=== PATIENT | female | born 1930 | race Caucasian/White ===

== ENCOUNTER 2016-10-05 12:23 | Inpatient (IN) | payer OTHER ==
[~2016-10-05] VITALS: Ht 160 cm; Wt 52.9 kg
[~2016-10-05 12:23] MED LIST: AMLO5TAB2 PO; APR25 PO; ASPCH81X PO; ATOR-22 PO; CYAN500T13 PO; ISOS30TA3 PO; LEVO50TA6 PO; LOSA1TAB PO; MIRT15TA PO; NTRGSL4 UT; OMEP20CA9 PO; PRED-301 PO; SOTA80TA PO; WARF5TAB7 PO
[2016-10-05] MEDS ORDERED: SODIUM CHLORIDE 0.9% 1000ML 1,000 ML IV STA (12:59)
[2016-10-05 13:20] LABS: BASO % 0.3 %; BASO ABS # 0.03 K/uL (0-0.2); COMPLETE YES; EOS % 1.3 %; HEMATOCRIT 40.7 % (37-47); IG% 0.2 %; LYMPH % 10.2 %; LYMPH ABS # 1.14 K/uL (1.2-3.4); MEAN CELL VOLUME 98.3 fL (80-100); MEAN CORPUSCULAR HEMOGLOBIN 31.4 pg (25-34); MEAN CORPUSCULAR HGB CONC 31.9 g/dl (32-36); MEAN PLATELET VOLUME 10.3 fL (7.4-10.4); MONO % 4.9 %; NEUT % 83.1 %; PLATELET COUNT 289 K/uL (130-400); RED BLOOD COUNT 4.14 M/uL (4.2-5.4); WHITE BLOOD COUNT 11.19 K/uL (4.8-10.8)
[2016-10-05 13:39] LABS: BUN/CREATININE RATIO 18.6 (10-20); CALCIUM 8.9 mg/dl (8.5-10.1); CREATININE 1.3 mg/dl (0.60-1.20); POTASSIUM 4.5 mmol/L (3.5-5.1)
[2016-10-05 13:55] LABS: INR 2.5 (0.9-1.1); PROTHROMBIN TIME (PATIENT) 27.9 SECONDS (9.0-12.0)
[2016-10-05 14:01] LABS: URINE APPEARANCE CLEAR (CLEAR); URINE BILIRUBIN NEG (NEG); URINE COLOR YELLOW; URINE NITRITE NEG (NEG); URINE SPECIFIC GRAVITY 1.012 (1.000-1.030); UROBILINOGEN NEG (NEG); ZZUR CULT IF INDIC CLEAN CATCH NO
[2016-10-05 14:08] LABS: MANUAL MICROSCOPIC REQUIRED? NO; REVIEW REQ? NO
--- NOTE | 2016-10-05 14:09 | DIAGNOSTIC IMAGING REPORT ---
CT SCAN OF THE BRAIN WITHOUT IV CONTRAST CLINICAL HISTORY: Fall. Headache. And correlated patient. COMPARISON STUDY: CT of the brain dated 07/28/2015. TECHNIQUE: Unenhanced axial CT scan of the brain is performed from the vertex to the skull base. CT DOSE: 537.48 mGy.cm FINDINGS: Brain parenchyma: There are age-related involutional changes noting moderate subcortical and periventricular microangiopathic change. There is no hemorrhage, mass effect, or evidence of acute territorial ischemia by CT criteria. Soliman-white matter is preserved. No extra-axial fluid collection is seen. Ventricles, sulci, cisterns: Prominent secondary to involutional change. Intracranial vasculature: There is atherosclerotic calcification of the cavernous carotid and vertebral arteries. Calvarium: The skeletal structures are osteopenic. No depressed calvarial fracture is seen. Sinuses and mastoids: The visualized paranasal sinuses are clear. The mastoid air cells are well pneumatized. Orbits: The bony orbits are grossly intact. There are bilateral ocular lens implants. IMPRESSION: There is no hemorrhage, mass effect, or evidence of acute territorial ischemia by CT criteria. Electronically signed by: Harry George M.D. 10/05/2016 2:08 PM Dictated Date/Time: 10/05/2016 2:06 PM
--- NOTE | 2016-10-05 14:12 | EMERGENCY ROOM VISIT NOTE ---
History Report prepared by Cali: Noreen Waggoner Under the Supervision of: Dr. Wily Greene M.D. First contact with patient: 12:45 Chief Complaint: HYPERTENSION Stated Complaint: HIGH BLOOD PRESSURE History of Present Illness The patient is an 86 year old female who presents to the Emergency Room with complaints of an episode of hypertension starting a week ago. The patient states that her son in law came and told her she should check it and it was 180 / something. She reports that when she checked it again the next morning it was back to normal so she thought nothing of it. She reports that the past few days she hasn't been feeling well and thought it was due to her hypertension. She states that when she took her BP today it was 213/87. She states that she called her PCP and they told her to come to the ED. The patient complains of fatigue, lightheadedness, and shortness of breath with exertion that is unchanged from her baseline. The patient denies chest pain, nausea, vomiting, urinary symptoms, and forgetting to take her medicine. The patient notes that two weeks ago she fell in her garden and hit her head hard. She reports that she is on Coumadin and denies loss of consciousness. She notes a history of a heart attack and atrial fibrillation. Source of History: patient Onset: a week ago Position: other (global) Quality: other (global) Timing: other (episode) Modifying Factors (Worsening): exertion Associated Symptoms: + SOB, + fatigue, No LOC, No chest pain, No nausea, No vomiting, No urinary symptoms Note: The patient complains of lightheadedness. The patient denies forgetting to take her medicine. Review of Systems See HPI for pertinent positives and negatives. A total of ten systems were reviewed and were otherwise negative. Past Medical & Surgical Medical Problems: (1) Afib (2) Anxiety (3) CAD (coronary artery disease) (4) CKD (chronic kidney disease) stage 3, GFR 30-59 ml/min (5) Dyslipidemia (6) Elevated troponin (7) Esophageal dysmotility (8) Gastroesophageal reflux (9) Hypertensive urgency (10) Hypothyroidism (11) Insomnia (12) Paroxysmal atrial fibrillation (13) PMR (polymyalgia rheumatica) (14) Raynauds disease (15) Urge incontinence Surgical Problems: (1) History of D&C (2) Hx of tonsillectomy Family History No pertinent family history Social History Smoking Status: Never Smoker Alcohol Use: none Marital Status: Housing Status: lives with family Occupation Status: retired Current/Historical Medications Scheduled Amlodipine Besylate (Amlodipine Besylate), 2.5 MG PO DAILY Aspirin (Aspirin Chewable), 81 MG PO QAM Atorvastatin (Atorvastatin Calcium), 1 DAILY Clonidine HCl (Clonidine HCl), 0.1 DAILY Docusate Sodium (Colace), 1 CAP PO BID Levothyroxine Sodium (Synthroid), 1 TAB DAILY Losartan Potassium (Cozaar), 50 MG PO DAILY Mirtazapine (Remeron), 0.5 TAB PO HS Prednisone (Prednisone), 5 MG PO DAILY Sotalol Hcl (Sotalol Hcl), 40 MG PO BID Sotalol Hcl (Sotalol Hcl), 0.5 TAB PO BID Warfarin Sod (Jantoven), 5 MG PO QPM Scheduled PRN Nitroglycerin (Nitrostat), 1 TAB UT UD PRN for chest pain or esophageal spasm Senna (Senna Lax), 1 for Constipation Miscellaneous Medications Polyethylene (Miralax) Allergies Coded Allergies: No Known Allergies (Unverified , 08/29/15) Physical Exam Vital Signs Date Time Temp Pulse Resp B/P (MAP) Pulse Ox O2 Delivery O2 Flow Rate FiO2 10/05/16 19:00 Room Air 10/05/16 18:31 58 18 117/53 94 Room Air 10/05/16 17:19 67 28 132/96 97 Room Air 10/05/16 17:04 62 10/05/16 14:23 54 18 113/57 94 Room Air 10/05/16 13:30 98/57 10/05/16 13:28 56 20 130/73 95 Room Air 10/05/16 13:00 65 10/05/16 12:58 64 18 125/65 96 Room Air 10/05/16 12:58 97 Room Air 10/05/16 12:28 36.4 65 18 190/91 98 Room Air Physical Exam GENERAL: Awake, alert, well-appearing, in no acute distress. Fatigue. HENT: Normocephalic, atraumatic. Dry mucus membranes. EYES: Normal conjunctiva. Sclera non-icteric. NECK: Supple. No nuchal rigidity. FROM. No JVD. RESPIRATORY: Clear to auscultation. CARDIAC: Regular rate, normal rhythm. Extremities warm and well perfused. Pulses equal. ABDOMEN: Soft, non-distended. No tenderness to palpation. No rebound or guarding. No masses. RECTAL: Deferred. MUSCULOSKELETAL: Chest examination reveals no tenderness. The back is symmetrical on inspection without obvious abnormality. There is no CVA tenderness to palpation. No joint edema. LOWER EXTREMITIES: Calves are equal size bilaterally and non-tender. No edema. No discoloration. NEURO: Normal sensorium. No sensory or motor deficits noted. SKIN: No rash or jaundice noted. Medical Decision & Procedures ER Provider Diagnostic Interpretation: Radiology results as stated below per my review and radiologist interpretation: CHEST ONE VIEW PORTABLE CLINICAL HISTORY: CHEST PAIN dyspnea COMPARISON STUDY: 08/29/2015 FINDINGS: Heart size top normal. Bronchovascular prominence of the lung bases. Upper lungs are considered clear. Minimal apical pleural thickening considered chronic. IMPRESSION: Mild pulmonary vascular congestion. The above report was generated using voice recognition software. It may contain grammatical, syntax or spelling errors. Electronically signed by: Ciro Herrera M.D. 10/05/2016 2:31 PM Dictated Date/Time: 10/05/2016 2:[address] SCAN OF THE BRAIN WITHOUT IV CONTRAST CLINICAL HISTORY: Fall. Headache. And correlated patient. COMPARISON STUDY: CT of the brain dated 07/28/2015. TECHNIQUE: Unenhanced axial CT scan of the brain is performed from the vertex to the skull base. CT DOSE: 537.48 mGy.cm FINDINGS: Brain parenchyma: There are age-related involutional changes noting moderate subcortical and periventricular microangiopathic change. There is no hemorrhage, mass effect, or evidence of acute territorial ischemia by CT criteria. Soliman-white matter is preserved. No extra-axial fluid collection is seen. Ventricles, sulci, cisterns: Prominent secondary to involutional change. Intracranial vasculature: There is atherosclerotic calcification of the cavernous carotid and vertebral arteries. Calvarium: The skeletal structures are osteopenic. No depressed calvarial fracture is seen. Sinuses and mastoids: The visualized paranasal sinuses are clear. The mastoid air cells are well pneumatized. Orbits: The bony orbits are grossly intact. There are bilateral ocular lens implants. IMPRESSION: There is no hemorrhage, mass effect, or evidence of acute territorial ischemia by CT criteria. Electronically signed by: Harry George M.D. 10/05/2016 2:08 PM Dictated Date/Time: 10/05/2016 2:06 PM Laboratory Results Test 10/05/16 12:50 10/05/16 13:45 Immature Granulocyte % (Auto) 0.2 % White Blood Count 11.19 K/uL (4.8-10.8) Red Blood Count 4.14 M/uL (4.2-5.4) Hemoglobin 13.0 g/dL (12.0-16.0) Hematocrit 40.7 % (37-47) Mean Corpuscular Volume 98.3 fL (80-100) Mean Corpuscular Hemoglobin 31.4 pg (25-34) Mean Corpuscular Hemoglobin Concent 31.9 g/dl (32-36) Platelet Count 289 K/uL (130-400) Mean Platelet Volume 10.3 fL (7.4-10.4) Neutrophils (%) (Auto) 83.1 % Lymphocytes (%) (Auto) 10.2 % Monocytes (%) (Auto) 4.9 % Eosinophils (%) (Auto) 1.3 % Basophils (%) (Auto) 0.3 % Neutrophils # (Auto) 9.31 K/uL (1.4-6.5) Lymphocytes # (Auto) 1.14 K/uL (1.2-3.4) Monocytes # (Auto) 0.55 K/uL (0.11-0.59) Eosinophils # (Auto) 0.14 K/uL (0-0.5) Basophils # (Auto) 0.03 K/uL (0-0.2) Immature Granulocyte # (Auto) 0.02 K/uL (0.00-0.02) Pro-B-Type Natriuretic Peptide 1656 pg/ml (0-1800) Urine Color YELLOW Urine Appearance CLEAR (CLEAR) Urine pH 7.0 (4.5-7.5) Urine Specific [place] 1.012 (1.000-1.030) Urine Protein NEG (NEG) Urine Glucose (UA) NEG (NEG) Urine Ketones NEG (NEG) Urine Occult Blood NEG (NEG) Urine Nitrite NEG (NEG) Urine Bilirubin NEG (NEG) Urine Urobilinogen NEG (NEG) Urine Leukocyte Esterase NEG (NEG) Laboratory results reviewed by me Medications Administered Medications (Trade) Dose Ordered Sig/Anusha Route Start Time Stop Time Status Last Admin Dose Admin Sodium Chloride 1,000 ml @ 999 mls/hr Q1H1M STAT IV 10/05/16 12:59 10/05/16 13:59 DC 10/05/16 13:29 999 MLS/HR Aspirin (Aspirin Chew) 324 mg NOW STAT PO 10/05/16 14:32 10/05/16 14:33 DC 10/05/16 14:37 324 MG Heparin Sodium/ Dextrose 1 ea NOW STAT N/A 10/05/16 16:51 10/05/16 16:54 DC 10/05/16 17:20 1 EA Heparin Sodium/ Dextrose 500 ml @ 9 mls/hr Q24H PRN IV 10/05/16 17:15 10/06/16 08:33 DC 10/06/16 04:29 9 MLS/HR Heparin Sodium (Porcine) (Heparin Sq 5000 Unit/0.5ml) 5,000 unit STK-MED ONCE .ROUTE 10/05/16 17:17 10/05/16 17:18 DC 10/05/16 17:19 3,000 UNIT ECG Indication: SOB/dyspnea Rate (beats per minute): 56 Rhythm: sinus bradycardia Findings: nonspecific-ST abn (Anterolateral), other (normal axis) Comparison ECG Date: REPEAT Change: Unchanged. ED Course 1256: The patient was evaluated in room B9. A complete history and physical exam was performed. 1259: Ordered NSS 1000 ml @ 999 mls/hr IV. 1432: Ordered Aspirin 324 mg PO. 1607: I reevaluated the patient. I discussed the results and treatment plan with the patient. She verbalized understanding and agreement. 1639: Discussed the patient's case with NANDO Marcos. The patient will be evaluated for further treatment and disposition. Medical Decision I reviewed the patient's past medical history, medications, and the nursing notes as described above. Differential diagnoses include dehydration, electrolyte abnormality, infection pneumonia vs urinary, ACS, CHF, idiopathic hypertension. Patient is a 86-year-old woman with a past medical history of CAD status post ID and stent, PMR, CKD, HTN who presents emergency Department with complaint of fatigue and lightheadedness over the past several days and increasing blood pressure, she checked her blood pressure today and had was in the systolic in the 200s, she called her doctor and was told to go to the emergency department. Patient had taken her clonidine prior to arrival in the Center blood pressure was in the 130s on arrival. Otherwise appears patient reported reolution of her symptoms although still felt fatigued. Patient with dry mucous membranes clinically dry appearing reporting decreased by mouth intake over the past week. EKG on arrival with nonspecific anterior lateral ST abnormalities that was unchanged from previously. Chest x-ray unremarkable. Labs notable for a troponin elevation to 0.1. Patient was given aspirin. Considering clinically dry appearing and patient was denying chest pain or shortness of breath unclear if active ID vs resolving vs demand. Reevaluated the patient and she continued denied chest pain shortness of breath and felt much improved with IVF alone. On further questioning patient did admit to feeling symptoms of reflux repeatedly over the past week. Three-hour delta troponin was sent to assess trend and had increased. Thus patient was ordered heparin. Patient admitted to medicine service for further management. Of note, patient reported mechanical fall 2 weeks ago with +HS but -LOC. Did not seek medical attention. While patient denied GROVE, n/v, considering patient is on Coumadin CT head done and was negative. Medication Reconcilliation Current Medication List: was personally reviewed by me Blood Pressure Screening Patient's blood pressure: Elevated blood pressure Blood pressure disposition: Elevated BP felt to be situational Consults Time Called: 1633 Consulting Physician: Emily Marcos Returned Call: [phone] Discussed the patient's case with NANDO Marcos. The patient will be evaluated for further treatment and disposition. Impression Primary Impression: Fatigue Additional Impression: NSTEMI (non-ST elevated myocardial infarction) Scribe Attestation The scribe's documentation has been prepared under my direction and personally reviewed by me in its entirety. I confirm that the note above accurately reflects all work, treatment, procedures, and medical decision making performed by me. Departure Information Dispostion Being Evaluated By Hospitalist Referrals Negra Weber M.D. (PCP) Patient Instructions My [facility] Problem Qualifiers
[2016-10-05] MEDS ORDERED: ASPIRIN 81 MG CHEW PO STA (14:32)
--- NOTE | 2016-10-05 14:33 | DIAGNOSTIC IMAGING REPORT ---
CHEST ONE VIEW PORTABLE CLINICAL HISTORY: CHEST PAIN dyspnea COMPARISON STUDY: 08/29/2015 FINDINGS: Heart size top normal. Bronchovascular prominence of the lung bases. Upper lungs are considered clear. Minimal apical pleural thickening considered chronic. IMPRESSION: Mild pulmonary vascular congestion. The above report was generated using voice recognition software. It may contain grammatical, syntax or spelling errors. Electronically signed by: Ciro Herrera M.D. 10/05/2016 2:31 PM Dictated Date/Time: 10/05/2016 2:31 PM
[2016-10-05] MEDS ORDERED: HEPARIN SOD (PORCINE) 1000 UNIT/ML 10 ML VIAL IV STA (17:03)
[2016-10-05] MEDS ORDERED: HEPARIN SOD 5000 UNIT/0.5 ML CARP ONE (17:17)
[2016-10-05] MEDS: HEPARIN 25,000 UNIT/500ML D5W 500 ML IV PRN (17:20)
[2016-10-05] MEDS ORDERED: ACETAMINOPHEN 325 MG TAB PO PRN (17:30)
[2016-10-05] MEDS ORDERED: ONDANSETRON INJ 2 MG/ML 2 ML VIAL IV PRN (17:30)
[2016-10-05] MEDS ORDERED: NITROGLYCERIN 0.4 MG SL PER TAB CHARGE SL PRN (17:30)
[2016-10-05] MEDS ORDERED: HEPARIN IV LOW DOSE NO BOLUS STA (17:34)
[2016-10-05] MEDS ORDERED: DOCU-94 PO (17:39)
[2016-10-05] MEDS ORDERED: MRLP17X (17:39)
[2016-10-05] MEDS ORDERED: SNK (17:40)
[2016-10-05] MEDS ORDERED: NRV5 PO (17:41)
[2016-10-05] MEDS ORDERED: SYN75 (17:41)
[2016-10-05] MEDS ORDERED: LOSA50TA6 PO (17:42)
[2016-10-05] MEDS ORDERED: SOTA80TA PO (17:43)
[2016-10-05] MEDS ORDERED: MIRT15TA PO (17:44)
[2016-10-05] MEDS ORDERED: LPT40 (17:54)
[2016-10-05] MEDS ORDERED: CLON-460 (17:54)
[2016-10-05] MEDS ORDERED: POLYETHYLENE (MIRALAX) 17 GM PACK PO PRN (18:00)
[2016-10-05] MEDS ORDERED: CLONIDINE HCL 0.1 MG TAB PO PRN (18:00)
[2016-10-05] MEDS ORDERED: SENNA 8.6 MG TAB PO PRN (18:00)
--- NOTE | 2016-10-05 18:17 | History and Physical ---
History & Physical Date & Time of Service: Oct 05, 2016 at 18:08 Chief Complaint: High Blood Pressure Primary Care Physician: Negra Weber M.D. History of Present Illness Source: patient Patient is an 86yo Female with a PMH of HTN, CAD s/p NSTEMI (05/05), Paroxysmal A Fib (on coumadin), CKD III, HLD, hypothyroidism who presents with elevated blood pressure over the past week. Readings have shown SBP >180s over the past week, with one SBP reading >200 this morning. Patient then took Clonidine 0.1mg tab x 1 and when BP remained >200, she presented to the ED. During this time, patient endorses feeling fatigued. Denies blurred vision, headache, nausea/ vomiting, chest pain, or lower extremity swelling. Endorses SOB with exertion but says that is her baseline. In April of 2015, patient came to [facility] with CP and was found to have an NSTEMI. Underwent cardiac cath and LAD was found to be 70% occluded with medical management recommended. Echo performed at the same time showed EF: 60-65% with moderate LVH. Has been compliant with all medications and follows with Dr. Washington for cardiology. Patient lives alone, ambulates without an assistive device and performs all ADLs. Past Medical/Surgical History Medical Problems: (1) Afib Status: Chronic (2) Anxiety Status: Chronic (3) CAD (coronary artery disease) Status: Chronic (4) CKD (chronic kidney disease) stage 3, GFR 30-59 ml/min Status: Chronic (5) Dyslipidemia Status: Chronic (6) Esophageal dysmotility Status: Chronic (7) Gastroesophageal reflux Status: Chronic (8) Hypothyroidism Status: Chronic (9) Insomnia Status: Chronic (10) Paroxysmal atrial fibrillation Status: Chronic (11) PMR (polymyalgia rheumatica) Status: Chronic (12) Raynauds disease Status: Chronic (13) Urge incontinence Status: Chronic Surgical Problems: (1) History of D&C Permanent Comment: 1950 and 1969 Status: Chronic (2) Hx of tonsillectomy Status: Chronic Family History No pertinent family history Social History Smoking Status: Never Smoker Marital Status: Housing status: lives alone Occupational Status: retired Immunizations History of Influenza Vaccine: Yes Influenza Vaccine Date: Sep 19, 2014 History of Pneumococcal: Yes Multi-Drug Resistant Organisms History of MDRO: No Allergies Coded Allergies: No Known Allergies (Unverified , 08/29/15) Home Medications Scheduled Amlodipine Besylate (Amlodipine Besylate), 2.5 MG PO DAILY Aspirin (Aspirin Chewable), 81 MG PO QAM Atorvastatin (Atorvastatin Calcium), 1 DAILY Clonidine HCl (Clonidine HCl), 0.1 DAILY Docusate Sodium (Colace), 1 CAP PO BID Levothyroxine Sodium (Synthroid), 1 TAB DAILY Losartan Potassium (Cozaar), 50 MG PO DAILY Mirtazapine (Remeron), 0.5 TAB PO HS Prednisone (Prednisone), 5 MG PO DAILY Sotalol Hcl (Sotalol Hcl), 40 MG PO BID Sotalol Hcl (Sotalol Hcl), 0.5 TAB PO BID Warfarin Sod (Jantoven), 5 MG PO QPM Scheduled PRN Nitroglycerin (Nitrostat), 1 TAB UT UD PRN for chest pain or esophageal spasm Senna (Senna Lax), 1 for Constipation Miscellaneous Medications Polyethylene (Miralax) Review of Systems Ten systems reviewed and negative except as noted in the HPI. Physical Exam Vital Signs Date Time Temp Pulse Resp B/P (MAP) Pulse Ox O2 Delivery O2 Flow Rate FiO2 10/05/16 17:19 67 28 132/96 97 Room Air 10/05/16 17:04 62 10/05/16 14:23 54 18 113/57 94 Room Air 10/05/16 13:30 98/57 10/05/16 13:28 56 20 130/73 95 Room Air 10/05/16 13:00 65 10/05/16 12:58 64 18 125/65 96 Room Air 10/05/16 12:58 97 Room Air 10/05/16 12:28 36.4 65 18 190/91 98 Room Air General Appearance: WD/WN, no apparent distress Head: normocephalic, atraumatic Eyes: normal inspection, sclerae normal ENT: hearing grossly normal Neck: supple, no adenopathy, thyroid normal, no JVD, trachea midline Respiratory/Chest: chest non-tender, lungs clear, normal breath sounds, no respiratory distress, no accessory muscle use Cardiovascular: regular rate, rhythm, no murmur, normal peripheral pulses Abdomen/GI: normal bowel sounds, non tender, soft, no organomegaly Back: normal inspection Extremities/Musculoskelatal: normal inspection, no calf tenderness, normal capillary refill, no pedal edema Neurologic/Psych: no motor/sensory deficits, alert, normal mood/affect, normal reflexes, oriented x 3 Skin: normal color, warm/dry, no rash Diagnostics Laboratory Results Results Past 24 Hours Test 10/05/16 12:50 10/05/16 13:45 10/05/16 16:05 10/05/16 17:41 Range/Units White Blood Count 11.19 4.8-10.8 K/uL Red Blood Count 4.14 4.2-5.4 M/uL Hemoglobin 13.0 12.0-16.0 g/dL Hematocrit 40.7 37-47 % Mean Corpuscular Volume 98.3 80-100 fL Mean Corpuscular Hemoglobin 31.4 25-34 pg Mean Corpuscular Hemoglobin Concent 31.9 32-36 g/dl Platelet Count 289 130-400 K/uL Mean Platelet Volume 10.3 7.4-10.4 fL Neutrophils (%) (Auto) 83.1 % Lymphocytes (%) (Auto) 10.2 % Monocytes (%) (Auto) 4.9 % Eosinophils (%) (Auto) 1.3 % Basophils (%) (Auto) 0.3 % Neutrophils # (Auto) 9.31 1.4-6.5 K/uL Lymphocytes # (Auto) 1.14 1.2-3.4 K/uL Monocytes # (Auto) 0.55 0.11-0.59 K/uL Eosinophils # (Auto) 0.14 0-0.5 K/uL Basophils # (Auto) 0.03 0-0.2 K/uL RDW Standard Deviation 51.0 36.4-46.3 fL RDW Coefficient of Variation 14.2 11.5-14.5 % Immature Granulocyte % (Auto) 0.2 % Immature Granulocyte # (Auto) 0.02 0.00-0.02 K/uL Prothrombin Time 27.9 9.0-12.0 SECONDS Prothromb Time International Ratio 2.5 0.9-1.1 Sodium Level 141 136-145 mmol/L Potassium Level 4.5 3.5-5.1 mmol/L Chloride Level 107 98-107 mmol/L Carbon Dioxide Level 30 21-32 mmol/L Anion Gap 4.0 3-11 mmol/L Blood Urea Nitrogen 24 7-18 mg/dl Creatinine 1.30 0.60-1.20 mg/dl Est Creatinine Clear Calc Drug Dose 25.5 ml/min Estimated GFR () 43.0 Estimated GFR (Non- 37.1 BUN/Creatinine Ratio 18.6 10-20 Random Glucose 142 70-99 mg/dl Calcium Level 8.9 8.5-10.1 mg/dl Troponin I 0.143 2.670 0-0.045 ng/ml Pro-B-Type Natriuretic Peptide 1656 0-1800 pg/ml Urine Color YELLOW Urine Appearance CLEAR CLEAR Urine pH 7.0 4.5-7.5 Urine Specific [place] 1.012 1.000-1.030 Urine Protein NEG NEG Urine Glucose (UA) NEG NEG Urine Ketones NEG NEG Urine Occult Blood NEG NEG Urine Nitrite NEG NEG Urine Bilirubin NEG NEG Urine Urobilinogen NEG NEG Urine Leukocyte Esterase NEG NEG Diagnostic Radiology CXR: IMPRESSION: Mild pulmonary vascular congestion. CT head: IMPRESSION: There is no hemorrhage, mass effect, or evidence of acute territorial ischemia by CT criteria. EKG Possible Left atrial enlargement ST & T wave abnormality, consider anterolateral ischemia Impression Assessment and Plan Patient is an 86yo Female with a PMH of HTN, CAD s/p NSTEMI (05/05), Paroxysmal A Fib (on coumadin), CKD III, HLD, hypothyroidism who presents with elevated blood pressure over the past week. Hypertensive Urgency: resolved -SBP >180 x 1 week, SBP >200 today -Now 132/96 -No evidence of end organ damage -Continue close monitoring -Continue home meds (amlodipine, losartan, clonidine if SBP >160) Elevated Troponin: -Will treat as NSTEMI for now, pending further work-up -Initial troponin 0.143. Repeat 2.67 -No chest pain -Started on heparin in ED, given 324mg aspirin -Continue trending cardiac enzymes -Repeat EKG without changes -Consulted cardio. Recommended continuing heparin. Will see in AM. -Continue statin, baby aspirin -Not starting a beta luis m due to SBP 100-130s, pulse in the 60s -Repeat EKG in AM -Echo ordered CAD (s/p STEMI in 05/05): -No chest pain -NSTEMI in 05/05. Cardiac cath showed 70% LAD occlusion but medical management was recommended -Continue statin, anti-hypertensives, aspirin Paroxysmal Atrial Fibrillation: -Rate controlled, sinus aayush on admission -On coumadin; therapeutic INR of 2.5 -Now on therapeutic heparin; hold coumadin Hypothyroidism: -Continue synthroid CKD III: -Cr of 1.3, which is at baseline -Avoid nephrotoxic medications Insomnia: -Continue mirtazapine DVT Ppx: on heparin Code status: DNR, as discussed with patient. Also has a living will. PCP: Gus Dispo: SW consulted to help with discharge due to patient being >80 and lives alone Attending Addendum Pt was seen and examined. Agreed with Hemant COLLIER assessment and plan. 86yo Female with a PMH of HTN, CAD s/p NSTEMI (05/05), Paroxysmal A Fib (on coumadin) , CKD III, HLD, hypothyroidism who presents with elevated blood pressure. Denies any chest pain, Palpitation, dizziness and SOB. General- No acute distress, very pleasant Head- atraumatic Eyes- PERRL, EOMI ENT- oropharynx clear Neck- supple, no JVD, no bruits appreciated Lungs- clear to auscultation Heart- regular rhythm; no murmur Abdomen- normal bowel sounds, soft Extremities- no calf tenderness Neuro- alert, oriented x 3; PERRL, EOMI; no facial palsy Skin- warm & dry A/P Hypertensive Urgency BP on admission was 190/91 Stable now Continue close monitor BP closely -Continue home meds Elevated troponin Need to r/o ACS VS NSTEMI follow cardiac marker Asymptomatic monitor closely in telemetry Echo in am Cardio consult (Hemant COLLIER discussed case with Dr. Miranda) CODE STATUS DNR Gavino Vaca MD Level of Care Telemetry Advanced Directives Existing Advance Directive: Yes Existing Living Will: Yes Resuscitation Status DO NOT RESUSCITATE VTE Prophylaxis VTE Risk Assessment Done? Y/N: Yes Risk Level: Moderate Given or contraindicated: Unfractionated heparin SQ Social Service Consult >80 yr.& Lives Alone
[2016-10-05 18:46] LABS: PARTIAL THROMBOPLASTIN RATIO > 11.0
[2016-10-05 20:08] VITALS: BP 162/75; PULSE 58; TEMP 36.8; Ht 160 cm; Wt 52.9 kg
[2016-10-05] MEDS: SOTALOL HCL 80 MG TAB PO SCH (21:01)
[2016-10-05] MEDS: DOCUSATE SODIUM 100 MG CAP PO SCH (21:01)
[2016-10-05] MEDS: MIRTAZAPINE TAB 15 MG TAB PO SCH (21:01)
[2016-10-05 21:13] LABS: PARTIAL THROMBOPLASTIN RATIO 8.3
[2016-10-05 23:29] VITALS: BP 118/59; PULSE 60; TEMP 36.5; O2SAT 95
[2016-10-05 23:57] LABS: CKMB/CK RATIO 3.6 (0-3.0)
[2016-10-06 03:29] VITALS: BP 138/58; PULSE 57; TEMP 36.6; O2SAT 91
[2016-10-06 03:42] LABS: HEMATOCRIT 35.3 % (37-47); MEAN CORPUSCULAR HEMOGLOBIN 30.5 pg (25-34); MEAN CORPUSCULAR HGB CONC 31.4 g/dl (32-36); PLATELET COUNT 240 K/uL (130-400); RED BLOOD COUNT 3.64 M/uL (4.2-5.4); WHITE BLOOD COUNT 7.57 K/uL (4.8-10.8)
[2016-10-06 03:51] LABS: PARTIAL THROMBOPLASTIN RATIO 1.3
[2016-10-06 04:07] LABS: BUN/CREATININE RATIO 19.6 (10-20); CALCIUM 8.2 mg/dl (8.5-10.1); CKMB/CK RATIO 3.3 (0-3.0); POTASSIUM 4.1 mmol/L (3.5-5.1)
[2016-10-06] MEDS: HEPARIN 25,000 UNIT/500ML D5W 500 ML IV PRN (04:29)
[2016-10-06] MEDS: LEVOTHYROXINE 75 MCG TAB PO SCH (05:43)
[2016-10-06] MEDS ORDERED: PERFLUTREN LIPID MICROSPHERE (DEFINITY) IV ONE (08:08)
[2016-10-06] MEDS: LOSARTAN POTASSIUM 50 MG TAB PO SCH (08:23)
[2016-10-06] MEDS: ATORVASTATIN 40 MG TAB PO SCH (08:24)
[2016-10-06] MEDS: AMLODIPINE BESYLATE 5 MG TAB PO SCH (08:24)
[2016-10-06] MEDS: DOCUSATE SODIUM 100 MG CAP PO SCH ×2 (08:24→20:56)
[2016-10-06] MEDS: SOTALOL HCL 80 MG TAB PO SCH ×2 (08:26→20:57)
--- NOTE | 2016-10-06 09:17 | Cardiology Consultation ---
Cardiology Consultation Requesting Physician: Dr. Vaca Attending Catering Cook: Dr. Андрей Washington History of Present Illness Patient is a 86 year old female seen in consultation regarding NSTEMI. Patient well known to the undersigned with history of coronary disease and previous NSTEMI 04/2015, paroxysmal atrial fibrillation maintained in sinus rhythm with sotalol, labile hypertension, and dyslipidemia. Patient presented to the emergency department with elevated blood pressure. Reports not feeling well for several days. Chronic dyspnea on exertion mildly progressive over the past few weeks. States "I just don't feel like doing anything". Chronic fatigue also noted. Patient was found have elevated troponins overnight. Resting 2-D transthoracic echo is pending at this time. She tolerated her a.m. meal. Denies abdominal discomfort, nausea or vomiting. No orthopnea, PND, lower exam edema, or claudication. Past Medical/Surgical History Problem List: Medical Problems: (1) Afib (2) Anxiety (3) CAD (coronary artery disease) (4) CKD (chronic kidney disease) stage 3, GFR 30-59 ml/min (5) Dyslipidemia (6) Elevated troponin (7) Esophageal dysmotility (8) Gastroesophageal reflux (9) Hypertensive urgency (10) Hypothyroidism (11) Insomnia (12) Paroxysmal atrial fibrillation (13) PMR (polymyalgia rheumatica) (14) Raynauds disease (15) Urge incontinence Surgical Problems: (1) History of D&C (2) Hx of tonsillectomy Family History No pertinent family history Denies family history of premature coronary disease or sudden cardiac , however, noncontributory given patient's advanced age. Social History Lifelong nonsmoker. and retired. Lives alone. Smoking Status: Never Smoker Marital Status: Housing Status: lives alone Occupation: retired Review Of Systems General: The patient denies weight change, night sweats, fever, chills. Head: The patient denies headache and prior head trauma. Cardiovascular: The patient denies chest pain or chest discomfort, dyspnea on exertion, palpitations, PND, orthopnea, edema, spontaneous shortness of breath, syncope and near syncope. Pulmonary: The patient denies cough, wheeze, pleurisy, hemoptysis, sputum, and excessive snoring. Gastrointestinal: The patient denies nausea, vomiting, diarrhea, constipation, bloating, hematemesis, hematochezia, and abdominal pain. Skin: The patient denies diaphoresis and rash. Musculoskeletal: The patient denies joint pain, joint swelling, myalgia, back pain, neck pain and prior injuries. Neurological: The patient denies prior stroke and seizures Allergies Coded Allergies: No Known Allergies (Unverified , 08/29/15) Medications Reported Home Medications Medications Dose Route/Sig Max Daily Dose Days Date Category Clonidine HCl 0.3 Mg Tab 0.1 DAILY 10/05/16 Reported Atorvastatin Calcium (Atorvastatin) 40 Mg Tab 1 DAILY 10/05/16 Reported Remeron (Mirtazapine) 15 Mg Tab 0.5 Tab PO HS 30 10/05/16 Reported Sotalol Hcl 80 Mg Tab 0.5 Tab PO BID 30 10/05/16 Reported Cozaar (Losartan Potassium) 50 Mg Tab 50 Mg PO DAILY 10/05/16 Reported Synthroid (Levothyroxine Sodium) 75 Mcg Tab 1 Tab DAILY 10/05/16 Reported Amlodipine Besylate 5 Mg Tab 2.5 Mg PO DAILY 10/05/16 Reported Senna Lax (Senna) 8.6 Mg Tab 1 PRN 10/05/16 Reported Colace (Docusate Sodium) 100 Mg Cap 1 Cap PO BID 15 10/05/16 Reported Miralax (Polyethylene) 17 Gm Pow 10/05/16 Reported Prednisone 5 Mg Tab 5 Mg PO DAILY 08/29/15 Reported Jantoven (Warfarin Sodium) 5 Mg Tab 5 Mg PO QPM 08/12/15 Reported Nitrostat (Nitroglycerin) 0.4 Mg/1 Tab Subl 1 Tab UT UD PRN 07/28/15 Reported Sotalol Hcl 80 Mg Tab 40 Mg PO BID 30 06/02/15 Reported Aspirin Chewable (Aspirin) 81 Mg Chew 81 Mg PO QAM 04/23/15 Reported Physical Exam Vital Signs (Last 8hrs): Last 8 Hrs Date Time Temp Pulse Resp B/P (MAP) Pulse Ox O2 Delivery O2 Flow Rate FiO2 10/06/16 04:00 Room Air 10/06/16 03:29 36.6 57 15 138/58 (84) 91 Room Air 10/06/16 02:12 Room Air General Appearance: Alert and Oriented x3. NAD. Head: Normocephalic Atraumatic. Eyes: PERRLA, EOMI, conjunctiva and sclera clear Neck: Supple. No carotid bruits noted. No JVD. No HJD. Respiratory: Breath sounds clear to auscultation bilaterally. No w/r/r. Cardiovascular: Reg rate and rhythm. S1 and S2 noted. No murmurs, rubs, gallops. PMI non displace. Abdomen: Normal bowel sounds, soft nontender. no abdominal bruits. Extremities: No edema, no clubbing or cyanosis. distal pulses 2/4 bilaterally. Neuro: No focal deficits. Psychiatric: Normal affect. Data Last 24 Hours Test 10/05/16 12:50 10/05/16 13:45 10/05/16 16:05 10/05/16 17:41 White Blood Count 11.19 K/uL Red Blood Count 4.14 M/uL Hemoglobin 13.0 g/dL Hematocrit 40.7 % Mean Corpuscular Volume 98.3 fL Mean Corpuscular Hemoglobin 31.4 pg Mean Corpuscular Hemoglobin Concent 31.9 g/dl Platelet Count 289 K/uL Mean Platelet Volume 10.3 fL Neutrophils (%) (Auto) 83.1 % Lymphocytes (%) (Auto) 10.2 % Monocytes (%) (Auto) 4.9 % Eosinophils (%) (Auto) 1.3 % Basophils (%) (Auto) 0.3 % Neutrophils # (Auto) 9.31 K/uL Lymphocytes # (Auto) 1.14 K/uL Monocytes # (Auto) 0.55 K/uL Eosinophils # (Auto) 0.14 K/uL Basophils # (Auto) 0.03 K/uL RDW Standard Deviation 51.0 fL RDW Coefficient of Variation 14.2 % Immature Granulocyte % (Auto) 0.2 % Immature Granulocyte # (Auto) 0.02 K/uL Prothrombin Time 27.9 SECONDS Prothromb Time International Ratio 2.5 Sodium Level 141 mmol/L Potassium Level 4.5 mmol/L Chloride Level 107 mmol/L Carbon Dioxide Level 30 mmol/L Anion Gap 4.0 mmol/L Blood Urea Nitrogen 24 mg/dl Creatinine 1.30 mg/dl Est Creatinine Clear Calc Drug Dose 25.5 ml/min Estimated GFR () 43.0 Estimated GFR (Non- 37.1 BUN/Creatinine Ratio 18.6 Random Glucose 142 mg/dl Calcium Level 8.9 mg/dl Troponin I 0.143 ng/ml 2.670 ng/ml Pro-B-Type Natriuretic Peptide 1656 pg/ml Urine Color YELLOW Urine Appearance CLEAR Urine pH 7.0 Urine Specific [place] 1.012 Urine Protein NEG Urine Glucose (UA) NEG Urine Ketones NEG Urine Occult Blood NEG Urine Nitrite NEG Urine Bilirubin NEG Urine Urobilinogen NEG Urine Leukocyte Esterase NEG Activated Partial Thromboplast Time > 300.0 SECONDS Partial Thromboplastin Ratio > 11.0 Test 10/05/16 20:17 10/05/16 23:20 10/06/16 03:25 10/06/16 06:43 Activated Partial Thromboplast Time 218.0 SECONDS 34.3 SECONDS Partial Thromboplastin Ratio 8.3 1.3 Total Creatine Kinase 94 U/L 87 U/L Creatine Kinase MB 3.4 ng/ml 2.9 ng/ml Creatine Kinase MB Ratio 3.6 3.3 Troponin I 1.640 ng/ml 1.050 ng/ml White Blood Count 7.57 K/uL Red Blood Count 3.64 M/uL Hemoglobin 11.1 g/dL Hematocrit 35.3 % Mean Corpuscular Volume 97.0 fL Mean Corpuscular Hemoglobin 30.5 pg Mean Corpuscular Hemoglobin Concent 31.4 g/dl RDW Standard Deviation 50.0 fL RDW Coefficient of Variation 13.9 % Platelet Count 240 K/uL Mean Platelet Volume 10.0 fL Sodium Level 145 mmol/L Potassium Level 4.1 mmol/L Chloride Level 113 mmol/L Carbon Dioxide Level 29 mmol/L Anion Gap 3.0 mmol/L Blood Urea Nitrogen 20 mg/dl Creatinine 1.00 mg/dl Est Creatinine Clear Calc Drug Dose 33.2 ml/min Estimated GFR () 59.1 Estimated GFR (Non- 51.0 BUN/Creatinine Ratio 19.6 Random Glucose 80 mg/dl Calcium Level 8.2 mg/dl Bedside Glucose 82 mg/dl Test 10/06/16 08:54 Imaging: EKG: Sinus rhythm with anterior ST abnormality, consider ischemia. Prolonged QT. Telemetry reviewed: Sinus rhythm, sinus bradycardia Assessment & Plan Final impression: 1. 86-year-old female presents with hypertensive urgency and elevated troponin suggestive of acute coronary syndrome / NSTEMI. 2. Coronary artery disease with known 70% mid LAD per catheterization 04/2015. 3. Paroxysmal atrial fibrillation maintained in sinus rhythm with sotalol. INR therapeutic on admission. 4. CKD stage III 5. Dyslipidemia Plan/Recommendations: Discontinue intravenous heparin as patient's INR is therapeutic. I will repeat her INR this morning. Coumadin will remain on hold. Continue current antihypertensive medications. Blood pressure has stabilized. When necessary clonidine ordered. She also continue sotalol for rhythm control. Elevated troponins, progressive dyspnea on exertion, and known moderate CAD recommend repeat diagnostic cardiac catheterization. The risks, benefits, alternatives to procedure were discussed with patient. She is agreeable. Patient has consumed her a.m. meal. Procedure will likely be postponed until late this afternoon or early next week. Would recommend urgent catheterization with any recurrent symptoms at rest or dynamic ECG changes. I will review resting 2-D transthoracic echo when available. Thank you for allowing me to take part in the care of your patient.
--- NOTE | 2016-10-06 09:38 | Clinical Documentation Query ---
DEVAUGHN Fry : CLINICAL DOCUMENTATION QUERY Patient is an 86 year old female admitted for evaluation and treatment of hypertensive urgency and elevated troponin. Documentation regarding hypertensive urgency notes "no evidence of end organ damage". However, the presence of an elevated troponin in the absence of chest pain, EKG changes, etc, may precisely be the result of uncontrolled hypertension. Accordingly, as appropriate, consider documentation as suggested below in order to capture the associated risk of mortality and severity of illness associated with this important clinical diagnosis. Thank you. In your clinical opinion is this patient being managed for: ( ) Hypertensive crisis ( ) Other explanation of clinical findings (Please Explain) ( ) Unable to determine (Please Define) ( ) Need to Discuss ( ) Not Agree The medical record reflects the following clinical findings, treatment, and risk factors. Clinical Indicators: As above Treatment: Norvasc, Cozaar, Sotalol, Catapres, ASA, IV heparin Risk Factors: Uncontrolled hypertension Please clarify and document your clinical opinion in the progress notes and discharge summary. Terms such as "probable", "suspected", "likely", "questionable", "possible", or "still to be ruled out" are acceptable. IF IN AGREEMENT, YOU MUST DOCUMENT ABOVE DIAGNOSTIC STATEMENT IN DAILY PROGRESS NOTES AND DISCHARGE SUMMARY. This document is not part of the patient's record. Thank You, Dre Montes De Oca, JOÃO [phone]
[2016-10-06 09:42] VITALS: BP 154/88; PULSE 57; TEMP 36.9; O2SAT 96
[2016-10-06 09:46] LABS: PROTHROMBIN TIME (PATIENT) 22.1 SECONDS (9.0-12.0)
--- NOTE | 2016-10-06 09:46 | ECHOCARDIOGRAM REPORT ---
*NOTICE TO RECEIVING REPUBLICAN AGENCY This information is strictly Confidential and protected under [place] law. [place] law prohibits you from making any further disclosure of this information unless further disclosure is expressly permitted by the written consent of the person to whom it pertains or is authorized by law. A general authorization for the release of medical or other information is not sufficient for this purpose. Hospital accepts no responsibility if the information is made available to any other person, INCLUDING THE PATIENT. Interpretation Summary * Name: EMIL JAY Study Date: 10/06/2016 07:41 AM BP: 138/58 mmHg * Patient Location: C.2T\S\S229\S\1 HR: 56 * : 1930 (M/d/yyy) Gender: Female Height: 63 in * Age: 86 yrs Ethnicity: CA Weight: 114 lb * Ordering Physician: Kenneth Miranda * Referring Physician: Self, Referred * Performed By: Jasmyn Read RDCS * * Reason For Study: ND, HTN * BSA: 1.5 m2 * The study was technically adequate. * Compared to prior study, changes are noted. * -- Conclusions -- * Ejection Fraction = 60-65%. * Focal area of severe hypokinesis to akinesis involving the mid septum, otherwise, normal wall motion. * Aortic valve sclerosis mild, without significant aortic valvular stenosis. * There is mild mitral regurgitation. * The left atrium is mildly dilated. Procedure Details * A complete two-dimensional transthoracic echocardiogram was performed (2D, M-mode, Doppler and color flow Doppler). * A contrast injection of Definity was performed to improve assessment of LV function. * Contrast was injected into an intravenous site in the right arm. * One vial of Definity ultrasound contrast was diluted in normal saline to a total volume of 10 ml. A total of '4' ml of solution was administered during imaging. * Lot # [id number] of Definity utilized for procedure. * Expiration date OCT 06. * The attending nurse who injected the contrast agent was Abad Squires RN. Left Ventricle * The left ventricle is normal in size. * There is borderline concentric left ventricular hypertrophy. * Ejection Fraction = 60-65%. * Left ventricular systolic function is normal. * Focal area of severe hypokinesis to akinesis involving the mid septum, otherwise, normal wall motion. Right Ventricle * The right ventricle is normal size. * The right ventricular systolic function is normal as assessed by tricuspid annular plane systolic excursion (TAPSE) (normal >1.5 cm). Atria * The left atrium is mildly dilated. * Right atrial size is normal. * There is no evidence of atrial septal defect, but resolution does not allow assessment for a patent foramen ovale. Mitral Valve * The mitral valve is normal. * There is no mitral valve stenosis. * There is mild mitral regurgitation. Tricuspid Valve * The tricuspid valve is normal. * There is no tricuspid stenosis. * There is trace tricuspid regurgitation. * Doppler findings do not suggest pulmonary hypertension. Aortic Valve * The aortic valve is trileaflet. * Aortic valve sclerosis mild, without significant aortic valvular stenosis. * Aortic stenosis is absent. * There is no significant aortic regurgitation. Pulmonic Valve * The pulmonary valve is inadequately visualized, but the Doppler data is adequate for interpretation. * There is no pulmonic valvular stenosis. * Trace pulmonic valvular regurgitation. Great Vessels * The aortic root and proximal ascending aorta are normal sized. Pericardium/Pleural * There is no pericardial effusion. Great Vessels * Normal inferior vena cava size and collapsability with sniff indicates a normal right atrial pressure of 3 mmHg Left Ventricular Diastolic Function * Abnormal lateral TDI e' suggesting diastolic dysfunction. MMode 2D Measurements and Calculations IVSd 1.1 cm LVIDd 3.6 cm LVIDs 2.4 cm LVPWd 1.1 cm IVS/LVPW 0.98 FS 34.3 % EDV(Teich) 53.8 ml ESV(Teich) 19.2 ml EF(Teich) 64.3 % EDV(cubed) 46.0 ml ESV(cubed) 13.0 ml EF(cubed) 71.7 % LV mass(C)d 118.7 grams LV mass(C)dI 78.0 grams/m\S\2 SV(Teich) 34.6 ml SI(Teich) 22.7 ml/m\S\2 SV(cubed) 33.0 ml SI(cubed) 21.6 ml/m\S\2 Ao root diam 2.9 cm Ao root area 6.6 cm\S\2 ACS 1.4 cm LA dimension 3.1 cm asc Aorta Diam 2.3 cm LA/Ao 1.1 LVOT diam 2.0 cm LVOT area 3.0 cm\S\2 LVAd ap4 24.2 cm\S\2 LVLd ap4 6.7 cm EDV(MOD-sp4) 73.7 ml EDV(sp4-el) 74.3 ml LVAs ap4 12.8 cm\S\2 LVLs ap4 5.2 cm ESV(MOD-sp4) 27.7 ml ESV(sp4-el) 26.8 ml EF(MOD-sp4) 62.4 % EF(sp4-el) 63.9 % LVAd ap2 19.6 cm\S\2 LVLd ap2 5.6 cm EDV(MOD-sp2) 56.5 ml EDV(sp2-el) 58.6 ml LVAs ap2 11.3 cm\S\2 LVLs ap2 4.6 cm ESV(MOD-sp2) 23.5 ml ESV(sp2-el) 23.8 ml EF(MOD-sp2) 58.3 % EF(sp2-el) 59.4 % LVLd %diff -20.22 % EDV(MOD-bp) 70.3 ml LVLs %diff -13.90 % ESV(MOD-bp) 27.2 ml EF(MOD-bp) 61.3 % SV(MOD-sp4) 46.0 ml SI(MOD-sp4) 30.2 ml/m\S\2 SV(MOD-sp2) 33.0 ml SI(MOD-sp2) 21.6 ml/m\S\2 SV(MOD-bp) 43.1 ml SI(MOD-bp) 28.3 ml/m\S\2 SV(sp4-el) 47.5 ml SI(sp4-el) 31.2 ml/m\S\2 SV(sp2-el) 34.8 ml SI(sp2-el) 22.9 ml/m\S\2 Doppler Measurements and Calculations MV E max anila 99.2 cm/sec MV A max anila 89.3 cm/sec MV E/A 1.1 MV dec time 0.17 sec Ao V2 max 143.5 cm/sec Ao max PG 8.2 mmHg Ao max PG (full) 4.1 mmHg CONNER(V,A) 2.1 cm\S\2 CONNER(V,D) 2.1 cm\S\2 LV V1 max PG 4.1 mmHg LV V1 max 101.7 cm/sec PA V2 max 72.2 cm/sec PA max PG 2.1 mmHg PA acc slope 264.8 cm/sec\S\2 PA acc time 0.22 sec PI end-d anila 134.7 cm/sec PI max anila 175.4 cm/sec PI max PG 12.3 mmHg PI dec slope 161.9 cm/sec\S\2 PI P1/2t 317.2 msec TR max anila 249.2 cm/sec PA pr(Accel) -20.82 mmHg
[2016-10-06 10:45] VITALS: BP 146/70; PULSE 45; TEMP 37.1; O2SAT 96
--- NOTE | 2016-10-06 10:50 | Progress Note ---
Medicine Progress Note Date & Time of Visit: Oct 06, 2016 at 10:37. Subjective Pt was seen and examined Sitting in bed comfortable with no distress Pt said that she feels fine she denies any chest pain, palpitation, dizziness and SOB Objective Last 8 Hrs Date Time Temp Pulse Resp B/P (MAP) Pulse Ox O2 Delivery O2 Flow Rate FiO2 10/06/16 09:42 36.9 57 20 154/88 (110) 96 Room Air 10/06/16 04:00 Room Air 10/06/16 03:29 36.6 57 15 138/58 (84) 91 Room Air Physical Exam: General- No acute distress Head- atraumatic Eyes- PERRL, EOMI ENT- oropharynx clear Neck- supple, no JVD Lungs- clear to auscultation Heart- regular rhythm; no murmur Abdomen- normal bowel sounds, soft Extremities- no calf tenderness Neuro- alert, oriented x 3; PERRL, EOMI; no facial palsy Skin- warm & dry Laboratory Results: Last 24 Hours Test 10/05/16 12:50 10/05/16 13:45 10/05/16 16:05 10/05/16 17:41 White Blood Count 11.19 K/uL Red Blood Count 4.14 M/uL Hemoglobin 13.0 g/dL Hematocrit 40.7 % Mean Corpuscular Volume 98.3 fL Mean Corpuscular Hemoglobin 31.4 pg Mean Corpuscular Hemoglobin Concent 31.9 g/dl Platelet Count 289 K/uL Mean Platelet Volume 10.3 fL Neutrophils (%) (Auto) 83.1 % Lymphocytes (%) (Auto) 10.2 % Monocytes (%) (Auto) 4.9 % Eosinophils (%) (Auto) 1.3 % Basophils (%) (Auto) 0.3 % Neutrophils # (Auto) 9.31 K/uL Lymphocytes # (Auto) 1.14 K/uL Monocytes # (Auto) 0.55 K/uL Eosinophils # (Auto) 0.14 K/uL Basophils # (Auto) 0.03 K/uL RDW Standard Deviation 51.0 fL RDW Coefficient of Variation 14.2 % Immature Granulocyte % (Auto) 0.2 % Immature Granulocyte # (Auto) 0.02 K/uL Prothrombin Time 27.9 SECONDS Prothromb Time International Ratio 2.5 Sodium Level 141 mmol/L Potassium Level 4.5 mmol/L Chloride Level 107 mmol/L Carbon Dioxide Level 30 mmol/L Anion Gap 4.0 mmol/L Blood Urea Nitrogen 24 mg/dl Creatinine 1.30 mg/dl Est Creatinine Clear Calc Drug Dose 25.5 ml/min Estimated GFR () 43.0 Estimated GFR (Non- 37.1 BUN/Creatinine Ratio 18.6 Random Glucose 142 mg/dl Calcium Level 8.9 mg/dl Troponin I 0.143 ng/ml 2.670 ng/ml Pro-B-Type Natriuretic Peptide 1656 pg/ml Urine Color YELLOW Urine Appearance CLEAR Urine pH 7.0 Urine Specific [employer] 1.012 Urine Protein NEG Urine Glucose (UA) NEG Urine Ketones NEG Urine Occult Blood NEG Urine Nitrite NEG Urine Bilirubin NEG Urine Urobilinogen NEG Urine Leukocyte Esterase NEG Activated Partial Thromboplast Time > 300.0 SECONDS Partial Thromboplastin Ratio > 11.0 Test 10/05/16 20:17 10/05/16 23:20 10/06/16 03:25 10/06/16 06:43 Activated Partial Thromboplast Time 218.0 SECONDS 34.3 SECONDS Partial Thromboplastin Ratio 8.3 1.3 Total Creatine Kinase 94 U/L 87 U/L Creatine Kinase MB 3.4 ng/ml 2.9 ng/ml Creatine Kinase MB Ratio 3.6 3.3 Troponin I 1.640 ng/ml 1.050 ng/ml White Blood Count 7.57 K/uL Red Blood Count 3.64 M/uL Hemoglobin 11.1 g/dL Hematocrit 35.3 % Mean Corpuscular Volume 97.0 fL Mean Corpuscular Hemoglobin 30.5 pg Mean Corpuscular Hemoglobin Concent 31.4 g/dl RDW Standard Deviation 50.0 fL RDW Coefficient of Variation 13.9 % Platelet Count 240 K/uL Mean Platelet Volume 10.0 fL Sodium Level 145 mmol/L Potassium Level 4.1 mmol/L Chloride Level 113 mmol/L Carbon Dioxide Level 29 mmol/L Anion Gap 3.0 mmol/L Blood Urea Nitrogen 20 mg/dl Creatinine 1.00 mg/dl Est Creatinine Clear Calc Drug Dose 33.2 ml/min Estimated GFR () 59.1 Estimated GFR (Non- 51.0 BUN/Creatinine Ratio 19.6 Random Glucose 80 mg/dl Calcium Level 8.2 mg/dl Bedside Glucose 82 mg/dl Test 10/06/16 09:12 8/18/17 10:10 Prothrombin Time 22.1 SECONDS Prothromb Time International Ratio 2.0 Assessment & Plan Hypertensive Urgency BP stable Continue home meds (amlodipine, losartan, clonidine if SBP >160) Resolved Elevated Troponin Significant cardiac history Troponin increase to 2.6, now trending down Asymptomatic was starting on heparin drip, that was d/c today Continue statin, baby aspirin Cardiology on board, plan for cardiac cath this afternoon case discussed with Dr. Washington will keep NPO ECHO done showed: * Ejection Fraction = 60-65%. * Focal area of severe hypokinesis to akinesis involving the mid septum, otherwise, normal wall motion. CAD (s/p STEMI in 05/05): denies any chest pain NSTEMI in 05/05. Cardiac cath showed 70% LAD occlusion but medical management was recommended Continue statin aspirin Paroxysmal Atrial Fibrillation: Rate controlled Therapeutic INR of 2 Hold coumadin Hypothyroidism: Continue synthroid CKD III: Cr of 1.3, which is at baseline Avoid nephrotoxic medications Stable Insomnia: -Continue mirtazapine DVT Ppx: INR therapeutic Code status: DNR Consultants: Cardiology Current Inpatient Medications: Current Inpatient Medications Medications (Trade) Dose Ordered Sig/Anusha Route Start Time Stop Time Status Last Admin Dose Admin Acetaminophen (Tylenol Tab) 650 mg Q4H PRN PO 10/05/16 17:30 11/04/16 17:29 Ondansetron HCl (Zofran Inj) 4 mg Q6H PRN IV 10/05/16 17:30 11/04/16 17:29 Nitroglycerin (Nitrostat Tab) 0.4 mg UD PRN SL 10/05/16 17:30 11/04/16 17:29 Amlodipine Besylate (Norvasc Tab) 2.5 mg DAILY PO 10/06/16 09:00 11/05/16 08:59 10/06/16 08:24 2.5 MG Atorvastatin Calcium (Lipitor Tab) 40 mg DAILY PO 10/06/16 09:00 11/05/16 08:59 10/06/16 08:24 40 MG Clonidine HCl (Catapres Tab) 0.1 mg DAILY PRN PO 10/05/16 18:00 11/04/16 17:59 Docusate Sodium (coLACE CAP) 100 mg BID PO 10/05/16 21:00 11/04/16 20:59 10/06/16 08:24 100 MG Levothyroxine Sodium (Synthroid Tab) 75 mcg DAILYBB PO 10/06/16 06:00 11/05/16 06:59 10/06/16 05:43 75 MCG Losartan Potassium (coZAAR TAB) 50 mg DAILY PO 10/06/16 09:00 11/05/16 08:59 10/06/16 08:23 50 MG Mirtazapine (Remeron Tab) 7.5 mg HS PO 10/05/16 21:00 11/04/16 20:59 10/05/16 21:01 7.5 MG Polyethylene (Miralax Powder Packet) 17 gm DAILY PRN PO 10/05/16 18:00 11/04/16 17:59 Prednisone (PredniSONE TAB) 5 mg DAILY PO 10/06/16 09:00 11/05/16 08:59 10/06/16 08:24 5 MG Senna (Senokot Tab) 8.6 mg BID PRN PO 10/05/16 18:00 11/04/16 17:59 Sotalol HCl (Betapace Tab) 40 mg BID PO 10/05/16 21:00 11/04/16 20:59 10/06/16 08:26 40 MG
[2016-10-06 10:59] LABS: INR 2.1 (0.9-1.1); PARTIAL THROMBOPLASTIN RATIO 1.3; PROTHROMBIN TIME (PATIENT) 22.7 SECONDS (9.0-12.0)
--- NOTE | 2016-10-06 15:05 | Cardiology Progress Note ---
Cardiology Progress Note Date of Service Oct 06, 2016. Cardiology Progress Note Patient reassessed in coverage for Dr. Washington. She denies any chest discomfort, or headache. No shortness of breath while in bed. Repeat INR was 2.1. Due to stability in her condition, with no emergency symptoms, and scheduling issues, will postpone her cardiac catheterization, and plan to keep her over the weekend and reattempt procedure on Sunday, or sooner if acute symptoms arise. Repeat INR in am. Dr Washington to reassess pt as weekend rounder 10/07/16. Sanya Miranda DO
[2016-10-06 20:08] VITALS: BP 140/62; PULSE 55; TEMP 36.5; O2SAT 96
[2016-10-06] MEDS: MIRTAZAPINE TAB 15 MG TAB PO SCH (20:56)
[2016-10-06 23:42] VITALS: BP 138/70; PULSE 55; TEMP 36.6; O2SAT 97
[2016-10-07 03:39] VITALS: BP 128/64; PULSE 58; TEMP 36.7; O2SAT 97
[2016-10-07] MEDS: LEVOTHYROXINE 75 MCG TAB PO SCH (06:05)
[2016-10-07 06:14] LABS: HEMATOCRIT 40.9 % (37-47); MEAN CELL VOLUME 97.8 fL (80-100); MEAN CORPUSCULAR HEMOGLOBIN 30.6 pg (25-34); MEAN CORPUSCULAR HGB CONC 31.3 g/dl (32-36); MEAN PLATELET VOLUME 9.8 fL (7.4-10.4); PLATELET COUNT 256 K/uL (130-400); RED BLOOD COUNT 4.18 M/uL (4.2-5.4); WHITE BLOOD COUNT 6.92 K/uL (4.8-10.8)
[2016-10-07 06:23] LABS: PARTIAL THROMBOPLASTIN RATIO 1.1
[2016-10-07 07:27] VITALS: BP 159/63; PULSE 68; TEMP 36.8; O2SAT 98
[2016-10-07] MEDS: ATORVASTATIN 40 MG TAB PO SCH (08:03)
[2016-10-07] MEDS: LOSARTAN POTASSIUM 50 MG TAB PO SCH (08:04)
[2016-10-07] MEDS: AMLODIPINE BESYLATE 5 MG TAB PO SCH (08:04)
[2016-10-07] MEDS: DOCUSATE SODIUM 100 MG CAP PO SCH ×2 (08:05→20:35)
[2016-10-07] MEDS: SOTALOL HCL 80 MG TAB PO SCH ×2 (08:05→20:36)
[2016-10-07 08:56] LABS: INR 1.3 (0.9-1.1); PROTHROMBIN TIME (PATIENT) 14.6 SECONDS (9.0-12.0)
[2016-10-07 11:34] VITALS: BP 141/66; PULSE 66; TEMP 36.7; O2SAT 95
[2016-10-07] MEDS ORDERED: HEPARIN IV BOLUS 4,000 UNIT in SYRINGE 0 ML IV ONE (12:15)
--- NOTE | 2016-10-07 12:27 | Cardiology Follow-Up ---
Subjective General Date of Service: Oct 07, 2016. Pt evaluation today including: conversation w/ patient, physical exam, chart review, lab review, review of studies, conversation w/ senior recruitment consultant, review of inpatient medication list History of Present Illness The patient is a 86 year old female seen in follow-up. Feeling well today. Complains of constipation. Slept well overnight. Remains in sinus rhythm on telemetry. Offers no other complaints. Allergies Coded Allergies: No Known Allergies (Unverified , 08/29/15) Social History Smoking Status: Never Smoker Hx Tobacco Use In Past Year?: No Hx Alcohol Use - Type And Amou: Yes (WINE ONE DAILY, BEERE OCCASIONALLY) Hx Substance Use - Type And Am: No Problem List Medical Problems: (1) Cellulitis of right arm Status: Acute (2) Fatigue Status: Acute (3) Hypertension Status: Acute (4) NSTEMI (non-ST elevated myocardial infarction) Status: Acute Review of Systems Respiratory: No cough, No sputum, No wheezing, No shortness of breath, No dyspnea at rest, No hemoptysis Cardiac: No chest pain, No orthopnea, No PND, No edema, No claudication, No palpitations Physical Exam Vital Signs Last Vital Signs Documentation Date Time Temp Pulse Resp B/P (MAP) Pulse Ox O2 Delivery O2 Flow Rate FiO2 10/07/16 11:34 36.7 66 18 141/66 (91) 95 10/07/16 08:00 Room Air Physical Exam Constitutional: General Apperance: too thin Level of Distress: NAD Ambulation: ambulating normally Head: normocephalic, atraumatic ENMT: normal ENT inspection Neck: supple, trachea midline Lungs: Auscultation: breath sounds normal, no wheezing, no rales/crackles, no rhonchi Cardiovascular: Heart Auscultation: RRR, normal S1, normal S2, no murmurs, no rubs Peripheral Pulses: Radial Pulse: normal on the left, normal on the right Femoral Pulse: normal on the left, normal on the right Musculoskeletal: normal, normal tone Extremities: no cyanosis, no edema, no palpable cord, no clubbing, no ulcers Neurologic: Gait & Station: pertinent finding (no focal deficit) Cranial Nerves: grossly intact Assessment and Plan Assessment and Plan Final impression: 1. NSTEMI with focal mid septal wall motion abnormality - Currently asymptomatic 2. Coronary artery disease with known 70% mid LAD per catheterization 04/2015. 3. Paroxysmal atrial fibrillation maintained in sinus rhythm with sotalol. INR subtherapeutic. 4. CKD stage III - stable 5. Dyslipidemia Plan/Recommendations: Risks, benefits, and alternatives to cardiac catheterization were discussed with the patient. She is agreeable. Recommend bare-metal stenting ultimately given need for chronic anticoagulation. Intravenous heparin will be added this morning due to subtherapeutic INR. I will also repeat right lower extremity arterial duplex with history of previous dissection without vascular compromise. Continue other medications as previously ordered. Laboratory Results Last 24 Hours Test 10/06/16 16:43 10/07/16 05:34 Bedside Glucose 90 mg/dl White Blood Count 6.92 K/uL Red Blood Count 4.18 M/uL Hemoglobin 12.8 g/dL Hematocrit 40.9 % Mean Corpuscular Volume 97.8 fL Mean Corpuscular Hemoglobin 30.6 pg Mean Corpuscular Hemoglobin Concent 31.3 g/dl RDW Standard Deviation 50.2 fL RDW Coefficient of Variation 14.0 % Platelet Count 256 K/uL Mean Platelet Volume 9.8 fL Prothrombin Time 14.6 SECONDS Prothromb Time International Ratio 1.3 Activated Partial Thromboplast Time 28.9 SECONDS Partial Thromboplastin Ratio 1.1
[2016-10-07] MEDS: HEPARIN 25,000 UNIT/500ML D5W 500 ML IV PRN ×2 (13:00→22:18)
[2016-10-07 16:00] VITALS: BP 123/60; PULSE 56; TEMP 36.8; O2SAT 97
--- NOTE | 2016-10-07 18:02 | Progress Note ---
Medicine Progress Note Date & Time of Visit: Oct 07, 2016 at 17:57. Subjective Pt was seen and examined Sitting in bed comfortable with no distress Pt said that she feels fine denies any chest pain, palpitation and sob Objective Last 8 Hrs Date Time Temp Pulse Resp B/P (MAP) Pulse Ox O2 Delivery O2 Flow Rate FiO2 10/07/16 16:00 Room Air 10/07/16 16:00 36.8 56 20 123/60 (81) 97 Room Air 10/07/16 12:00 Room Air 10/07/16 11:34 36.7 66 18 141/66 (91) 95 Physical Exam: General- No acute distress Head- atraumatic Eyes- PERRL, EOMI ENT- oropharynx clear Neck- supple, no JVD Lungs- clear to auscultation Heart- regular rhythm; no murmur Abdomen- normal bowel sounds, soft Extremities- no calf tenderness Neuro- alert, oriented x 3; PERRL, EOMI; no facial palsy Skin- warm & dry Laboratory Results: Last 24 Hours Test 10/07/16 05:34 White Blood Count 6.92 K/uL Red Blood Count 4.18 M/uL Hemoglobin 12.8 g/dL Hematocrit 40.9 % Mean Corpuscular Volume 97.8 fL Mean Corpuscular Hemoglobin 30.6 pg Mean Corpuscular Hemoglobin Concent 31.3 g/dl RDW Standard Deviation 50.2 fL RDW Coefficient of Variation 14.0 % Platelet Count 256 K/uL Mean Platelet Volume 9.8 fL Prothrombin Time 14.6 SECONDS Prothromb Time International Ratio 1.3 Activated Partial Thromboplast Time 28.9 SECONDS Partial Thromboplastin Ratio 1.1 Assessment & Plan Hypertensive Urgency BP stable Continue home meds (amlodipine, losartan, clonidine if SBP >160) Resolved Elevated Troponin NSTEMI Significant cardiac history Troponin increase to 2.6, now trending down Asymptomatic was starting on heparin drip, that was d/c today Continue statin, baby aspirin 04/09 Asymptomatic case discussed with Dr. Washington Plan for cardiac cath on Sunday Heparin drip was starting due to subtherapeutic INR ECHO done showed: * Ejection Fraction = 60-65%. * Focal area of severe hypokinesis to akinesis involving the mid septum, otherwise, normal wall motion. CAD (s/p STEMI in 05/05): denies any chest pain NSTEMI in 05/05. Cardiac cath showed 70% LAD occlusion but medical management was recommended Continue statin aspirin Paroxysmal Atrial Fibrillation: Rate controlled INR is 1.3 coumadin on hold staring on heparin drip Hypothyroidism: Continue synthroid CKD III: Cr of 1, which is at baseline Avoid nephrotoxic medications Stable Insomnia: -Continue mirtazapine DVT Ppx: INR 1.2 On heparin drip Code status: DNR Consultants: Cardiology Current Inpatient Medications: Current Inpatient Medications Medications (Trade) Dose Ordered Sig/Anusha Route Start Time Stop Time Status Last Admin Dose Admin Acetaminophen (Tylenol Tab) 650 mg Q4H PRN PO 10/05/16 17:30 11/04/16 17:29 Ondansetron HCl (Zofran Inj) 4 mg Q6H PRN IV 10/05/16 17:30 11/04/16 17:29 Nitroglycerin (Nitrostat Tab) 0.4 mg UD PRN SL 10/05/16 17:30 11/04/16 17:29 Amlodipine Besylate (Norvasc Tab) 2.5 mg DAILY PO 10/06/16 09:00 11/05/16 08:59 10/07/16 08:04 2.5 MG Atorvastatin Calcium (Lipitor Tab) 40 mg DAILY PO 10/06/16 09:00 11/05/16 08:59 10/07/16 08:03 40 MG Clonidine HCl (Catapres Tab) 0.1 mg DAILY PRN PO 10/05/16 18:00 11/04/16 17:59 Docusate Sodium (coLACE CAP) 100 mg BID PO 10/05/16 21:00 11/04/16 20:59 10/07/16 08:05 100 MG Levothyroxine Sodium (Synthroid Tab) 75 mcg DAILYBB PO 10/06/16 06:00 11/05/16 06:59 10/07/16 06:05 75 MCG Losartan Potassium (coZAAR TAB) 50 mg DAILY PO 10/06/16 09:00 11/05/16 08:59 10/07/16 08:04 50 MG Mirtazapine (Remeron Tab) 7.5 mg HS PO 10/05/16 21:00 11/04/16 20:59 10/06/16 20:56 7.5 MG Polyethylene (Miralax Powder Packet) 17 gm DAILY PRN PO 10/05/16 18:00 11/04/16 17:59 Prednisone (PredniSONE TAB) 5 mg DAILY PO 10/06/16 09:00 11/05/16 08:59 10/07/16 08:04 5 MG Senna (Senokot Tab) 8.6 mg BID PRN PO 10/05/16 18:00 11/04/16 17:59 Sotalol HCl (Betapace Tab) 40 mg BID PO 10/05/16 21:00 11/04/16 20:59 10/07/16 08:05 40 MG Heparin Sodium/ Dextrose 500 ml @ 18 mls/hr Q24H PRN IV 10/07/16 12:15 11/06/16 12:14 10/07/16 13:00 18 MLS/HR
[2016-10-07 19:24] VITALS: BP 142/69; PULSE 54; TEMP 36.5; O2SAT 93
[2016-10-07] MEDS: MIRTAZAPINE TAB 15 MG TAB PO SCH (20:36)
--- NOTE | 2016-10-07 20:55 | DIAGNOSTIC IMAGING REPORT ---
RIGHT GROIN DOPPLER ULTRASOUND CLINICAL HISTORY: History of chronic right femoral artery dissection. Follow-up study. COMPARISON STUDY: Right groin Doppler ultrasound April 29, 2015. TECHNIQUE: Grayscale and color and duplex Doppler sonography of the right groin was performed. FINDINGS: A short segment dissection within the right common femoral artery is similar in appearance to exam of April 29, 2015. The vessel remains patent. No distal propagation of the dissection flap is identified by sonography. A mildly elevated peak systolic velocity of the right common femoral artery at the level of the flap measures 232 cm/s. This is diminished since exam of April 29, 2015. IMPRESSION: No change in appearance of the short segment dissection within the right common femoral artery since exam of April 29, 2015. Vessel remains patent. Electronically signed by: Jaden Schmidt M.D. 10/07/2016 8:54 PM Dictated Date/Time: 10/07/2016 8:50 PM
[2016-10-07 22:06] LABS: PARTIAL THROMBOPLASTIN RATIO 2.4
[2016-10-07 23:52] VITALS: BP 140/63; PULSE 61; TEMP 36.5; O2SAT 92
[2016-10-08 04:00] VITALS: BP 137/61; PULSE 64; TEMP 36.7; O2SAT 95
[2016-10-08 06:19] LABS: INR 1.2 (0.9-1.1); PARTIAL THROMBOPLASTIN RATIO 2.7; PROTHROMBIN TIME (PATIENT) 12.4 SECONDS (9.0-12.0)
[2016-10-08] MEDS: LEVOTHYROXINE 75 MCG TAB PO SCH (06:25)
[2016-10-08 06:28] LABS: BUN/CREATININE RATIO 19.2 (10-20); CALCIUM 8.3 mg/dl (8.5-10.1); CREATININE 1.2 mg/dl (0.60-1.20); POTASSIUM 3.8 mmol/L (3.5-5.1)
[2016-10-08 08:14] VITALS: BP 137/67; PULSE 53; TEMP 36.9; O2SAT 92
[2016-10-08] MEDS ORDERED: BISACODYL 10 MG SUPP PR PRN (08:15)
[2016-10-08] MEDS: DOCUSATE SODIUM 100 MG CAP PO SCH ×2 (08:16→21:03)
[2016-10-08] MEDS: LOSARTAN POTASSIUM 50 MG TAB PO SCH (08:17)
[2016-10-08] MEDS: SOTALOL HCL 80 MG TAB PO SCH ×2 (08:17→21:02)
[2016-10-08] MEDS: AMLODIPINE BESYLATE 5 MG TAB PO SCH (08:19)
[2016-10-08] MEDS: ATORVASTATIN 40 MG TAB PO SCH (08:20)
--- NOTE | 2016-10-08 11:22 | Progress Note ---
Medicine Progress Note Date & Time of Visit: Oct 08, 2016 at 11:18. Subjective Pt was seen and examined Lying in bed comfortable with no distress Pt said that she feels fine she said that she feels bored because she spent the weekend in the hospital she denies any chest pain, palpitation, dizziness and sob Objective Last 8 Hrs Date Time Temp Pulse Resp B/P (MAP) Pulse Ox O2 Delivery O2 Flow Rate FiO2 10/08/16 08:14 36.9 53 20 137/67 (90) 92 Room Air 10/08/16 07:20 Room Air 10/08/16 04:00 Room Air 10/08/16 04:00 36.7 64 18 137/61 (86) 95 Room Air Physical Exam: General- No acute distress Head- atraumatic Eyes- PERRL, EOMI ENT- oropharynx clear Neck- supple, no JVD Lungs- clear to auscultation Heart- regular rhythm; no murmur Abdomen- normal bowel sounds, soft Extremities- no calf tenderness Neuro- alert, oriented x 3; PERRL, EOMI; no facial palsy Skin- warm & dry Laboratory Results: Last 24 Hours Test 10/07/16 19:22 10/07/16 21:39 10/08/16 05:12 10/08/16 05:13 Activated Partial Thromboplast Time 130.5 SECONDS 61.6 SECONDS 69.0 SECONDS Partial Thromboplastin Ratio 5.0 2.4 2.7 Prothrombin Time 12.4 SECONDS Prothromb Time International Ratio 1.2 Sodium Level 146 mmol/L Potassium Level 3.8 mmol/L Chloride Level 111 mmol/L Carbon Dioxide Level 32 mmol/L Anion Gap 3.0 mmol/L Blood Urea Nitrogen 23 mg/dl Creatinine 1.20 mg/dl Est Creatinine Clear Calc Drug Dose 27.3 ml/min Estimated GFR () 47.4 Estimated GFR (Non- 40.9 BUN/Creatinine Ratio 19.2 Random Glucose 83 mg/dl Calcium Level 8.3 mg/dl Assessment & Plan Hypertensive Urgency BP stable Continue home meds (amlodipine, losartan, clonidine if SBP >160) Resolved Elevated Troponin NSTEMI Significant cardiac history Troponin increase to 2.6, then trending down to 1.05 Asymptomatic was starting on heparin drip, that was d/c today Continue statin, baby aspirin 04/10 Asymptomatic Plan for cardiac cath on Sunday Continue heparin drip NPO after midnight ECHO done showed: * Ejection Fraction = 60-65%. * Focal area of severe hypokinesis to akinesis involving the mid septum, otherwise, normal wall motion. CAD (s/p STEMI in 05/05): Denies any chest pain NSTEMI in 05/05. Cardiac cath showed 70% LAD occlusion but medical management was recommended Continue statin aspirin Paroxysmal Atrial Fibrillation: Rate controlled INR is 1.2 today Coumadin on hold for cath tomorrow Continue on heparin drip HX OF FEMORAL ARTERY DISSECTION LE doppler u/s showed no change in appearance of the short segment dissection within the right common femoral artery since exam of April 29, 2015. Vessel remains patent Stable Hypothyroidism: Continue synthroid CKD III: Cr of 1, which is at baseline Avoid nephrotoxic medications Stable Insomnia: -Continue mirtazapine DVT Ppx: INR 1.2 On heparin drip Code status: DNR Consultants: Cardiology Current Inpatient Medications: Current Inpatient Medications Medications (Trade) Dose Ordered Sig/Anusha Route Start Time Stop Time Status Last Admin Dose Admin Acetaminophen (Tylenol Tab) 650 mg Q4H PRN PO 10/05/16 17:30 11/04/16 17:29 Ondansetron HCl (Zofran Inj) 4 mg Q6H PRN IV 10/05/16 17:30 11/04/16 17:29 Nitroglycerin (Nitrostat Tab) 0.4 mg UD PRN SL 10/05/16 17:30 11/04/16 17:29 Amlodipine Besylate (Norvasc Tab) 2.5 mg DAILY PO 10/06/16 09:00 11/05/16 08:59 10/08/16 08:19 2.5 MG Atorvastatin Calcium (Lipitor Tab) 40 mg DAILY PO 10/06/16 09:00 11/05/16 08:59 10/08/16 08:20 40 MG Clonidine HCl (Catapres Tab) 0.1 mg DAILY PRN PO 10/05/16 18:00 11/04/16 17:59 Docusate Sodium (coLACE CAP) 100 mg BID PO 10/05/16 21:00 11/04/16 20:59 10/08/16 08:16 100 MG Levothyroxine Sodium (Synthroid Tab) 75 mcg DAILYBB PO 10/06/16 06:00 11/05/16 06:59 10/08/16 06:25 75 MCG Losartan Potassium (coZAAR TAB) 50 mg DAILY PO 10/06/16 09:00 11/05/16 08:59 10/08/16 08:17 50 MG Mirtazapine (Remeron Tab) 7.5 mg HS PO 10/05/16 21:00 11/04/16 20:59 10/07/16 20:36 7.5 MG Polyethylene (Miralax Powder Packet) 17 gm DAILY PRN PO 10/05/16 18:00 11/04/16 17:59 Prednisone (PredniSONE TAB) 5 mg DAILY PO 10/06/16 09:00 11/05/16 08:59 10/08/16 08:20 5 MG Senna (Senokot Tab) 8.6 mg BID PRN PO 10/05/16 18:00 11/04/16 17:59 Sotalol HCl (Betapace Tab) 40 mg BID PO 10/05/16 21:00 11/04/16 20:59 10/08/16 08:17 40 MG Heparin Sodium/ Dextrose 500 ml @ 15 mls/hr Q24H PRN IV 10/07/16 12:15 11/06/16 12:14 10/07/16 22:18 15 MLS/HR Bisacodyl (Dulcolax Supp) 10 mg ONE PRN NC 10/08/16 08:15 11/07/16 08:14 10/08/16 10:13 10 MG
[2016-10-08 11:29] VITALS: BP 131/68; PULSE 66; TEMP 36.7; O2SAT 96
--- NOTE | 2016-10-08 14:12 | Cardiology Follow-Up ---
Subjective General Date of Service: Oct 08, 2016. Pt evaluation today including: conversation w/ patient, physical exam, chart review, lab review, review of studies, review of inpatient medication list History of Present Illness The patient is a 86 year old female seen in follow-up. Denies chest pain or shortness of breath. Remains in sinus rhythm on telemetry. Tolerating diet medications. Offers no complaints today. Allergies Coded Allergies: No Known Allergies (Unverified , 08/29/15) Social History Smoking Status: Never Smoker Hx Tobacco Use In Past Year?: No Hx Alcohol Use - Type And Amou: Yes (WINE ONE DAILY, BEERE OCCASIONALLY) Hx Substance Use - Type And Am: No Problem List Medical Problems: (1) Cellulitis of right arm Status: Acute (2) Fatigue Status: Acute (3) Hypertension Status: Acute (4) NSTEMI (non-ST elevated myocardial infarction) Status: Acute Review of Systems Respiratory: + dyspnea on exertion, No cough, No sputum, No wheezing, No shortness of breath, No dyspnea at rest, No hemoptysis Cardiac: No chest pain, No orthopnea, No PND, No edema, No claudication, No palpitations Physical Exam Vital Signs Last Vital Signs Documentation Date Time Temp Pulse Resp B/P (MAP) Pulse Ox O2 Delivery O2 Flow Rate FiO2 10/08/16 12:00 Room Air 10/08/16 11:29 36.7 66 20 131/68 (89) 96 Physical Exam Constitutional: General Apperance: too thin Level of Distress: NAD Ambulation: ambulating normally Head: normocephalic, atraumatic ENMT: normal ENT inspection Neck: supple, trachea midline Lungs: Auscultation: breath sounds normal, no wheezing, no rales/crackles, no rhonchi Cardiovascular: Heart Auscultation: RRR, normal S1, normal S2, no murmurs, no rubs Peripheral Pulses: Radial Pulse: normal on the left, normal on the right Femoral Pulse: normal on the left, normal on the right Musculoskeletal: normal, normal tone Extremities: no cyanosis, no edema, no palpable cord, no clubbing, no ulcers Neurologic: Gait & Station: pertinent finding (no focal deficit) Cranial Nerves: grossly intact Assessment and Plan Assessment and Plan Final impression: 1. NSTEMI with focal mid septal wall motion abnormality - Currently asymptomatic 2. Coronary artery disease with known 70% mid LAD per catheterization 04/2015. 3. Paroxysmal atrial fibrillation maintained in sinus rhythm with sotalol. INR subtherapeutic. 4. CKD stage III - stable 5. Dyslipidemia Plan/Recommendations: Again, the risks, benefits, and alternatives to cardiac catheterization were discussed with the patient. She is agreeable. Recommend bare-metal stenting ultimately given need for chronic anticoagulation. Intravenous heparin will be placed on hold at 7 AM prior to procedure. Continue other medications as previously ordered. NPO except medications after midnight. Laboratory Results Last 24 Hours Test 10/07/16 19:22 10/07/16 21:39 10/08/16 05:12 10/08/16 05:13 Activated Partial Thromboplast Time 130.5 SECONDS 61.6 SECONDS 69.0 SECONDS Partial Thromboplastin Ratio 5.0 2.4 2.7 Prothrombin Time 12.4 SECONDS Prothromb Time International Ratio 1.2 Sodium Level 146 mmol/L Potassium Level 3.8 mmol/L Chloride Level 111 mmol/L Carbon Dioxide Level 32 mmol/L Anion Gap 3.0 mmol/L Blood Urea Nitrogen 23 mg/dl Creatinine 1.20 mg/dl Est Creatinine Clear Calc Drug Dose 27.3 ml/min Estimated GFR () 47.4 Estimated GFR (Non- 40.9 BUN/Creatinine Ratio 19.2 Random Glucose 83 mg/dl Calcium Level 8.3 mg/dl
[2016-10-08 15:00] VITALS: BP 116/60; PULSE 56; TEMP 36.7; O2SAT 96
[2016-10-08] MEDS: HEPARIN 25,000 UNIT/500ML D5W 500 ML IV PRN ×2 (15:00→20:59)
[2016-10-08 20:29] VITALS: BP 178/67; PULSE 51; TEMP 36.6; O2SAT 97
[2016-10-08] MEDS: MIRTAZAPINE TAB 15 MG TAB PO SCH (21:00)
[2016-10-09] VITALS (16 sets, daily range): BP systolic 88–179; BP diastolic 47–80; PULSE 53–72; TEMP 36.6–37; O2SAT 94–97
[2016-10-09] MEDS: LEVOTHYROXINE 75 MCG TAB PO SCH (05:54)
[2016-10-09 06:09] LABS: HEMATOCRIT 35.7 % (37-47); MEAN CELL VOLUME 97.5 fL (80-100); MEAN CORPUSCULAR HEMOGLOBIN 31.4 pg (25-34); MEAN CORPUSCULAR HGB CONC 32.2 g/dl (32-36); MEAN PLATELET VOLUME 10.1 fL (7.4-10.4); PLATELET COUNT 239 K/uL (130-400); RED BLOOD COUNT 3.66 M/uL (4.2-5.4); WHITE BLOOD COUNT 8.03 K/uL (4.8-10.8)
[2016-10-09] MEDS ORDERED: NiCARDipine HCL INJ 2.5 MG/ML 10 ML AMP ONE (07:30)
[2016-10-09] MEDS ORDERED: MIDAZOLAM HCL 1 MG/ML 2ML VIAL ONE (07:30)
[2016-10-09] MEDS ORDERED: HEPARIN SOD (PORCINE) 1000 UNIT/ML 10 ML VIAL ONE (07:30)
[2016-10-09] MEDS ORDERED: FENTANYL CITRATE INJ 50 MCG/1 ML 2 ML VIAL ONE (07:31)
[2016-10-09] MEDS ORDERED: NITROGLYCERIN/D5W 100MCG/ML 20ML SYR ONE (07:31)
--- NOTE | 2016-10-09 08:27 | Procedure Note ---
Pre-Mod Sedation Assessment General Date of Moderate Sedation: Oct 09, 2016. Vital Signs: Vital Signs Past 12 Hours Date Time Temp Pulse Resp B/P (MAP) Pulse Ox O2 Delivery O2 Flow Rate FiO2 10/09/16 07:50 36.7 60 18 142/69 (93) 96 10/09/16 04:05 Room Air 10/09/16 04:03 36.6 68 19 158/80 (106) 97 Room Air 10/09/16 00:00 Room Air 10/09/16 00:00 36.6 55 17 164/61 (95) 96 10/08/16 20:29 36.6 51 20 178/67 (104) 97 Room Air Review Cardiovascular: regular rate, rhythm, no edema, no gallop Abdomen: normal bowel sounds, non tender, soft Lungs: chest non-tender, lungs clear, normal breath sounds Pre-Sedation Airway Assessment Oral Cavity: WNL Smoking Status: Never Smoker Mallampati Classification: Class II ASA Classification: Class III Procedure Planning Contraindications-for Mod Sed: None Yes Notes The planned sedation has been discussed with the patient and consent obtained. I have identified the patient, determined the appropriateness of sedation and have assessed the patient immediately prior to the procedure. All medicine(s) and interventions are by my order.
[2016-10-09] MEDS ORDERED: ASPIRIN 81 MG CHEW ONE (08:29)
--- NOTE | 2016-10-09 08:32 | Procedure Note ---
Post-Mod Sedation Assessment General Date of Moderate Sedation Oct 09, 2016. 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 D/C Criteria Distal Pulses Present (Cardiac: Yes Groin site assessed-Card Cath: N/A Voided Prior To Discharge: N/A Discharged Patients Adult Escort/Transportation: N/A
[2016-10-09] MEDS ORDERED: EPTIFIBATIDE 2 MG/ML 10 ML VIAL IV ONE (08:35)
[2016-10-09] MEDS ORDERED: EPTIFIBATIDE 0.75 MG/ML 75MG VIAL IV ONE (08:35)
--- NOTE | 2016-10-09 08:48 | Cardiac Catheterization ---
Procedure Note Procedure Date Oct 09, 2016. Pre-Procedure Diagnosis Non STEMI AUC Score 9 Post-Procedure Diagnosis Severe CAD Procedure(s) Performed Coronary Angiography Cyber Engineer Dr. Washington Bag Bundler(s) [place] RTR Estimated Blood Loss 5cc Medication(s) Fentanyl, Heparin, Nicardipine, Nitroglycerin, Versed, Lidocaine 1% Summary of Findings 70% early - mid LAD involving ostium of septal battery tester and repairer 75% ostial D2 Hemodynamics Rest Ao: 147/63/98 Final Ao: 159/63/101 LV: N/A Recommendations PCI without planned CABG Specimens None Radiation Exposure (mGy) 391 Contrast (mls) 35 Anesthesia moderate sedation, Start 0800, End 0820. Sedation JOÃO Vázquez Procedural Complication(s) None Disposition Cross Roller Holding/Recovery ACC Data Cardiac Status Clinical evaluation leading to the procedure CAD Presntation: Non STEMI Anginal Classification: CCS III Heart Failure: No Cardiogenic Shock w/in 24Hrs: No Cardiac Arrest w/in 24Hrs: No Imaging studies past 6 months: No Stress studies past 6 months: No Coronary Anatomy Dominant: Right Left Main (% Stenosis): Normal LAD (% Stenosis): Proximal (10%), Mid (70%) D1 (% Stenosis): Normal D2 (% Stenosis): Ostial (80%) Circumflex (% Stenosis): Ostial (20%) RCA (% Stenosis): Proximal (20%), Mid (30% followed by 40% with focal ulceration and no visible thromus) R PDA (% Stenosis): Normal R PL1 (% Stenosis): Normal Ramus (% Stenosis): Ostial (10%) Diagnostic Status: Urgent Closure Device Percutaneous Entry Location: Radial Closure Device: Radial Band Intraprocedure Events Significant Dissection: No Perforation: No
[2016-10-09] MEDS: ASPIRIN 81 MG ECTAB PO SCH (09:00)
[2016-10-09] MEDS ORDERED: CLOPIDOGREL BISULFATE 300 MG TAB PO ONE (09:12)
--- NOTE | 2016-10-09 09:26 | Procedure Note ---
Post-Mod Sedation Assessment General Date of Moderate Sedation Oct 09, 2016. 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 D/C Criteria Distal Pulses Present (Cardiac: Yes Groin site assessed-Card Cath: N/A Voided Prior To Discharge: N/A Discharged Patients Adult Escort/Transportation: N/A
[2016-10-09] MEDS ORDERED: ACETAMINOPHEN 325 MG TAB PO PRN (09:30)
[2016-10-09] MEDS ORDERED: EPTIFIBATIDE BOLUS / DRIP IV ONE (09:30)
[2016-10-09] MEDS ORDERED: NITROGLYCERIN 0.4 MG SL PER TAB CHARGE SL PRN (09:30)
[2016-10-09] MEDS ORDERED: LORAZEPAM INJ 0.5 MG in SYRINGE 0 ML IV PRN (09:30)
[2016-10-09] MEDS ORDERED: ONDANSETRON INJ 2 MG/ML 2 ML VIAL IV PRN (09:30)
[2016-10-09] MEDS ORDERED: ATROPINE SULFATE 0.1 MG/ML 5ML SYR IV PRN (09:30)
[2016-10-09] MEDS: SODIUM CHLORIDE 0.9% 1000ML 1,000 ML IV SCH (09:30)
--- NOTE | 2016-10-09 09:35 | Cardiac Catheterization ---
Procedure Note Procedure Date Oct 09, 2016. Pre-Procedure Diagnosis Non STEMI AUC Score 8 for revascularization Post-Procedure Diagnosis Successful PCI Procedure(s) Performed Coronary Angiography, PTCA, Bare Metal Stent Tablet Repair Dr. Gillis Yarn Weight And Strength Tester(s) Teddy Mariee RTR Estimated Blood Loss 25 Medication(s) Aspirin (324 mg PO pre PCI), Clopidogrel (600 mg post PCI), Fentanyl, Heparin, Integrilin, Nicardipine (intra arterial and intracoronary), Versed, Lidocaine 1% Summary of Findings Catheterization site: 6 [place] Slender Thornton sheath right radial artery. Inserted at time of diagnostic catheterization. Interventional equipment: 6 [place] EBU 3.5 guide catheter, [place] guidewire, Madeira Therapeuticstronic Integrity 2.25 x 14 millimeter bare metal stent, Medtronic NC Sprinter 2.5 x 12 millimeter noncompliant balloon. Interventional protocol: The patient has a history of paroxysmal atrial fibrillation is on chronic anticoagulation therapy with warfarin. To decrease length of triple antithrombotic therapy a bare metal stent was chosen to be used for this procedure. The patient was given 324 milligrams of chewable aspirin prior to intervention. She had not been on aspirin prior to this procedure. intravenous heparin and Integrilin were administered. A therapeutic activated clotting time was documented. The stent was deployed in a direct fashion to the mid LAD stenosis. It was 1st deployed at a pressure of 14 atmospheres for duration of 45 seconds. A 2nd inflation was performed with the stent delivery balloon to a pressure of 16 atmospheres for duration of 15 seconds. The stent was then post dilated with the NC sprinter balloon. Total of 3 inflations to maximum pressure of 18 atmospheres and maximum duration 25 seconds. Follow-up angiography was then performed from orthogonal projections with the guidewire in place and guidewire withdrawn. 600 milligrams of oral clopidogrel was administered post PCI. Hemostasis: Terumo TR band. Complications: None. Findings: Diagnostic angiography revealed a 70 percent early mid LAD stenosis. Following intervention the residual stenosis was 0-10 percent. No evidence of dissection, thrombus, perforation, or distal embolic event. Prior to intervention ELIO 3 flow. Post intervention ELIO 3 flow. The patient was hemodynamically and electrically stable throughout the interventional procedure. She had no anginal-type complaints during or following the procedure. Plan: The patient will remain on intravenous Integrilin for 6 hours. She should remain on dual antiplatelet therapy for a minimum 1 month and ideally for at least 3 months. She should remain on aspirin therapy indefinitely. She will continue cardiology follow-up with Dr. Washington. she will remain on sotalol , statin, and angiotensin receptor luis m therapy. Post PCI labs and electrocardiograms ordered. Hemodynamics Rest Ao: 147/63/98 mm Hg Final Ao: 145/54/93 mm Hg LV: NA Recommendations Medical therapy and/or Counseling, PCI without planned CABG Specimens None Radiation Exposure (mGy) 1574 total for diagnostic and PCI procedures Contrast (mls) 190 ml Visipaque total Fluids (cc crystalloids) 150 Drains none Anesthesia IV Versed and fentanyl Procedural Complication(s) None Disposition PCU ACC Data Cardiac Status Clinical evaluation leading to the procedure CAD Presntation: Non STEMI Anginal Classification: CCS III Heart Failure: No Cardiogenic Shock w/in 24Hrs: No Cardiac Arrest w/in 24Hrs: No Imaging studies past 6 months: Yes Stress studies past 6 months: No Standard Exercise Stress Test: No Stress Echocardiogram: No Stress Testing w/SPECT MPI: No Cardiac CTA: No Coronary Anatomy Dominant: Right (Please see Dr. Washington's cath report for complete details) Diagnostic Physician's Name: Case Washington, Status: Elective Closure Device Percutaneous Entry Location: Radial Closure Device: Radial Band PCI Indication: PCI for high risk Non-STEMI Lesion Segment Name: mid LAD Culprit Artery: Yes Stenosis Prior to Rx (%): 70 Chronic Total Occlusion: No IVUS: No FFR: No Pre-Procedure ELIO Flow: 3 Previously Treated Lesion: No Lesion Complexity: Non-High/Non-C Lesion Length (mm): 11 Thrombus Present: No Bifurcation Lesion: No Guidewire Across Lesion: Yes Guidewire: Stenosis Post-Procedure (%): 0 Post-Procedure ELIO Flow: 3 Device(s) Deployed: Yes Type of Device(s): Medtronic 2.25 X 14 mm Integrity BMS. Post dilated with 2.5 X 12 mm non compliant balloon ( [place] Therapeuticstronic NC Sprinter ) to rated burst pressure . At this pressure , balloon 2.65 mm diameter. Intraprocedure Events Significant Dissection: No Perforation: No
[2016-10-09 09:53] LABS: BASO % 0.3 %; BASO ABS # 0.03 K/uL (0-0.2); EOS % 4.6 %; IG% 0.2 %; LYMPH % 27.6 %; LYMPH ABS # 2.51 K/uL (1.2-3.4); MEAN CELL VOLUME 97.8 fL (80-100); MEAN CORPUSCULAR HEMOGLOBIN 30.3 pg (25-34); MEAN PLATELET VOLUME 9.9 fL (7.4-10.4); MONO % 12.1 %; NEUT % 55.2 %; PLATELET COUNT 267 K/uL (130-400); RED BLOOD COUNT 4.09 M/uL (4.2-5.4); WHITE BLOOD COUNT 9.11 K/uL (4.8-10.8)
[2016-10-09] MEDS: AMLODIPINE BESYLATE 5 MG TAB PO SCH (09:56)
[2016-10-09] MEDS: SOTALOL HCL 80 MG TAB PO SCH ×2 (09:57→20:53)
[2016-10-09] MEDS: ATORVASTATIN 40 MG TAB PO SCH (09:57)
[2016-10-09 10:00] LABS: COMPLETE YES
[2016-10-09] MEDS ORDERED: EPTIFIBATIDE INJ 75 MG PREMIXED IV SCH (10:00)
[2016-10-09] MEDS: LOSARTAN POTASSIUM 50 MG TAB PO SCH (10:00)
[2016-10-09] MEDS: DOCUSATE SODIUM 100 MG CAP PO SCH ×2 (10:00→20:52)
[2016-10-09] MEDS ORDERED: LORAZEPAM 2 MG/ML 1 ML VIAL IV PRN (10:15)
[2016-10-09] MEDS ORDERED: Integrelin infusion --> STOP ORDER ONE (15:00)
--- NOTE | 2016-10-09 19:57 | Progress Note ---
Medicine Progress Note Date & Time of Visit: Oct 09, 2016 at 19:41. Subjective Pt was seen and examined Lying in bed comfortable with no distress Pt said that she feels fine denies any chest pain, palpitation, dizziness and SOB Objective Last 8 Hrs Date Time Temp Pulse Resp B/P (MAP) Pulse Ox O2 Delivery O2 Flow Rate FiO2 10/09/16 16:00 Room Air 10/09/16 15:45 37.0 53 19 116/67 (83) 95 Room Air 10/09/16 15:04 36.7 56 16 126/59 (81) 95 Room Air 10/09/16 14:01 36.6 58 18 95/58 (70) 96 Room Air 10/09/16 13:30 53 18 88/47 (61) 96 10/09/16 12:30 36.6 55 18 94/50 (65) 96 Room Air 10/09/16 12:00 Room Air Physical Exam: General- No acute distress Head- atraumatic Eyes- PERRL, EOMI ENT- oropharynx clear Neck- supple, no JVD Lungs- clear to auscultation Heart- regular rhythm; no murmur Abdomen- normal bowel sounds, soft Extremities- no calf tenderness, Right wrist bruise from the cath insertion Neuro- alert, oriented x 3; PERRL, EOMI; no facial palsy Skin- warm & dry Laboratory Results: Last 24 Hours Test 10/09/16 05:15 10/09/16 08:18 10/09/16 08:44 10/09/16 09:37 White Blood Count 8.03 K/uL 9.11 K/uL Red Blood Count 3.66 M/uL 4.09 M/uL Hemoglobin 11.5 g/dL 12.4 g/dL Hematocrit 35.7 % 40.0 % Mean Corpuscular Volume 97.5 fL 97.8 fL Mean Corpuscular Hemoglobin 31.4 pg 30.3 pg Mean Corpuscular Hemoglobin Concent 32.2 g/dl 31.0 g/dl RDW Standard Deviation 50.4 fL 50.1 fL RDW Coefficient of Variation 14.0 % 13.9 % Platelet Count 239 K/uL 267 K/uL Mean Platelet Volume 10.1 fL 9.9 fL Activated Partial Thromboplast Time 78.6 SECONDS Partial Thromboplastin Ratio 3.0 Kaolin Activated Coagulation Time 230 SECONDS 285 SECONDS Neutrophils (%) (Auto) 55.2 % Lymphocytes (%) (Auto) 27.6 % Monocytes (%) (Auto) 12.1 % Eosinophils (%) (Auto) 4.6 % Basophils (%) (Auto) 0.3 % Neutrophils # (Auto) 5.03 K/uL Lymphocytes # (Auto) 2.51 K/uL Monocytes # (Auto) 1.10 K/uL Eosinophils # (Auto) 0.42 K/uL Basophils # (Auto) 0.03 K/uL Immature Granulocyte % (Auto) 0.2 % Immature Granulocyte # (Auto) 0.02 K/uL Assessment & Plan Hypertensive Urgency BP stable Continue home meds (amlodipine, losartan, clonidine if SBP >160) Resolved Elevated Troponin NSTEMI Significant cardiac history Troponin increase to 2.6, then trending down to 1.05 Asymptomatic was starting on heparin drip, that was d/c today Continue statin, baby aspirin 04/10 Asymptomatic Plan for cardiac cath on Sunday Continue heparin drip NPO after night 04/11 Heparin D/C Cardiac cath done today showed 70% mid LAD stenosis Coronary Angiography, PTCA, Bare Metal Stent performed today by Dr. Gillis No complication Pt will continue dual antiplatelet therapy for a minimum 1 month and ideally for at least 3 months as per cardiology Then continue with aspirin therapy indefinitely. continue monitor in tele ECHO done showed: * Ejection Fraction = 60-65%. * Focal area of severe hypokinesis to akinesis involving the mid septum, otherwise, normal wall motion. CAD (s/p STEMI in 05/05): Denies any chest pain NSTEMI in 05/05. Cardiac cath showed 70% LAD occlusion but medical management was recommended Repeat Cardiac cath done today showed 70% mid LAD stenosis Continue statin, sotalol ACEI, and dual antiplatelet therapy Paroxysmal Atrial Fibrillation: Rate controlled Coumadin on hold for cath tomorrow heparin drip on hold HX OF FEMORAL ARTERY DISSECTION LE doppler u/s showed no change in appearance of the short segment dissection within the right common femoral artery since exam of April 29, 2015. Vessel remains patent Stable Hypothyroidism: Continue synthroid CKD III: Cr of 1, which is at baseline Avoid nephrotoxic medications Stable Insomnia: -Continue mirtazapine DVT Ppx: heparin drip on hold Code status: DNR Consultants: Cardiology Procedures: Cardiac Cath done by Dr. Washington Coronary Angiography, PTCA, Bare Metal Stent performed today by Dr. Gillis Current Inpatient Medications: Current Inpatient Medications Medications (Trade) Dose Ordered Sig/Anusha Route Start Time Stop Time Status Last Admin Dose Admin Acetaminophen (Tylenol Tab) 650 mg Q4H PRN PO 10/05/16 17:30 11/04/16 17:29 Ondansetron HCl (Zofran Inj) 4 mg Q6H PRN IV 10/05/16 17:30 11/04/16 17:29 Nitroglycerin (Nitrostat Tab) 0.4 mg UD PRN SL 10/05/16 17:30 11/04/16 17:29 Amlodipine Besylate (Norvasc Tab) 2.5 mg DAILY PO 10/06/16 09:00 11/05/16 08:59 10/09/16 09:56 2.5 MG Atorvastatin Calcium (Lipitor Tab) 40 mg DAILY PO 10/06/16 09:00 11/05/16 08:59 10/09/16 09:57 40 MG Clonidine HCl (Catapres Tab) 0.1 mg DAILY PRN PO 10/05/16 18:00 11/04/16 17:59 10/09/16 10:14 0.1 MG Docusate Sodium (coLACE CAP) 100 mg BID PO 10/05/16 21:00 11/04/16 20:59 10/09/16 10:00 100 MG Levothyroxine Sodium (Synthroid Tab) 75 mcg DAILYBB PO 10/06/16 06:00 11/05/16 06:59 10/09/16 05:54 75 MCG Losartan Potassium (coZAAR TAB) 50 mg DAILY PO 10/06/16 09:00 11/05/16 08:59 10/09/16 10:00 50 MG Mirtazapine (Remeron Tab) 7.5 mg HS PO 10/05/16 21:00 11/04/16 20:59 10/08/16 21:00 7.5 MG Polyethylene (Miralax Powder Packet) 17 gm DAILY PRN PO 10/05/16 18:00 11/04/16 17:59 Prednisone (PredniSONE TAB) 5 mg DAILY PO 10/06/16 09:00 11/05/16 08:59 10/09/16 09:57 5 MG Senna (Senokot Tab) 8.6 mg BID PRN PO 10/05/16 18:00 11/04/16 17:59 10/09/16 09:56 8.6 MG Sotalol HCl (Betapace Tab) 40 mg BID PO 10/05/16 21:00 11/04/16 20:59 10/09/16 09:57 40 MG Heparin Sodium/ Dextrose 500 ml @ 15 mls/hr Q24H PRN IV 10/07/16 12:15 11/06/16 12:14 Future Hold 10/08/16 20:59 15 MLS/HR Bisacodyl (Dulcolax Supp) 10 mg ONE PRN [place] 10/08/16 08:15 11/07/16 08:14 10/08/16 10:13 10 MG Aspirin (Ecotrin Tab) 81 mg QAM PO 10/09/16 09:00 11/08/16 08:59 Nitroglycerin (Nitrostat Tab) 0.4 mg UD PRN SL 10/09/16 09:30 11/08/16 09:29 Sodium Chloride 1,000 ml @ 75 mls/hr [id number] IV 10/09/16 09:30 11/08/16 09:29 10/09/16 09:30 75 MLS/HR Atropine Sulfate (Atropine Sulfate 0.1MG/Ml Inj) 0.5 mg ONE PRN IV 10/09/16 09:30 11/08/16 09:29 Ondansetron HCl (Zofran Inj) 4 mg Q6H PRN IV 10/09/16 09:30 11/08/16 09:29 Clopidogrel Bisulfate (plAVix TAB) 75 mg QAM PO 10/10/16 09:00 11/09/16 08:59 Acetaminophen (Tylenol Tab) 650 mg Q4H PRN PO 10/09/16 09:30 11/08/16 09:29 Lorazepam 0.5 mg/ Syringe 0.25 ml @ 1 mls/min Q6H PRN IV 10/09/16 09:30 11/08/16 09:29 Lorazepam (Ativan Inj) 0.5 mg Q6H PRN IV 10/09/16 10:15 11/08/16 10:14
[2016-10-09] MEDS: MIRTAZAPINE TAB 15 MG TAB PO SCH (20:53)
[2016-10-10] VITALS: PULSE 66; TEMP 36.6; O2SAT 95
[2016-10-10 04:00] VITALS: BP 128/61; PULSE 58; TEMP 36.6; O2SAT 94
[2016-10-10] MEDS: LEVOTHYROXINE 75 MCG TAB PO SCH (05:24)
[2016-10-10 06:12] LABS: BASO % 0.3 %; BASO ABS # 0.03 K/uL (0-0.2); COMPLETE YES; EOS % 3.7 %; HEMATOCRIT 35.9 % (37-47); IG% 0.1 %; LYMPH % 15.4 %; LYMPH ABS # 1.44 K/uL (1.2-3.4); MEAN CORPUSCULAR HEMOGLOBIN 30.5 pg (25-34); MEAN CORPUSCULAR HGB CONC 31.5 g/dl (32-36); MEAN PLATELET VOLUME 9.9 fL (7.4-10.4); MONO % 10.3 %; NEUT % 70.2 %; PLATELET COUNT 247 K/uL (130-400); WHITE BLOOD COUNT 9.36 K/uL (4.8-10.8)
[2016-10-10 06:26] LABS: PARTIAL THROMBOPLASTIN RATIO 0.9
[2016-10-10 06:50] LABS: BUN/CREATININE RATIO 16.9 (10-20); CALCIUM 8.4 mg/dl (8.5-10.1); CREATININE 1.1 mg/dl (0.60-1.20)
[2016-10-10 07:42] VITALS: BP 150/70; PULSE 54; TEMP 36.8; O2SAT 96
[2016-10-10 08:00] VITALS: O2SAT 96
[2016-10-10] MEDS: LOSARTAN POTASSIUM 50 MG TAB PO SCH (08:13)
[2016-10-10] MEDS: ASPIRIN 81 MG ECTAB PO SCH (08:14)
[2016-10-10] MEDS: SOTALOL HCL 80 MG TAB PO SCH (08:14)
[2016-10-10] MEDS: ATORVASTATIN 40 MG TAB PO SCH (08:14)
[2016-10-10] MEDS: AMLODIPINE BESYLATE 5 MG TAB PO SCH (08:14)
[2016-10-10] MEDS ORDERED: CLOPIDOGREL BISULFATE 75 MG TAB PO SCH (09:00)
[2016-10-10] MEDS ORDERED: ASPIRIN 81 MG ECTAB PO SCH (09:00)
[2016-10-10] MEDS: DOCUSATE SODIUM 100 MG CAP PO SCH (09:00)
[2016-10-10] MEDS: SODIUM CHLORIDE 0.9% 1000ML 1,000 ML IV SCH (09:01)
[2016-10-10 11:42] VITALS: BP 151/79; PULSE 69; TEMP 36.8; O2SAT 96
--- NOTE | 2016-10-10 13:09 | Progress Note ---
Medicine Progress Note Date & Time of Visit: Oct 10, 2016 at 13:04. Subjective Pt was seen and examined Sitting in bed comfortable with no distress Pt said that she feels fine Denies any chest pain, palpitation, dizziness and SOB Objective Last 8 Hrs Date Time Temp Pulse Resp B/P (MAP) Pulse Ox O2 Delivery O2 Flow Rate FiO2 10/10/16 12:00 Room Air 10/10/16 11:42 36.8 69 18 151/79 (103) 96 10/10/16 08:00 96 Room Air 10/10/16 07:42 36.8 54 18 150/70 (96) 96 Physical Exam: General- No acute distress Head- atraumatic Eyes- PERRL, EOMI ENT- oropharynx clear Neck- supple, no JVD Lungs- clear to auscultation Heart- regular rhythm; no murmur Abdomen- normal bowel sounds, soft Extremities- no calf tenderness, Right wrist bruise from the cath insertion Neuro- alert, oriented x 3; PERRL, EOMI; no facial palsy Skin- warm & dry Laboratory Results: Last 24 Hours Test 10/10/16 05:18 White Blood Count 9.36 K/uL Red Blood Count 3.70 M/uL Hemoglobin 11.3 g/dL Hematocrit 35.9 % Mean Corpuscular Volume 97.0 fL Mean Corpuscular Hemoglobin 30.5 pg Mean Corpuscular Hemoglobin Concent 31.5 g/dl Platelet Count 247 K/uL Mean Platelet Volume 9.9 fL Neutrophils (%) (Auto) 70.2 % Lymphocytes (%) (Auto) 15.4 % Monocytes (%) (Auto) 10.3 % Eosinophils (%) (Auto) 3.7 % Basophils (%) (Auto) 0.3 % Neutrophils # (Auto) 6.57 K/uL Lymphocytes # (Auto) 1.44 K/uL Monocytes # (Auto) 0.96 K/uL Eosinophils # (Auto) 0.35 K/uL Basophils # (Auto) 0.03 K/uL RDW Standard Deviation 49.6 fL RDW Coefficient of Variation 13.9 % Immature Granulocyte % (Auto) 0.1 % Immature Granulocyte # (Auto) 0.01 K/uL Activated Partial Thromboplast Time 24.6 SECONDS Partial Thromboplastin Ratio 0.9 Sodium Level 145 mmol/L Potassium Level 4.0 mmol/L Chloride Level 115 mmol/L Carbon Dioxide Level 25 mmol/L Anion Gap 5.0 mmol/L Blood Urea Nitrogen 19 mg/dl Creatinine 1.10 mg/dl Est Creatinine Clear Calc Drug Dose 30.4 ml/min Estimated GFR () 52.6 Estimated GFR (Non- 45.4 BUN/Creatinine Ratio 16.9 Random Glucose 82 mg/dl Calcium Level 8.4 mg/dl Assessment & Plan Hypertensive Urgency BP stable Continue home meds (amlodipine, losartan, clonidine if SBP >160) Resolved Elevated Troponin NSTEMI Significant cardiac history Troponin increase to 2.6, then trending down to 1.05 Asymptomatic was starting on heparin drip, that was d/c today Continue statin, baby aspirin 04/10 Asymptomatic Plan for cardiac cath on Sunday Continue heparin drip NPO after midnight 04/11 Heparin D/C Cardiac cath done today showed 70% mid LAD stenosis Coronary Angiography, PTCA, Bare Metal Stent performed today by Dr. Gillis No complication Pt will continue dual antiplatelet therapy for a minimum 1 month and ideally for at least 3 months as per cardiology Then continue with aspirin therapy indefinitely. continue monitor in tele 10/10 S/P cardiac cath yesterday Coronary Angiography, PTCA, Bare Metal Stent performed yesterday by Dr. Gillis Continue aspirin and Plavix uninterrupted for the next 12 weeks. Plan to discontinue Plavix and restart Coumadin in 3 months. Clinically stable discussed case with Cardiology and OK to discharge home today from cardiac standpoint Follow up appointment with cardiology on Oct [address] Washington ECHO done showed: * Ejection Fraction = 60-65%. * Focal area of severe hypokinesis to akinesis involving the mid septum, otherwise, normal wall motion. CAD (s/p STEMI in 05/05): Denies any chest pain NSTEMI in 05/05. Cardiac cath showed 70% LAD occlusion but medical management was recommended Repeat Cardiac cath done today showed 70% mid LAD stenosis Continue statin, sotalol ACEI, and dual antiplatelet therapy Continue aspirin and Plavix uninterrupted for the next 12 weeks. . Paroxysmal Atrial Fibrillation: Rate controlled Coumadin on hold for 3 months heparin drip discontinued HX OF FEMORAL ARTERY DISSECTION LE doppler u/s showed no change in appearance of the short segment dissection within the right common femoral artery since exam of April 29, 2015. Vessel remains patent Stable Hypothyroidism: Continue synthroid CKD III: Cr of 1, which is at baseline Avoid nephrotoxic medications Stable Insomnia: -Continue mirtazapine DVT Ppx: heparin drip d/c Code status: DNR Consultants: Cardiology Procedures: Cardiac Cath done by Dr. Washington Coronary Angiography, PTCA, Bare Metal Stent performed today by Dr. Gillis Current Inpatient Medications: Current Inpatient Medications Medications (Trade) Dose Ordered Sig/Anusha Route Start Time Stop Time Status Last Admin Dose Admin Acetaminophen (Tylenol Tab) 650 mg Q4H PRN PO 10/05/16 17:30 11/04/16 17:29 Ondansetron HCl (Zofran Inj) 4 mg Q6H PRN IV 10/05/16 17:30 11/04/16 17:29 Nitroglycerin (Nitrostat Tab) 0.4 mg UD PRN SL 10/05/16 17:30 11/04/16 17:29 Amlodipine Besylate (Norvasc Tab) 2.5 mg DAILY PO 10/06/16 09:00 11/05/16 08:59 10/10/16 08:14 2.5 MG Atorvastatin Calcium (Lipitor Tab) 40 mg DAILY PO 10/06/16 09:00 11/05/16 08:59 10/10/16 08:14 40 MG Clonidine HCl (Catapres Tab) 0.1 mg DAILY PRN PO 10/05/16 18:00 11/04/16 17:59 10/09/16 10:14 0.1 MG Docusate Sodium (coLACE CAP) 100 mg BID PO 10/05/16 21:00 11/04/16 20:59 10/09/16 20:52 100 MG Levothyroxine Sodium (Synthroid Tab) 75 mcg DAILYBB PO 10/06/16 06:00 11/05/16 06:59 10/10/16 05:24 75 MCG Losartan Potassium (coZAAR TAB) 50 mg DAILY PO 10/06/16 09:00 11/05/16 08:59 10/10/16 08:13 50 MG Mirtazapine (Remeron Tab) 7.5 mg HS PO 10/05/16 21:00 11/04/16 20:59 10/09/16 20:53 7.5 MG Polyethylene (Miralax Powder Packet) 17 gm DAILY PRN PO 10/05/16 18:00 11/04/16 17:59 Prednisone (PredniSONE TAB) 5 mg DAILY PO 10/06/16 09:00 11/05/16 08:59 10/10/16 08:13 5 MG Senna (Senokot Tab) 8.6 mg BID PRN PO 10/05/16 18:00 11/04/16 17:59 10/09/16 09:56 8.6 MG Sotalol HCl (Betapace Tab) 40 mg BID PO 10/05/16 21:00 11/04/16 20:59 10/10/16 08:14 40 MG Bisacodyl (Dulcolax Supp) 10 mg ONE PRN [place] 10/08/16 08:15 11/07/16 08:14 10/08/16 10:13 10 MG Aspirin (Ecotrin Tab) 81 mg QAM PO 10/09/16 09:00 11/08/16 08:59 10/10/16 08:14 81 MG Nitroglycerin (Nitrostat Tab) 0.4 mg UD PRN SL 10/09/16 09:30 11/08/16 09:29 Sodium Chloride 1,000 ml @ 75 mls/hr [id number] IV 10/09/16 09:30 11/08/16 09:29 10/09/16 09:30 75 MLS/HR Atropine Sulfate (Atropine Sulfate 0.1MG/Ml Inj) 0.5 mg ONE PRN IV 10/09/16 09:30 11/08/16 09:29 Ondansetron HCl (Zofran Inj) 4 mg Q6H PRN IV 10/09/16 09:30 11/08/16 09:29 Clopidogrel Bisulfate (plAVix TAB) 75 mg QAM PO 10/10/16 09:00 11/09/16 08:59 10/10/16 08:15 75 MG Acetaminophen (Tylenol Tab) 650 mg Q4H PRN PO 10/09/16 09:30 11/08/16 09:29 Lorazepam 0.5 mg/ Syringe 0.25 ml @ 1 mls/min Q6H PRN IV 10/09/16 09:30 11/08/16 09:29 Lorazepam (Ativan Inj) 0.5 mg Q6H PRN IV 10/09/16 10:15 11/08/16 10:14
--- NOTE | 2016-10-10 13:16 | Cardiology Follow-Up ---
Subjective General Date of Service: Oct 10, 2016. Pt evaluation today including: conversation w/ patient, physical exam, chart review, lab review, review of studies, conversation w/ field sales consultant, review of inpatient medication list History of Present Illness The patient is a 86 year old female seen in follow-up. She is feeling well from a cardiac basilar standpoint. Right hand and wrist ecchymosis noted. No discomfort or hematoma. No atrial fibrillation on telemetry. Patient is anxious for discharge. Offers no complaints this time. Allergies Coded Allergies: No Known Allergies (Unverified , 08/29/15) Social History Smoking Status: Never Smoker Hx Tobacco Use In Past Year?: No Hx Alcohol Use - Type And Amou: Yes (WINE ONE DAILY, BEERE OCCASIONALLY) Hx Substance Use - Type And Am: No Problem List Medical Problems: (1) Cellulitis of right arm Status: Acute (2) Fatigue Status: Acute (3) Hypertension Status: Acute (4) NSTEMI (non-ST elevated myocardial infarction) Status: Acute Review of Systems Respiratory: No cough, No sputum, No wheezing, No shortness of breath, No dyspnea on exertion, No dyspnea at rest, No hemoptysis Cardiac: No chest pain, No orthopnea, No PND, No edema, No claudication, No palpitations Physical Exam Vital Signs Last Vital Signs Documentation Date Time Temp Pulse Resp B/P (MAP) Pulse Ox O2 Delivery O2 Flow Rate FiO2 10/10/16 12:00 Room Air 10/10/16 11:42 36.8 69 18 151/79 (103) 96 Physical Exam Constitutional: General Apperance: too thin Level of Distress: NAD Ambulation: ambulating normally Head: normocephalic, atraumatic ENMT: normal ENT inspection Neck: supple, trachea midline Lungs: Auscultation: breath sounds normal, no wheezing, no rales/crackles, no rhonchi Cardiovascular: Heart Auscultation: RRR, normal S1, normal S2, no murmurs, no rubs Peripheral Pulses: Radial Pulse: normal on the left, normal on the right Femoral Pulse: normal on the left, normal on the right Musculoskeletal: normal, normal tone Extremities: no cyanosis, no edema, no palpable cord, no clubbing, no ulcers Neurologic: Gait & Station: pertinent finding (no focal deficit) Cranial Nerves: grossly intact Assessment and Plan Assessment and Plan Final impression: 1. NSTEMI with focal mid septal wall motion abnormality s/p BMS to LAD. 2. Coronary artery disease with known 70% mid LAD per catheterization 04/2015. 3. Paroxysmal atrial fibrillation maintained in sinus rhythm with sotalol. INR subtherapeutic. 4. Labile HTN - controlled 5. Dyslipidemia Plan/Recommendations: Coumadin will remain on hold at this time. Patient will continue aspirin and Plavix uninterrupted for the next 12 weeks. Plan to discontinue Plavix and restart Coumadin in 3 months. Other cardiovascular medications will be continued as previous ordered. She is stable for discharge from a cardiovascular perspective. Post catheterization restrictions listed below. All questions answered to her satisfaction. I'll arrange close cardiology follow-up in 2-4 weeks. ACTIVITY RESTRICTIONS / Recommendations: It is common to feel weak and fatigue for a few days. * Do not drive or operate any motorized equipment for the next three days. * Limit stair usage (2 or 3 trips a day only) for the next three days. * Do not lift anything heavier than 10 pounds for the next three days. * Do not engage in vigorous exercise or any sports for the next five days. * You may shower the day after your procedure, but do not immerse the area for three days. Cleanse the site gently with soap and water. SPECIAL CARE INSTRUCTIONS: * You may replace the pressure dressing or band-aid the morning after the procedure. * After your procedure, it is normal to have a small bruise or small lump at the site. Examine your site daily for any change in the bruise or lump, redness, swelling, drainage or numbness. Notify your doctor if any change. BLEEDING: * If there is a small amount of bleeding at the site, lie down and apply firm pressure with a clean cloth for ten minutes. When the bleeding stops, lie quietly keeping the procedure limb straight for six hours. Notify your doctor as soon as possible. * If the bleeding does not stop after ten minutes or if there is a large amount of bleeding or spurting, call 911 immediately. Continue to lie down and hold firm pressure until help arrives. SKIN IRRITATION: * You may experience some redness and/or swelling in the area where radiation was administered. If any skin irritation occurs, please contact your family physician. Laboratory Results Last 24 Hours Test 10/10/16 05:18 White Blood Count 9.36 K/uL Red Blood Count 3.70 M/uL Hemoglobin 11.3 g/dL Hematocrit 35.9 % Mean Corpuscular Volume 97.0 fL Mean Corpuscular Hemoglobin 30.5 pg Mean Corpuscular Hemoglobin Concent 31.5 g/dl Platelet Count 247 K/uL Mean Platelet Volume 9.9 fL Neutrophils (%) (Auto) 70.2 % Lymphocytes (%) (Auto) 15.4 % Monocytes (%) (Auto) 10.3 % Eosinophils (%) (Auto) 3.7 % Basophils (%) (Auto) 0.3 % Neutrophils # (Auto) 6.57 K/uL Lymphocytes # (Auto) 1.44 K/uL Monocytes # (Auto) 0.96 K/uL Eosinophils # (Auto) 0.35 K/uL Basophils # (Auto) 0.03 K/uL RDW Standard Deviation 49.6 fL RDW Coefficient of Variation 13.9 % Immature Granulocyte % (Auto) 0.1 % Immature Granulocyte # (Auto) 0.01 K/uL Activated Partial Thromboplast Time 24.6 SECONDS Partial Thromboplastin Ratio 0.9 Sodium Level 145 mmol/L Potassium Level 4.0 mmol/L Chloride Level 115 mmol/L Carbon Dioxide Level 25 mmol/L Anion Gap 5.0 mmol/L Blood Urea Nitrogen 19 mg/dl Creatinine 1.10 mg/dl Est Creatinine Clear Calc Drug Dose 30.4 ml/min Estimated GFR () 52.6 Estimated GFR (Non- 45.4 BUN/Creatinine Ratio 16.9 Random Glucose 82 mg/dl Calcium Level 8.4 mg/dl
[2016-10-10] MEDS ORDERED: PLV75 PO (13:19)
--- NOTE | 2016-10-10 13:31 | Discharge Instructions ---
Discharge Instructions Date of Service Oct 10, 2016. Admission Reason for Admission: Elevated Troponin, Hypertensive Urgency Discharge Discharge Diagnosis / Problem: NSTEMI, Hypertensive Urgency, Paroxysmal Atrial Fibrillation,Hypothyroidism Discharge Goals Goal(s): Decrease discomfort, Improve function, Improve disease control Activity Recommendations Activity Limitations: resume your previous activity (as tolerated) . Instructions / Follow-Up Instructions / Follow-Up Follow up with your primary care provider Dr. Zacarias on 10/16 @ 12:45 pm Follow up with cardiology Dr. Washington on Oct 24 No Coumadin for now Continue aspirin and Plavix uninterrupted for the next 12 weeks. Plan to discontinue Plavix and restart Coumadin in 3 months. Watch for blood in your stool and your urine Contact your physician if you see any blood in the stools or urine Check wrist for signs of infection and bleeding Discontinue Coumadin ACTIVITY RESTRICTIONS / Recommendations: It is common to feel weak and fatigue for a few days. * Do not drive or operate any motorized equipment for the next three days. * Limit stair usage (2 or 3 trips a day only) for the next three days. * Do not lift anything heavier than 10 pounds for the next three days. * Do not engage in vigorous exercise or any sports for the next five days. * You may shower the day after your procedure, but do not immerse the area for three days. Cleanse the site gently with soap and water. SPECIAL CARE INSTRUCTIONS: * You may replace the pressure dressing or band-aid the morning after the procedure. * After your procedure, it is normal to have a small bruise or small lump at the site. Examine your site daily for any change in the bruise or lump, redness, swelling, drainage or numbness. Notify your doctor if any change. BLEEDING: * If there is a small amount of bleeding at the site, lie down and apply firm pressure with a clean cloth for ten minutes. When the bleeding stops, lie quietly keeping the procedure limb straight for six hours. Notify your doctor as soon as possible. * If the bleeding does not stop after ten minutes or if there is a large amount of bleeding or spurting, call 911 immediately. Continue to lie down and hold firm pressure until help arrives. SKIN IRRITATION: * You may experience some redness and/or swelling in the area where radiation was administered. If any skin irritation occurs, please contact your family physician. Current Hospital Diet Patient's current hospital diet: AHA Diet (Heart Healthy), Low Sodium Diet (2gm Na) Discharge Diet Recommended Diet: AHA Diet (Heart Healthy), Low Sodium Diet (2gm Na) Pending Studies Studies pending at discharge: no Medical Emergencies . Who to Call and When: Medical Emergencies: If at any time you feel your situation is an emergency, please call 911 immediately. . Non-Emergent Contact Non-Emergency issues call your: Primary Care Provider Call Non-Emergent contact if: you have any medication questions . . "Provider Documentation" section prepared by Gavino Vaca. . VTE Core Measure Inpt VTE Proph given/why not?: Unfractionated heparin SQ
[2016-10-10 13:35] VITALS: BP 151/79; PULSE 69; TEMP 36.8; O2SAT 96
--- NOTE | 2016-10-13 14:31 | Discharge Summary ---
Discharge Summary Date of Service Oct 13, 2016. Discharge Summary Admission Date: Oct 05, 2016 at 19:12 Discharge Date: Oct 10, 2016 Discharge Disposition: Home Principal Diagnosis: NSTEMI, Secondary Diagnoses/Problems: Hypertensive Urgency Paroxysmal Atrial Fibrillation Hypothyroidism HX OF FEMORAL ARTERY DISSECTION Insomnia Hypothyroidism CKD stage 3 CAD s/p stent Procedures: Cardiac Cath done by Dr. Washington Coronary Angiography, PTCA, Bare Metal Stent performed today by Dr. Gillis Consultations: Cardiology Medication Reconciliation New Medications: Clopidogrel Bisulfate (Clopidogrel) 75 Mg Tab 75 MG PO QAM for 30 Days, #30 TAB Continued Medications: Amlodipine Besylate (Amlodipine Besylate) 5 Mg Tab 2.5 MG PO DAILY, TAB Aspirin (Aspirin Chewable) 81 Mg Chew 81 MG PO QAM, TAB Atorvastatin (Atorvastatin Calcium) 40 Mg Tab 1 DAILY Clonidine HCl (Clonidine HCl) 0.3 Mg Tab 0.1 DAILY for SBP > 160 Docusate Sodium (Colace) 100 Mg Cap 1 CAP PO BID for 15 Days, #30 CAP Levothyroxine Sodium (Synthroid) 75 Mcg Tab 1 TAB DAILY Losartan Potassium (Cozaar) 50 Mg Tab 50 MG PO DAILY, TAB Mirtazapine (Remeron) 15 Mg Tab 0.5 TAB PO HS for 30 Days, #30 TAB 1 Refill Nitroglycerin (Nitrostat) 0.4 Mg/1 Tab Subl 1 TAB UT UD PRN for chest pain or esophageal spasm Polyethylene (Miralax) 17 Gm Pow Prednisone (Prednisone) 5 Mg Tab 5 MG PO DAILY, TAB Senna (Senna Lax) 8.6 Mg Tab 1 PRN for Constipation Sotalol Hcl (Sotalol Hcl) 80 Mg Tab 0.5 TAB PO BID for 30 Days, #30 TAB 5 Refills Admission Information HPI (per Admitting provider): Patient is an 86yo Female with a PMH of HTN, CAD s/p NSTEMI (05/05), Paroxysmal A Fib (on coumadin), CKD III, HLD, hypothyroidism who presents with elevated blood pressure over the past week. Readings have shown SBP >180s over the past week, with one SBP reading >200 this morning. Patient then took Clonidine 0.1mg tab x 1 and when BP remained >200, she presented to the ED. During this time, patient endorses feeling fatigued. Denies blurred vision, headache, nausea/ vomiting, chest pain, or lower extremity swelling. Endorses SOB with exertion but says that is her baseline. In April of 2015, patient came to [facility] with CP and was found to have an NSTEMI. Underwent cardiac cath and LAD was found to be 70% occluded with medical management recommended. Echo performed at the same time showed EF: 60-65% with moderate LVH. Has been compliant with all medications and follows with Dr. Washington for cardiology. Patient lives alone, ambulates without an assistive device and performs all ADLs. Physical Exam (per Admitting): General Appearance: WD/WN, no apparent distress Head: normocephalic, atraumatic Eyes: normal inspection, sclerae normal ENT: hearing grossly normal Neck: supple, no adenopathy, thyroid normal, no JVD, trachea midline Respiratory/Chest: chest non-tender, lungs clear, normal breath sounds, no respiratory distress, no accessory muscle use Cardiovascular: regular rate, rhythm, no murmur, normal peripheral pulses Abdomen/GI: normal bowel sounds, non tender, soft, no organomegaly Back: normal inspection Extremities/Musculoskelatal: normal inspection, no calf tenderness, normal capillary refill, no pedal edema Neurologic/Psych: no motor/sensory deficits, alert, normal mood/affect, normal reflexes, oriented x 3 Skin: normal color, warm/dry, no rash Hospital Course Hypertensive Urgency BP stable Continue home meds (amlodipine, losartan, clonidine if SBP >160) Resolved Elevated Troponin NSTEMI Significant cardiac history Troponin increase to 2.6, then trending down to 1.05 Asymptomatic was starting on heparin drip, that was d/c today Continue statin, baby aspirin 04/10 Asymptomatic Plan for cardiac cath on Sunday Continue heparin drip NPO after midnight 04/11 Heparin D/C Cardiac cath done today showed 70% mid LAD stenosis Coronary Angiography, PTCA, Bare Metal Stent performed today by Dr. Gillis No complication Pt will continue dual antiplatelet therapy for a minimum 1 month and ideally for at least 3 months as per cardiology Then continue with aspirin therapy indefinitely. continue monitor in tele 10/10 S/P cardiac cath yesterday Coronary Angiography, PTCA, Bare Metal Stent performed yesterday by Dr. Gillis Continue aspirin and Plavix uninterrupted for the next 12 weeks. Plan to discontinue Plavix and restart Coumadin in 3 months. Clinically stable discussed case with Cardiology and OK to discharge home today from cardiac standpoint Follow up appointment with cardiology on Oct [address] Washington ECHO done showed: * Ejection Fraction = 60-65%. * Focal area of severe hypokinesis to akinesis involving the mid septum, otherwise, normal wall motion. CAD (s/p STEMI in 05/05): Denies any chest pain NSTEMI in 05/05. Cardiac cath showed 70% LAD occlusion but medical management was recommended Repeat Cardiac cath done today showed 70% mid LAD stenosis Continue statin, sotalol ACEI, and dual antiplatelet therapy Continue aspirin and Plavix uninterrupted for the next 12 weeks. . Paroxysmal Atrial Fibrillation: Rate controlled Coumadin on hold for 3 months heparin drip discontinued HX OF FEMORAL ARTERY DISSECTION LE doppler u/s showed no change in appearance of the short segment dissection within the right common femoral artery since exam of April 29, 2015. Vessel remains patent Stable Hypothyroidism: Continue synthroid CKD III: Cr of 1, which is at baseline Avoid nephrotoxic medications Stable Insomnia: -Continue mirtazapine DVT Ppx: heparin drip d/c Code status: DNR Total time spent on discharge = 35 minutes This includes examination of the patient, discharge planning, medication reconciliation, and communication with other providers. Discharge Instructions Discharge Instructions Date of Service Oct 10, 2016. Admission Reason for Admission: Elevated Troponin, Hypertensive Urgency Discharge Discharge Diagnosis / Problem: NSTEMI, Hypertensive Urgency, Paroxysmal Atrial Fibrillation,Hypothyroidism Activity Recommendations Activity Limitations: resume your previous activity (as tolerated) . Instructions / Follow-Up Instructions / Follow-Up Follow up with your primary care provider Dr. Zacarias on 10/16 @ 12:45 pm Follow up with cardiology Dr. Washington on Oct 24 No Coumadin for now Continue aspirin and Plavix uninterrupted for the next 12 weeks. Plan to discontinue Plavix and restart Coumadin in 3 months. Watch for blood in your stool and your urine Contact your physician if you see any blood in the stools or urine Check wrist for signs of infection and bleeding Discontinue Coumadin ACTIVITY RESTRICTIONS / Recommendations: It is common to feel weak and fatigue for a few days. * Do not drive or operate any motorized equipment for the next three days. * Limit stair usage (2 or 3 trips a day only) for the next three days. * Do not lift anything heavier than 10 pounds for the next three days. * Do not engage in vigorous exercise or any sports for the next five days. * You may shower the day after your procedure, but do not immerse the area for three days. Cleanse the site gently with soap and water. SPECIAL CARE INSTRUCTIONS: * You may replace the pressure dressing or band-aid the morning after the procedure. * After your procedure, it is normal to have a small bruise or small lump at the site. Examine your site daily for any change in the bruise or lump, redness, swelling, drainage or numbness. Notify your doctor if any change. BLEEDING: * If there is a small amount of bleeding at the site, lie down and apply firm pressure with a clean cloth for ten minutes. When the bleeding stops, lie quietly keeping the procedure limb straight for six hours. Notify your doctor as soon as possible. * If the bleeding does not stop after ten minutes or if there is a large amount of bleeding or spurting, call 911 immediately. Continue to lie down and hold firm pressure until help arrives. SKIN IRRITATION: * You may experience some redness and/or swelling in the area where radiation was administered. If any skin irritation occurs, please contact your family physician. Current Hospital Diet Patient's current hospital diet: AHA Diet (Heart Healthy), Low Sodium Diet (2gm Na) Discharge Diet Recommended Diet: AHA Diet (Heart Healthy), Low Sodium Diet (2gm Na) Pending Studies Studies pending at discharge: no Medical Emergencies . Who to Call and When: Medical Emergencies: If at any time you feel your situation is an emergency, please call 911 immediately. . Non-Emergent Contact Non-Emergency issues call your: Primary Care Provider Call Non-Emergent contact if: you have any medication questions . . "Provider Documentation" section prepared by Gavino Vaca. . VTE Core Measure Inpt VTE Proph given/why not?: Unfractionated heparin SQ Additional Copies To Negra Weber M.D.
== END 2016-10-10 14:15 | disposition home or self-care (01) | DRG 249 ==
LOC: C.EDB 12:25 → ENRESERV 17:30 → C.2T 19:12
PROVIDERS: ADMIT Internal Medicine; ATTEND Internal Medicine
PROC: 4A023N7 Measurement of Cardiac Sampling and Pressure, Left Heart, Percutaneous Approach (ICD-10-PCS; 2016-10-09)
PROC: B210YZZ Fluoroscopy of Single Coronary Artery using Other Contrast (ICD-10-PCS; principal; 2016-10-09 08:15)
PROC: 02704DZ Dilation of Coronary Artery, One Artery with Intraluminal Device, Percutaneous Endoscopic Approach (ICD-10-PCS; principal; 2016-10-09 08:15)
DX: I21.4 Non-ST elevation (NSTEMI) myocardial infarction (principal); I16.0 Hypertensive urgency; I25.10 Atherosclerotic heart disease of native coronary artery without angina pectoris; I48.0 Paroxysmal atrial fibrillation; E03.9 Hypothyroidism, unspecified; I12.9 Hypertensive chronic kidney disease with stage 1 through stage 4 chronic kidney disease, or unspecified chronic kidney disease; N18.3 Chronic kidney disease, stage 3 (moderate); G47.00 Insomnia, unspecified; E78.5 Hyperlipidemia, unspecified; Z66 Do not resuscitate; I25.2 Old myocardial infarction; Z79.01 Long term (current) use of anticoagulants; Z79.52 Long term (current) use of systemic steroids; Z79.82 Long term (current) use of aspirin; Z79.899 Other long term (current) drug therapy

== ENCOUNTER 2016-12-04 04:55 | Emergency (ER) | payer OTHER ==
[~2016-12-04] VITALS: Ht 160 cm; Wt 56.5 kg
[~2016-12-04 04:55] MED LIST changes: -AMLO5TAB2 PO; -APR25 PO; -ATOR-22 PO; +CLON-460; -CYAN500T13 PO; +DOCU-94 PO; -ISOS30TA3 PO; -LEVO50TA6 PO; -LOSA1TAB PO; +LOSA50TA6 PO; +LPT40; +MRLP17X PO; +NRV5 PO; -OMEP20CA9 PO; +PLV75 PO; +SNK; +SYN75; -WARF5TAB7 PO
[2016-12-04 05:01] VITALS: TEMP 36.7; O2SAT 96; Ht 160 cm; Wt 56.5 kg
--- NOTE | 2016-12-04 05:21 | EMERGENCY ROOM VISIT NOTE ---
History Report prepared by Cali: Wojciech Mcdermott Under the Supervision of: Dr. Lou Walters D.O. First contact with patient: 05:01 Chief Complaint: HYPERTENSION Stated Complaint: HYPERTENSION History of Present Illness The patient is an 86 year old female who presents to the Emergency Room with concerns over persistent hypertensive blood pressures that the patient first experienced last night at 2100, 8 hours prior to arrival. The patient states that she noticed feeling very weak and short of breath while trying to work outside yesterday afternoon. At 2100 last night she felt a "spike in her blood pressure" and took a dose of Clonidine. The patient claims that her blood pressure was over 200 systolic at this time. She took a second dose of Clonidine at 2300. The patient phoned for EMS at 0400 this morning when she woke up and still felt as though her blood pressure was high. She was unable to take her own blood pressure because her cuff was not operating correctly. 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 A total of 10 systems reviewed and were otherwise negative. Past Medical & Surgical Medical Problems: (1) Afib (2) Anxiety (3) CAD (coronary artery disease) (4) CKD (chronic kidney disease) stage 3, GFR 30-59 ml/min (5) Dyslipidemia (6) Elevated troponin (7) Esophageal dysmotility (8) Gastroesophageal reflux (9) Hypertensive urgency (10) Hypothyroidism (11) Insomnia (12) Paroxysmal atrial fibrillation (13) PMR (polymyalgia rheumatica) (14) Raynauds disease (15) Urge incontinence Surgical Problems: (1) History of D&C (2) Hx of tonsillectomy Family History No pertinent family history Social History Smoking Status: Never Smoker Alcohol Use: none Marital Status: Housing Status: lives with family Occupation Status: retired Current/Historical Medications Scheduled Amlodipine Besylate (Amlodipine Besylate), 2.5 MG PO DAILY Aspirin (Aspirin Chewable), 81 MG PO QAM Atorvastatin (Atorvastatin Calcium), 40 MG DAILY Clopidogrel Bisulfate (Clopidogrel), 75 MG PO QAM Levothyroxine Sodium (Synthroid), 75 MCG DAILY Losartan Potassium (Cozaar), 50 MG PO DAILY Mirtazapine (Remeron), 7.5 MG PO HS Polyethylene (Miralax), 17 GM PO DAILY Prednisone (Prednisone), 5 MG PO DAILY Sotalol Hcl (Sotalol Hcl), 40 MG PO BID Scheduled PRN Clonidine Hcl (Catapres), 0.1 MG PO DAILY PRN for SBP >160 Nitroglycerin (Nitrostat), 1 TAB UT UD PRN for chest pain or esophageal spasm Allergies Coded Allergies: No Known Allergies (Unverified , 12/04/16) Physical Exam Vital Signs Date Time Temp Pulse Resp B/P (MAP) Pulse Ox O2 Delivery O2 Flow Rate FiO2 12/04/16 06:05 60 20 154/56 95 Room Air 12/04/16 05:43 60 20 146/60 96 Room Air 12/04/16 05:22 63 12/04/16 05:01 36.7 64 16 161/71 96 Room Air 12/04/16 05:01 96 Room Air Physical Exam HEENT: Head - normocephalic and atraumatic Pupils are equal, round, and reactive to light. Extraocular eye muscles are intact, and sclera are anicteric. Nose - moist nasal mucosa without discharge. Mouth - moist buccal mucosa. Oropharynx is nonerythematous and there is no tonsillar exudate or edema noted. Neck: Supple; no JVD, nuchal rigidity, cervical lymphadenopathy. Heart: Regular rate and rhythm. There is a normal S1 and S2 with no murmurs, clicks, or gallops appreciated. Lungs: Clear to auscultation bilaterally with no wheezes, rales, or rhonchi. Abdomen: Soft, completely nontender, nondistended, with good bowel sounds. There are no palpable pulsatile masses or hepatosplenomegaly. There is no guarding, rigidity, or rebound noted. Extremities: There is a healing wound to the left anterior black. No evidence of cyanosis, clubbing, or edema. There are easily palpable peripheral pulses. Skin: warm and dry with good turgor and no rashes. Medical Decision & Procedures Laboratory Results 12/04/16 05:35 Red Blood Count 3.64, Mean Corpuscular Volume 95.3, Mean Corpuscular Hemoglobin 30.8, Mean Corpuscular Hemoglobin Concent 32.3, Mean Platelet Volume 9.6, Neutrophils (%) (Auto) 79.9, Lymphocytes (%) (Auto) 10.4, Monocytes (%) (Auto) 6.3, Eosinophils (%) (Auto) 2.9, Basophils (%) (Auto) 0.3, Neutrophils # (Auto) 7.64, Lymphocytes # (Auto) 1.00, Monocytes # (Auto) 0.60, Eosinophils # (Auto) 0.28, Basophils # (Auto) 0.03 12/04/16 05:35 Test 12/04/16 05:35 White Blood Count 9.57 K/uL (4.8-10.8) Red Blood Count 3.64 M/uL (4.2-5.4) Hemoglobin 11.2 g/dL (12.0-16.0) Hematocrit 34.7 % (37-47) Mean Corpuscular Volume 95.3 fL (80-100) Mean Corpuscular Hemoglobin 30.8 pg (25-34) Mean Corpuscular Hemoglobin Concent 32.3 g/dl (32-36) Platelet Count 264 K/uL (130-400) Mean Platelet Volume 9.6 fL (7.4-10.4) Neutrophils (%) (Auto) 79.9 % Lymphocytes (%) (Auto) 10.4 % Monocytes (%) (Auto) 6.3 % Eosinophils (%) (Auto) 2.9 % Basophils (%) (Auto) 0.3 % Neutrophils # (Auto) 7.64 K/uL (1.4-6.5) Lymphocytes # (Auto) 1.00 K/uL (1.2-3.4) Monocytes # (Auto) 0.60 K/uL (0.11-0.59) Eosinophils # (Auto) 0.28 K/uL (0-0.5) Basophils # (Auto) 0.03 K/uL (0-0.2) RDW Standard Deviation 49.5 fL (36.4-46.3) RDW Coefficient of Variation 14.1 % (11.5-14.5) Immature Granulocyte % (Auto) 0.2 % Immature Granulocyte # (Auto) 0.02 K/uL (0.00-0.02) Ovalocytes 1+ Anion Gap 8.0 mmol/L (3-11) Est Creatinine Clear Calc Drug Dose 29.3 ml/min Estimated GFR () 50.4 Estimated GFR (Non- 43.5 BUN/Creatinine Ratio 22.8 (10-20) Calcium Level 8.1 mg/dl (8.5-10.1) Total Bilirubin 0.6 mg/dl (0.2-1) Direct Bilirubin 0.1 mg/dl (0-0.2) Aspartate Amino Transf (AST/SGOT) 23 U/L (15-37) Alanine Aminotransferase (ALT/SGPT) 41 U/L (12-78) Alkaline Phosphatase 79 U/L (45-117) Total Creatine Kinase 57 U/L (26-192) Creatine Kinase MB 0.7 ng/ml (0.5-3.6) Creatine Kinase MB Ratio 1.2 (0-3.0) Troponin I < 0.015 ng/ml (0-0.045) Total Protein 5.6 gm/dl (6.4-8.2) Albumin 2.8 gm/dl (3.4-5.0) Laboratory results per my review. ECG Indication: SOB/dyspnea Rate (beats per minute): 64 Rhythm: normal sinus Findings: PVC, no acute ischemic change ED Course 0505: Past medical records reviewed. The patient was evaluated in room B6. A complete history and physical exam was performed. A 12 EKG was obtained as described above. An IV lock was initiated and Labs were drawn as above. 0618: I checked on the patient at this time. She was asleep. I woke her up. She is feeling much better and her BP is down closer to normal. she will be discharged home. Medical Decision The patient is an 86 year old female who presents to the Emergency Department for hypertension. Differential Diagnosis includes; anxiety, hypertensive urgency, acute coronary syndrome. Laboratory studies include; white count of 9.5, hemoglobin of 11.2, BUN of 26, creatinine of 1.14, glucose of 99, troponin of less than 0.015. This is an 86-year-old female patient with a history of blood pressure presents to the emergency department feeling as if her blood pressure is high despite taking clonidine. She had no other significant symptoms. She did seem somewhat anxious about the fact that she had been taking a laxative and stooling for most of the day. Upon arrival to the emergency department, the blood was only slightly elevated. After sleeping for some time, it decreased close to normal. I've asked the patient to take her blood pressures as directed. She should keep a log so that she can follow up with her PCP. Medication Reconcilliation Current Medication List: was personally reviewed by me Blood Pressure Screening Patient's blood pressure: Elevated blood pressure Blood pressure disposition: Elevated BP felt to be situational Impression Primary Impression: Hypertension Scribe Attestation The scribe's documentation has been prepared under my direction and personally reviewed by me in its entirety. I confirm that the note above accurately reflects all work, treatment, procedures, and medical decision making performed by me. Departure Information Dispostion Home / Self-Care Referrals Negra Weber M.D. (PCP) Forms HOME CARE DOCUMENTATION FORM, IMPORTANT VISIT INFORMATION, WORK / SCHOOL INSTRUCTIONS Patient Instructions My [facility] Additional Instructions Rest. Watch BP closely. Avoid laxatives. Try natural stool softners if possible. Follow up with PCP Problem Qualifiers Primary Impression: Hypertension Hypertension type: unspecified Qualified Codes: I10 - Essential (primary) hypertension
[2016-12-04 05:46] LABS: HEMATOCRIT 34.7 % (37-47); MEAN CELL VOLUME 95.3 fL (80-100); MEAN CORPUSCULAR HEMOGLOBIN 30.8 pg (25-34); MEAN CORPUSCULAR HGB CONC 32.3 g/dl (32-36); MEAN PLATELET VOLUME 9.6 fL (7.4-10.4); PLATELET COUNT 264 K/uL (130-400); RED BLOOD COUNT 3.64 M/uL (4.2-5.4); WHITE BLOOD COUNT 9.57 K/uL (4.8-10.8)
[2016-12-04] MEDS ORDERED: CTP/1 PO (05:51)
[2016-12-04 06:04] LABS: ALT/SGPT 41 U/L (12-78); AST/SGOT 23 U/L (15-37); BLOOD UREA NITROGEN 26 mg/dl (7-18); BUN/CREATININE RATIO 22.8 (10-20); CALCIUM 8.1 mg/dl (8.5-10.1); CARBON DIOXIDE 25 mmol/L (21-32); CHLORIDE 108 mmol/L (98-107); CREATININE 1.14 mg/dl (0.60-1.20); GLUCOSE 99 mg/dl (70-99); POTASSIUM 4.2 mmol/L (3.5-5.1); SODIUM 141 mmol/L (136-145)
[2016-12-04 06:09] LABS: ALKALINE PHOSPHATASE 79 U/L (45-117); CKMB/CK RATIO 1.2 (0-3.0)
[2016-12-04 06:23] LABS: BASO % 0.3 %; BASO ABS # 0.03 K/uL (0-0.2); COMPLETE YES; EOS % 2.9 %; IG% 0.2 %; LYMPH % 10.4 %; MONO % 6.3 %; NEUT % 79.9 %; OVALOCYTES 1+
[2016-12-04 08:49] VITALS: BP 136/61; PULSE 68; O2SAT 97
== END 2016-12-04 08:51 | disposition home or self-care (01) ==
LOC: EDBD 04:55 → C.EDB 04:56
DX: I12.9 Hypertensive chronic kidney disease with stage 1 through stage 4 chronic kidney disease, or unspecified chronic kidney disease (principal); I25.10 Atherosclerotic heart disease of native coronary artery without angina pectoris; N18.3 Chronic kidney disease, stage 3 (moderate); E78.5 Hyperlipidemia, unspecified; I48.0 Paroxysmal atrial fibrillation; E03.9 Hypothyroidism, unspecified; Z90.89 Acquired absence of other organs; Z98.890 Other specified postprocedural states; Z79.02 Long term (current) use of antithrombotics/antiplatelets; Z79.82 Long term (current) use of aspirin; Z79.899 Other long term (current) drug therapy

== ENCOUNTER 2018-10-16 08:09 | Inpatient (IN) ==
--- NOTE | 2018-10-10 13:56 | PAT Medication Instructions ---
Medication Instructions Date of Service October 10, 2018 Home Medications atorvastatin 40 mg PO HS furosemide 20 mg PO QAM isosorbide mononitrate 30 mg PO QAM levothyroxine 50 mcg PO 6XWK levothyroxine 100 mcg PO WK mirtazapine 15 mg PO HS nitroglycerin 0.4 mg SUBLINGUAL UD PRN MDD may repeat once polyethylene glycol 3350 [Miralax] 17 g PO QAM prednisone 5 - 10 mg PO QAM sotalol 40 mg PO QAM warfarin 5 mg PO 3XWK acetaminophen [Tylenol Arthritis Pain] 650 mg PO Q8 PRN aspirin 81 mg PO QAM diclofenac sodium 2 g TOPICAL TID PRN losartan 25 mg PO QPM sennosides [senna] 8.6 mg PO DAILY PRN warfarin 2.5 mg PO 4XWK amlodipine 2.5 mg PO QAM hydromorphone 1 mg PO Q6H PRN pantoprazole 40 mg PO QAM PRN Continue as directed nitroglycerin 0.4 mg SUBLINGUAL UD PRN MDD may repeat once (if needed) prednisone 5 - 10 mg PO QAM ASK your prescriber and surgeon warfarin 5 mg PO 3XWK STOP taking 24 hours before surgery diclofenac sodium 2 g TOPICAL TID PRN DO NOT take the morning of surgery furosemide 20 mg PO QAM polyethylene glycol 3350 [Miralax] 17 g PO QAM sennosides [senna] 8.6 mg PO DAILY PRN Take morning of surgery With a small sip of water, OTHERWISE NOTHING TO EAT OR DRINK AFTER MIDNIGHT: isosorbide mononitrate 30 mg PO QAM levothyroxine sotalol 40 mg PO QAM acetaminophen [Tylenol Arthritis Pain] 650 mg PO Q8 PRN (okay to take up to 4 hours prior to surgery if needed) aspirin 81 mg PO QAM amlodipine 2.5 mg PO QAM hydromorphone 1 mg PO Q6H PRN (okay to take up to 4 hours prior to surgery if needed) pantoprazole 40 mg PO QAM PRN (if needed) Take evening before surgery atorvastatin 40 mg PO HS mirtazapine 15 mg PO HS acetaminophen [Tylenol Arthritis Pain] 650 mg PO Q8 PRN (if needed) losartan 25 mg PO QPM hydromorphone 1 mg PO Q6H PRN (if needed) Other Notes If you have any questions please call us at [phone] or [phone] or [phone] or [phone]
--- NOTE | 2018-10-11 08:37 | Anesthesiology Consultation ---
Date of Service October 11, 2018 Assessment & Plan (1) Encounter for pre-operative examination: - PCP: 10/11/18: "Since this is semi urgent surgery and she had echocardiogram done few months ago and without anginal symptom no need to do stress echo. I al so discussed this with Ciro Hogue, PAC [cardiology]... Hold Coumadin 5 days before the surgery, can continue aspirin for surgery if surgeon is comfortable, will start right after surgery. Needs to continue prednisone 5 mg daily thought the surgery, I would also give her hydrocortisone 50 mg red before the surgery and then 25 mg every 8 hours for the next 24 hour" - Cardio: 07/24/18: Labile HTN. Continued on same regimen. Advised to limit salt intake and increase furosemide if excess sodium consumed. - Check coags AM DOS (warfarin instructions per surgeon/prescriber). Chart Review Chart Review: Acceptable Risk for Surgery and Patient seen in Pre Admission Testing Teaching & Discussion Pre-Anesthesia Teaching/Discussion Notes: Instructed NPO after midnight before surgery,except medications with 15 cc of water. Medication instructions provided according to the PAT guidelines. History Surgery Operation Date: 10/16/18 09:55 Proposed Procedures p L3-L4, L4-L5 Decompression and Fusion with Spinal Cord Monitoring - Don Barajas, Height/Weight Height: 5 ft 3 in Weight: 50.6 kg Allergies Allergy/AdvReac Type Severity Reaction Status Date / Time amoxicillin Allergy Unknown Unknown Verified 10/08/18 14:34 lisinopril Allergy Unknown swelling Verified 10/08/18 14:34 face/lips/tongue sulfamethoxazole Allergy Unknown Unknown Verified 10/08/18 14:34 [From Bactrim] trimethoprim [From Bactrim] Allergy Unknown Unknown Verified 10/08/18 14:34 Medications Home Medications Medication Instructions Recorded Confirmed Last Taken atorvastatin 40 mg PO HS 06/28/18 10/08/18 09/13/18 furosemide 20 mg PO QAM 06/28/18 10/08/18 09/13/18 isosorbide mononitrate 30 mg PO QAM 06/28/18 10/08/18 09/13/18 levothyroxine 50 mcg PO 6XWK 06/28/18 10/08/18 09/13/18 levothyroxine 100 mcg PO WK 06/28/18 10/08/18 09/08/18 mirtazapine 15 mg PO HS 06/28/18 10/08/18 09/13/18 nitroglycerin 0.4 mg SUBLINGUAL UD PRN MDD 06/28/18 10/08/18 Unknown repeat once polyethylene glycol 3350 [Miralax] 17 g PO QAM 06/28/18 10/08/18 09/13/18 prednisone 5 - 10 mg PO QAM 06/28/18 10/08/18 09/13/18 sotalol 40 mg PO QAM 06/28/18 10/08/18 09/13/18 warfarin 5 mg PO 3XWK 06/28/18 10/08/18 09/12/18 acetaminophen [Tylenol Arthritis 650 mg PO Q8 PRN 09/14/18 10/08/18 Unknown Pain] aspirin 81 mg PO QAM 09/14/18 10/08/18 09/13/18 diclofenac sodium 2 g TOPICAL TID PRN 09/14/18 10/08/18 Unknown losartan 25 mg PO QPM 09/14/18 10/08/18 09/13/18 sennosides [senna] 8.6 mg PO DAILY PRN 09/14/18 10/08/18 Unknown warfarin 2.5 mg PO 4XWK 09/14/18 10/08/18 09/13/18 amlodipine 2.5 mg PO QAM 10/08/18 10/08/18 Unknown hydromorphone 1 mg PO Q6H PRN 10/08/18 10/08/18 Unknown pantoprazole 40 mg PO QAM PRN 10/08/18 10/08/18 Unknown Past Medical History Medical History Gastroesophageal reflux controlled Insomnia occasional Raynauds disease PMR (polymyalgia rheumatica) on chronic prednisone (current dose 5mg daily*) Hypothyroidism Dyslipidemia CAD (coronary artery disease) s/p BMS x1 to LAD (2016) Esophageal dysmotility occasional, chronic dysphagia Anxiety Paroxysmal atrial fibrillation CHF (congestive heart failure) 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 Grandfather Family hx of colon cancer Past Surgical History Surgical History Hx of tonsillectomy History of D&C History of cardiac cath s/p BMS x1 to LAD (2016) History of cataract surgery bilateral Past Anesthesia History No Hx of Anesthesia Complications and No Family Hx of Anesthesia Complications History of PONV No Hx of PONV and No Hx of Motion Sickness Social History Smoking Status: Never smoker Do You Dip or Chew Tobacco: No Hx Alcohol Use: Yes Alcohol type: wine alcohol intake frequency: holidays/special occasions only Hx Substance Use: No Review of Systems Reflux controlled. Patient denies chest pain, shortness of breath, cough, wheezing, palpitations. Physical Exam Vital Signs VITALS BP 148/56 P 58 TEMP 98.4 SP02 93%RA RESP 18 PHYSICAL Full neck and c-spine range of motion. Full TMJ range of motion. TMD 2.5 finger breaths Mallampati Score 2 Dentition: intact, crowns on molars Lungs: clear throughout to auscultation Cardiac: regular rate and rhythm, no murmurs noted Spine: normal Carotid arteries: negative bruit Extremities: no edema Testing Laboratory Results PT 23.5 Seconds (9.0-12.0) H 10/11/18 08:42 INR 2.4 (0.9-1.1) H 10/11/18 08:42 APTT 35.0 Seconds (21.0-31.0) H 10/11/18 08:42 Urine Color Yellow 10/11/18 08:42 Urine Appearance Clear (Clear) 10/11/18 08:42 Urine pH 6.5 (4.5-7.5) 10/11/18 08:42 Ur Specific [place] 1.010 (1.000-1.030) 10/11/18 08:42 Urine Protein Negative (Negative) 10/11/18 08:42 Urine Glucose (UA) Negative (Negative) 10/11/18 08:42 Urine Ketones Negative (Negative) 10/11/18 08:42 Urine Nitrite Negative (Negative) 10/11/18 08:42 Ur Leukocyte Esterase 3+ (Negative) H 10/11/18 08:42 Urine WBC (Auto) >30 /hpf (0-5) H 10/11/18 08:42 Urine RBC (Auto) 0-4 /hpf (0-4) 10/11/18 08:42 U Hyaline Cast (Auto) 1-5 /lpf (0-5) 10/11/18 08:42 U Epithel Cells (Auto) 0-5 /lpf (0-5) 10/11/18 08:42 Urine Bacteria (Auto) 4+ (Negative) H 10/11/18 08:42 Blood Type A Positive 10/11/18 08:42 Antibody Screen NEGATIVE 10/11/18 08:42 10/11/18 08:42 Urine Culture - Final Urine,Clean Catch Enterobacter cloacae *Surgeon made aware of abnormal UA* 10/07/18 WBC 10.76 H/H 11.5/36.3 PLATELETS 367 SODIUM 143 POTASSIUM 4.4 CHLORIDE 99 CO2 31 BUN 31 CREATININE 1.8 GFR 25.0 GLUCOSE 114 Electrocardiogram Date: 10/11/18 Sinus bradycardia at 57bpm. Incomplete right bundle branch block. ST & T wave abnormality, consider anterior ischemia (Isolated V3 inversion; improved from 09/2016 EKG at [facility]). Chest X-Ray Date: 09/13/18 The examination is degraded by portable technique and patient rotation. The heart is mildly enlarged and there is atherosclerotic calcification of the thoracic aorta. The pulmonary vasculature is noncongested. Chronic interstitial thickening similar to previous. No airspace consolidation or large pleural effusion is identified. There is mild bibasilar atelectasis. No pneumothorax is seen. The skeletal structures are osteopenic. Degenerative change and scoliosis are noted in the thoracic spine. The bony thorax is grossly intact. Echocardiogram Date: 07/05/18 LVEF 60-64%. No RWMA. Mild MR/TR. Grade I DD.
[2018-10-11 11:53] LABS: Appearance Urine Clear (Clear); Bacteria Urine Automated 4+ (Negative); Bilirubin Urine Negative (Negative); Blood Urine Negative (Negative); Color Urine Yellow; Epithelial Cell Urine Auto 0-5 /lpf (0-5); Glucose Urine UA Negative (Negative); Ketones Urine Negative (Negative); Leukocyte Esterase Urine 3+ (Negative); Nitrite Urine Negative (Negative); Protein Urine Negative (Negative); RBC Urine Automated 0-4 /hpf (0-4); Urobilinogen Urine Negative (Negative); WBC Urine Automated >30 /hpf (0-5); pH Urine 6.5 (4.5-7.5)
[2018-10-11 12:03] LABS: INR 2.4 (0.9-1.1); Partial Thromboplastin Ratio 1.3; Prothrombin Time 23.5 Seconds (9.0-12.0)
[~2018-10-16 08:09] MED LIST changes: +ACETAMINOPHEN 500 MG TAB PO SCH; -ASPCH81X PO; +CEFAZOLIN 1000MG 1,000 MG/7.5 ML SYR IV SCH; -CLON-460; -DOCU-94 PO; +GABAPENTIN 300 MG CAP PO SCH; -LOSA50TA6 PO; -LPT40; -MIRT15TA PO; -MRLP17X PO; -NRV5 PO; -NTRGSL4 UT; -PLV75 PO; -PRED-301 PO; -SNK; +SODIUM CHLORIDE 0.9% 1000ML IV SCH; -SOTA80TA PO; -SYN75
--- NOTE | 2018-10-16 08:58 | History & Physical Bridge Note ---
Date of Service October 16, 2018 History & Physical Bridge Note I have examined the patient, reviewed the History & Physical and in the interval since the performance of the History & Physical I have noted the following changes of clinical significance: no changes noted
--- NOTE | 2018-10-16 08:59 | History & Physical Report ---
Date of Service October 16, 2018 Assessment & Plan (1) Spinal stenosis, lumbar region with neurogenic claudication: Lumbar decompression fusion L3-4 L4-5. Present on Admission?: Yes History of Present Illness Chief Complaint: Back and bilateral leg pain Primary Care Provider: Negra Weber MD This is a 88-year-old female who presents with severe back and bilateral leg pain. After failing extensive course of nonoperative care is here for surgical intervention. Allergies Allergy/AdvReac Type Severity Reaction Status Date / Time amoxicillin Allergy Unknown Unknown Verified 10/16/18 08:30 lisinopril Allergy Unknown swelling Verified 10/16/18 08:30 face/lips/tongue sulfamethoxazole Allergy Unknown Unknown Verified 10/16/18 08:30 [From Bactrim] trimethoprim [From Bactrim] Allergy Unknown Unknown Verified 10/16/18 08:30 Home Medications Home Medications Medication Instructions Recorded Confirmed Type atorvastatin 40 mg PO HS 06/28/18 10/16/18 History furosemide 20 mg PO QAM 06/28/18 10/16/18 History isosorbide mononitrate 30 mg PO QAM 06/28/18 10/16/18 History levothyroxine 50 mcg PO 6XWK 06/28/18 10/16/18 History levothyroxine 100 mcg PO WK 06/28/18 10/16/18 History mirtazapine 15 mg PO HS 06/28/18 10/16/18 History nitroglycerin 0.4 mg SUBLINGUAL UD PRN MDD 06/28/18 10/16/18 History repeat once polyethylene glycol 3350 [Miralax] 17 g PO QAM 06/28/18 10/16/18 History prednisone 5 - 10 mg PO QAM 06/28/18 10/16/18 History sotalol 40 mg PO QAM 06/28/18 10/16/18 History warfarin 5 mg PO 3XWK 06/28/18 10/16/18 History acetaminophen [Tylenol Arthritis 650 mg PO Q8 PRN 09/14/18 10/16/18 History Pain] aspirin 81 mg PO QAM 09/14/18 10/16/18 History diclofenac sodium 2 g TOPICAL TID PRN 09/14/18 10/16/18 History losartan 25 mg PO QPM 09/14/18 10/16/18 History sennosides [senna] 8.6 mg PO DAILY PRN 09/14/18 10/16/18 History warfarin 2.5 mg PO 4XWK 09/14/18 10/16/18 History amlodipine 2.5 mg PO QAM 10/08/18 10/16/18 History hydromorphone 1 mg PO Q6H PRN 10/08/18 10/16/18 History pantoprazole 40 mg PO QAM PRN 10/08/18 10/16/18 History Past Med/Surg History Medical History Gastroesophageal reflux controlled Insomnia occasional Raynauds disease PMR (polymyalgia rheumatica) on chronic prednisone (current dose 5mg daily*) Hypothyroidism Dyslipidemia CAD (coronary artery disease) s/p BMS x1 to LAD (2016) Esophageal dysmotility occasional, chronic dysphagia Anxiety Paroxysmal atrial fibrillation CHF (congestive heart failure) 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 Grandfather Family hx of colon cancer Social History Preferred Language: [place] Communication Ability: Effective Cloth Neutralizer Required: No Beliefs That Will Affect Care: None Current Living Situation: Alone Other Information That Helps Us Care for You: No Feels Safe at Home: Yes Safety Concerns: Feels Safe At This Time Smoking Status: Never smoker Do You Dip or Chew Tobacco: No ; Second Hand Exposure: No ; Tobacco Cessation Education Requested by Patient: No Hx Alcohol Use: Yes Alcohol type: wine Hx Substance Use: No Physical Exam Physical Exam: Patient is alert and oriented neurologically intact. Results & Data Vital Signs (Past 12 Hours) Vital Signs Temp Pulse Resp BP Pulse Ox 10/16/18 08:39 36.7 C 70 20 155/87 H 94
[2018-10-16] MEDS ORDERED: ONDANSETRON INJ 2 MG/ML 2 ML VIAL IV PRN ×2 (09:03→13:03)
[2018-10-16] MEDS ORDERED: HYDROmorphone INJ 0.5 MG/0.5 ML SYR IV PRN (09:03)
[2018-10-16] MEDS ORDERED: ePHEDrine sulfate 50 MG/ML AMP IV PRN (09:03)
[2018-10-16] MEDS ORDERED: ATROPINE SULFATE 0.1 MG/ML 10ML SYR IV PRN (09:03)
[2018-10-16] MEDS ORDERED: fentaNYL citrate 100 MCG/2 ML VIAL ONE ×3 (09:13→11:17)
[2018-10-16] MEDS ORDERED: BUPIVACAINE/EPINEPHRINE 0.5% MPF 1:200,000 30 ML VIAL ONE (09:14)
[2018-10-16] MEDS ORDERED: BACITRACIN INJ 50,000 UNIT VIAL ONE (09:14)
[2018-10-16] MEDS ORDERED: DEXAMETHASONE SOD INJ 4 MG/ML VIAL ONE (09:19)
[2018-10-16] MEDS ORDERED: ONDANSETRON INJ 2 MG/ML 2 ML VIAL ONE (09:19)
[2018-10-16] MEDS ORDERED: HYDROmorphone INJ 2 MG/ML SYR/VIAL ONE ×2 (09:19→11:28)
[2018-10-16] MEDS ORDERED: GLYCOPYRROLATE 0.2 MG/ML VIAL ONE (09:19)
[2018-10-16] MEDS ORDERED: ROCURONIUM BROMIDE 10 MG/ML 5 ML VIAL ONE (09:19)
[2018-10-16] MEDS ORDERED: NEOSTIGMINE METHYLSULFATE 1 MG/ML 10ML VIAL ONE (09:19)
[2018-10-16] MEDS ORDERED: LIDOCAINE HCL 2% 2 ML VIAL/AMP(20MG/ML) INFIL ONE (09:19)
[2018-10-16] MEDS ORDERED: PROPOFOL IV EMULSION 10 MG/ML 20 ML VIAL IV ONE (09:19)
[2018-10-16] MEDS ORDERED: CLINDAMYCIN 600 MG/54 ML D5W IV ONE (09:35)
[2018-10-16 09:38] LABS: INR 1.3 (0.9-1.1); Partial Thromboplastin Ratio 0.9; Partial Thromboplastin Time 25.6 Seconds (21.0-31.0); Prothrombin Time 13.2 Seconds (9.0-12.0)
[2018-10-16] MEDS ORDERED: HYDROCORTISONE SOD SUCCINATE 100 MG/2 ML VIAL ONE (09:53)
[2018-10-16] MEDS ORDERED: FLOSEAL HEMOSTATIC MATRIX 10ML TOP ONE (10:26)
[2018-10-16] MEDS ORDERED: ePHEDrine sulfate 50 MG/ML SYR ONE (11:28)
--- NOTE | 2018-10-16 11:31 | Operative Report ---
Post Operative Report Pre & Post Diagnosis Operation Date: 10/16/18 09:55 Pre-Op Diagnosis: LUMBAR SPINAL STENOSIS W/NEUROGENIC CLAUDICATION L3-4, L4-5 Post-Op Diagnosis: LUMBAR SPINAL STENOSIS W/NEUROGENIC CLAUDICATION L3-4, L4-5 Procedure Operation Date: 10/16/18 09:55 #1 lumbar decompression with bilateral medial facetectomies and foraminotomies L3-4 L4-5. #2 posterior spinal fusion L3-4 L4-5 per #3 placed posterior instrumentation L3-4 L4-5. #4 placement of local autograft in the posterior lateral gutters. #5 placement infuse collagen sponge, master graft in the posterior lateral gutters. Surgeon Don Barajas, Apparatus Lineman Paula Long Estimated Blood Loss 50 Findings Consistent with Post-Op Diagnosis Specimens None Indications This is a 88-year-old female who presents with above-mentioned diagnosis after failing extensive course of nonoperative care like to undergo the above- mentioned procedure. Description of Procedure Patient was met with identified and informed consent obtained. Patient was then taken to the operative suite underwent intubation placed in the prone position the Aydin table on his well-padded eyes inspected to ensure no external pressure placed upon but this point the lumbar spine was prepped and draped in normal sterile fashion. Sharp dissection with the assistance of Bovie cautery was performed down to and exposing the lamina and transverse processes of L3-L4-L5 bilaterally. From a caudal to cephalad fashion complete laminectomy of L for an L3 was performed including bilateral medial facetectomies and foraminotomies addressing severe stenosis as well as eradicating facet cyst at L4-5 on the left. After complete decompression pedicle screws were placed in L3-L4-L5 bilaterally with assistance of fluoroscopy the purposes ana locked in position. The transverse processes of L3 L4-5 were then burred to subcortical bleeding bone. Infuse collagen sponge master graft and local autograft placed in the posterior lateral gutters. 15 round PAUL drain inserted. The incision was then closed with 1 Vicryl in the fascia 2-0 Vicryl subtenons seen for Monocryl for final skin closure. Steri-Strip sterile dressings placed. Patient will continue to PACU stable condition. Please note Paula Long present all the entire procedure involved in patient positioning complex portions of the surgery and final skin closure. Lastly spinal cord monitoring was utilized that the procedure no changes noted. I attest to the content of the Intraoperative Record and any orders documented therein. Any exceptions are noted below.
--- NOTE | 2018-10-16 11:55 | Fluoroscopy Report ---
LUMBAR SPINE, INTRAOPERATIVE FLUOROSCOPY HISTORY: L3 L5 decompression and fusion. FLUOROSCOPY TIME: 26 seconds. FINDINGS: Intraoperative fluoroscopy was provided for the lumbar spine. There are 3 fluoroscopic spot images were obtained. Posterior decompression fusion from L3 through L5 with pedicle screws and rods . The hardware appears intact. IMPRESSION: Fluoroscopy provided for a L3-L5 posterior decompression and fusion. Electronically signed by: Nick Brock M.D. 10/16/2018 11:54 AM
[2018-10-16] MEDS: fentaNYL citrate 100 MCG/2 ML VIAL IV PRN ×4 (12:02→12:17)
[2018-10-16] MEDS ORDERED: MAGNESIUM HYDROXIDE SUSP 30 ML UDC PO PRN (13:03)
[2018-10-16] MEDS ORDERED: NITROGLYCERIN SL 0.4 MG/TAB TAB SL PRN (13:03)
[2018-10-16] MEDS ORDERED: DO NOT ADMINISTER PNEUMOCOCCAL VACCINE PRN (13:03)
[2018-10-16] MEDS ORDERED: NALOXONE HCL 0.4 MG/1 ML VIAL/CARP IV PRN (13:03)
[2018-10-16] MEDS ORDERED: SENNA 8.6 MG TAB PO PRN (13:03)
[2018-10-16] MEDS ORDERED: SOD PHOSPHATE/SOD BIPHOSPHATE ENEMA 132 ML BTL PR PRN (13:03)
[2018-10-16] MEDS ORDERED: FAMOTIDINE 20 MG TAB PO PRN (13:03)
[2018-10-16] MEDS ORDERED: BISACODYL 10 MG SUPP PR PRN (13:03)
[2018-10-16] MEDS ORDERED: NON-FORMULARY MEDICATION (Acetaminophen [Tylenol Arthritis Pain] 650 MG) PO PRN (13:03)
[2018-10-16] MEDS ORDERED: ACETAMINOPHEN 500 MG TAB PO PRN (13:03)
[2018-10-16] MEDS ORDERED: PROMETHAZINE HCL 12.5 MG in SODIUM CHLORIDE 0.9% 50 ML IV PRN (13:03)
[2018-10-16] MEDS ORDERED: DO NOT ADMINISTER FLU VACCINE PRN (13:03)
[2018-10-16] MEDS ORDERED: ONDANSETRON 4 MG TAB PO PRN (13:03)
[2018-10-16] MEDS ORDERED: METOCLOPRAMIDE HCL INJ 5 MG/ML 2 ML VIAL IV PRN (13:03)
[2018-10-16] MEDS ORDERED: ALUMINUM/MAGNESIUM SUSP 30 ML UDC PO PRN (13:03)
[2018-10-16] MEDS ORDERED: PANTOprazole 40 MG TAB PO PRN (13:03)
[2018-10-16] MEDS ORDERED: ACETAMINOPHEN 1,000 MG/100 ML VIAL IV PRN (13:03)
--- NOTE | 2018-10-16 14:18 | Anesthesiology Progress Note ---
Date of Service October 16, 2018 Anesthesia Post Procedure Vital Signs Vital Signs: Temp Pulse Pulse Resp BP Pulse Ox 10/16/18 13:50 69 16 137/76 94 10/16/18 13:18 57 L 16 128/69 98 10/16/18 12:50 36.5 C 56 L 16 125/68 95 10/16/18 12:27 36.5 C 57 L 15 111/59 L 98 10/16/18 12:15 61 15 132/69 99 10/16/18 12:05 62 15 163/74 H 99 10/16/18 11:55 67 17 136/56 L 100 10/16/18 11:46 36.3 C L 76 14 133/68 97 10/16/18 08:39 36.7 C 70 20 155/87 H 94 Pain Intensity Back: Pain Intensity: 1 Transfer of Care Handoff Completed per policy Notes Mental Status: alert / awake / arousable and participated in evaluation Patient Amnestic to Procedure: Yes Nausea / Vomiting: adequately controlled Pain: adequately controlled Airway Patency, RR, SpO2: stable & adequate BP & HR: stable & adequate Hydration State: stable & adequate Anesthetic Complications: no major complications apparent and Pt Satisfied with anesthetic care
--- NOTE | 2018-10-16 14:30 | Hospitalist Consultation ---
Date of Consultation October 16, 2018 Assessment & Plan (1) Spinal stenosis, lumbar region with neurogenic claudication: (2) S/P lumbar spinal fusion: (3) Status post lumbar spine surgery for decompression of spinal cord: 88 yo F with PMHx of PAF, HTN, CKD, hypothyroidism, PMR, esophageal d ysmotility, CAD (STEMI s/p stents) and spinal stenosis seen today in room 300 s/p L3 through L5 decompression/fusion by Dr. Barajas POD #0. She reports presently her pre-op symptoms have resolved though she notes she has not been up walking yet so unsure if her right leg weakness has resolved. She notes mild discomfort in area of incision but "would not call it pain". She has a beckett catheter in place draining clear yellow urine and has not passed flatus or had a BM yet. She denies chest pain, SOB, GROVE, dizziness, weakness, abdominal pain, edema. She denies any concerns or complaints at this time. Pt tolerated the procedure well. - EBL: 50 mL , PAUL Drain 90 mL - Pain/wound management, activity, DVT prophylaxis per primary service, orthopedics - bowel prophylaxis per ortho - trend H/H (4) Paroxysmal atrial fibrillation: - chronically on coumadin, held 5 days prior to surgery - PT/INR this AM 13.2/1.3 - Continue sotalol - Refer to ortho service to restart coumadin once hemodynamically stable (5) PMR (polymyalgia rheumatica): - Chronic prednisone 5 mg daily, continue - Dexamethasone ordered by ortho for stress dose (6) CAD (coronary artery disease): (7) HTN (hypertension): - Stable - Follows with cardiology, PCP notes labile HTN at times but has been stable - Echo done 07/05/18 EF 60% - Continue: > amlodipine 2.5 mg daily > losartan 25 mg daily > furosemide 20 mg daily (8) CKD (chronic kidney disease) stage 4, GFR 15-29 ml/min: - baseline BUN/CR pre op: 31/1.8 - will monitor BMP - No NSAIDs (9) Chronic anemia: - in setting of CKD 4 - Baseline H/H pre op: 11.5/36.3 - Will monitor H/H (10) UTI (urinary tract infection) due to Enterococcus: - Urine culture 10/08/18 showed enterobacter cloacae, sensitive to cipro which PCP started her on 10/11/18 - She has completed 4.5 days of treatment and has 2.5 days of treatment left which we will complete - Asymptomatic at this time (11) Hypothyroidism: - continue with levothyroxine 50 mcg (12) Esophageal dysmotility: - continue PPI - soft food diet - aspiration precautions Patient seen and reviewed with collaborating physician, Dr. Vaca. Plan of care discussed and as outlined above. Care to be assumed in AM by Dr. Vaca. Thank you for this consultation. We will continue to follow the patient with you. [facility] may be reached [facility]/09 at [phone]. Please don't hesitate to call with questions or concerns. Supervising Physician Co-Signing Physician Notes Pt was seen and examined. Agreed with Sujit COLLIER exam, assessment and plan. 88 yo F with PMHx of PAF, HTN, CKD, hypothryoidism, PMR, esophageal dysmotility, CAD (STEMI s/p stents) and spinal stenosis and s/p Lumbar decompression/fusion done today by Dr. Barajas after failing conservative outpatient management for chronic low back pain that radiated to the legs. [facility]. No post-op complications noted. Continue pain control. Hold Coumadin for now and will restart when bleeding stable. Monitor H/H and fall precaution. MD Lio History of Present Illness Reason for Consultation: medical management s/p L3 through L5 decompression and fusion by Dr. Barajas Attending Physician: Don Barajas, History of Present Illness 88 yo F with PMHx of PAF, HTN, CKD, hypothryoidism, PMR, esophageal dysmotility, CAD (STEMI s/p stents) and spinal stenosis seen today in room 300 s/p L3 through L5 decompression/fusion by Dr. Barajas POD #0. Patient reports prior to surgery had been having significant lower back pain which radiated to the legs R>L for the last few months. Her right leg has also become weak d/t the symptoms. She had an MRI last month which showed spinal cyst with compression on L4-L5 and L5-S1 and she failed medical management. She reports presently her pre-op symptoms have resolved though she notes she has not been up walking yet so unsure if her right leg weakness has resolved. She notes mild discomfort in area of incision but "would not call it pain". She has a beckett catheter in place and has not passed flatus or had a BM yet. She denies chest pain, SOB, GROVE, dizziness, weakness, abdominal pain, edema. She denies any concerns or complaints at this time. She was seen at PCP office 10/11/18 for pre op clearance. Noted to have enterobacter cloacae complex growth in urine culture, was started on Cipro 250 mg BID x 7 days, completed 4.5 days of treatment. She is asymptomatic. Allergies Allergy/AdvReac Type Severity Reaction Status Date / Time amoxicillin Allergy Unknown Unknown Verified 10/16/18 08:30 lisinopril Allergy Unknown swelling Verified 10/16/18 08:30 face/lips/tongue sulfamethoxazole Allergy Unknown Unknown Verified 10/16/18 08:30 [From Bactrim] trimethoprim [From Bactrim] Allergy Unknown Unknown Verified 10/16/18 08:30 Home Medications Home Medications Medication Instructions Recorded Confirmed Type atorvastatin 40 mg PO 06/28/18 10/16/18 History furosemide 20 mg PO COUNTS INCLUDE 234 BEDS AT THE [facility] 06/28/18 10/16/18 History isosorbide mononitrate 30 mg PO COUNTS INCLUDE 234 BEDS AT THE [facility] 06/28/18 10/16/18 History levothyroxine 50 mcg PO 6XWK 06/28/18 10/16/18 History levothyroxine 100 mcg PO WK 06/28/18 10/16/18 History mirtazapine 15 mg PO 06/28/18 10/16/18 History nitroglycerin 0.4 mg SUBLINGUAL UD PRN MDD 06/28/18 10/16/18 History repeat once polyethylene glycol 3350 [Miralax] 17 g PO COUNTS INCLUDE 234 BEDS AT THE [facility] 06/28/18 10/16/18 History prednisone 5 - 10 mg PO QA 06/28/18 10/16/18 History sotalol 40 mg PO QA 06/28/18 10/16/18 History warfarin 5 mg PO 3XWK 06/28/18 10/16/18 History acetaminophen [Tylenol Arthritis 650 mg PO Q8 PRN 09/14/18 10/16/18 History Pain] aspirin 81 mg PO QAM 09/14/18 10/16/18 History diclofenac sodium 2 g TOPICAL TID PRN 09/14/18 10/16/18 History losartan 25 mg PO QPM 09/14/18 10/16/18 History sennosides [senna] 8.6 mg PO DAILY PRN 09/14/18 10/16/18 History warfarin 2.5 mg PO 4XWK 09/14/18 10/16/18 History amlodipine 2.5 mg PO QAM 10/08/18 10/16/18 History pantoprazole 40 mg PO QAM PRN 10/08/18 10/16/18 History hydromorphone 1 mg PO Q6H PRN 15 Days #30 tab 10/20/18 Rx tramadol 50 - 100 mg PO Q4H PRN 15 Days #30 10/20/18 Rx tab NS Patient History Medical History Gastroesophageal reflux (Chronic) controlled Insomnia (Chronic) occasional Raynauds disease (Chronic) PMR (polymyalgia rheumatica) (Chronic) on chronic prednisone (current dose 5mg daily*) Hypothyroidism (Chronic) Dyslipidemia (Chronic) CAD (coronary artery disease) (Chronic) s/p BMS x1 to LAD (2016) Esophageal dysmotility (Chronic) occasional, chronic dysphagia Anxiety (Chronic) Paroxysmal atrial fibrillation (Chronic) Chronic back pain Osteoarthritis CHF (congestive heart failure) CKD (chronic kidney disease) stage III/IV- under surveillance HTN (hypertension) Labile per cardiology Heart attack 2017 Surgical History Hx of tonsillectomy (Chronic) History of D&C (Chronic) History of cardiac cath s/p BMS x1 to LAD (2016) History of cataract surgery bilateral Family History Grandfather No problems noted. Grandfather Family hx of colon cancer Social History Preferred Language: Lithuanian Communication Ability: Effective Certified Physician Assistant Required: No Beliefs That Will Affect Care: None Current Living Situation: Alone Other Information That Helps Us Care for You: No Feels Safe at Home: Yes Safety Concerns: Feels Safe At This Time Smoking Status: Never smoker Do You Dip or Chew Tobacco: No ; Second Hand Exposure: No ; Tobacco Cessation Education Requested by Patient: No Hx Alcohol Use: Yes Alcohol type: wine Hx Substance Use: No Review of Systems Review of Systems: A total of 10 systems were reviewed and otherwise negative unless noted in the HPI or below: []. Physical Exam Physical Exam: GENERAL: alert, healthy, no distress, well nourished and well developed, resting comfortably sitting up in bed with daughter at bedside HEAD: Normocephalic, atraumatic EYES: PERRL, EOMI, Conjunctiva are pink and non-injected, sclera clear HEART: regular rate & rhythm, no murmurs and no gallops, no edema LUNGS: clear to auscultation bilaterally, no wheezing, rales or rhonchi ABDOMEN: abdomen soft, non-tender, normal bowel sounds x 4 quadrants, no masses or organomegaly, no rebound or guarding, no bladder distention identified and no bruits : beckett in place drainage clear yellow urine BACK: surgical dressing C/D/I, PAUL drain in place with seroanguinous drainage SKIN: skin color, texture, turgor are normal, no rashes or significant lesions NEURO: alert & oriented x 3 with fluent speech, no focal motor/sensory deficits, strength UE and LE 5/5 throughout Results & Data Vital Signs (Past 12 Hours) Vital Signs Temp Pulse Pulse Resp BP Pulse Ox 10/16/18 13:18 57 L 16 128/69 98 10/16/18 12:50 36.5 C 56 L 16 125/68 95 10/16/18 12:27 36.5 C 57 L 15 111/59 L 98 10/16/18 12:15 61 15 132/69 99 10/16/18 12:05 62 15 163/74 H 99 10/16/18 11:55 67 17 136/56 L 100 10/16/18 11:46 36.3 C L 76 14 133/68 97 10/16/18 08:39 36.7 C 70 20 155/87 H 94 Laboratory Results INR 1.3 (0.9-1.1) H 10/16/18 09:05 Diagnostic Findings Lumbar Spine XRAY: FINDINGS: Intraoperative fluoroscopy was provided for the lumbar spine. There are 3 fluoroscopic spot images were obtained. Posterior decompression fusion from L3 through L5 with pedicle screws and rods. The hardware appears intact. IMPRESSION: Fluoroscopy provided for a L3-L5 posterior decompression and fusion.
[2018-10-16] MEDS ORDERED: CIPROFLOXACIN 250 MG TAB PO STA (15:19)
[2018-10-16] MEDS ORDERED: CIPROFLOXACIN 250 MG TAB PO SCH (15:30)
[2018-10-16] MEDS: dexAMETHasone 6 MG in SYRINGE 0 ML IV SCH ×2 (15:38→23:42)
[2018-10-16 15:58] LABS: Creatinine Clr Calc Pharmacy 14.9 ml/min; Est GFR (African American) 24.2; Est GFR (Non-African American) 20.9
[2018-10-16] MEDS: SODIUM CHLORIDE 0.9% 1000ML 1,000 ML IV SCH (18:45)
[2018-10-16] MEDS: CLINDAMYCIN 600 MG in DEXTROSE 5% 50 ML IV SCH (19:18)
[2018-10-16] MEDS: MIRTAZAPINE TAB 15 MG TAB PO SCH (20:45)
[2018-10-16] MEDS: DOCUSATE SODIUM/SENNA 50/8.6MG TAB PO SCH (20:45)
[2018-10-16] MEDS: ATORVASTATIN 40 MG TAB PO SCH (20:45)
[2018-10-16] MEDS: LOSARTAN POTASSIUM 25 MG TAB PO SCH (20:46)
[2018-10-16] MEDS ORDERED: HEPARIN SOD 5,000 UNIT/0.5 ML VIAL SQ SCH (21:00)
[2018-10-17] MEDS: CLINDAMYCIN 600 MG in DEXTROSE 5% 50 ML IV SCH (01:07)
[2018-10-17 05:28] LABS: Hematocrit (blood only) 29.9 % (37-47); Hemoglobin 9.5 g/dL (12.0-16.0); Immature Granulocytes # (auto) 0.04 K/uL (0.00-0.02); Immature Granulocytes % (auto) 0.3 %; Lymphocytes # (auto) 0.46 K/uL (1.2-3.4); Lymphocytes % (auto) 3.5 %; Mean Corpuscular Hemoglobin 30.6 pg (25-34); Mean Corpuscular Hgb Conc 31.8 g/dL (32-36); Mean Corpuscular Volume 96.5 fL (80-100); Mean Platelet Volume 10.2 fL (7.4-10.4); Monocytes # (auto) 0.42 K/uL (0.11-0.59); Monocytes % (auto) 3.2 %; Neutrophils # (auto) 12.18 K/uL (1.4-6.5); Platelet Count 238 K/uL (130-400); RDW Coefficient of Variation 14.3 % (11.5-14.5); RDW Standard Deviation 50.7 fL (36.4-46.3)
[2018-10-17 05:31] LABS: INR 1.4 (0.9-1.1)
[2018-10-17] MEDS: TRAMADOL HCL 50 MG TABLET PO PRN ×2 (05:47→19:41)
[2018-10-17] MEDS: POLYETHYLENE (MIRALAX) 17 GM PACK PO SCH ×4 (05:48→23:26)
[2018-10-17] MEDS: LEVOTHYROXINE SODIUM 50 MCG TABLET PO SCH (05:48)
[2018-10-17 05:49] LABS: BUN Creatinine Ratio 13.8 (10-20); Calcium 7.5 mg/dl (8.5-10.1); Creatinine Clr Calc Pharmacy 19.1 ml/min; Est GFR (African American) 32.8; Est GFR (Non-African American) 28.3; Potassium 3.7 mmol/L (3.5-5.1)
[2018-10-17] MEDS ORDERED: CLINDAMYCIN 600 MG/54 ML BAG IV SCH (06:00)
[2018-10-17] MEDS: SODIUM CHLORIDE 0.9% 1000ML 1,000 ML IV SCH (06:03)
--- NOTE | 2018-10-17 08:14 | Anesthesiology Progress Note ---
Date of Service October 17, 2018 Anesthesia Post Procedure Vital Signs Vital Signs: Temp Pulse Pulse Resp BP Pulse Ox 10/17/18 07:35 37.0 C 74 16 121/68 95 10/17/18 02:40 36.6 C 61 17 126/65 92 10/16/18 23:54 36.6 C 51 L 16 111/58 L 94 10/16/18 19:24 36.3 C L 65 16 102/62 96 10/16/18 15:58 36.3 C L 60 16 127/69 97 10/16/18 15:02 36.2 C L 65 16 132/68 97 10/16/18 13:50 69 16 137/76 94 10/16/18 13:18 57 L 16 128/69 98 10/16/18 12:50 36.5 C 56 L 16 125/68 95 10/16/18 12:27 36.5 C 57 L 15 111/59 L 98 10/16/18 12:15 61 15 132/69 99 10/16/18 12:05 62 15 163/74 H 99 10/16/18 11:55 67 17 136/56 L 100 10/16/18 11:46 36.3 C L 76 14 133/68 97 10/16/18 08:39 36.7 C 70 20 155/87 H 94 Pain Intensity Back: Pain Intensity: 2 Notes Mental Status: alert / awake / arousable and participated in evaluation Patient Amnestic to Procedure: Yes Nausea / Vomiting: adequately controlled Pain: adequately controlled Airway Patency, RR, SpO2: stable & adequate BP & HR: stable & adequate Hydration State: stable & adequate Anesthetic Complications: Pt Satisfied with anesthetic care
--- NOTE | 2018-10-17 08:37 | Orthopedic Progress Note ---
Date of Service October 17, 2018 Assessment & Plan (1) Spinal stenosis, lumbar region with neurogenic claudication: This time will initiate physical therapy monitor PAUL output anticipate possible rehab in the next few days. Present on Admission?: Yes Subjective Back pain is well controlled leg pain markedly improved. Physical Exam Physical Exam: Patient is standing and ambulating about the room. She is good strength testing. Results & Data Vital Signs (Past 12 Hours) Vital Signs Temp Pulse Resp BP Pulse Ox 10/17/18 07:35 37.0 C 74 16 121/68 95 10/17/18 02:40 36.6 C 61 17 126/65 92 10/16/18 23:54 36.6 C 51 L 16 111/58 L 94
[2018-10-17] MEDS: AMLODIPINE BESYLATE 5 MG TAB PO SCH (08:57)
[2018-10-17] MEDS: ASPIRIN 81 MG ECTAB PO SCH (08:57)
[2018-10-17] MEDS: FUROSEMIDE 20 MG TAB PO SCH (08:57)
[2018-10-17] MEDS: dexAMETHasone 6 MG in SYRINGE 0 ML IV SCH (08:58)
[2018-10-17] MEDS: predniSONE 5 MG TAB PO SCH (08:58)
[2018-10-17] MEDS: SOTALOL HCL 80 MG TAB PO SCH (08:59)
[2018-10-17] MEDS: ISOSORBIDE MONO EXTENDED REL 30 MG TABCR PO SCH (08:59)
[2018-10-17] MEDS: HYDROmorphone HCL 2 MG TAB PO PRN (09:09)
--- NOTE | 2018-10-17 10:21 | Hospitalist Progress Note ---
Date of Service October 17, 2018 Assessment & Plan (1) Spinal stenosis, lumbar region with neurogenic claudication: S/P Lumbar decompression and fusion L3-4, L4-[address] Barajas POD #1 EBL 50ml; PAUL drain 245ml tolerated procedure well pain/wound management per surgery activity and therapy as directed by surgery encourage incentive spirometry follow H/H (2) Paroxysmal atrial fibrillation: ChadsVasc 5 rate and rhythm controlled with sotalol INR 1.4 today; warfarin on hold until okay with Ortho to resume on ASA for now consider lovenox bridge given chadvasc 5 when okay by ortho (3) PMR (polymyalgia rheumatica): Chronic prednisone 5 mg daily, continue Dexamethasone ordered and received for stress dose steroids hemodynamically stable (4) CAD (coronary artery disease): no chest pain or SOB hx of stents in past continue ASA, Statin, losartan (5) HTN (hypertension): blood pressure controlledStable Echo done 07/05/18 EF 60% Continue: amlodipine, losartan Will hold lasix for now given post op stat; re assess volume status in am. (6) CKD (chronic kidney disease) stage 4, GFR 15-29 ml/min: baseline BUN/CR pre op: 31/1.8 crea 1.6 today, monitor avoid nephrotoxic agents (7) Chronic anemia: in setting of CKD 4 Baseline H/H pre op: 11.5/36.3 H/H 9.5 and 29.9 monitor (8) UTI (urinary tract infection) due to Enterococcus: Urine culture 10/08/18 showed enterobacter cloacae, sensitive to cipro which PCP started her on 10/11/18 complete cipro today; pt asymptomatic (9) Hypothyroidism: continue with levothyroxine 50 mcg (10) Esophageal dysmotility: continue PPI, hx of dilation in past soft food diet aspiration precautions DVT ppx: per ortho Disposition: to be determined Follow up: PCP Dr. Weber upon discharge Patient seen and examined in collaboration with Dr. Vaca, please see addendum Thank you for this consultation. We will follow the patient with you during their hospital stay. You can reach a [facility] 11[facility]09 via pager @ [phone]. Supervising Physician Co-Signing Physician Notes Pt was seen and examined. Agreed with Jesusita COLLIER exam, assessment and plan. S/P day#1 lumbar spine decompression and fusion performed by Dr. Barajas. No po st-op complications. Hgb 9.5 and creatinine improves to 1.6 today. Case discussed with ortho and agreed start the coumadin tomorrow. Continue pain control. Incentive spirometry. Fall precaution. PT/OT eval. Lio MD Subjective Patient seen and examined in room 300. Follow-up POD #1 L3-L4, L4-L5 lumbar decompression fusion by Dr. Barajas. She is sitting up in bedside chair, otherwise feels well. Denies f/c/s, chest pain, sob, n/v/d. Minimal flatulence, no BM yet. Urinary catheter just removed. Diminished appetite after surgery. Currently working with OT. Review of Systems Review of Systems: All systems reviewed & are unremarkable except as noted in HPI & below Physical Exam Physical Exam: Gen: WD/WN, elderly F, sitting up in bedside chair, NAD, A&O x3 HEENT: Normocephalic, atraumatic, conjunctivae moist, sclerae anicteric, mucous membranes moist. Lung: Clear to Auscultation bilaterally, no wheezes/rales/rhonchi Heart: Regular rate, regular rhythm, no murmurs, rubs, or gallops Abdomen: Soft, NT, ND +BS x 4 Extremities: No edema, lumbar dressing CDI, pedal pulse +2 and equal b/l Skin: Warm, no rash, negative turgor. Results & Data Vital Signs (Past 12 Hours) Vital Signs Temp Pulse Resp BP Pulse Ox 10/17/18 08:56 77 116/67 10/17/18 07:35 37.0 C 74 16 121/68 95 10/17/18 02:40 36.6 C 61 17 126/65 92 10/16/18 23:54 36.6 C 51 L 16 111/58 L 94 Laboratory Results Short CBC 10/17/18 Range/Units 04:46 WBC 13.10 H (4.8-10.8) K/uL Hgb 9.5 L (12.0-16.0) g/dL Hct 29.9 L (37-47) % Plt Count 238 (130-400) K/uL BMP 10/16/18 10/17/18 15:31 04:46 Sodium 143 Potassium 3.7 Chloride 113 H Carbon Dioxide 25 BUN 22 H Creatinine 2.07 H 1.61 H D Glucose 127 H Calcium 7.5 L Medications Administered Amlodipine Bes[facility] ([facility]) [facility] [place] [place]: 11/16/18 08:59 Last Admin: 10/17/18 08:57 Dose: 2.5 mg Documented by: [id number] Aspirin (Ecotrin Ectab) 81 mg [facility] [place] [place]: 11/16/18 08:59 Last Admin: 10/17/18 08:57 Dose: 81 mg Documented by: [id number] Atorvastatin Calcium (Lipitor) [address] [facility] Stop: 11/15/18 20:59 Last Admin: 10/16/18 20:45 Dose: 40 mg Documented by: [id number] Furosemide (Lasix) 20 mg PO [facility] Stop: 11/16/18 08:59 Last Admin: 10/17/18 08:57 Dose: 20 mg Documented by: [id number] Hydromorphone HCl (Dilaudid) 1 mg PO Q6H PRN PRN Reason: Pain Stop: 10/30/18 13:02 Last Admin: 10/17/18 09:09 Dose: 1 mg Documented by: [id number] Isosorbide Mononitrate (Imdur Extended Rel) 30 mg PO [facility] Stop: 11/16/18 08:59 Last Admin: 10/17/18 08:59 Dose: 30 mg Documented by: [id number] Levothyroxine Sodium (Synthroid) 50 mcg PO [id number] [facility] Stop: 11/16/18 06:29 Last Admin: 10/17/18 05:48 Dose: 50 mcg Documented by: [id number] Losartan Potassium (Cozaar) 25 mg PO QPM [facility] Stop: 11/15/18 20:59 Last Admin: 10/16/18 20:46 Dose: 25 mg Documented by: [id number] Mirtazapine (Remeron) [address] [facility] Stop: 11/15/18 20:59 Last Admin: 10/16/18 20:45 Dose: 15 mg Documented by: [id number] Polyethylene Glycol (Miralax Powder Packet) 17 gm PO Q6 [facility] Stop: 11/16/18 05:59 Last Admin: 10/17/18 05:48 Dose: 17 gm Documented by: [id number] Prednisone (Prednisone) 5 mg PO DAILY [facility] Stop: 11/16/18 08:59 Last Admin: 10/17/18 08:58 Dose: 5 mg Documented by: [id number] Senna/Docusate Sodium (Senokot S) 2 tab PO HS [facility] Stop: 11/15/18 20:59 Last Admin: 10/16/18 20:45 Dose: 2 tab Documented by: [id number] Sotalol HCl (Betapace) 40 mg PO QAM [facility] Stop: 11/16/18 08:59 Last Admin: 10/17/18 08:59 Dose: 40 mg Documented by: [id number] Tramadol HCl (Ultram) 50 - 100 mg PO Q4H PRN PRN Reason: Moderate-Severe pain Stop: 11/15/18 13:02 Last Admin: 10/17/18 05:47 Dose: 50 mg Documented by: [id number] Discontinued Medications Acetaminophen (Tylenol) 1,000 mg PO PREOP [facility] Stop: 10/16/18 18:00 Last Admin: 10/16/18 08:52 Dose: 1,000 mg Documented by: [id number] Bacitracin (Bacitracin) Confirm Administered Dose 50,000 units .ROUTE .STK-MED ONE Stop: 10/16/18 09:15 Last Admin: 10/16/18 10:24 Dose: 50,000 units Documented by: [id number] Bupivacaine HCl/Epinephrine Bitart (Sensorcaine/Epinephrine 0.5% Mpf 1:200,000) Confirm Administered Dose 30 ml .ROUTE .STK-MED ONE Stop: 10/16/18 09:15 Last Admin: 10/16/18 10:25 Dose: 20 ml Documented by: [id number] Ciprofloxacin (Cipro) 250 mg PO NOW STA Stop: 10/16/18 15:20 Last Admin: 10/16/18 15:38 Dose: 250 mg Documented by: [id number] Clindamycin Phosphate (Cleocin) Confirm Administered Dose 600 mg IV .STK-MED ONE Stop: 10/16/18 09:36 Last Admin: 10/16/18 09:43 Dose: Not Given Documented by: [id number] Fentanyl Citrate (Fentanyl Citrate) 25 mcg IV Q5M PRN PRN Reason: PACU Use Only-Pain Stop: 10/16/18 14:03 Last Admin: 10/16/18 12:17 Dose: 25 mcg Documented by: [id number] Admin: 10/16/18 12:12 Dose: 25 mcg Documented by: [id number] Admin: 10/16/18 12:07 Dose: 25 mcg Documented by: [id number] Admin: 10/16/18 12:02 Dose: 25 mcg Documented by: [id number] Gabapentin (Neurontin) 300 mg PO PREOP [facility] Stop: 10/16/18 18:00 Last Admin: 10/16/18 08:52 Dose: 300 mg Documented by: [id number] Sodium Chloride (Nss 1000ml) 1,000 mls @ 15 mls/hr IV .Q24H [facility] Stop: 10/17/18 05:59 Last Infusion: 10/16/18 13:15 Dose: 0 mls/hr Documented by: [id number] Admin: 10/16/18 08:52 Dose: 15 mls/hr Documented by: [id number] Clindamycin Phosphate (Cleocin) 600 mg in 54 mls @ 100 mls/hr IV PREOP [facility] Stop: 10/18/18 05:59 Last Infusion: 10/16/18 13:15 Dose: 0 mls/hr Documented by: [id number] Admin: 10/16/18 09:41 Dose: 100 mls/hr Documented by: [id number] Sodium Chloride (Nss 1000ml) 1,000 mls @ 75 mls/hr IV .[id number] [facility] Stop: 11/15/18 13:29 Last Admin: 10/17/18 06:03 Dose: Not Given Documented by: [id number] Infusion: 10/17/18 06:03 Dose: 0 mls/hr Documented by: [id number] Infusion: 10/17/18 01:52 Dose: 75 mls/hr Documented by: [id number] Infusion: 10/17/18 01:07 Dose: 0 mls/hr Documented by: [id number] Infusion: 10/16/18 20:05 Dose: 75 mls/hr Documented by: [id number] Admin: 10/16/18 18:45 Dose: 75 mls/hr Documented by: [id number] Clindamycin Phosphate 600 mg/ (Dextrose) 54 mls @ 100 mls/hr IV Q8H [facility] Stop: 10/17/18 02:33 Last Infusion: 10/17/18 01:40 Dose: 0 mls/hr Documented by: [id number] Admin: 10/17/18 01:07 Dose: 100 mls/hr Documented by: [id number] Infusion: 10/16/18 20:05 Dose: 0 mls/hr Documented by: [id number] Admin: 10/16/18 19:18 Dose: 100 mls/hr Documented by: [id number] Dexamethasone 6 mg/ Syringe 1.5 mls @ 1 mls/min IV Q8H [facility] Stop: 10/17/18 08:02 Last Admin: 10/17/18 08:58 Dose: 1 mls/min Documented by: [id number] Admin: 10/16/18 23:42 Dose: 1 mls/min Documented by: [id number] Admin: 10/16/18 15:38 Dose: 1 mls/min Documented by: [id number] Miscellaneous (Floseal Hemostatic Matrix 10ml) 10 ml TOP ONCE ONE Stop: 10/16/18 10:27 Last Admin: 10/16/18 11:25 Dose: 11 ml Documented by: [id number] Miscellaneous Information (Allergy Noted To Ordered Medication) 1 ea N/A QSHIFT [facility] Stop: 11/13/18 15:59 Last Admin: 10/17/18 02:20 Dose: Not Given Documented by: [id number] Admin: 10/17/18 02:20 Dose: Not Given Documented by: [id number] Admin: 10/17/18 02:19 Dose: Not Given Documented by: [id number] Admin: 10/17/18 02:19 Dose: Not Given Documented by: [id number] Admin: 10/17/18 02:12 Dose: Not Given Documented by: [id number] Admin: 10/17/18 01:22 Dose: Not Given Documented by: [id number]
[2018-10-17] MEDS ORDERED: CIPROFLOXACIN 250 MG TAB PO SCH (15:00)
[2018-10-17] MEDS ORDERED: WARFARIN SOD 5 MG TAB PO SCH (16:00)
[2018-10-17] MEDS: ATORVASTATIN 40 MG TAB PO SCH (20:26)
[2018-10-17] MEDS: LOSARTAN POTASSIUM 25 MG TAB PO SCH (20:26)
[2018-10-17] MEDS: DOCUSATE SODIUM/SENNA 50/8.6MG TAB PO SCH (20:26)
[2018-10-17] MEDS: MIRTAZAPINE TAB 15 MG TAB PO SCH (20:27)
[2018-10-18] MEDS: TRAMADOL HCL 50 MG TABLET PO PRN ×4 (01:10→23:42)
[2018-10-18] MEDS: LEVOTHYROXINE SODIUM 50 MCG TABLET PO SCH (05:49)
[2018-10-18] MEDS: POLYETHYLENE (MIRALAX) 17 GM PACK PO SCH ×3 (05:50→11:27)
[2018-10-18 05:59] LABS: INR 1.3 (0.9-1.1); Prothrombin Time 13.5 Seconds (9.0-12.0)
--- NOTE | 2018-10-18 08:02 | Orthopedic Progress Note ---
Date of Service October 18, 2018 Assessment & Plan (1) S/P lumbar spinal fusion: At this point will continue with pain control measures. We will continue with GI and DVT prophylaxis. Plan is to get her rehab when a bed is available. We will continue to follow her throughout the weekend and see how she progresses. Subjective Patient was seen bedside in room 300 status post lumbar decompression and fusion. She is having a bit more pain today. Is on the back. She is not having any leg symptoms. Admittedly she is gotten a bit behind on her pain control. She denies any other numbness, tingling, paresthesias. Physical Exam Physical Exam: On exam she is alert and oriented. She is sitting at bedside. Her dressing is clean dry and intact PAUL drains in place and holding suction. Her calves are supple nontender abdomen soft nontender. Results & Data Vital Signs (Past 12 Hours) Vital Signs Temp Pulse Resp BP Pulse Ox 10/18/18 06:33 36.7 C 77 16 133/69 96 10/17/18 23:45 36.7 C 67 16 111/57 L 95
[2018-10-18] MEDS: AMLODIPINE BESYLATE 5 MG TAB PO SCH (08:58)
[2018-10-18] MEDS: SOTALOL HCL 80 MG TAB PO SCH (08:59)
[2018-10-18] MEDS: ASPIRIN 81 MG ECTAB PO SCH (08:59)
[2018-10-18] MEDS: predniSONE 5 MG TAB PO SCH (08:59)
[2018-10-18] MEDS: ISOSORBIDE MONO EXTENDED REL 30 MG TABCR PO SCH (08:59)
--- NOTE | 2018-10-18 09:22 | Hospitalist Progress Note ---
Date of Service October 18, 2018 Assessment & Plan (1) Spinal stenosis, lumbar region with neurogenic claudication: S/P Lumbar decompression and fusion L3-4, L4-[address] Barajas POD #2 EBL 50ml; PAUL drain 305ml tolerated procedure well pain/wound management per surgery activity and therapy as directed by surgery encourage incentive spirometry follow H/H (2) Paroxysmal atrial fibrillation: ChadsVasc 5 rate and rhythm controlled with sotalol INR 1.3 today Resume warfarin 5mg daily, check INR 10/20 (3) PMR (polymyalgia rheumatica): Chronic prednisone 5 mg daily, continue Dexamethasone ordered and received for stress dose steroids hemodynamically stable (4) CAD (coronary artery disease): no chest pain or SOB hx of stents in past continue ASA, Statin, losartan (5) HTN (hypertension): blood pressure controlled Echo done 07/05/18 EF 60% Continue: amlodipine, losartan, resume laxis (6) CKD (chronic kidney disease) stage 4, GFR 15-29 ml/min: baseline BUN/CR pre op: 31/1.8 crea 1.6 avoid nephrotoxic agents (7) Chronic anemia: in setting of CKD 4 Baseline H/H pre op: 11.5/36.3 H/H 9.5 and 29.9 monitor (8) UTI (urinary tract infection) due to Enterococcus: Urine culture 10/08/18 showed enterobacter cloacae, sensitive to cipro which PCP started her on 10/11/18 complete cipro today; pt asymptomatic (9) Hypothyroidism: continue with levothyroxine 50 mcg (10) Esophageal dysmotility: continue PPI, hx of dilation in past soft food diet aspiration precautions DVT ppx: per ortho Disposition: to be determined; plan to discharge to rehab vs home with family Follow up: PCP Dr. Weber upon discharge Patient seen and examined in collaboration with Dr. Vaca, please see addendum Thank you for this consultation. We will follow the patient with you during their hospital stay. You can reach a member of the [facility] Hospitalist Team 11/09 via pager @ [phone]. Supervising Physician Co-Signing Physician Notes Pt was seen and examined. Agreed with Jesusita COLLIER exam, assessment and plan. S/P lumbar spine decompression and fusion performed by Dr. Barajas. No post-op complications. Continue pain control. Incentive spirometry. Fall precaution. MD Lio Subjective Patient seen and examined in room 300. Follow-up POD #2 L3-L4, L4-L5 lumbar decompression fusion by Dr. Barajas. She is sitting up in bedside chair. States she didn't have a great night last night, "I've had better due to pain." Pain okay when sitting up in chair but worse with movement as expected. Overall diminished appetite, but she is pushing fluids. Denies f/c/s, chest pain, sob, n/v/d. No BM yet and minimal gas. Urinating without difficulty. No other acute concerns or questions. Review of Systems Review of Systems: All systems reviewed & are unremarkable except as noted in HPI & below Physical Exam Physical Exam: Gen: WD/WN, elderly F, sitting up in bedside chair, NAD, A&O x3 HEENT: Normocephalic, atraumatic, conjunctivae moist, sclerae anicteric, mucous membranes moist. Lung: Clear to Auscultation bilaterally, no wheezes/rales/rhonchi Heart: Regular rate, regular rhythm, no murmurs, rubs, or gallops Abdomen: Soft, NT, ND +BS x 4 Extremities: No edema, lumbar dressing CDI, pedal pulse +2 and equal b/l Skin: Warm, no rash, negative turgor. Results & Data Vital Signs (Past 12 Hours) Vital Signs Temp Pulse Resp BP Pulse Ox 10/18/18 08:57 69 159/76 H 10/18/18 06:33 36.7 C 77 16 133/69 96 10/17/18 23:45 36.7 C 67 16 111/57 L 95 Laboratory Results INR 1.3 Medications Administered Amlodipine Besylate (Norvasc) [facility] Stop: 11/16/18 08:59 Last Admin: 10/18/18 08:58 Dose: 2.5 mg Documented by: [id number] Admin: 10/17/18 08:57 Dose: 2.5 mg Documented by: [id number] Aspirin (Ecotrin Ectab) 81 mg PO QAM [facility] Stop: 11/16/18 08:59 Last Admin: 10/18/18 08:59 Dose: 81 mg Documented by: [id number] Admin: 10/17/18 08:57 Dose: 81 mg Documented by: [id number] Atorvastatin Calcium (Lipitor) 40 mg PO [facility] Stop: 11/15/18 20:59 Last Admin: 10/17/18 20:26 Dose: 40 mg Documented by: [id number] Admin: 10/16/18 20:45 Dose: 40 mg Documented by: [id number] Ciprofloxacin (Cipro) 250 mg PO Q24H [facility]; Protocol Stop: 10/18/18 14:59 Last Admin: 10/17/18 14:31 Dose: 250 mg Documented by: [id number] Furosemide (Lasix) 20 mg [facility] Stop: 11/16/18 08:59 Last Admin: 10/17/18 08:57 Dose: 20 mg Documented by: [id number] Hydromorphone HCl (Dilaudid) 1 mg PO Q6H PRN PRN Reason: Pain Stop: 10/30/18 13:02 Last Admin: 10/17/18 09:09 Dose: 1 mg Documented by: [id number] Isosorbide Mononitrate (Imdur Extended Rel) 30 mg PO [facility] Stop: 11/16/18 08:59 Last Admin: 10/18/18 08:59 Dose: 30 mg Documented by: [id number] Admin: 10/17/18 08:59 Dose: 30 mg Documented by: [id number] Levothyroxine Sodium (Synthroid) 50 mcg PO [id number] [facility] Stop: 11/16/18 06:29 Last Admin: 10/18/18 05:49 Dose: 50 mcg Documented by: [id number] Admin: 10/17/18 05:48 Dose: 50 mcg Documented by: [id number] Losartan Potassium (Cozaar) 25 mg PO QPM [facility] Stop: 11/15/18 20:59 Last Admin: 10/17/18 20:26 Dose: 25 mg Documented by: [id number] Admin: 10/16/18 20:46 Dose: 25 mg Documented by: [id number] Mirtazapine (Remeron) 15 mg PO [facility] Stop: 11/15/18 20:59 Last Admin: 10/17/18 20:27 Dose: 15 mg Documented by: [id number] Admin: 10/16/18 20:45 Dose: 15 mg Documented by: [id number] Polyethylene Glycol (Miralax Powder Packet) 17 gm PO Q6 [facility] Stop: 11/16/18 05:59 Last Admin: 10/18/18 05:50 Dose: 17 gm Documented by: [id number] Admin: 10/17/18 23:26 Dose: 17 gm Documented by: [id number] Admin: 10/17/18 18:29 Dose: 17 gm Documented by: [id number] Admin: 10/17/18 11:10 Dose: 17 gm Documented by: [id number] Admin: 10/17/18 05:48 Dose: 17 gm Documented by: [id number] Polyethylene Glycol (Miralax Powder Packet) 17 gm PO QAM [facility] Stop: 11/17/18 08:59 Last Admin: 10/18/18 09:00 Dose: Not Given Documented by: [id number] Prednisone (Prednisone) 5 mg PO DAILY [facility] Stop: 11/16/18 08:59 Last Admin: 10/18/18 08:59 Dose: 5 mg Documented by: [id number] Admin: 10/17/18 08:58 Dose: 5 mg Documented by: [id number] Senna/Docusate Sodium (Senokot S) 2 tab PO HS [facility] Stop: 11/15/18 20:59 Last Admin: 10/17/18 20:26 Dose: 2 tab Documented by: [id number] Admin: 10/16/18 20:45 Dose: 2 tab Documented by: [id number] Sotalol HCl (Betapace) 40 mg PO QAM [facility] Stop: 11/16/18 08:59 Last Admin: 10/18/18 08:59 Dose: 40 mg Documented by: [id number] Admin: 10/17/18 08:59 Dose: 40 mg Documented by: [id number] Tramadol HCl (Ultram) 50 - 100 mg PO Q4H PRN PRN Reason: Moderate-Severe pain Stop: 11/15/18 13:02 Last Admin: 10/18/18 07:24 Dose: 100 mg Documented by: [id number] Admin: 10/18/18 01:10 Dose: 50 mg Documented by: [id number] Admin: 10/17/18 19:41 Dose: 50 mg Documented by: [id number] Admin: 10/17/18 05:47 Dose: 50 mg Documented by: [id number] Discontinued Medications Acetaminophen (Tylenol) 1,000 mg PO PREOP [facility] Stop: 10/16/18 18:00 Last Admin: 10/16/18 08:52 Dose: 1,000 mg Documented by: [id number] Bacitracin (Bacitracin) Confirm Administered Dose 50,000 units .ROUTE .STK-MED ONE Stop: 10/16/18 09:15 Last Admin: 10/16/18 10:24 Dose: 50,000 units Documented by: [id number] Bupivacaine HCl/Epinephrine Bitart (Sensorcaine/Epinephrine 0.5% Mpf 1:200,000) Confirm Administered Dose 30 ml .ROUTE .STK-MED ONE Stop: 10/16/18 09:15 Last Admin: 10/16/18 10:25 Dose: 20 ml Documented by: [id number] Ciprofloxacin (Cipro) 250 mg PO NOW STA Stop: 10/16/18 15:20 Last Admin: 10/16/18 15:38 Dose: 250 mg Documented by: [id number] Clindamycin Phosphate (Cleocin) Confirm Administered Dose 600 mg IV .STK-MED ONE Stop: 10/16/18 09:36 Last Admin: 10/16/18 09:43 Dose: Not Given Documented by: [id number] Fentanyl Citrate (Fentanyl Citrate) 25 mcg IV Q5M PRN PRN Reason: PACU Use Only-Pain Stop: 10/16/18 14:03 Last Admin: 10/16/18 12:17 Dose: 25 mcg Documented by: [id number] Admin: 10/16/18 12:12 Dose: 25 mcg Documented by: [id number] Admin: 10/16/18 12:07 Dose: 25 mcg Documented by: [id number] Admin: 10/16/18 12:02 Dose: 25 mcg Documented by: [id number] Gabapentin (Neurontin) 300 mg PO PREOP [facility] Stop: 10/16/18 18:00 Last Admin: 10/16/18 08:52 Dose: 300 mg Documented by: [id number] Sodium Chloride (Nss 1000ml) 1,000 mls @ 15 mls/hr IV .Q24H [facility] Stop: 10/17/18 05:59 Last Infusion: 10/16/18 13:15 Dose: 0 mls/hr Documented by: [id number] Admin: 10/16/18 08:52 Dose: 15 mls/hr Documented by: [id number] Clindamycin Phosphate (Cleocin) 600 mg in 54 mls @ 100 mls/hr IV PREOP [facility] Stop: 10/18/18 05:59 Last Infusion: 10/16/18 13:15 Dose: 0 mls/hr Documented by: [id number] Admin: 10/16/18 09:41 Dose: 100 mls/hr Documented by: [id number] Sodium Chloride (Nss 1000ml) 1,000 mls @ 75 mls/hr IV .[id number] [facility] Stop: 11/15/18 13:29 Last Admin: 10/17/18 06:03 Dose: Not Given Documented by: [id number] Infusion: 10/17/18 06:03 Dose: 0 mls/hr Documented by: [id number] Infusion: 10/17/18 01:52 Dose: 75 mls/hr Documented by: [id number] Infusion: 10/17/18 01:07 Dose: 0 mls/hr Documented by: [id number] Infusion: 10/16/18 20:05 Dose: 75 mls/hr Documented by: [id number] Admin: 10/16/18 18:45 Dose: 75 mls/hr Documented by: [id number] Clindamycin Phosphate 600 mg/ (Dextrose) 54 mls @ 100 mls/hr IV Q8H [facility] Stop: 10/17/18 02:33 Last Infusion: 10/17/18 01:40 Dose: 0 mls/hr Documented by: [id number] Admin: 10/17/18 01:07 Dose: 100 mls/hr Documented by: [id number] Infusion: 10/16/18 20:05 Dose: 0 mls/hr Documented by: [id number] Admin: 10/16/18 19:18 Dose: 100 mls/hr Documented by: [id number] Dexamethasone 6 mg/ Syringe 1.5 mls @ 1 mls/min IV Q8H [facility] Stop: 10/17/18 08:02 Last Admin: 10/17/18 08:58 Dose: 1 mls/min Documented by: [id number] Admin: 10/16/18 23:42 Dose: 1 mls/min Documented by: [id number] Admin: 10/16/18 15:38 Dose: 1 mls/min Documented by: [id number] Miscellaneous (Floseal Hemostatic Matrix 10ml) 10 ml TOP ONCE ONE Stop: 10/16/18 10:27 Last Admin: 10/16/18 11:25 Dose: 11 ml Documented by: [id number] Miscellaneous Information (Allergy Noted To Ordered Medication) 1 ea N/A QSHIFT [facility] Stop: 11/13/18 15:59 Last Admin: 10/17/18 02:20 Dose: Not Given Documented by: [id number] Admin: 10/17/18 02:20 Dose: Not Given Documented by: [id number] Admin: 10/17/18 02:19 Dose: Not Given Documented by: [id number] Admin: 10/17/18 02:19 Dose: Not Given Documented by: [id number] Admin: 10/17/18 02:12 Dose: Not Given Documented by: [id number] Admin: 10/17/18 01:22 Dose: Not Given Documented by: [id number]
[2018-10-18] MEDS: HYDROmorphone HCL 2 MG TAB PO PRN (10:35)
[2018-10-18] MEDS ORDERED: Nursing to Pharmacy Communication ONE (14:49)
[2018-10-18] MEDS: WARFARIN SOD 5 MG TAB PO SCH (16:59)
[2018-10-18] MEDS: DOCUSATE SODIUM/SENNA 50/8.6MG TAB PO SCH (20:50)
[2018-10-18] MEDS: ATORVASTATIN 40 MG TAB PO SCH (20:51)
[2018-10-18] MEDS: MIRTAZAPINE TAB 15 MG TAB PO SCH (20:52)
[2018-10-18] MEDS: LOSARTAN POTASSIUM 25 MG TAB PO SCH (20:52)
[2018-10-19] MEDS: LEVOTHYROXINE SODIUM 50 MCG TABLET PO SCH (06:20)
--- NOTE | 2018-10-19 07:20 | Orthopedic Progress Note ---
Date of Service October 19, 2018 Assessment & Plan (1) S/P lumbar spinal fusion: Will continue with PT and OT. GI DVT prophylaxis as well as pain control measures. Please she will progress to the point where she is independent and may be able to discharge her to home either tomorrow or Sunday. Subjective Patient was seen bedside in room 300. She is doing better today. She has less in way back pain but still sore. She plans at this point to go home with her daughter and son-in-law who are in the medical field. She is not having any pain radiating down her legs. She denies any other numbness, tingling, paresthesias. Physical Exam Physical Exam: On exam she is alert and oriented. She has no calf tenderness. Her abdomen supple nontender. Her strength and sensation are grossly intact her incision is clean dry and intact. PAUL drains in place and is holding suction she is in 10 cc out this shift and 20 on the previous. Results & Data Vital Signs (Past 12 Hours) Vital Signs Temp Pulse Resp BP Pulse Ox 10/19/18 06:25 37.1 C 77 16 135/75 93 10/18/18 23:40 36.7 C 87 16 164/74 H 94
[2018-10-19] MEDS: TRAMADOL HCL 50 MG TABLET PO PRN ×2 (08:09→21:09)
[2018-10-19] MEDS: POLYETHYLENE (MIRALAX) 17 GM PACK PO SCH (08:12)
[2018-10-19] MEDS: SOTALOL HCL 80 MG TAB PO SCH (08:12)
[2018-10-19] MEDS: ASPIRIN 81 MG ECTAB PO SCH (08:13)
[2018-10-19] MEDS: predniSONE 5 MG TAB PO SCH (08:13)
[2018-10-19] MEDS: ISOSORBIDE MONO EXTENDED REL 30 MG TABCR PO SCH (08:13)
[2018-10-19] MEDS: AMLODIPINE BESYLATE 5 MG TAB PO SCH (08:14)
[2018-10-19] MEDS: FUROSEMIDE 20 MG TAB PO SCH (08:14)
[2018-10-19] MEDS: HYDROmorphone HCL 2 MG TAB PO PRN ×3 (10:36→23:16)
[2018-10-19] MEDS: WARFARIN SOD 5 MG TAB PO SCH (16:37)
--- NOTE | 2018-10-19 17:52 | Hospitalist Progress Note ---
Date of Service October 19, 2018 Assessment & Plan (1) Spinal stenosis, lumbar region with neurogenic claudication: S/P Lumbar decompression and fusion L3-4, L4-[address] Barajas POD #3 No post complication Continue incentive spirometry Pain control Continue PT/OT Fall precaution (2) Paroxysmal atrial fibrillation: ChadsVasc 5 rate and rhythm controlled with sotalol Monitor PT/INR Continue coumadin (3) PMR (polymyalgia rheumatica): Chronic prednisone 5 mg daily, continue Dexamethasone ordered and received for stress dose steroids hemodynamically stable (4) CAD (coronary artery disease): no chest pain or SOB hx of stents in past continue ASA, Statin, losartan (5) HTN (hypertension): blood pressure controlled Echo done 07/05/18 EF 60% Continue: amlodipine, losartan, resume laxis (6) CKD (chronic kidney disease) stage 4, GFR 15-29 ml/min: baseline BUN/CR pre op: 31/1.8 avoid nephrotoxic agents Stable (7) Chronic anemia: in setting of CKD 4 Baseline H/H pre op: 11.5/36.3 H/H 9.5 and 29.9 monitor (8) UTI (urinary tract infection) due to Enterococcus: Urine culture 10/08/18 showed enterobacter cloacae, sensitive to cipro which PCP started her on 10/11/18 completed course of cipro Stable (9) Hypothyroidism: continue with levothyroxine 50 mcg (10) Esophageal dysmotility: continue PPI, hx of dilation in past soft food diet aspiration precautions DVT ppx: per orth Disposition: As per Ortho Thank you for this consultation. We will follow the patient with you during their hospital stay. You can reach a member of the [facility] Hospitalist Team 11/09 via pager @ [phone]. Subjective Pt was seen and examined sitting in chair with no distress denies any chest pain, palpitation and SOB Physical Exam Physical Exam: General- No acute distress Head- atraumatic Eyes- PERRL, EOMI, ENT- oropharynx clear Neck- supple, no JVD Lungs- clear to auscultation Heart- regular rhythm; no murmur Abdomen- normal bowel sounds, soft, nontender Extremities- no calf tenderness Neuro- alert, oriented x 3; PERRL, EOMI; no facial palsy; no dysarthria Skin- warm & dry Results & Data Vital Signs (Past 12 Hours) Vital Signs Temp Pulse Pulse Resp BP Pulse Ox 10/19/18 16:01 36.6 C 71 18 127/65 97 10/19/18 12:36 70 17 136/84 95 10/19/18 06:25 37.1 C 77 16 135/75 93
[2018-10-19] MEDS: DOCUSATE SODIUM/SENNA 50/8.6MG TAB PO SCH (20:52)
[2018-10-19] MEDS: LOSARTAN POTASSIUM 25 MG TAB PO SCH (20:52)
[2018-10-19] MEDS: MIRTAZAPINE TAB 15 MG TAB PO SCH (20:53)
[2018-10-19] MEDS: ATORVASTATIN 40 MG TAB PO SCH (20:55)
[2018-10-20 05:36] LABS: Hematocrit (blood only) 28.8 % (37-47); Hemoglobin 9.2 g/dL (12.0-16.0); Mean Corpuscular Hemoglobin 30.9 pg (25-34); Mean Corpuscular Hgb Conc 31.9 g/dL (32-36); Mean Corpuscular Volume 96.6 fL (80-100); Mean Platelet Volume 10.4 fL (7.4-10.4); Platelet Count 230 K/uL (130-400); RDW Coefficient of Variation 14.9 % (11.5-14.5); RDW Standard Deviation 52.8 fL (36.4-46.3); Red Blood Count 2.98 M/uL (4.2-5.4)
[2018-10-20 05:47] LABS: INR 1.6 (0.9-1.1); Prothrombin Time 15.9 Seconds (9.0-12.0)
[2018-10-20 06:03] LABS: Creatinine Clr Calc Pharmacy 23.9 ml/min; Est GFR (African American) 42.8; Est GFR (Non-African American) 36.9
[2018-10-20] MEDS: TRAMADOL HCL 50 MG TABLET PO PRN ×2 (06:18→11:52)
[2018-10-20] MEDS ORDERED: LEVOTHYROXINE SODIUM 100 MCG TABLET PO SCH (06:30)
[2018-10-20] MEDS: HYDROmorphone HCL 2 MG TAB PO PRN ×2 (07:39→13:49)
[2018-10-20] MEDS: POLYETHYLENE (MIRALAX) 17 GM PACK PO SCH (08:09)
[2018-10-20] MEDS: predniSONE 5 MG TAB PO SCH (08:09)
[2018-10-20] MEDS: AMLODIPINE BESYLATE 5 MG TAB PO SCH (08:09)
[2018-10-20] MEDS: ASPIRIN 81 MG ECTAB PO SCH (08:09)
[2018-10-20] MEDS: ISOSORBIDE MONO EXTENDED REL 30 MG TABCR PO SCH (08:10)
[2018-10-20] MEDS: SOTALOL HCL 80 MG TAB PO SCH (08:11)
[2018-10-20] MEDS: FUROSEMIDE 20 MG TAB PO SCH (08:11)
--- NOTE | 2018-10-20 11:32 | Discharge Summary ---
Date of Service October 20, 2018 Admission HPI Per Admitting Provider This is a 88-year-old female who presents with severe back and bilateral leg pain. After failing extensive course of nonoperative care is here for surgical intervention. Discharge Data Consultations 10/16/18 13:03 Consult Case Management - Discharge Planning Routine Consult Hospitalist Routine Procedures Performed Operation Date: 10/16/18 09:55 Actual Procedures p L3-L4, L4-L5 Decompression and Fusion with Spinal Cord Monitoring, Bone morphogenetic protein, - Don Barajas, Hospital Course (1) Spinal stenosis, lumbar region with neurogenic claudication: Patient is an 80-year-old female with history physical examination and radiographic images consistent with spinal stenosis. This reason she was brought to the operating room and underwent a lumbar decompression fusion with Dr. Barajas. This was performed under general anesthesia. Left the operating with a PAUL drain Alas in place and was transferred to PACU in stable condition. She is placed on GI DVT prophylaxis and transferred to the orthopedic floor. She progressed with physical therapy but due to her history of opioid use pain is difficult to control. On October 20, 2017 patient was deemed safe for home discharge. Discharge instructions reviewed and detailed. She was to avoid any full bending at the waist or dressing need to be changed once daily until it was dry then she may begin she was to use hydromorphone or Tylenol for pain control. We are to see her in the office personally 2 weeks out from surgery or sooner if she develop any increased pain fevers or drainage.
== END 2018-10-20 14:10 | disposition home or self-care (01) | DRG 460 ==
LOC: ASU 08:09 → 3E 11:36
DX: Z88.2 Allergy status to sulfonamides; D63.1 Anemia in chronic kidney disease; Z79.82 Long term (current) use of aspirin; M35.3 Polymyalgia rheumatica; Z88.0 Allergy status to penicillin; E78.5 Hyperlipidemia, unspecified; I13.0 Hypertensive heart and chronic kidney disease with heart failure and stage 1 through stage 4 chronic kidney disease, or unspecified chronic kidney disease; I25.2 Old myocardial infarction; M48.062 Spinal stenosis, lumbar region with neurogenic claudication; N18.4 Chronic kidney disease, stage 4 (severe); Z88.8 Allergy status to other drugs, medicaments and biological substances; Z95.5 Presence of coronary angioplasty implant and graft; Z79.899 Other long term (current) drug therapy; Z79.52 Long term (current) use of systemic steroids; I25.10 Atherosclerotic heart disease of native coronary artery without angina pectoris; I48.0 Paroxysmal atrial fibrillation; E03.9 Hypothyroidism, unspecified; B95.2 Enterococcus as the cause of diseases classified elsewhere; N39.0 Urinary tract infection, site not specified; I50.9 Heart failure, unspecified; K22.4 Dyskinesia of esophagus; Z79.01 Long term (current) use of anticoagulants

== ENCOUNTER 2018-10-31 10:17 | Inpatient (IN) ==
[2018-10-31 10:44] LABS: Basophils # (auto) 0.02 K/uL (0-0.2); Basophils % (auto) 0.1 %; Eosinophils % (auto) 1.2 %; Hematocrit (blood only) 32.5 % (37-47); Hemoglobin 10.3 g/dL (12.0-16.0); Immature Granulocytes # (auto) 0.04 K/uL (0.00-0.02); Immature Granulocytes % (auto) 0.2 %; Lymphocytes # (auto) 1.14 K/uL (1.2-3.4); Lymphocytes % (auto) 7.1 %; Mean Corpuscular Hgb Conc 31.7 g/dL (32-36); Mean Corpuscular Volume 96.2 fL (80-100); Mean Platelet Volume 9.4 fL (7.4-10.4); Monocytes # (auto) 0.87 K/uL (0.11-0.59); Monocytes % (auto) 5.4 %; Neutrophils # (auto) 13.85 K/uL (1.4-6.5); Platelet Count 368 K/uL (130-400); RDW Coefficient of Variation 14.4 % (11.5-14.5); RDW Standard Deviation 50.6 fL (36.4-46.3); Red Blood Count 3.38 M/uL (4.2-5.4); White Blood Count 16.12 K/uL (4.8-10.8)
--- NOTE | 2018-10-31 10:48 | XRay Report ---
XR chest 1V portable CLINICAL HISTORY: Fever COMPARISON STUDY: 09/14/2018 FINDINGS: The heart is mildly enlarged. Since the prior study, the patient has developed right upper lobe airspace opacities. The findings are suspicious for pneumonia. There is a small right pleural ef fusion. The left lung is clear. There is no failure.[Imaging subsequent to treatment is recommended i n follow-up. IMPRESSION: 1. Interval development of right upper lobe airspace opacities suspicious for pneumonia 2. Small right pleural effusion Electronically signed by: Jose Elias Tay M.D. 10/31/2018 10:47 AM
[2018-10-31 11:02] LABS: Albumin Level 2.8 gm/dl (3.4-5.0); BUN Creatinine Ratio 11.3 (10-20); Calcium 8.6 mg/dl (8.5-10.1); Creatinine Clr Calc Pharmacy 18.2 ml/min; Est GFR (African American) 29.6; Est GFR (Non-African American) 25.6; Potassium 3.7 mmol/L (3.5-5.1)
[2018-10-31 11:05] LABS: Albumin Globulin Ratio 0.8 (0.9-2); Bilirubin,Total 0.7 mg/dl (0.2-1); Globulin 3.6 gm/dl (2.5-4.0); Total Protein 6.4 gm/dl (6.4-8.2)
[2018-10-31] MEDS ORDERED: ACETAMINOPHEN 325 MG TAB PO STA (11:13)
[2018-10-31] MEDS ORDERED: ONDANSETRON INJ 2 MG/ML 2 ML VIAL IV STA (11:14)
[2018-10-31] MEDS ORDERED: CEFEPIME 1,000 MG in SYRINGE 0 ML IV STA (11:14)
[2018-10-31] MEDS ORDERED: SODIUM CHLORIDE 0.9% 1000ML 2,000 ML IV ONE (11:14)
[2018-10-31] MEDS ORDERED: MoRPHine SULFATE 10 MG/ML CARP/VIAL IV STA (11:14)
[2018-10-31 11:24] LABS: Appearance Urine Clear (Clear); Bilirubin Urine Negative (Negative); Blood Urine Negative (Negative); Color Urine Yellow; Glucose Urine UA Negative (Negative); Ketones Urine Negative (Negative); Leukocyte Esterase Urine Negative (Negative); Nitrite Urine Negative (Negative); Protein Urine Negative (Negative); Urobilinogen Urine Negative (Negative); pH Urine 7.5 (4.5-7.5)
[2018-10-31] MEDS ORDERED: MoRPHine SULFATE 4 MG/ML 1 ML CARP\\VIAL ONE (11:26)
[2018-10-31] MEDS ORDERED: LEVOFLOXACIN/D5W 750 MG/150 ML BAG IV SCH (12:15)
--- NOTE | 2018-10-31 12:55 | History & Physical Report ---
Date of Service October 31, 2018 Assessment & Plan (1) Fever: (2) Pneumonia: Pt is 88 y/o F with PMH paroxysmal atrial fibrillation, CAD s/p stent to LAD in 2017, HTN, chronic diastolic heart failure, CKD IV, chronic anemia, hypothyroidism, esophageal dysmotility presented to ER with c/o fever. Pt with recent hospitalization on 10/16/18 for lumbar decompression and fusion L3-L5 by Dr Baraajs for chronic lumbar back pain with radiation to right leg. Reports productive cough x couple of days. This am with nausea and dry heaves. Denies abdominal pain, urinary symptoms, erythema or discharge at surgical site In ER T: 39C, P: 92, R: 20, BP: 114, 76, 96% on RA WBC: 16, H/H: 10.3/32, Lactate: 2.6, UA negative CXR: Interval development of right upper lobe airspace opacities suspicious for pneumonia. Small right pleural effusion CT ABD/PELVIS: Parenchymal infiltrate combined with a small effusion right lung base. Postoperative changes lumbar spine consistent with an L3-L5 laminectomy and fusion. Distended gallbladder with a small component of calcified gallbladder wall. Fluid filled esophagus suggesting gastroesophageal reflux. CT LUMBAR SPINE: Expected postoperative changes with an L3-L5 laminectomy and fusion. No acute bony or soft tissue abnormality is appreciated. -In ER given 2L NSS, Cefepime, Levaquin 750mg IV, Tylenol 650mg po -Does not appear to be post surgical infection at this time -Repeat Lactate: 0.9 -Blood cultures pending, urine culture pending -Cefepime -Monitor CBC, BMP (3) S/P lumbar spinal fusion: Patient reports since surgery has had continued back pain and right leg pain which has been unchanged since prior to surgery. Reports is able to move her right leg little better since surgery. Has been having increased pain with ambulation. Pt reports continued low back pain and right leg pain, reports same as prior to surgery. Denies loss control of bowel/bladder. -In ER pt given Zofran, Morphine 4mg IV -Will give one dose morphine now and monitor response. -Continue oral dilaudid and tramadol prn pain -Consult ortho spine -Consult pain management (4) Paroxysmal atrial fibrillation: On Coumadin INR: 2.6 -Continue Coumadin, sotalol -INR in a.m. (5) CAD (coronary artery disease): S/P stent to LAD in 2017 -Continue aspirin, statin, isosorbide (6) HTN (hypertension): -Continue amlodipine, losartan (7) PMR (polymyalgia rheumatica): -Continue prednisone 5 mg p.o. (8) CKD (chronic kidney disease) stage 4, GFR 15-29 ml/min: Cr: 1.75. Was 1.78 in 06/2018, 2.7 on 09/13/18, 1.29 on 10/20/18 -Monitor renal functions -Avoid nephrotoxic agents when possible (9) Chronic anemia: H/H: . Hgb: 9.2 on 10/20/18, 10.3 on 09/13/18 -Monitor H&H (10) Esophageal dysmotility: History dilation past -Continue PPI -Aspiration precautions, soft food diet (11) Diastolic heart failure: Appears euvolemic -Hold the Lasix and reassess volume status (12) Hypothyroidism: TSH: 1.5 on 09/13/2017 -Continue levothyroxine DVT Prophylaxis -On Coumadin and therapeutic INR Full Code as per discussion with pt Follows with Dr Weber for routine care Pt was seen and care coordinated with Dr Morrow See addendum History of Present Illness Chief Complaint: Fever Primary Care Provider: Negra Weber MD Pt is 88 y/o F with PMH paroxysmal atrial fibrillation, CAD s/p stent to LAD in 2017, HTN, chronic diastolic heart failure, CKD IV, chronic anemia, hypothyroidism, esophageal dysmotility presented to ER with c/o fever. Pt with recent hospitalization on 10/16/18 for lumbar decompression and fusion L3-L5 by Dr Barajas for chronic lumbar back pain with radiation to right leg. Patient reports since surgery has had continued back pain and right leg pain which has b een unchanged since prior to surgery. Reports is able to move her right leg little better since surgery. Has been having increased pain with ambulation. Reports her family members has been helping patient to walk and has to assist with putting on clothes and other ADLs. Denies any known edema or erythema or discharge from surgical site. States since surgery has had decreased appetite, generalized weakness. This morning patient woke up with nausea and had several episodes of dry heaves. States had a loose BM today. States had coughed a few times over the past couple days which she believes was productive however did not visualize sputum. Denies shortness of breath or chest pain. Patient with history asymptomatic UTI found on preop screen and reports was treated with Cipro. Denies recent hematuria, dysuria, urinary frequency or retention. Denies diaphoresis, GROVE, dizziness, syncope, vision changes, neck pain, orthopnea, palpitations, sore throat, choking, otalgia, rhinorrhea, abdominal pain, paresthesias, extremity weakness, extremity edema, rashes, hematemesis, hematochezia, melena. Denies bowel/bladder incontinence. Allergies Allergy/AdvReac Type Severity Reaction Status Date / Time amoxicillin Allergy Unknown Unknown Verified 10/31/18 11:39 lisinopril Allergy Unknown swelling Verified 10/31/18 11:39 face/lips/tongue sulfamethoxazole Allergy Unknown Unknown Verified 10/31/18 11:39 [From Bactrim] trimethoprim [From Bactrim] Allergy Unknown Unknown Verified 10/31/18 11:39 Home Medications Home Medications Medication Instructions Recorded Confirmed Type atorvastatin 40 mg PO HS 06/28/18 10/31/18 History furosemide 20 mg PO QA 06/28/18 10/31/18 History isosorbide mononitrate 30 mg PO QA 06/28/18 10/31/18 History levothyroxine 50 mcg PO 6XWK 06/28/18 10/31/18 History levothyroxine 100 mcg PO WK 06/28/18 10/31/18 History mirtazapine 15 mg PO HS 06/28/18 10/31/18 History nitroglycerin 0.4 mg SUBLINGUAL UD PRN MDD 06/28/18 10/31/18 History repeat once polyethylene glycol 3350 [Miralax] 17 g PO QA 06/28/18 10/31/18 History prednisone 5 mg PO QAM 06/28/18 10/31/18 History sotalol 40 mg PO QAM 06/28/18 10/31/18 History warfarin 5 mg PO 3XWK 06/28/18 10/31/18 History aspirin 81 mg PO QAM 09/14/18 10/31/18 History losartan 25 mg PO QPM 09/14/18 10/31/18 History sennosides [senna] 8.6 mg PO DAILY PRN 09/14/18 10/31/18 History warfarin 2.5 mg PO 4XWK 09/14/18 10/31/18 History amlodipine 2.5 mg PO QAM 10/08/18 10/31/18 History pantoprazole 40 mg PO QAM PRN 10/08/18 10/31/18 History hydromorphone 1 mg PO Q6H PRN 15 Days #30 tab 10/20/18 10/31/18 Rx tramadol 50 - 100 mg PO Q4H PRN 15 Days #30 10/20/18 10/31/18 Rx tab NS acetaminophen 500 mg PO Q6H PRN 10/31/18 10/31/18 History Past Med/Surg History Medical History Diastolic heart failure (Chronic) Chronic anemia (Chronic) CKD (chronic kidney disease) stage 4, GFR 15-29 ml/min (Chronic) HTN (hypertension) (Chronic) Gastroesophageal reflux (Chronic) controlled Insomnia (Chronic) occasional Raynauds disease (Chronic) PMR (polymyalgia rheumatica) (Chronic) on chronic prednisone (current dose 5mg daily*) Hypothyroidism (Chronic) Dyslipidemia (Chronic) CAD (coronary artery disease) (Chronic) s/p BMS x1 to LAD (2016) Esophageal dysmotility (Chronic) occasional, chronic dysphagia Anxiety (Chronic) Paroxysmal atrial fibrillation (Chronic) CHF (congestive heart failure) CKD (chronic kidney disease) stage III/IV- under surveillance Chronic back pain HTN (hypertension) Labile per cardiology Heart attack 2017 Osteoarthritis Surgical History History of cardiac cath (Chronic) s/p BMS x1 to LAD (2016) S/P lumbar spinal fusion (Chronic) 10/16/18, L3-L5 lumbar decompression and fusion by Dr Barajas at [facility] Hx of tonsillectomy (Chronic) History of D&C (Chronic) History of cataract surgery bilateral Family History Grandfather No problems noted. Grandfather Family hx of colon cancer Social History Preferred Language: Turkish Communication Ability: Effective Station Agent Required: No Beliefs That Will Affect Care: None Current Living Situation: Alone Other Information That Helps Us Care for You: No Feels Safe at Home: Yes Safety Concerns: Feels Safe At This Time Smoking Status: Never smoker Do You Dip or Chew Tobacco: No ; Second Hand Exposure: No ; Tobacco Cessation Education Requested by Patient: No Hx Alcohol Use: Yes Alcohol type: wine Alcohol Intake Frequency: Rarely Hx Substance Use: No Review of Systems Review of Systems: All systems reviewed & are unremarkable except as noted in HPI & below Physical Exam Physical Exam: General: no acute distress, WDWN Head: normocephalic, atraumatic Eyes: PERRL, EOM's intact, conjunctiva non-injected, anicteric ENT: normal inspection external ears, nose, mucous membranes moist Neck: supple, trachea midline, non-tender Lungs: clear, no respiratory distress, no wheezing/rhonchi/rales CV: RRR, no murmur, no pretibial edema Abd: normal BS, soft, non-tender Back: lumbar back with surgical incision without erythema, edema or fluctuance, no discharge, non-tender to palpation Ext: no cyanosis, no calf tenderness, distal pulses palpable Neuro: A&O x 3, no focal deficits noted, normal affect Skin: warm, dry Results & Data Vital Signs (Past 12 Hours) Vital Signs Temp Pulse Pulse Resp BP BP Pulse Ox 10/31/18 12:07 87 87 20 175/67 H 99 10/31/18 10:15 39 C H 92 H 20 114/76 96 Laboratory Results Short CBC 10/31/18 Range/Units 10:30 WBC 16.12 H (4.8-10.8) K/uL Hgb 10.3 L (12.0-16.0) g/dL Hct 32.5 L (37-47) % Plt Count 368 (130-400) K/uL BMP 10/31/18 10:30 Sodium 141 Potassium 3.7 Chloride 105 Carbon Dioxide 27 BUN 20 H Creatinine 1.75 H Glucose 94 Calcium 8.6 Liver Function 10/31/18 Range/Units 10:30 Total Bilirubin 0.7 (0.2-1) mg/dl AST 23 (15-37) U/L ALT 24 (12-78) U/L Alkaline Phosphatase 132 H (45-117) U/L Albumin 2.8 L (3.4-5.0) gm/dl Urine 10/31/18 Range/Units 11:06 Urine Color Yellow Urine Appearance Clear (Clear) Urine pH 7.5 (4.5-7.5) Ur Specific Fleming 1.010 (1.000-1.030) Urine Protein Negative (Negative) Urine Glucose (UA) Negative (Negative) Diagnostic Findings CXR: IMPRESSION: 1. Interval development of right upper lobe airspace opacities suspicious for pneumonia 2. Small right pleural effusion CT ABD/PELVIS: IMPRESSION: 1. Parenchymal infiltrate combined with a small effusion right lung base. 2. Postoperative changes lumbar spine consistent with an L3-L5 laminectomy and fusion. 3. Distended gallbladder with a small component of calcified gallbladder wall. 4. Fluid filled esophagus suggesting gastroesophageal reflux. CT LUMBAR SPINE: IMPRESSION: 1. Expected postoperative changes with an L3-L5 laminectomy and fusion. 2. No acute bony or soft tissue abnormality is appreciated. Supervising Physician Co-Signing Physician Notes I, Dr. Wayne Morrow, have seen and assessed the patient with physician anesthesiology physician assistant and agree with the assessment and plan and would like to comment that This is a 88 year old female with recent spinal lumbar decompression and fusion on 10/16/[address] Barajas who presents to the hospital with fever and also back pain that has not significantly improved since the surgery. It is unclear at this time whether the source of the fever is from pulmonary source, versus the back, versus the blood stream. In the ED patient was given cefepime and Levaquin but likely that cefepime alone can provide adequate empiric ant ibiotic coverage for the time being. follow the admission blood cultures. Patient's family would like Dr. Barajas or his physician colleagues to follow the patient with medical service agree with assessment and plan of other health issues as documented by physician anesthesiology physician assistant On exam: Lungs: patient on nasal cannula oxygen with generally clear lung tan Heart: regular rate and rhythm abdomen: soft, nontender, positive bowel sounds Back: lower back pain, surgical incision site is closed and no serosanguinous drainage. tenderness but no fluctuance or superficial fluid collection My colleague Dr. Kay will be following the patient starting on 11/01/18 (1) Pneumonia Laterality: right Lung location: upper lobe of lung Pneumonia type: due to unspecified organism Qualified Code(s): J18.1 - Lobar pneumonia, unspecified organism
--- NOTE | 2018-10-31 13:03 | CT Scan Report ---
CT lumbar spine wo con CT DOSE: HISTORY: Pain fever and abd pain post op TECHNIQUE: Multiaxial CT images of the lumbar spine were performed and reformatted in the sagittal an d coronal plane without the use of contrast. A dose lowering technique was utilized adhering to the principles of ALARA. COMPARISON: 10/16/2018 FINDINGS: Findings consistent with a posterior laminectomy and fusion from L3 through L5. The hardwar e is intact. Vertebral body stature is normal. There is a minimal anterolisthesis considered degenera tive in nature at L4-L5. This is maximum subluxation of 3 mm. Expected postoperative soft tissue changes posterior to the operative site. No evidence for bony destructive process. No evidence for vertebral kohler stature compromise. IMPRESSION: 1. Expected postoperative changes with an L3-L5 laminectomy and fusion. 2. No acute bony or soft tissue abnormality is appreciated. The above report was generated using voice recognition software. It may contain grammatical, syntax or spelling errors. Electronically signed by: Ciro Herrera M.D. 10/31/2018 1:01 PM
--- NOTE | 2018-10-31 13:20 | CT Scan Report ---
CT abd pelvis wo con CT DOSE: 585.92 mGycm HISTORY: Fever fever and abd post op spine TECHNIQUE: Multiaxial CT images of the abdomen and pelvis were performed without contrast. A dose lo wering technique was utilized adhering to the principles of ALARA. COMPARISON STUDY: 11/22/2015 FINDINGS: Small parenchymal infiltrate and effusion right posterior and lateral costophrenic angle. L fox bases otherwise appear clear. Fixed hiatal hernia. Moderate fluid within the esophagus consistent with gastroesophageal reflux. Size and configuration of the liver spleen and pancreas are unremarkable. Kidneys are considered nega tive for hydronephrosis. Moderately distended gallbladder with partially calcified gallbladder wall. Bowel pattern is considered nonobstructive. Bladder is midline. No significant free fluid within the pelvic cul-de-sac. Postoperative changes to the low lumbar spine are noted.. There is a 2 cm cystic d ensity anterior to the sacrum on the right. This is pre-existing and shows no change from the prior s tudy. Potentially relates to a nonacute seroma versus duplication cyst. IMPRESSION: 1. Parenchymal infiltrate combined with a small effusion right lung base. 2. Postoperative changes lumbar spine consistent with an L3-L5 laminectomy and fusion. 3. Distended gallbladder with a small component of calcified gallbladder wall. 4. Fluid filled esophagus suggesting gastroesophageal reflux. The above report was generated using voice recognition software. It may contain grammatical, syntax or spelling errors. Electronically signed by: Ciro Herrera M.D. 10/31/2018 1:19 PM
[2018-10-31 13:54] LABS: INR 2.6 (0.9-1.1); Prothrombin Time 25.1 Seconds (9.0-12.0)
[2018-10-31] MEDS ORDERED: ACETAMINOPHEN 65 ML IV ONE (14:15)
[2018-10-31] MEDS ORDERED: MoRPHine SULFATE 2 MG/ML CARP IV STA (14:23)
[2018-10-31] MEDS ORDERED: SENNA 8.6 MG TAB PO PRN (15:19)
[2018-10-31] MEDS ORDERED: HYDROmorphone HCL 2 MG TAB PO PRN (15:19)
[2018-10-31] MEDS ORDERED: CONSULT PHARMACY STA (15:19)
[2018-10-31] MEDS ORDERED: ACETAMINOPHEN 325 MG TAB PO PRN ×2 (15:19→21:09)
[2018-10-31] MEDS ORDERED: TRAMADOL HCL 50 MG TABLET PO PRN (15:19)
[2018-10-31] MEDS ORDERED: NITROGLYCERIN SL 0.4 MG/TAB TAB SL PRN (15:19)
[2018-10-31] MEDS ORDERED: CEFEPIME CONSULT ACTIVE PRN (15:38)
[2018-10-31] MEDS ORDERED: predniSONE 5 MG TAB PO ONE (15:51)
[2018-10-31] MEDS: WARFARIN SOD 2.5 MG TAB PO SCH (16:19)
[2018-10-31] MEDS: SOTALOL HCL 80 MG TAB PO SCH (16:20)
[2018-10-31] MEDS: ISOSORBIDE MONO EXTENDED REL 30 MG TABCR PO SCH (16:20)
--- NOTE | 2018-10-31 16:24 | Emergency Department Note ---
Entered by Luciano Leon acting as a scribe for History of Present Illness General Chief complaint: Fever Source: patient History of Present Illness Provider complaint: fever and vomiting Onset (ago): hour(s) 2 Location: abdomen Pain Consistency: + intermittent Relieved By: + none Associated symptoms: + nausea/vomiting (vomiting/dry heaving, no nausea, diarrhea) The patient is an 88 y/o female with a past medical history of UTI, anemia, and HTN, who presents to the emergency department for evaluation of intermittent vomiting and fever that began 2 hours ago. The patients family states that the patient had surgery on her back two weeks ago and has not been getting better since. The note that the patient has been experiencing intense back pain and has not been able to walk or wean off her pain medications. Pain has been unchanged since the surgery. The family also states that the patient had three loose stools. The patient denies nausea, and any other symptoms. Patient denies any chest pain or shortness of breath. Home Medications Home Medications Medication Instructions Recorded Confirmed Type atorvastatin 40 mg PO HS 06/28/18 10/31/18 History furosemide 20 mg PO QAM 06/28/18 10/31/18 History isosorbide mononitrate 30 mg PO QAM 06/28/18 10/31/18 History levothyroxine 50 mcg PO 6XWK 06/28/18 10/31/18 History levothyroxine 100 mcg PO WK 06/28/18 10/31/18 History mirtazapine 15 mg PO HS 06/28/18 10/31/18 History nitroglycerin 0.4 mg SUBLINGUAL UD PRN MDD 06/28/18 10/31/18 History repeat once polyethylene glycol 3350 [Miralax] 17 g PO QAM 06/28/18 10/31/18 History prednisone 5 mg PO QAM 06/28/18 10/31/18 History sotalol 40 mg PO QAM 06/28/18 10/31/18 History warfarin 5 mg PO 3XWK 06/28/18 10/31/18 History aspirin 81 mg PO QAM 09/14/18 10/31/18 History losartan 25 mg PO QPM 09/14/18 10/31/18 History sennosides [senna] 8.6 mg PO DAILY PRN 09/14/18 10/31/18 History warfarin 2.5 mg PO 4XWK 09/14/18 10/31/18 History amlodipine 2.5 mg PO QAM 10/08/18 10/31/18 History pantoprazole 40 mg PO QAM PRN 10/08/18 10/31/18 History hydromorphone 1 mg PO Q6H PRN 15 Days #30 tab 10/20/18 10/31/18 Rx tramadol 50 - 100 mg PO Q4H PRN 15 Days #30 10/20/18 10/31/18 Rx tab NS acetaminophen 500 mg PO Q6H PRN 10/31/18 10/31/18 History Allergies Allergy/AdvReac Type Severity Reaction Status Date / Time amoxicillin Allergy Unknown Unknown Verified 10/31/18 11:39 lisinopril Allergy Unknown swelling Verified 10/31/18 11:39 face/lips/tongue sulfamethoxazole Allergy Unknown Unknown Verified 10/31/18 11:39 [From Bactrim] trimethoprim [From Bactrim] Allergy Unknown Unknown Verified 10/31/18 11:39 Past Med/Surg History Medical History Diastolic heart failure (Chronic) Chronic anemia (Chronic) CKD (chronic kidney disease) stage 4, GFR 15-29 ml/min (Chronic) HTN (hypertension) (Chronic) Gastroesophageal reflux (Chronic) controlled Insomnia (Chronic) occasional Raynauds disease (Chronic) PMR (polymyalgia rheumatica) (Chronic) on chronic prednisone (current dose 5mg daily*) Hypothyroidism (Chronic) Dyslipidemia (Chronic) CAD (coronary artery disease) (Chronic) s/p BMS x1 to LAD (2016) Esophageal dysmotility (Chronic) occasional, chronic dysphagia Anxiety (Chronic) Paroxysmal atrial fibrillation (Chronic) CHF (congestive heart failure) 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 Grandfather Family hx of colon cancer Social History Preferred Language: Telugu Communication Ability: Effective Police Justice Required: No Beliefs That Will Affect Care: None Current Living Situation: Alone Other Information That Helps Us Care for You: No Feels Safe at Home: Yes Safety Concerns: Feels Safe At This Time Smoking Status: Never smoker Do You Dip or Chew Tobacco: No ; Second Hand Exposure: No ; Tobacco Cessation Education Requested by Patient: No Hx Alcohol Use: Yes Alcohol type: wine Alcohol Intake Frequency: Rarely Hx Substance Use: No Review of Systems See HPI for pertinent positives & negatives. and A total of 10 systems reviewed and were otherwise negative Physical Exam Vital Signs Vital Signs - 24 hr 10/31/18 10:15 10/31/18 12:07 10/31/18 13:04 Temperature 39 C H Temperature Source Oral Sepsis Recent Fever Within 48 Hours Yes Sepsis New/Unexplained Change in Mental Status No Sepsis Action Taken by Nursing No Action Required Pulse Rate 92 H 87 Pulse Rate [Apical] 87 80 Pulse Rhythm Regular Irregular Pulse Rhythm [Apical] Irregular Irregular Pulse Strength Normal Pulse Strength [Apical] Normal Normal Respiratory Rate 20 20 18 Respiratory Effort / Characteristics Non-Labored Spontaneous Non-Labored Spontaneous Non-Labored Spontaneous Respiratory Depth Normal Normal Normal Respiratory Pattern Regular Regular Regular Blood Pressure 114/76 Blood Pressure [Right Arm] 175/67 H 120/43 L Blood Pressure Mean 88 Blood Pressure Mean [Right Arm] 103 68 Blood Pressure Position Sitting Blood Pressure Position [Right Arm] Lying Lying Pulse Oximetry 96 99 98 Oxygen Delivery Method Room Air Nasal Cannula Nasal Cannula Oxygen Flow Rate 2 2 GENERAL: Sitting up in bed, alert, chronically ill appearing, cachectic, mild di stress, non-toxic EYE EXAM: normal conjunctiva. OROPHARYNX: no exudate, no erythema, lips, buccal mucosa, and tongue normal and mucous membranes are moist NECK: supple, no nuchal rigidity, no adenopathy, non-tender LUNGS: Diminished at bilateral bases. Normal chest wall mechanics HEART: no murmurs, S1 normal and S2 normal ABDOMEN: abdomen soft, non-tender, normo-active bowel sounds, no masses, no rebound or guarding. BACK: Back is symmetrical on inspection and there is no deformity, no midline tenderness, no CVA tenderness. Recent lumbar incision. Sutures in place, clean dry and intact. SKIN: no rashes and no bruising UPPER EXTREMITIES: upper extremities are grossly normal. LOWER EXTREMITIES: No pitting edema. NEURO EXAM: Normal sensorium, cranial nerves II-XII grossly intact, normal speech, no gross weakness of arms, no gross weakness of legs. Course ED COURSE: Vital signs were reviewed and were hypertensive The patients medical record was reviewed The above diagnostic studies were performed and reviewed. ED treatments and interventions as stated above. 1045: The patient was evaluated in room B03. A complete history and physical examination was performed. 1152: I checked on the patient and updated her on the results. 1211: [facility] She will evaluate for further management. 1224:I discussed my findings with the patient and she understands and agrees with the treatment plan. Based on the patients age, coexisting illnesses, exam and lab findings the decision to treat as an inpatient was made. The patient remained stable while under my care. The patient will be evaluated for further management. Administered Medications Hydromorphone HCl (Dilaudid) 1 mg PO Q6H PRN PRN Reason: pain Stop: 11/14/18 15:18 Last Admin: 10/31/18 15:46 Dose: 1 mg Documented by: [id number] Warfarin Sodium (Coumadin) 2.5 mg PO [id number] [place]YSON Stop: 11/30/18 15:59 Last Admin: 10/31/18 16:19 Dose: 2.5 mg Documented by: [id number] Discontinued Medications Acetaminophen (Tylenol) 650 mg PO NOW STA Stop: 10/31/18 11:14 Last Admin: 10/31/18 11:49 Dose: 650 mg Documented by: [id number] Sodium Chloride (Nss 1000ml) 2,000 mls @ 999 mls/hr IV .Q2H1M ONE Stop: 10/31/18 13:14 Last Infusion: 10/31/18 15:26 Dose: 999 mls/hr Documented by: [id number] Admin: 10/31/18 11:49 Dose: 999 mls/hr Documented by: [id number] Cefepime HCl 1,000 mg/ Syringe 11.3 mls @ 5.5 mls/min IV NOW STA; Protocol Stop: 10/31/18 11:16 Last Admin: 10/31/18 11:49 Dose: 5.5 mls/min Documented by: [id number] Levofloxacin/Dextrose (Levaquin/D5w) 750 mg in 150 mls @ 100 mls/hr IV Q24H ALLYS[place] Stop: 11/02/18 12:14 Last Infusion: 10/31/18 15:21 Dose: 100 mls/hr Documented by: [id number] Admin: 10/31/18 13:02 Dose: 100 mls/hr Documented by: [id number] Acetaminophen (Ofirmev) 65 mls @ 200 mls/hr IV NOW ONE Stop: 10/31/18 14:34 Last Admin: 10/31/18 16:14 Dose: Not Given Documented by: [id number] Morphine Sulfate (Morphine Sulfate) 4 mg IV NOW STA Stop: 10/31/18 11:15 Last Admin: 10/31/18 12:11 Dose: Not Given Documented by: [id number] Morphine Sulfate (Morphine Sulfate) Confirm Administered Dose [address] Stop: 10/31/18 11:27 Last Admin: 10/31/18 11:26 Dose: 4 mg Documented by: [id number] Morphine Sulfate (Morphine Sulfate) 2 mg IV NOW STA Stop: 10/31/18 14:24 Last Admin: 10/31/18 14:33 Dose: 2 mg Documented by: [id number] Ondansetron HCl (Zofran) 4 mg IV NOW STA Stop: 10/31/18 11:15 Last Admin: 10/31/18 12:11 Dose: 4 mg Documented by: [id number] Medical Decision Making Differential Diagnosis Differential diagnosis includes etiologies such as sepsis, UTI, pneumonia, metabolic, electrolyte abnormalities, cardiac sources, intracerebral event, toxicologic, neurological, as well as others were entertained. Medical Records Attestation: I reviewed the patient's medical records. Home Medications Current Medication List: was personally reviewed by me Laboratory Data Attestation: I reviewed the patient's lab results. Result diagrams: 10/31/18 10:30 10/31/18 10:30 Lab Results 10/31/18 10/31/18 10/31/18 Range/Units 10:30 10:30 10:30 WBC 16.12 H (4.8-10.8) K/uL RBC 3.38 L (4.2-5.4) M/uL Hgb 10.3 L (12.0-16.0) g/dL Hct 32.5 L (37-47) % MCV 96.2 (80-100) fL MCH 30.5 (25-34) pg MCHC 31.7 L (32-36) g/dL RDW Std Deviation 50.6 H (36.4-46.3) fL RDW Coeff of Riley 14.4 (11.5-14.5) % Plt Count 368 (130-400) K/uL MPV 9.4 (7.4-10.4) fL Immature Gran % (Auto) 0.2 % Neut % (Auto) 86.0 % Lymph % (Auto) 7.1 % Harmon % (Auto) 5.4 % Eos % (Auto) 1.2 % Baso % (Auto) 0.1 % Immature Gran # (Auto) 0.04 H (0.00-0.02) K/uL Neut # (Auto) 13.85 H (1.4-6.5) K/uL Lymph # (Auto) 1.14 L (1.2-3.4) K/uL Harmon # (Auto) 0.87 H (0.11-0.59) K/uL Eos # (Auto) 0.20 (0-0.5) K/uL Baso # (Auto) 0.02 (0-0.2) K/uL PT (9.0-12.0) Seconds INR (0.9-1.1) Sodium 141 (136-145) mmol/L Potassium 3.7 (3.5-5.1) mmol/L Chloride 105 (98-107) mmol/L Carbon Dioxide 27 (21-32) mmol/L Anion Gap 9.0 (3-11) BUN 20 H (7-18) mg/dl Creatinine 1.75 H (0.6-1.2) mg/dl Est Cr Clr Drug Dosing 18.2 ml/min Est GFR ( Amer) 29.6 Est GFR (Non-Af Amer) 25.6 BUN/Creatinine Ratio 11.3 (10-20) Glucose 94 (70-99) mg/dl Lactate 2.6 H* (0.4-2.0) mmol/L Calcium 8.6 (8.5-10.1) mg/dl Total Bilirubin 0.7 (0.2-1) mg/dl AST 23 (15-37) U/L ALT 24 (12-78) U/L Alkaline Phosphatase 132 H (45-117) U/L Total Protein 6.4 (6.4-8.2) gm/dl Albumin 2.8 L (3.4-5.0) gm/dl Globulin 3.6 (2.5-4.0) gm/dl Albumin/Globulin Ratio 0.8 L (0.9-2) Urine Color Urine Appearance (Clear) Urine pH (4.5-7.5) Ur Specific [place] (1.000-1.030) Urine Protein (Negative) Urine Glucose (UA) (Negative) Urine Ketones (Negative) Urine Blood (Negative) Urine Nitrite (Negative) Urine Bilirubin (Negative) Urine Urobilinogen (Negative) Ur Leukocyte Esterase (Negative) 10/31/18 10/31/18 Range/Units 11:06 13:27 WBC (4.8-10.8) K/uL RBC (4.2-5.4) M/uL Hgb (12.0-16.0) g/dL Hct (37-47) % MCV (80-100) fL MCH (25-34) pg MCHC (32-36) g/dL RDW Std Deviation (36.4-46.3) fL RDW Coeff of Riley (11.5-14.5) % Plt Count (130-400) K/uL MPV (7.4-10.4) fL Immature Gran % (Auto) % Neut % (Auto) % Lymph % (Auto) % Harmon % (Auto) % Eos % (Auto) % Baso % (Auto) % Immature Gran # (Auto) (0.00-0.02) K/uL Neut # (Auto) (1.4-6.5) K/uL Lymph # (Auto) (1.2-3.4) K/uL Harmon # (Auto) (0.11-0.59) K/uL Eos # (Auto) (0-0.5) K/uL Baso # (Auto) (0-0.2) K/uL PT 25.1 H (9.0-12.0) Seconds INR 2.6 H (0.9-1.1) Sodium (136-145) mmol/L Potassium (3.5-5.1) mmol/L Chloride (98-107) mmol/L Carbon Dioxide (21-32) mmol/L Anion Gap (3-11) BUN (7-18) mg/dl Creatinine (0.6-1.2) mg/dl Est Cr Clr Drug Dosing ml/min Est GFR ( Amer) Est GFR (Non-Af Amer) BUN/Creatinine Ratio (10-20) Glucose (70-99) mg/dl Lactate (0.4-2.0) mmol/L Calcium (8.5-10.1) mg/dl Total Bilirubin (0.2-1) mg/dl AST (15-37) U/L ALT (12-78) U/L Alkaline Phosphatase (45-117) U/L Total Protein (6.4-8.2) gm/dl Albumin (3.4-5.0) gm/dl Globulin (2.5-4.0) gm/dl Albumin/Globulin Ratio (0.9-2) Urine Color Yellow Urine Appearance Clear (Clear) Urine pH 7.5 (4.5-7.5) Ur Specific [place] 1.010 (1.000-1.030) Urine Protein Negative (Negative) Urine Glucose (UA) Negative (Negative) Urine Ketones Negative (Negative) Urine Blood Negative (Negative) Urine Nitrite Negative (Negative) Urine Bilirubin Negative (Negative) Urine Urobilinogen Negative (Negative) Ur Leukocyte Esterase Negative (Negative) Imaging Data Radiologist's Impression: Radiology results as stated below per my review and the radiologist's interpretation: XR chest 1V portable CLINICAL HISTORY: Fever COMPARISON STUDY: 09/14/2018 FINDINGS: The heart is mildly enlarged. Since the prior study, the patient has developed right upper lobe airspace opacities. The findings are suspicious for pneumonia. There is a small right pleural effusion. The left lung is clear. There is no failure.[Imaging subsequent to treatment is recommended in follow- up. IMPRESSION: 1. Interval development of right upper lobe airspace opacities suspicious for pneumonia 2. Small right pleural effusion Electronically signed by: Jose Elias Tay M.D. 10/31/2018 10:47 AM ECG Data Attestation: I personally reviewed and interpreted this ECG as follows: Indication: other (fever) Rate (beats per minute): 89 Rhythm: sinus rhythm Findings: + other (normal axis), + PAC and + ST depression (Septal, inferior,and lateral leads) Comparison ECG Date: from (10/16/18) Change: no significant change Blood Pressure Blood Pressure Findings: Elevated blood pressure Blood Pressure Disposition: further management by hospitalist VALERY Mckeon Patient is an 88-year-old female who presents the ER for fevers at home of 102- 103 associate with dry heaves, loose stools and diffuse weakness. Postop 2 weeks from lumbar surgery. Upon arrival she is found to be hypoxic 86% on room air. She is placed on 2 L nasal cannula. Labs show a leukocytosis of 16,000. Mild anemia 10. INR was therapeutic at 2.6. Creatinine pretty consistent with previous at 1.7. No significant transaminitis. UA was negative. Chest x-ray with a right upper lobe infiltrate. CT lumbar spine shows no acute pathology. CT abdomen pelvis does show a pneumonia as well. Patient was given IV Levaquin and IV cefepime. She was given IV fluids. She is updated bedside. She is been to the hospitalist sepsis secondary to pneumonia. Impression & Plan Sepsis, Pneumonia, Leukocytosis, Hypoxia Critical Care Time Critical Care Time: Yes Total Critical Care Time: 30 I have personally spent approximately 30 minutes of critical care time in the direct management of this patient. This includes bedside care, interpretation of diagnostic studies, and testing, discussion with consultants, patient, and family members, and other required patient management activities. This 30 minutes is in excess of all separately billable procedures. Discharge Plan Visit Data *Final* Discharge Date/Time: 10/31/18 14:34 Chief Complaint: Fever ED Provider: Gianni Mclean Discharge Problem: Sepsis, Pneumonia, Leukocytosis, Hypoxia Patient Disposition: Admitted As Inpatient Discharge Instructions Interventions: ED Discharge Assessment Last Done: 10/31/18 14:34 Discharge Problem: Sepsis Qualifiers: Sepsis type: sepsis due to unspecified organism Sepsis acute organ dysfunction status: unspecified Qualified Code(s): A41.9 - Sepsis, unspecified organism Pneumonia Qualifiers: Pneumonia type: due to unspecified organism Laterality: right Lung location: upper lobe of lung Qualified Code(s): J18.1 - Lobar pneumonia, unspecified organism Leukocytosis Qualifiers: Leukocytosis type: unspecified Qualified Code(s): D72.829 - Elevated white blood cell count, unspecified The scribe's documentation has been prepared under my direction and personally reviewed by me in its entirety. I confirm that the note above accurately reflects all work, treatment, procedures, and medical decision making performed by me.
[2018-10-31] MEDS ORDERED: LOSARTAN POTASSIUM 50 MG TAB PO SCH (21:00)
[2018-10-31] MEDS: ATORVASTATIN 40 MG TAB PO SCH (21:37)
[2018-10-31] MEDS: MIRTAZAPINE TAB 15 MG TAB PO SCH (21:37)
[2018-10-31] MEDS ORDERED: CEFEPIME 2,000 MG in SYRINGE 7.5 ML IV SCH (22:00)
[2018-11-01 05:59] LABS: Basophils # (auto) 0.02 K/uL (0-0.2); Basophils % (auto) 0.2 %; Eosinophils # (auto) 0.04 K/uL (0-0.5); Eosinophils % (auto) 0.3 %; Hematocrit (blood only) 27.9 % (37-47); Immature Granulocytes # (auto) 0.04 K/uL (0.00-0.02); Immature Granulocytes % (auto) 0.3 %; Lymphocytes # (auto) 1.17 K/uL (1.2-3.4); Mean Corpuscular Hgb Conc 32.3 g/dL (32-36); Mean Corpuscular Volume 97.6 fL (80-100); Mean Platelet Volume 9.3 fL (7.4-10.4); Monocytes % (auto) 6.2 %; Neutrophils # (auto) 10.91 K/uL (1.4-6.5); Platelet Count 301 K/uL (130-400); RDW Coefficient of Variation 14.6 % (11.5-14.5); RDW Standard Deviation 52.1 fL (36.4-46.3); Red Blood Count 2.86 M/uL (4.2-5.4); White Blood Count 12.98 K/uL (4.8-10.8)
[2018-11-01] MEDS: LEVOTHYROXINE SODIUM 50 MCG TABLET PO SCH (06:08)
[2018-11-01 06:11] LABS: INR 2.8 (0.9-1.1); Prothrombin Time 27.1 Seconds (9.0-12.0)
[2018-11-01 06:28] LABS: BUN Creatinine Ratio 11.6 (10-20); Calcium 8.1 mg/dl (8.5-10.1); Creatinine Clr Calc Pharmacy 21.8 ml/min; Est GFR (African American) 36.9; Est GFR (Non-African American) 31.8; Potassium 4.1 mmol/L (3.5-5.1)
[2018-11-01] MEDS: ASPIRIN 81 MG ECTAB PO SCH (08:38)
[2018-11-01] MEDS: PANTOprazole 40 MG TAB PO SCH (08:38)
[2018-11-01] MEDS: ISOSORBIDE MONO EXTENDED REL 30 MG TABCR PO SCH (08:38)
[2018-11-01] MEDS: POLYETHYLENE (MIRALAX) 17 GM PACK PO SCH (08:39)
[2018-11-01] MEDS: predniSONE 5 MG TAB PO SCH (08:39)
[2018-11-01] MEDS ORDERED: AMLODIPINE BESYLATE 5 MG TAB PO SCH (09:00)
--- NOTE | 2018-11-01 09:18 | Pain Management Consultation ---
Date of Consultation November 01, 2018 Assessment & Plan (1) Chronic sacroiliac joint pain: * Recommend Lidoderm patch over bilateral SI joints for symptom medic analgesia. * Recommend discontinuation of hydromorphone and initiate oxycodone/acetaminophen 7.5 mg/325 mg every 6 hours as needed pain as it was more efficacious than hydromorphone previously. * Defer interventional therapy for SI joint at present time due to patient being on chronic anticoagulant therapy as well as current pneumonia. Once her pneumonia has been treated, she can undergo outpatient SI joint injections if anticoagulant therapy can be temporarily withheld. Present on Admission?: Yes (2) S/P lumbar spinal fusion: * Patient reports persistent radicular symptoms to right lower extremity. Recommend trial of low-dose gabapentin 100 mg nightly and gradually over 1 week titrated to 100 mg p.o. 3 times daily if tolerated without any significant side effects. Present on Admission?: Yes (3) Pneumonia: Laterality: right Lung location: upper lobe of lung Pneumonia type: due to unspecified organism Qualified Code(s): J18.1 - Lobar pneumonia, unspecified organism Present on Admission?: Yes (4) Paroxysmal atrial fibrillation: Present on Admission?: Yes (5) CKD (chronic kidney disease) stage 4, GFR 15-29 ml/min: Present on Admission?: Yes History of Present Illness Reason for Consultation: Axial low back pain with right lower extremity pain. Attending Physician: Ling Kay, DO History of Present Illness Emil Jay is an 80-year-old female admitted to [facility] with right upper lobe pneumonia and pain symptoms consider back to low back pain with right lower extremity radicular pain. Patient underwent L3/L4 and L4/L5 laminectomy with instrumentation due to lumbar spinal stenosis with neurogenic claudication on 10/16/2018. After an uneventful postoperative course, she was discharged on 10/20/2018. She presented emergency room with above complaints and was readmitted for treatment of pneumonia and pain symptoms. Today she reports that she is experiencing axial low back pain "across middle of her back" pointing to site below her surgical incision. Her axial low back pain is described as constant aching sensation with sharp, shooting episodes with any movement such as sitting up from supine position or standing from a sitting position. He describes the pain as being severe and limiting her ability to ambulate. Pain occurs with taking several steps and with a minimal activities required for ADLs. She reports a disc amount of the pain is relieved when she lies in a position with pillow between her legs. She reports no change in her axial low back pain in terms of worsening intensity after the surgery. Additionally, she complains expensing right lower extremity pain of radicular nature that occurs with weightbearing and movement of the right lower extremity when ambulating. She denies any numbness, weakness, gait disturbance, saddle anesthesia, or bowel/bladder incontinence associated with her back pain or radicular pain. Previous treatments included use of oxycodone and hydromorphone orally since August as an outpatient. Postoperatively, she has been on hydromorphone 1 mg every 6 hours and tramadol 50 mg as needed for postoperative pain. She reports marginal efficacy from her current regimen and limited ability to ambulate due to persistent symptoms despite using the analgesic regimen. She has multiple, chronic comorbid conditions including current pneumonia, chronic kidney disease, chronic anemia, hypertension, atrial fibrillation, GERD, polymyalgia rheumatica, dyslipidemia, coronary artery disease, being anticoagulant therapy and chronic steroid use. Pain Assessment Pain scale - at its best (0-10): 3 Pain scale - at its worst (0-10): 5 Allergies Allergy/AdvReac Type Severity Reaction Status Date / Time amoxicillin Allergy Unknown Unknown Verified 10/31/18 11:39 lisinopril Allergy Unknown swelling Verified 10/31/18 11:39 face/lips/tongue sulfamethoxazole Allergy Unknown Unknown Verified 10/31/18 11:39 [From Bactrim] trimethoprim [From Bactrim] Allergy Unknown Unknown Verified 10/31/18 11:39 Home Medications Home Medications Medication Instructions Recorded Confirmed Type atorvastatin 40 mg PO HS 06/28/18 10/31/18 History furosemide 20 mg PO QAM 06/28/18 10/31/18 History isosorbide mononitrate 30 mg PO QAM 06/28/18 10/31/18 History levothyroxine 50 mcg PO 6XWK 06/28/18 10/31/18 History levothyroxine 100 mcg PO WK 06/28/18 10/31/18 History mirtazapine 15 mg PO HS 06/28/18 10/31/18 History nitroglycerin 0.4 mg SUBLINGUAL UD PRN MDD 06/28/18 10/31/18 History repeat once polyethylene glycol 3350 [Miralax] 17 g PO QAM 06/28/18 10/31/18 History prednisone 5 mg PO QAM 06/28/18 10/31/18 History sotalol 40 mg PO QAM 06/28/18 10/31/18 History warfarin 5 mg PO 3XWK 06/28/18 10/31/18 History aspirin 81 mg PO QAM 09/14/18 10/31/18 History losartan 25 mg PO QPM 09/14/18 10/31/18 History sennosides [senna] 8.6 mg PO DAILY PRN 09/14/18 10/31/18 History warfarin 2.5 mg PO 4XWK 09/14/18 10/31/18 History amlodipine 2.5 mg PO QAM 10/08/18 10/31/18 History pantoprazole 40 mg PO QAM PRN 10/08/18 10/31/18 History hydromorphone 1 mg PO Q6H PRN 15 Days #30 tab 10/20/18 10/31/18 Rx tramadol 50 - 100 mg PO Q4H PRN 15 Days #30 10/20/18 10/31/18 Rx tab NS acetaminophen 500 mg PO Q6H PRN 10/31/18 10/31/18 History Pain History Chief Complaint Chief Complaint: Low back pain with right lower extremity radicular pain. Status post lumbar spine fusion L3/L4 and L4/L5 with instrumentation on 10/16/18 Pain Location Full Body Front + Back: 1. 2. 3. 4. Pain Intensity [facility] Combined Pain Scale: 5-Moderate - Cannot perform normal tasks without increase in pain Pain scale - at its best (0-10): 3 Pain scale - at its worst (0-10): 5 Timing Timing: constant Character Pain character: aching and sharp Activity Factors Exacerbated by: prolonged standing, prolonged sitting and lying in bed Improved by: other (Lateral decubitus position with pillow between the knees) Daily Typical Activity Daily typical activity: Minimal ADLs Functional Limitations [facility] Combined Function Scale: 6-Moderate to Severe - Needs help with household tasks 60% Co-morbid Psychosocial [facility] Anxiety Scale: 4 - Mild to Moderate [facility] Depression Scale: 4 - Mild to Moderate Co-morbid Medical Conditions Co-morbid Medical Conditions: Kidney Disease, Anti-coagulant meds and Steroid Use Previous Treatment Treatments: surgery Medications: Tramadol and Narcotics (Oxycodone, hydromorphone) Current Therapy Current Medication Therapy: Tramadol and Opiods (P.o. hydromorphone) Patient History Medical History Diastolic heart failure (Chronic) Chronic anemia (Chronic) CKD (chronic kidney disease) stage 4, GFR 15-29 ml/min (Chronic) HTN (hypertension) (Chronic) Gastroesophageal reflux (Chronic) controlled Insomnia (Chronic) occasional Raynauds disease (Chronic) PMR (polymyalgia rheumatica) (Chronic) on chronic prednisone (current dose 5mg daily*) Hypothyroidism (Chronic) Dyslipidemia (Chronic) CAD (coronary artery disease) (Chronic) s/p BMS x1 to LAD (2016) Esophageal dysmotility (Chronic) occasional, chronic dysphagia Anxiety (Chronic) Paroxysmal atrial fibrillation (Chronic) CHF (congestive heart failure) CKD (chronic kidney disease) stage III/IV- under surveillance Chronic back pain HTN (hypertension) Labile per cardiology Heart attack 2016 Osteoarthritis Surgical History History of cardiac cath (Chronic) s/p BMS x1 to LAD (2016) S/P lumbar spinal fusion (Chronic) 10/16/18, L3-L5 lumbar decompression and fusion by Dr Barajas at [facility] Hx of tonsillectomy (Chronic) History of D&C (Chronic) History of cataract surgery bilateral Family History Grandfather No problems noted. Grandfather Family hx of colon cancer Social History Preferred Language: Yi Communication Ability: Effective Acoustic Engineer Required: No Beliefs That Will Affect Care: None Current Living Situation: Alone Other Information That Helps Us Care for You: No Feels Safe at Home: Yes Safety Concerns: Feels Safe At This Time Smoking Status: Never smoker Do You Dip or Chew Tobacco: No ; Second Hand E xposure: No ; Tobacco Cessation Education Requested by Patient: No Hx Alcohol Use: Yes Alcohol type: wine Alcohol Intake Frequency: Rarely Hx Substance Use: No Physical Exam Constitutional: + acute distress, + thin and + frail appearing Respiratory: normal respiratory effort; no respiratory distress and no labored breathing Musculoskeletal: Spine: + sacroiliac joint abnormality (Provocative testing of the SI joint reproduces patient's pain.); no lumbar spinal tenderness, no paraspinal tenderness and no sciatic notch tenderness Extremities: extremities normal to inspection and strength 5/5 throughout Healed surgical incision in the midline from proximal to distal lumbar spine. No tenderness noted at surgical site and area free of erythema, discharge or exudates. Tenderness to palpation of both SI joints. Skin: no rashes, warm and dry no rashes and no ulcers Neurologic: normal touch/pain/proprioception, deep tendon reflexes 2+ bilaterally, plantar reflexes intact bilaterally and moves all extremities Psychiatric: A+Ox3, euthymic affect Results Diagnostic Review CT: non enhanced, reports reviewed and findings discussed with patient CT Findings: [place], [place] [phone] CT Scan Report Patient: EMIL JAY Date: 10/31/18 MR#: [id number]: [address] Acct ID:[id number]: [facility] Zip[facility] [place] [address] Age: 88Location: ED Sex: F Room/Bed: Att Phy:Diagnosis: NAUSEA Cindy Phy: Negra Weber MDService Date: 10/31/18 Fam Phy:Interpreting Phy: Ciro Herrera MD Admit Phy: Ordering Phy: Gianni Mclean DO cc: ~ CT lumbar spine wo con CT DOSE: HISTORY: Pain fever and abd pain post op TECHNIQUE: Multiaxial CT images of the lumbar spine were performed and reformatted in the sagittal and coronal plane without the use of contrast. A dose lowering technique was utilized adhering to the principles of ALARA. COMPARISON: 10/16/2018 FINDINGS: Findings consistent with a posterior laminectomy and fusion from L3 through L5. The hardware is intact. Vertebral body stature is normal. There is a minimal anterolisthesis considered degenerative in nature at L4-L5. This is maximum subluxation of 3 mm. Expected postoperative soft tissue changes posterior to the operative site. No evidence for bony destructive process. No evidence for vertebral kohler stature compromise. IMPRESSION: 1. Expected postoperative changes with an L3-L5 laminectomy and fusion. 2. No acute bony or soft tissue abnormality is appreciated. The above report was generated using voice recognition software. It may contain grammatical, syntax or spelling errors. Electronically signed by: Ciro Herrera M.D. 10/31/2018 1:01 PM [facility] [place] [phone] CT Scan Report Patient: EMIL JAY Date: 10/31/18 MR#: [id number]: [address]I Acct ID:[id number]: Date: 1City Zip: [place] [address] Age: 88Location: ED Sex: F Room/Bed: Att Phy:Diagnosis: NAUSEA Cindy Phy: Negra Weber MDService Date: 10/31/18 Fam Phy:Interpreting Phy: Ciro Herrera MD Admit Phy: Ordering Phy: Gianni Mclean DO cc: ~ CT lumbar spine wo con CT DOSE: HISTORY: Pain fever and abd pain post op TECHNIQUE: Multiaxial CT images of the lumbar spine were performed and reformatted in the sagittal and coronal plane without the use of contrast. A dose lowering technique was utilized adhering to the principles of ALARA. COMPARISON: 10/16/2018 FINDINGS: Findings consistent with a posterior laminectomy and fusion from L3 through L5. The hardware is intact. Vertebral body stature is normal. There is a minimal anterolisthesis considered degenerative in nature at L4-L5. This is maximum subluxation of 3 mm. Expected postoperative soft tissue changes posterior to the operative site. No evidence for bony destructive process. No evidence for vertebral kohler stature compromise.
[2018-11-01] MEDS: SOTALOL HCL 80 MG TAB PO SCH (09:28)
[2018-11-01] MEDS: LIDOCAINE 5% 1 PATCH TD SCH (11:29)
[2018-11-01] MEDS: OXYCODONE/APAP 7.5/325MG TAB PO PRN (11:34)
--- NOTE | 2018-11-01 15:23 | Orthopedic Consultation ---
Date of Consultation November 01, 2018 Assessment & Plan (1) Status post lumbar spine surgery for decompression of spinal cord: At this time her symptoms do appear to be more in the sacral region. In reviewing her CAT scan did not appreciate any evidence of a fracture. She would be of concern for occult sacral insufficiency fracture. The symptoms continue we may need to consider an MRI of the pelvis. She is declined obtaining this study when I spoke to her today. This may also simply be a marked exacerbation of sacroiliitis. Present on Admission?: Yes History of Present Illness Reason for Consultation: Back pain Attending Physician: Ling Kay, DO History of Present Illness This is an 88-year-old female well-known to me status post lumbar decompression and fusion several weeks ago. She did initially done very nicely postoperatively with marked resolution of her back and leg pain. In fact postop day #1 she was up and ambulating without assisting device. Unfortunately she is declined over the past week. She indicates pain at the lumbosacral junction. She denies any significant leg pain. She notes her symptoms most severe with standing and ambulation. She states she is able to do so when at home with a walker. Allergies Allergy/AdvReac Type Severity Reaction Status Date / Time amoxicillin Allergy Unknown Unknown Verified 10/31/18 11:39 lisinopril Allergy Unknown swelling Verified 10/31/18 11:39 face/lips/tongue sulfamethoxazole Allergy Unknown Unknown Verified 10/31/18 11:39 [From Bactrim] trimethoprim [From Bactrim] Allergy Unknown Unknown Verified 10/31/18 11:39 Home Medications Home Medications Medication Instructions Recorded Confirmed Type atorvastatin 40 mg PO HS 06/28/18 10/31/18 History furosemide 20 mg PO QAM 06/28/18 10/31/18 History isosorbide mononitrate 30 mg PO QAM 06/28/18 10/31/18 History levothyroxine 50 mcg PO 6XWK 06/28/18 10/31/18 History levothyroxine 100 mcg PO WK 06/28/18 10/31/18 History mirtazapine 15 mg PO HS 06/28/18 10/31/18 History nitroglycerin 0.4 mg SUBLINGUAL UD PRN MDD 06/28/18 10/31/18 History repeat once polyethylene glycol 3350 [Miralax] 17 g PO QAM 06/28/18 10/31/18 History prednisone 5 mg PO QAM 06/28/18 10/31/18 History sotalol 40 mg PO QAM 06/28/18 10/31/18 History warfarin 5 mg PO 3XWK 06/28/18 10/31/18 History aspirin 81 mg PO QAM 09/14/18 10/31/18 History losartan 25 mg PO QPM 09/14/18 10/31/18 History sennosides [senna] 8.6 mg PO DAILY PRN 09/14/18 10/31/18 History warfarin 2.5 mg PO 4XWK 09/14/18 10/31/18 History amlodipine 2.5 mg PO QAM 10/08/18 10/31/18 History pantoprazole 40 mg PO QAM PRN 10/08/18 10/31/18 History hydromorphone 1 mg PO Q6H PRN 15 Days #30 tab 10/20/18 10/31/18 Rx tramadol 50 - 100 mg PO Q4H PRN 15 Days #30 10/20/18 10/31/18 Rx tab NS acetaminophen 500 mg PO Q6H PRN 10/31/18 10/31/18 History Patient History Medical History Diastolic heart failure (Chronic) Chronic anemia (Chronic) CKD (chronic kidney disease) stage 4, GFR 15-29 ml/min (Chronic) HTN (hypertension) (Chronic) Gastroesophageal reflux (Chronic) controlled Insomnia (Chronic) occasional Raynauds disease (Chronic) PMR (polymyalgia rheumatica) (Chronic) on chronic prednisone (current dose 5mg daily*) Hypothyroidism (Chronic) Dyslipidemia (Chronic) CAD (coronary artery disease) (Chronic) s/p BMS x1 to LAD (2016) Esophageal dysmotility (Chronic) occasional, chronic dysphagia Anxiety (Chronic) Paroxysmal atrial fibrillation (Chronic) CHF (congestive heart failure) CKD (chronic kidney disease) stage III/IV- under surveillance Chronic back pain HTN (hypertension) Labile per cardiology Heart attack 2017 Osteoarthritis Surgical History History of cardiac cath (Chronic) s/p BMS x1 to LAD (2016) S/P lumbar spinal fusion (Chronic) 10/16/18, L3-L5 lumbar decompression and fusion by Dr Barajas at [facility] Hx of tonsillectomy (Chronic) History of D&C (Chronic) History of cataract surgery bilateral Family History Grandfather No problems noted. Grandfather Family hx of colon cancer Social History Preferred Language: Icelandic Communication Ability: Effective Spool Sander Required: No Beliefs That Will Affect Care: None Current Living Situation: Alone Other Information That Helps Us Care for You: No Feels Safe at Home: Yes Safety Concerns: Feels Safe At This Time Smoking Status: Never smoker Do You Dip or Chew Tobacco: No ; Second Hand Exposure: No ; Tobacco Cessation Education Requested by Patient: No Hx Alcohol Use: Yes Alcohol type: wine Alcohol Intake Frequency: Rarely Hx Substance Use: No Physical Exam Physical Exam: On exam the incision appears to be healing appropriately. There is no erythema no drainage no swelling. I am unable to produce any discomfort with palpation of the paravertebral musculature. Percussion does not reveal any pain. She does have reasonable strength testing lower extremities. She was able to stand for me. Results & Data Vital Signs (Past 12 Hours) Vital Signs Temp Pulse Pulse Resp BP BP Pulse Ox 11/01/18 12:02 37.0 C 74 16 120/72 97 11/01/18 08:16 37.0 C 72 18 137/58 L 96 11/01/18 07:16 70 11/01/18 03:49 37.1 C 76 18 123/56 L 93
[2018-11-01] MEDS ORDERED: WARFARIN SOD 5 MG TAB PO SCH (16:00)
--- NOTE | 2018-11-01 18:01 | Hospitalist Progress Note ---
Date of Service November 01, 2018 Assessment & Plan (1) Pneumonia: Fevers have resolved and she is clinically improved, Cont Cefepime pending blood culture results and continued improvement. No respiratory symptoms are present and lungs CTAB on exam. (2) S/P lumbar spinal fusion: Appreciate PM evaluation and recs today. Although the percocet was fine, then lidocaine was the most successful today and she reports a complete resolution of pain after this was applied. She is now walking and without pain so unlikely we will need further workup. Will repeat PT and OT evaluations over the weekend to ensure safety to go home. (3) Paroxysmal atrial fibrillation: Currently in sinus rhythm overnight, Therapeutic on coumadin. Cont sotalol. (4) CAD (coronary artery disease): stable, no chest pain. S/P stent to LAD in 2017. Cont medical management per home regimen including aspirin, statin, ARB, isosorbide (5) HTN (hypertension): -Continue amlodipine, losartan for now, continue to monitor for prolonged hypotension overnight. (6) PMR (polymyalgia rheumatica): -Continue prednisone 5 mg p.o. (7) CKD (chronic kidney disease) stage 4, GFR 15-29 ml/min: At baseline, Cr: 1.75. Was 1.78 in 06/2018, 2.7 on 09/13/18, 1.29 on 10/20/18 -Monitor renal functions -Avoid nephrotoxic agents when possible (8) Chronic anemia: At baseline, likely 2/2 chronic disease. Iron studies in am. (9) Esophageal dysmotility: History dilation past -Continue PPI -Aspiration precautions, soft food diet (10) Diastolic heart failure: chronic, diuretic was held in setting of acute infection. will cont to hold at this time. (11) Hypothyroidism: Cont levothyroxine per home regimen. Full Code Dispo-transfer to Med/surg Ling Kay DO [facility] Hospitalist Subjective 88 yo F admitted with pneumonia and severe debilitating post-operative back pain yesterday. She was seen by PM this am who switched her hydromorphone to percocet and added a lidocaine patch. She states the patch has been a miracle and she has ZERO pain at this time. No sensation issues reported. She denies respiratory symptoms and feels better overall. Ortho spine evaluated her and was considering an MRI, however, at the time she was in too much pain and declined. At this time she has no TTP in the SI joints and is moving well, actually ambulating in the hallway a few minutes ago. Review of Systems Review of Systems: All systems reviewed & are unremarkable except as noted in HPI & below Physical Exam Physical Exam: CONSTITUTIONAL: WNWD, vitals as above, generally well- appearing EYES: normal conjunctivae, no scleral icterus ENT: MMM RESPIRATORY: clear to auscultation bilaterally, no crackles, rales or wheezes, normal respiratory effort CARDIOVASCULAR: regular rate and irregular rhythm, S1 and 2 heard without murmurs, gallops or rubs, no JVD, no peripheral edema GASTROINTESTINAL: soft, nontender, nondistended MUSCULOSKELETAL: strength 5/5 throughout, head is normocephalic and atraumatic SKIN: warm and dry NEUROLOGIC: CN 2-12 grossly intact, no sensory deficit in lower extremities, normal cognition, no gross focal deficits. PSYCHIATRIC: alert cooperative and oriented Results & Data Vital Signs (Past 12 Hours) Vital Signs Temp Pulse Pulse Resp BP BP Pulse Ox 11/01/18 16:00 69 11/01/18 15:56 36.5 C 70 20 93/53 L 93 11/01/18 12:02 37.0 C 74 16 120/72 97 11/01/18 08:16 37.0 C 72 18 137/58 L 96 11/01/18 07:16 70 Laboratory Results Short CBC 11/01/18 Range/Units 05:40 WBC 12.98 H (4.8-10.8) K/uL Hgb 9.0 L (12.0-16.0) g/dL Hct 27.9 L (37-47) % Plt Count 301 (130-400) K/uL BMP 11/01/18 05:40 Sodium 141 Potassium 4.1 Chloride 109 H Carbon Dioxide 26 BUN 17 Creatinine 1.46 H Glucose 84 Calcium 8.[address] lumbar spine wo con CT DOSE: HISTORY: Pain fever and abd pain post op TECHNIQUE: Multiaxial CT images of the lumbar spine were performed and reformatted in the sagittal and coronal plane without the use of contrast. A dose lowering technique was utilized adhering to the principles of ALARA. COMPARISON: 10/16/2018 FINDINGS: Findings consistent with a posterior laminectomy and fusion from L3 through L5. The hardware is intact. Vertebral body stature is normal. There is a minimal anterolisthesis considered degenerative in nature at L4-L5. This is maximum subluxation of 3 mm. Expected postoperative soft tissue changes posterior to the operative site. No evidence for bony destructive process. No evidence for vertebral kohler stature compromise. IMPRESSION: 1. Expected postoperative changes with an L3-L5 laminectomy and fusion. 2. No acute bony or soft tissue abnormality is appreciated. CT abd pelvis wo con CT DOSE: 585.92 mGycm HISTORY: Fever fever and abd post op spine TECHNIQUE: Multiaxial CT images of the abdomen and pelvis were performed without contrast. A dose lowering technique was utilized adhering to the principles of ALARA. COMPARISON STUDY: 11/22/2015 FINDINGS: Small parenchymal infiltrate and effusion right posterior and lateral costophrenic angle. Lung bases otherwise appear clear. Fixed hiatal hernia. Moderate fluid within the esophagus consistent with gastroesophageal reflux. Size and configuration of the liver spleen and pancreas are unremarkable. Kidne ys are considered negative for hydronephrosis. Moderately distended gallbladder with partially calcified gallbladder wall. Bowel pattern is considered nonobstructive. Bladder is midline. No significant free fluid within the pelvic cul-de-sac. Postoperative changes to the low lumbar spine are noted.. There is a 2 cm cystic density anterior to the sacrum on the right. This is pre-existing and shows no change from the prior study. Potentially relates to a nonacute seroma versus duplication cyst. IMPRESSION: 1. Parenchymal infiltrate combined with a small effusion right lung base. 2. Postoperative changes lumbar spine consistent with an L3-L5 laminectomy and fusion. 3. Distended gallbladder with a small component of calcified gallbladder wall. 4. Fluid filled esophagus suggesting gastroesophageal reflux. XR chest 1V portable CLINICAL HISTORY: Fever COMPARISON STUDY: 09/14/2018 FINDINGS: The heart is mildly enlarged. Since the prior study, the patient has developed right upper lobe airspace opacities. The findings are suspicious for pneumonia. There is a small right pleural effusion. The left lung is clear. The re is no failure.[Imaging subsequent to treatment is recommended in follow-up. IMPRESSION: 1. Interval development of right upper lobe airspace opacities suspicious for pneumonia 2. Small right pleural effusion Medications Administered Current Inpatient Medications Acetaminophen (Tylenol) 325 mg PO Q6H PRN PRN Reason: Pain or Fever Stop: 11/30/18 15:18 Amlodipine Besylate ([facility]vasc) [facility] [place]: 12/01/18 08:59 Last Admin: 11/01/18 08:39 Dose: 2.5 mg Documented by: Aspirin (Ecotrin Ectab) 81 [facility] Stop: 12/01/18 08:59 Last Admin: 11/01/18 08:38 Dose: 81 mg Documented by: Atorvastatin Calcium (Lipitor) 40 mg PO [facility] Stop: 11/30/18 20:59 Last Admin: 10/31/18 21:37 Dose: 40 mg Documented by: Cefepime HCl 2,000 mg/ Syringe 20 mls @ 5 mls/min IV Q24H [facility]; Protocol Stop: 11/08/18 20:59 Isosorbide Mononitrate (Imdur Extended Rel) 30 [facility] Stop: 11/30/18 15:18 Last Admin: 11/01/18 08:38 Dose: 30 mg Documented by: Levothyroxine Sodium (Synthroid) 50 mcg PO MoTuWeThFrSa@0630 [facility] Stop: 12/01/18 06:29 Last Admin: 11/01/18 06:08 Dose: 50 mcg Documented by: Levothyroxine Sodium (Synthroid) 100 mcg PO Carrera@0630 [facility] Stop: 12/03/18 06:29 Lidocaine (Lidoderm 5%) 1 patch [facility] Stop: 12/01/18 09:59 Last Admin: 11/01/18 11:29 Dose: 1 patch Documented by: Losartan Potassium (Cozaar) 25 mg PO QPM [facility] Stop: 11/30/18 20:59 Last Admin: 10/31/18 21:36 Dose: 25 mg Documented by: Mirtazapine (Remeron) 15 mg PO HS [facility] Stop: 11/30/18 20:59 Last Admin: 10/31/18 21:37 Dose: 15 mg Documented by: Miscellaneous (Remove Lidoderm Patch) 1 ea N/A DAILY@2100 [facility] Stop: 12/01/18 20:59 Miscellaneous Information (Cefepime Consult Active) 1 ea N/A UD PRN PRN Reason: Consult Stop: 11/30/18 15:37 Nitroglycerin (Nitrostat) 0.4 mg SL UD PRN PRN Reason: chest pain,esophageal spasm Stop: 11/30/18 15:18 Oxycodone/Acetaminophen (Percocet 7.5/325mg) 1 tab PO Q6H PRN PRN Reason: Pain Stop: 11/15/18 09:47 Last Admin: 11/01/18 11:34 Dose: 1 tab Documented by: Pantoprazole Sodium (Protonix) 40 mg PO [facility] Stop: 12/01/18 08:59 Last Admin: 11/01/18 08:38 Dose: 40 mg Documented by: Polyethylene Glycol (Miralax Powder Packet) 17 gm PO [facility] Stop: 12/01/18 08:59 Last Admin: 11/01/18 08:39 Dose: 17 gm Documented by: Prednisone (Prednisone) 5 mg PO [facility] Stop: 12/01/18 08:59 Last Admin: 11/01/18 08:39 Dose: 5 mg Documented by: Sennosides (Senokot) 8.6 mg PO DAILY PRN PRN Reason: Constipation Stop: 11/30/18 15:18 Last Admin: 11/01/18 08:38 Dose: 8.6 mg Documented by: Sotalol HCl (Betapace) 40 mg PO [facility] Stop: 11/30/18 15:18 Last Admin: 11/01/18 09:28 Dose: 40 mg Documented by: Warfarin Sodium (Coumadin) 2.5 mg PO SuTuThSa@1600 [facility] Stop: 11/30/18 15:59 Last Admin: 10/31/18 16:19 Dose: 2.5 mg Documented by: Warfarin Sodium (Coumadin) 5 mg PO MoWeFr@1600 [facility] Stop: 12/01/18 15:59 Last Admin: 11/01/18 15:44 Dose: 5 mg Documented by: (1) Pneumonia Laterality: right Lung location: upper lobe of lung Pneumonia type: due to unspecified organism Qualified Code(s): J18.1 - Lobar pneumonia, unspecified organism
[2018-11-01] MEDS: ATORVASTATIN 40 MG TAB PO SCH (20:28)
[2018-11-01] MEDS: MIRTAZAPINE TAB 15 MG TAB PO SCH (20:28)
[2018-11-01] MEDS ORDERED: CEFEPIME 2,000 MG in SYRINGE 7.5 ML IV SCH (21:00)
[2018-11-02 05:54] LABS: Hematocrit (blood only) 28.2 % (37-47); Hemoglobin 8.9 g/dL (12.0-16.0); Mean Corpuscular Hgb Conc 31.6 g/dL (32-36); Mean Corpuscular Volume 97.6 fL (80-100); Mean Platelet Volume 9.7 fL (7.4-10.4); Platelet Count 315 K/uL (130-400); RDW Coefficient of Variation 14.5 % (11.5-14.5); RDW Standard Deviation 52.1 fL (36.4-46.3); Red Blood Count 2.89 M/uL (4.2-5.4); White Blood Count 9.56 K/uL (4.8-10.8)
[2018-11-02] MEDS: LEVOTHYROXINE SODIUM 50 MCG TABLET PO SCH (05:54)
[2018-11-02 06:20] LABS: Calcium 8.2 mg/dl (8.5-10.1); Creatinine Clr Calc Pharmacy 22.2 ml/min; Est GFR (African American) 37.2; Est GFR (Non-African American) 32.1
[2018-11-02 06:28] LABS: Ferritin 141.7 ng/ml (8-388)
[2018-11-02] MEDS: OXYCODONE/APAP 7.5/325MG TAB PO PRN ×2 (08:25→17:56)
[2018-11-02] MEDS: SOTALOL HCL 80 MG TAB PO SCH (08:26)
[2018-11-02] MEDS: predniSONE 5 MG TAB PO SCH (08:26)
[2018-11-02] MEDS: PANTOprazole 40 MG TAB PO SCH (08:26)
[2018-11-02] MEDS: ASPIRIN 81 MG ECTAB PO SCH (08:27)
[2018-11-02] MEDS: ISOSORBIDE MONO EXTENDED REL 30 MG TABCR PO SCH (08:27)
[2018-11-02] MEDS: LIDOCAINE 5% 1 PATCH TD SCH (08:28)
[2018-11-02] MEDS: POLYETHYLENE (MIRALAX) 17 GM PACK PO SCH (08:29)
[2018-11-02] MEDS ORDERED: levoFLOXacin 750 MG TAB PO STA (15:39)
[2018-11-02] MEDS ORDERED: CEFDINIR 300 MG CAP PO STA (16:25)
--- NOTE | 2018-11-02 16:37 | Discharge Summary ---
Date of Service November 02, 2018 Admission HPI Per Admitting Provider Pt is 88 y/o F with PMH paroxysmal atrial fibrillation, CAD s/p stent to LAD in 2017, HTN, chronic diastolic heart failure, CKD IV, chronic anemia, hypothyroidism, esophageal dysmotility presented to ER with c/o fever. Pt with recent hospitalization on 10/16/18 for lumbar decompression and fusion L3-L5 by Dr Barajas for chronic lumbar back pain with radiation to right leg. Patient reports since surgery has had continued back pain and right leg pain which has been unchanged since prior to surgery. Reports is able to move her right leg little better since surgery. Has been having increased pain with ambulation. Reports her family members has been helping patient to walk and has to assist with putting on clothes and other ADLs. Denies any known edema or erythema or discharge from surgical site. States since surgery has had decreased appetite, generalized weakness. This morning patient woke up with nausea and had several episodes of dry heaves. States had a loose BM today. States had coughed a few times over the past couple days which she believes was productive however did not visualize sputum. Denies shortness of breath or chest pain. Patient with history asymptomatic UTI found on preop screen and reports was treated with Cipro. Denies recent hematuria, dysuria, urinary frequency or retention. Denies diaphoresis, GROVE, dizziness, syncope, vision changes, neck pain, orthopnea, palpitations, sore throat, choking, otalgia, rhinorrhea, abdominal pain, paresthesias, extremity weakness, extremity edema, rashes, hematemesis, hematochezia, melena. Denies bowel/bladder incontinence. Admission Exam Per Admitting Provider General: no acute distress, WDWN Head: normocephalic, atraumatic Eyes: PERRL, EOM's intact, conjunctiva non-injected, anicteric ENT: normal inspection external ears, nose, mucous membranes moist Neck: supple, trachea midline, non-tender Lungs: clear, no respiratory distress, no wheezing/rhonchi/rales CV: RRR, no murmur, no pretibial edema Abd: normal BS, soft, non-tender Back: lumbar back with surgical incision without erythema, edema or fluctuance, no discharge, non-tender to palpation Ext: no cyanosis, no calf tenderness, distal pulses palpable Neuro: A&O x 3, no focal deficits noted, normal affect Skin: warm, dry Principal Diagnosis Sepsis 2/2 pneumonia, POA and resolved post-operative back pain Iron deficiency anemia Discharge Data Allergies Allergy/AdvReac Type Severity Reaction Status Date / Time amoxicillin Allergy Unknown Unknown Verified 10/31/18 11:39 lisinopril Allergy Unknown swelling Verified 10/31/18 11:39 face/lips/tongue sulfamethoxazole Allergy Unknown Unknown Verified 10/31/18 11:39 [From Bactrim] trimethoprim [From Bactrim] Allergy Unknown Unknown Verified 10/31/18 11:39 Consultations 10/31/18 12:16 ED Decision to Admit Stat 10/31/18 15:19 Consult Case Management - Discharge Planning Routine 10/31/18 15:56 Consult Pain Management Routine 11/01/18 07:00 Consult Orthopedic Surgery Routine Ordered Studies 10/31/18 11:39 CT abd pelvis wo con Stat CT lumbar spine wo con Stat Hospital Course (1) Sepsis: (2) Pneumonia: (3) S/P lumbar spinal fusion: (4) Iron deficiency anemia: 88-year-old female was brought to the ER of concern for fevers and significant postoperative lower back pain. Work-up revealed pneumonia and she was admitted to the Hospitalist service on cefepime. She was found to have sepsis and was resuscitated overnight. Lactate was initially elevated but repeat after resuscitation was 0.9. Blood cultures were pending at time of discharge but were negative. Urine cultures did not reveal evidence of infection. Regarding her back pain she is status post lumbar spinal fusion 3 to 4 weeks ago and significant narcotics were being used at home without relief. Ortho Spine and Pain Management were both consulted. Pain Management recommended a change in her narcotic regimen including discontinuation of hydromorphone and initiation of oxycodone/acetaminophen 7.5 mg/325 mg every 6 hours as needed for pain. He also recommended a Lidoderm patch over bilateral SI joints. The Lidoderm patch was the most successful intervention taking her pain to a zero. During the next 24 hours she only required one dose of Percocet and was able to ambulate much better. PT/OT evaluated her and cleared her for discharge home. Her caregivers are chief medical physicist and at time of discharge they were comfortable with her returning home. Orthopedics did assess her and review of CAT scan did not appreciate any evidence of a fracture. With persistent symptoms there would be concern for occult sacral insufficiency fracture and an MRI could be considered. However, this was not pursued as her pain completely resolved with a Lidoderm patch. She continued to do well the following day and remaining afebrile. From a pneumonia standpoint she was not having any respiratory symptoms. She remained therapeutic on her Coumadin for paroxysmal atrial fibrillation. At time of discharge a [id number] examination was performed revealing a hemodynamically stable and afebrile patient has been clinically improved and afebrile for over 24 hours. She was not hypoxic and not in any acute respiratory distress. Physical exam otherwise revealed clear lungs to auscultation and a normal heart exam with normal S1 and S2 heard without evidence of murmurs, gallops or rubs. There was no peripheral edema present abdomen was soft and nontender without distention. Her strength was 5 out of 5 throughout and she was ambulating with minimal to no assistance using modified movements. Discharge to home was recommended with close primary care follow-up within one week. Of note, lab work over the hospitalization did reveal evidence of iron deficiency anemia. This may be related to acute blood loss anemia after her procedure or other etiology. She was placed on iron supplementation and this will need to be followed by the primary care doctor. Repeat chest x-ray within 4 to 6 weeks of discharge was recommended to ensure complete resolution of the pneumonia. A follow-up within Anticoagulation clinic later this week was recommended in the setting of Coumadin use on antibiotics. Of note, the patient is on sotalol and options for pneumonia treatment from an oral standpoint included Cefdinir/azithromycin versus Levaquin. As she had improved on cefepime and azithromycin may pose an arrhythmogenic potential from QT prolongation with the sotalol, she was sent home on renally-dosed Cefdinir monotherapy. Levaquin was avoided for the same reason. Total Time Total Time Spent Total Time Spent (In Minutes): 60 Total Time Includes: Examination of the Patient, Discharge Planning, Medication Reconciliation and Communication With Other Providers Discharge Plan Discharge Items Patient Disposition: Home - Self-Care Reason For Visit: FEVER Discharge Diagnosis: Sepsis 2/2 pneumonia post-operative back pain Iron deficiency anemia Activity: Resume your previous activity Non-emergency contact: Primary Care Provider Call non-emergency contact if: you have any medication questions, your symptoms worsen, your pain is not controlled, your pain is worsening, your pain is unusual for you, your pain is concerning for you and you have a fever Follow-up/Referrals: Negra Weber MD [Primary Care Provider] - Diet: Heart Healthy Diet Texture: Dental soft (bite-sized) Addtl Attending Provider Instructions: Please take all medications as instructed on discharge list below. Please follow-up with your primary care physician within one week of hospital discharge. Someone from our staff will contact you for an appointment set up after the weekend. It is recommended that you have a repeat chest xray within 4--6 weeks of discharge to ensure complete resolution of the pneumonia. Please follow-up sometime this week for a recheck of your INR while taking the antibiotics, as this may change slightly. You were found to have iron deficiency anemia, and have been given iron supplements to take. These can have side effects of gastrointestinal upset including constipation and interfere with the absorption of other medications. Please take them with food and two hours separate from other medications. Please discuss this issue with your primary physician on follow-up as further investigation may be warranted. It was a pleasure taking care of you! Please call if you have any questions or problems. You can reach a [facility] hospitalist on duty at [facility] 24 hours a day by calling [phone]. Take care of yourself. Ling Kay DO [facility] Pending Studies at Discharge: No Stand-Alone Forms: My [facility], Opioid Pain Management Medications and DC Order Prescriptions: New oxycodone-acetaminophen [Endocet] 7.5-325 mg Tablet 1 tab PO Q6H PRN (Reason: severe pain) Qty: 10 RF: 0 lidocaine 5 % Adhesive Patch,Medicated 1 patch transdermal QAM Qty: 15 RF: 1 cefdinir 300 mg capsule 300 mg PO DAILY 7 Days Qty: 7 RF: 0 ferrous sulfate [iron] 325 mg (65 mg iron) tablet 325 mg PO BID Qty: 60 RF: 0 Continued atorvastatin 40 mg tablet 40 mg PO HS RF: 0 sotalol 80 mg tablet 40 mg PO QAM RF: 0 isosorbide mononitrate 30 mg tablet extended release 24 hr 30 mg PO QAM RF: 0 prednisone 5 mg tablet 5 mg PO QAM RF: 0 levothyroxine 50 mcg tablet 50 mcg PO 6XWK RF: 0 levothyroxine 50 mcg tablet 100 mcg PO WK RF: 0 warfarin 5 mg tablet 5 mg PO 3XWK RF: 0 nitroglycerin 0.4 mg tablet, sublingual 0.4 mg sublingual UD MDD may repeat once PRN (Reason: chest pain,esophageal spasm) RF: 0 furosemide 20 mg tablet 20 mg PO QAM RF: 0 mirtazapine 15 mg tablet 15 mg PO HS RF: 0 polyethylene glycol 3350 [Miralax] 17 gram Powder In Packet 17 g PO QAM RF: 0 amlodipine 2.5 mg Tablet 2.5 mg PO QAM RF: 0 pantoprazole 40 mg Tablet,Delayed Release (Dr/Ec) 40 mg PO QAM PRN (Reason: Heartburn) RF: 0 acetaminophen 500 mg Tablet 500 mg PO Q6H PRN (Reason: Fever Or Pain) RF: 0 aspirin 81 mg Tablet,Chewable 81 mg PO QAM RF: 0 losartan 50 mg tablet 25 mg PO QPM RF: 0 warfarin 5 mg tablet 2.5 mg PO 4XWK RF: 0 sennosides [senna] 8.6 mg Tablet 8.6 mg PO DAILY PRN (Reason: Constipation) RF: 0 Discontinued tramadol 50 mg Tablet 50 - 100 mg PO Q4H PRN (Reason: pain) 15 Days Qty: 30 RF: 0 hydromorphone 2 mg Tablet 1 mg PO Q6H PRN (Reason: pain) 15 Days Qty: 30 RF: 0 Discharge Orders: Discharge Order (Routine); Ordered 11/02/18 Ordered By: Ling Kay Admission Data Admit Date/Time: 10/31/18 13:39 Attending Provider: Ling Kay Admit Provider: Wayne Morrow Primary Care Provider: Negra Weber Other Providers: Wayne Morrow ; Don Barajas ; Aaliyah Mccormick Other Interventions: Discharge Summary Assessment (RN) Last Done: 11/02/18 17:43 DC Date/Time DO NOT enter until pt leaves facility: 11/02/18 19:45
[2018-11-02] MEDS: WARFARIN SOD 2.5 MG TAB PO SCH (17:52)
[2018-11-03] MEDS ORDERED: LEVOTHYROXINE SODIUM 100 MCG TABLET PO SCH (06:30)
== END 2018-11-02 19:45 | disposition home or self-care (01) | DRG 871 ==
LOC: ED 10:17 → 2N 13:39
DX: E03.9 Hypothyroidism, unspecified; Z79.52 Long term (current) use of systemic steroids; D64.9 Anemia, unspecified; I48.0 Paroxysmal atrial fibrillation; I50.32 Chronic diastolic (congestive) heart failure; J18.1 Lobar pneumonia, unspecified organism; G89.18 Other acute postprocedural pain; Z98.1 Arthrodesis status; I13.0 Hypertensive heart and chronic kidney disease with heart failure and stage 1 through stage 4 chronic kidney disease, or unspecified chronic kidney disease; Z79.899 Other long term (current) drug therapy; N18.4 Chronic kidney disease, stage 4 (severe); M35.3 Polymyalgia rheumatica; I25.10 Atherosclerotic heart disease of native coronary artery without angina pectoris; A41.9 Sepsis, unspecified organism; M53.3 Sacrococcygeal disorders, not elsewhere classified; Z79.01 Long term (current) use of anticoagulants; K22.4 Dyskinesia of esophagus

== ENCOUNTER 2019-04-17 09:58 | Inpatient (IN) ==
[2019-04-17] MEDS ORDERED: ACETAMINOPHEN 1,000 MG/100 ML VIAL IV STA (10:13)
[2019-04-17 11:17] LABS: Hematocrit (blood only) 31.9 % (37-47); Hemoglobin 10.1 g/dL (12.0-16.0); Mean Corpuscular Hemoglobin 29.9 pg (25-34); Mean Corpuscular Hgb Conc 31.7 g/dL (32-36); Mean Corpuscular Volume 94.4 fL (80-100); Mean Platelet Volume 9.9 fL (7.4-10.4); Platelet Count 244 K/uL (130-400); RDW Coefficient of Variation 15.9 % (11.5-14.5); Red Blood Count 3.38 M/uL (4.2-5.4); White Blood Count 12.98 K/uL (4.8-10.8)
[2019-04-17 11:22] LABS: Influenza A virus by PCR Neg for Influ A (Neg); Influenza B virus by PCR Neg for Influ B (Neg)
[2019-04-17 11:26] LABS: INR 2.5 (0.9-1.1); Prothrombin Time 24.1 Seconds (9.0-12.0)
[2019-04-17 11:33] LABS: Albumin Level 2.6 gm/dl (3.4-5.0); BUN Creatinine Ratio 20.7 (10-20); Calcium 8.3 mg/dl (8.5-10.1); Creatinine Clr Calc Pharmacy 19.1 ml/min; Est GFR (African American) 36.3; Est GFR (Non-African American) 31.3; Magnesium 1.8 mg/dl (1.8-2.4); Potassium 3.1 mmol/L (3.5-5.1)
--- NOTE | 2019-04-17 11:45 | XRay Report ---
XR chest 2V PA/lateral HISTORY: fever, cough COMPARISON: Chest 10/31/2018. FINDINGS: The heart remains mildly enlarged. Trace bilateral pleural effusions. Diffuse interstitial vascular thickening which has progressed. This suggests mild congestive change. Patchy right perihila r and bibasilar airspace opacities or this is new from the prior study. IMPRESSION: 1. Patchy right perihilar and bibasilar airspace opacities which is new from the prior study. This fa vors a multifocal pneumonia. Follow-up chest x-ray recommended to ensure resolution. 2. Mild cardiomegaly, interstitial thickening, trace bilateral pleural effusions suggestive of mild c ongestive change. ACT 112: Negative or not required by law. Electronically signed by: Nick Brock M.D. 04/17/2019 11:44 AM
[2019-04-17 11:49] LABS: Basophils # (auto) 0.02 K/uL (0-0.2); Basophils % (auto) 0.2 %; Eosinophils # (auto) 0.17 K/uL (0-0.5); Eosinophils % (auto) 1.3 %; Immature Granulocytes # (auto) 0.02 K/uL (0.00-0.02); Immature Granulocytes % (auto) 0.2 %; Lymphocytes # (auto) 0.74 K/uL (1.2-3.4); Lymphocytes % (auto) 5.7 %; Monocytes # (auto) 0.61 K/uL (0.11-0.59); Monocytes % (auto) 4.7 %; Neutrophils # (auto) 11.42 K/uL (1.4-6.5); Neutrophils % (auto) 87.9 %
[2019-04-17] MEDS ORDERED: CEFEPIME 2,000 MG/20 ML VIAL IV STA (11:53)
[2019-04-17 11:54] LABS: Albumin Globulin Ratio 0.8 (0.9-2); Bilirubin,Total 0.6 mg/dl (0.2-1); Globulin 3.3 gm/dl (2.5-4.0); Phosphorus 1.3 mg/dl (2.5-4.9); Total Protein 5.9 gm/dl (6.4-8.2); Troponin I 0.063 ng/ml (0-0.045)
[2019-04-17] MEDS ORDERED: SODIUM CHLORIDE 0.9% 1000ML 1,000 ML IV SCH (12:00)
--- NOTE | 2019-04-17 13:54 | History & Physical Report ---
Date of Service April 17, 2019 Assessment & Plan (1) Sepsis: (2) Hypoxia: (3) Multifocal pneumonia: This is an 88 yr old F who has a significant PMH of CAD with hx of BMS to LAD 2017, PAF on long-term anticoagulation with warfarin, HTN, HLD, PMR on chronic prednisone therapy, CKD stage IV, anemia of chronic disease, dry eyes, hypothyroidism, hyperparathyroidism, GERD presents to ED secondary to fever, cough and increasing weakness x6 days. In ED patient met sepsis criteria per current CMS guidelines. She was febrile at 38.1, leukocytosis at 12 .9k, but was otherwise hemodynamically stable. Source: Multifocal pneumonia Lactic acid WNL, procalcitonin 2.72 influenza negative Received IV cefepime and IV fluid resuscitation in ED. Dx: Community acquired multifocal pneumonia in setting immunocompromised state due to chronic prednisone therapy admit to PCU Continue IV antibiotics with cefepime and doxycycline (prolonged QT) MRSA swab pending, if positive add Vanco blood cultures pending trend procalcitonin pulmonary toilet with xopenex neb tx, incentive spirometry robitussin for cough Supplemental oxygen, titrate as necessary (4) Elevated troponin I level: troponin mild elevated, 0.063 likely in setting of demand ischemia 2/2 to acute sepsis, pt denies active chest pain EKG with changes from 12/2018 including new T wave inversion in V5 and V5, st dep I and II repeat troponin at 4pm, ecg continue ASA, warfarin, statin, imdur scheduled for nuclear stress test 04/19 for upcoming ELIE last echo 01/2019 revealed EF 60%, grade 1 diastolic dysfxn, mild TR (5) Electrolyte abnormality: Hypokalemia 3.1, replete with 40 M EQ KCl x1 now Hypophosphatemia, 1.3, replete with K-Phos 15 mmol (6) CAD (coronary artery disease): History of BMS to LAD in 2017 Follows [facility] cardiology On ASA, statin, Imdur, sotalol as outpatient Currently denies chest pain Work-up as above (7) Paroxysmal atrial fibrillation: Rate and rhythm controlled on sotalol Continue warfarin for anticoagulation INR 2.5 (8) Diastolic heart failure: Recent echocardiogram 01/23 revealed EF 60% with grade 1 diastolic dysfunction Takes Lasix as needed for swelling, has not been requiring Monitor daily weights, low-sodium diet Strict I's and O's (9) PMR (polymyalgia rheumatica): On chronic prednisone therapy 5 mg daily (10) Hypothyroidism: Continue Synthroid (11) HTN (hypertension): Blood pressure 118/53 Previously had been on losartan but was recently placed on hold/discontinued by nephrology due to planned upcoming procedure ELIE continue sotalol and imdur monitor (12) CKD (chronic kidney disease) stage 4, GFR 15-29 ml/min: Baseline creatinine 1.6-1.7 BUN/creatinine 31 and 1.48 today Mild dehydration in setting of sepsis Continue gentle IVF 75 cc/h Follow BMP (13) Chronic anemia: H&H stable at 10.1 and 31.9 Continue iron (14) DVT prophylaxis: Continue warfarin, INR 2.5 2.5 mg Sunday, 5 mg all other days Disposition: Admit to PCU Follow up: PCP Dr. Weber upon discharge Pt was seen and examined in collaboration with Dr. Garcia, please see addendum History of Present Illness Chief Complaint: Fever, Cough and increasing weakness x 6 days. Primary Care Provider: Negra Weber MD This is an 88 yr old F who has a significant PMH of CAD with hx of BMS to LAD 2017, PAF on long-term anticoagulation with warfarin, HTN, HLD, PMR on chronic prednisone therapy, CKD stage IV, anemia of chronic disease, dry eyes, hypothyroidism, hyperparathyroidism, GERD presents to ED secondary to fever, cough and increasing weakness x6 days. Daughter and stepdaughter are at bedside. Symptoms started approximately 6 days ago with dry cough. It then progressed to low-grade fevers that would develop worsening in the morning, a.m. chills and sweats and increasing weakness. She was seen by PCP on 04/15/2019 in which she was diagnosed with bronchitis and placed on azithromycin and as needed albuterol inhaler. She has taken 2 doses of azithromycin. This morning when she woke up she had elevated temperature 102 which crystal to 104. Increasingly weak and required 2 people assist to get to bedside commode. EMS was summoned. Per report upon initial evaluation she was saturating in the low 80s on room air. She required oxygen supplementation. Along with fever, cough and weakness she further complains of wheezing, chills, sweats, decreased appetite. Cough is mostly dry but occasionally productive of white sputum. She denies any lightheadedness, dizziness, syncope, chest pain, shortness breath, palpitations, nausea, vomiting, abdominal pain. Over the past several days she has been constipated secondary to iron but has been taking senna twice daily and had a large BM this morning. Denies any dysuria, increased urgency or frequency with urination. Per daughter patient is scheduled to have a total hip replacement on 04/[address] Marcos. She recently been seen by cardiology to undergo nuclear stress testing which was to be done this following Sunday. Currently she lives at home but does have somebody in her house with her 11/09, mostly family. In ED patient met sepsis criteria per current CMS guidelines. She was febrile at 38.1, leukocytosis at 12 .9k, but was otherwise hemodynamically stable. Chest x-ray revealed multifocal pneumonia with trace bilateral pleural effusions and mild congestive change. Number abnormalities notable for WBC 10 point 9K, H&H 10.1 and 31.9, K3.1, Princess 1.3, BUN 31, creatinine 1.48, troponin I 0.063, lactic acid 0.8, procalcitonin 2.72, influenza negative. EKG revealed normal sinus rhythm with T wave depressions in V4 to V5 with ST depression noted in leads I and II. Change from prior EKG his T wave inversions in V4 and V5 along with ST depressions. In ED she received IV cefepime along with IV fluid resuscitation. Allergies Allergy/AdvReac Type Severity Reaction Status Date / Time amoxicillin Allergy Unknown NOT SURE Verified 04/17/19 10:36 lisinopril Allergy Unknown swelling Verified 04/17/19 10:36 face/lips/tongue sulfamethoxazole Allergy Unknown Unknown Verified 04/17/19 10:36 [From Bactrim] trimethoprim [From Bactrim] Allergy Unknown Unknown Verified 04/17/19 10:36 Home Medications Home Medications Medication Instructions Recorded Confirmed Type atorvastatin 40 mg PO HS 06/28/18 04/17/19 History furosemide 20 mg PO QAM PRN 06/28/18 04/17/19 History isosorbide mononitrate 30 mg PO QAM 06/28/18 04/17/19 History levothyroxine 50 mcg PO MOTUWETHFRSA 06/28/18 04/17/19 History levothyroxine 100 mcg PO SALCIDO 06/28/18 04/17/19 History nitroglycerin 0.4 mg SUBLINGUAL UD PRN MDD 06/28/18 04/17/19 History repeat once polyethylene glycol 3350 [Miralax] 17 g PO QAM PRN 06/28/18 04/17/19 History prednisone 5 mg PO QAM 06/28/18 04/17/19 History sotalol 40 mg PO QAM 06/28/18 04/17/19 History warfarin 5 mg PO SUTUTHSA@2100 06/28/18 04/17/19 History sennosides [senna] 8.6 mg PO DAILY PRN 09/14/18 04/17/19 History warfarin 2.5 mg PO MOWEFR 09/14/18 04/17/19 History pantoprazole 40 mg PO QDL PRN 10/08/18 04/17/19 History ferrous sulfate [iron] 325 mg PO BID #60 tab 11/02/18 04/17/19 Rx aspirin [Aspirin Low Dose] 81 mg PO QDB 03/18/19 04/17/19 History donepezil [Aricept] 5 mg PO HS 03/24/19 04/17/19 History acetaminophen [Tylenol Extra 500 mg PO Q6H PRN 04/17/19 04/17/19 History Strength] albuterol sulfate 2 puff INHALATION QID 04/17/19 04/17/19 History azithromycin 250 mg PO UD 04/17/19 04/17/19 History famotidine 20 mg PO HS 04/17/19 04/17/19 History gabapentin 100 mg PO BID 04/17/19 04/17/19 History mirtazapine 30 mg PO HS 04/17/19 04/17/19 History oseltamivir 30 mg PO DAILY 04/17/19 04/17/19 History oxycodone 5 mg PO TID PRN 04/17/19 04/17/19 History Past Med/Surg History Medical History CAD (coronary artery disease) (Chronic) s/p BMS x1 to LAD (2016) CHF (congestive heart failure) Controlled and stable- no diuretic at this time- no recent LE edema Chronic anemia (Chronic) --Stable- Hgb ranges - 9-10- takes iron supplement BID Chronic constipation CKD (chronic kidney disease) stage III-IV- under surveillance- follows with nuisance animal damage control agent Degenerative joint disease of right hip Diastolic heart failure (Chronic) Dyslipidemia (Chronic) Esophageal dysmotility (Chronic) occasional, chronic dysphagia Gastroesophageal reflux (Chronic) controlled with with meds HTN (hypertension) Labile per cardiology Hx of myocardial infarction 2017 Hypertension Hypothyroidism (Chronic) Osteoarthritis Paroxysmal atrial fibrillation (Chronic) PMR (polymyalgia rheumatica) (Chronic) on chronic prednisone (current dose 5mg daily*) Raynauds disease (Chronic) Surgical History History of cardiac cath (Chronic) s/p BMS x1 to LAD (2016) History of cataract surgery bilateral History of D&C (Chronic) History of lumbar fusion Hx of colonoscopy Hx of tonsillectomy (Chronic) Family History (Updated 04/17/19 @ 13:38 by Jesusita Obrien PA-C) Grandfather Family hx of colon cancer Father Prostate cancer Mother , 102 Old age Social History Preferred Language: Maori Communication Ability: Effective Irrigator Required: No Beliefs That Will Affect Care: None Current Living Situation: Family Current Living Situation Comment: ALWAYS HAS SOMEONE WITH HER Other Information That Helps Us Care for You: No Feels Safe at Home: Yes Safety Concerns: Feels Safe At This Time Smoking Status: Never smoker Second Hand Exposure: No ; Hx Alcohol Use: Yes Alcohol type: wine Alcohol Intake Frequency: Rarely Hx Substance Use: No Review of Systems Review of Systems: All systems reviewed & are unremarkable except as noted in HPI & below Physical Exam 2 Physical Exam: Constitutional: Petite, elderly, F, vitals as above, NAD, sitting up in bed, pleasant, conversing easily Head: Normocephalic, Atraumatic Eyes: PERRL, conjunctivae normal, anicteric sclerae ENMT: external ear and nose normal, oropharynx normal dry mucous membranes Neck: trachea midline, no thyromegaly normal visual inspection Respiratory: On O2 via NC 4 L, normal respiratory effort, lungs clear to auscultation, no wheeze, rales, rhonchi. Normal insp/exp effort, no accessory muscle use Cardiovascular: RRR, no murmur, no edema Vessels: no JVD or carotid bruit Chest: normal inspection of chest Abdomen: normal bowel sounds, soft, nontender, no hepatosplenomegaly Musculoskeletal: no cyanosis or clubbing, extremities motor strength 5/5 Skin: no rashes, warm and dry normal turgor Neurologic: PERRL, EOMI, accommodation nl, no face palsy, no dysarthria CN's II-XI intact bilaterally and moves all extremities Psychiatric: A+Ox3, euthymic affect Lymphatic: no cervical or axillary lymphadenopathy : deferred Results & Data Vital Signs (Past 12 Hours) Vital Signs Temp Pulse Pulse Resp BP BP Pulse Ox 04/17/19 11:53 36.9 C 66 19 114/46 L 94 04/17/19 10:34 96 04/17/19 10:05 38.2 C H 79 20 136/75 98 Laboratory Results Short CBC 04/17/19 04/17/19 Range/Units 10:58 10:58 WBC 12.98 H (4.8-10.8) K/uL Hgb 10.1 L (12.0-16.0) g/dL Hct 31.9 L (37-47) % Plt Count 244 (130-400) K/uL Procalcitonin 2.72 H (0-0.5) ng/ml BMP 04/17/19 10:58 Sodium 139 Potassium 3.1 L Chloride 104 Carbon Dioxide 29 BUN 31 H Creatinine 1.48 H Glucose 89 Calcium 8.3 L Cardiac Enzymes 04/17/19 Range/Units 10:58 Troponin I 0.063 H* (0-0.045) ng/ml Liver Function 04/17/19 Range/Units 10:58 Total Bilirubin 0.6 (0.2-1) mg/dl AST 46 H (15-37) U/L ALT 49 (12-78) U/L Alkaline Phosphatase 85 (45-117) U/L Albumin 2.6 L (3.4-5.0) gm/dl Diagnostic Findings CXR: IMPRESSION: 1. Patchy right perihilar and bibasilar airspace opacities which is new from the prior study. This favors a multifocal pneumonia. Follow-up chest x-ray recommended to ensure resolution. 2. Mild cardiomegaly, interstitial thickening, trace bilateral pleural effusions suggestive of mild congestive change. Medications Administered Sodium Chloride (Nss 1000ml) 1,000 mls @ 125 mls/hr IV .Q8H ALLYSON Stop: 05/17/19 11:59 Last Admin: 04/17/19 12:33 Dose: 125 mls/hr Documented by: [id number] Discontinued Medications Acetaminophen (Ofirmev) 1,000 mg in 100 mls @ 400 mls/hr IV NOW STA Stop: 04/17/19 10:27 Last Admin: 04/17/19 10:34 Dose: Not Given Documented by: [id number] Cefepime HCl (Maxipime) 2,000 mg in 20 mls @ 5 mls/min IV NOW STA Stop: 04/17/19 11:56 Last Admin: 04/17/19 12:33 Dose: 5 mls/min Documented by: [id number] ECG Rhythm: normal sinus Findings: + nonspecific-ST abn and + T-wave inversion Comparison ECG Date: from Additional Comments: New t wave inversions in lead V5 and V5 along with ST depression I and II Code Status & VTE Plan Code Status Full Code Discussed with pt and family at bedside VTE Prophylaxis Plan VTE Prophylaxis will be ordered: Yes Supervising Physician Co-Signing Physician Notes Care coordinated with Jesusita Obrien PA-C. Agree with john note. Patient seen and examined. Please refer to her notes for full details. Vital signs reviewed. Physical exam: General exam: Alert and oriented. Very chilly CVS: S1 and S2 heard, regular rate and rhythm, no murmurs. RS: Clear to auscultation,mild bibasilar crackles. ABD: Soft, bowel sounds present, distention. HEAD OF HUMAN RESOURCES:alert and awake, moves extremities, obeys commands. EXT: No edema, no erythema. Labs: Reviewed. Assessment and plan: 88f with multiple med problems as listed above comes wit one week of cough and weakness. Saw PCP and was prescribed azithromycin. But today morning she was spiking temps at home upto 104F when family decided to bring patient to ER. Initially was hypoxic on presentation. Now saturating ok on oxygen supplementation. Denies any chest pain .Feeling very chilly. Multifocal pneumonia leukocytosis temp spike procalcitonin elevated at 2.7 lactic acid 0.8 iv fluids iv cefepime and Doxycycline follow cx follow closely the response Chronic diastolic chf ckd stage 4 on fluids follow for volume overload. will follow labs Other diagnosis and plan of care as per Jesusita Obrien PA-C. Joni ch MD.
[2019-04-17] MEDS ORDERED: GUAIFENESIN/DEXTROM SYRUP 200MG/20MG 10ML UDC PO PRN (14:05)
[2019-04-17] MEDS ORDERED: ACETAMINOPHEN 325 MG TAB PO PRN (14:05)
[2019-04-17] MEDS ORDERED: CEFEPIME CONSULT ACTIVE PRN (14:05)
[2019-04-17] MEDS ORDERED: POTASSIUM PHOS 3 MMOL/1 ML INFUSION IV STA (14:05)
[2019-04-17] MEDS ORDERED: POLYETHYLENE (MIRALAX) 17 GM PACK PO PRN (14:05)
[2019-04-17] MEDS ORDERED: PANTOprazole 40 MG TAB PO PRN (14:05)
[2019-04-17] MEDS ORDERED: OXYCODONE HCL IR 5 MG TAB (IMMEDIATE RELEASE) PO PRN (14:21)
[2019-04-17] MEDS ORDERED: POTASSIUM CHLORIDE 20 MEQ TABCR PO ONE (14:30)
[2019-04-17] MEDS: SODIUM CHLORIDE 0.9% 1000ML 1,000 ML IV SCH (14:31)
[2019-04-17] MEDS ORDERED: POTASSIUM PHOSPHATE 15 MMOL in SODIUM CHLORIDE 0.9% 250 ML IV ONE (14:45)
[2019-04-17] MEDS: SOTALOL HCL 80 MG TAB PO SCH (15:42)
[2019-04-17] MEDS: predniSONE 5 MG TAB PO SCH (15:43)
[2019-04-17] MEDS: DOXYCYCLINE HYCLATE 100 MG in DEXTROSE 5% 100 ML IV SCH (15:44)
--- NOTE | 2019-04-17 18:19 | Emergency Department Note ---
Entered by Prateek Plummer acting as a scribe for History of Present Illness General Chief complaint: Illness Time Seen by Provider: 04/17/19 09:59 Source: patient and EMS Limitations: no limitations History of Present Illness Onset (ago): day(s) (several ) Location: head Pain Consistency: + other (worsening) Quality: + constant Associated symptoms: + cough, + fever/chills (chills), + nausea/vomiting (nausea) and + other (dry heaves) Treatments prior to arrival: other (Azithromycin, Tylenol) The patient is an 88 year old female who presents to the Emergency Room with complaints of constant and worsening flu-like symptoms starting several days ago. The patient states she saw her PCP, Dr. Weber, recently. She notes she was started on azithromycin recently. She states she has been having a cough and intermittent nausea with dry heaves. She notes she has been having chills. She states she has not been around any other people who have been sick. She states she got the flu shot this year. The patient denies having chest pain, abdominal pain, vomiting, and diarrhea. She notes she takes Warfarin. The patient's daughter states the patient took 1000 mg Tylenol this morning. Home Medications Home Medications Medication Instructions Recorded Confirmed Type atorvastatin 40 mg PO HS 06/28/18 04/17/19 History furosemide 20 mg PO QAM PRN 06/28/18 04/17/19 History isosorbide mononitrate 30 mg PO QAM 06/28/18 04/17/19 History levothyroxine 50 mcg PO MOTUWETHFRSA 06/28/18 04/17/19 History levothyroxine 100 mcg PO SALCIDO 06/28/18 04/17/19 History nitroglycerin 0.4 mg SUBLINGUAL UD PRN MDD 06/28/18 04/17/19 History repeat once polyethylene glycol 3350 [Miralax] 17 g PO QAM PRN 06/28/18 04/17/19 History prednisone 5 mg PO QAM 06/28/18 04/17/19 History sotalol 40 mg PO QAM 06/28/18 04/17/19 History warfarin 5 mg PO SUTUTHSA@2100 06/28/18 04/17/19 History sennosides [senna] 8.6 mg PO DAILY PRN 09/14/18 04/17/19 History warfarin 2.5 mg PO MOWEFR 09/14/18 04/17/19 History pantoprazole 40 mg PO QDL PRN 10/08/18 04/17/19 History ferrous sulfate [iron] 325 mg PO BID #60 tab 11/02/18 04/17/19 Rx aspirin [Aspirin Low Dose] 81 mg PO QDB 03/18/19 04/17/19 History donepezil [Aricept] 5 mg PO HS 03/24/19 04/17/19 History acetaminophen [Tylenol Extra 500 mg PO Q6H PRN 04/17/19 04/17/19 History Strength] albuterol sulfate 2 puff INHALATION QID 04/17/19 04/17/19 History azithromycin 250 mg PO UD 04/17/19 04/17/19 History famotidine 20 mg PO HS 04/17/19 04/17/19 History gabapentin 100 mg PO BID 04/17/19 04/17/19 History mirtazapine 30 mg PO HS 04/17/19 04/17/19 History oseltamivir 30 mg PO DAILY 04/17/19 04/17/19 History oxycodone 5 mg PO TID PRN 04/17/19 04/17/19 History Allergies Allergy/AdvReac Type Severity Reaction Status Date / Time amoxicillin Allergy Unknown NOT SURE Verified 04/17/19 10:36 lisinopril Allergy Unknown swelling Verified 04/17/19 10:36 face/lips/tongue sulfamethoxazole Allergy Unknown Unknown Verified 04/17/19 10:36 [From Bactrim] trimethoprim [From Bactrim] Allergy Unknown Unknown Verified 04/17/19 10:36 Past Med/Surg History Medical History CAD (coronary artery disease) (Chronic) s/p BMS x1 to LAD (2017) CHF (congestive heart failure) Controlled and stable- no diuretic at this time- no recent LE edema Chronic anemia (Chronic) --Stable- Hgb ranges - 9-10- takes iron supplement BID Chronic constipation CKD (chronic kidney disease) stage III-IV- under surveillance- follows with director of gift planning Degenerative joint disease of right hip Diastolic heart failure (Chronic) Dyslipidemia (Chronic) Esophageal dysmotility (Chronic) occasional, chronic dysphagia Gastroesophageal reflux (Chronic) controlled with with meds HTN (hypertension) Labile per cardiology Hx of myocardial infarction 2017 Hypertension Hypothyroidism (Chronic) Osteoarthritis Paroxysmal atrial fibrillation (Chronic) PMR (polymyalgia rheumatica) (Chronic) on chronic prednisone (current dose 5mg daily*) Raynauds disease (Chronic) Surgical History History of cardiac cath (Chronic) s/p BMS x1 to LAD (2017) History of cataract surgery bilateral History of D&C (Chronic) History of lumbar fusion Hx of colonoscopy Hx of tonsillectomy (Chronic) Family History (Updated 04/17/19 @ 13:38 by Jesusita Obrien PA-C) Grandfather Family hx of colon cancer Father Prostate cancer Mother , 102 Old age Social History Preferred Language: Cook Islander Communication Ability: Effective Disaster Recovery Coordinator Required: No Beliefs That Will Affect Care: None Current Living Situation: Family Current Living Situation Comment: ALWAYS HAS SOMEONE WITH HER Other Information That Helps Us Care for You: No Feels Safe at Home: Yes Safety Concerns: Feels Safe At This Time Smoking Status: Never smoker Second Hand Exposure: No ; Hx Alcohol Use: Yes Alcohol type: wine Alcohol Intake Frequency: Rarely Hx Substance Use: No Review of Systems See HPI for pertinent positives & negatives. and A total of 10 systems reviewed and were otherwise negative Physical Exam Vital Signs Vital Signs - 24 hr 04/17/19 10:05 04/17/19 10:34 04/17/19 11:53 Temperature 38.2 C H 36.9 C Temperature Source Oral Oral Pulse Rate 79 Pulse Rate [Apical] 66 Pulse Rhythm Regular Pulse Rhythm [Apical] Regular Pulse Strength Normal Pulse Strength [Apical] Normal Respiratory Rate 20 19 Respiratory Effort / Characteristics Non-Labored Spontaneous Non-Labored Spontaneous Respiratory Depth Normal Normal Respiratory Pattern Regular Regular Blood Pressure 136/75 Blood Pressure [Right Arm] 114/46 L Blood Pressure Mean 95 Blood Pressure Mean [Right Arm] 68 Blood Pressure Position Lying Pulse Oximetry 98 96 94 Oxygen Delivery Method Nasal Cannula Nasal Cannula Nasal Cannula Oxygen Flow Rate 4 2 4 Sepsis Recent Fever Within 48 Hours No Sepsis Action Taken by Nursing No Action Required GENERAL: alert, ill appearing, well nourished, no distress, non-toxic. Cachectic. EYE EXAM: normal conjunctiva, PERRL and EOM's grossly intact OROPHARYNX: no exudate, no erythema, lips, buccal mucosa, and tongue normal and mucous membranes are moist NECK: supple, no nuchal rigidity, no adenopathy, non-tender LUNGS: Clear to auscultation. Normal chest wall mechanics. Decreased breath sounds but no wheezes, rhonchi, rales. HEART: no murmurs, S1 normal and S2 normal ABDOMEN: abdomen soft, non-tender, normo-active bowel sounds, no masses, no rebound or guarding. BACK: Back is symmetrical on inspection and there is no deformity, no midline tenderness, no CVA tenderness. SKIN: no rashes and no bruising UPPER EXTREMITIES: upper extremities are grossly normal. FROM, nml pulses b/l. LOWER EXTREMITIES: No pitting edema. FROM, nml pulses b/l. NEURO EXAM: Normal sensorium, cranial nerves II-XII grossly intact, normal speech, no gross weakness of arms, no gross weakness of legs. Course Course 1000: The patient was evaluated in room A4B, and a complete history and physical examination were performed. 1028: I reviewed the outpatient PCP visit as obtained through case management. Unable to see outpt CXR. 1046: I discussed the patient's case with the patient's family. They state the patient did not have a flu swab. They note the patient had 2 days of azithromycin. They note the patient previously had pneumonia. They state the [facility] had 1000 mg of Tylenol this morning at 0830. 1220: I updated the patient and her family on the labs and imaging results. I recommended admission, and the patient and the family were agreeable. 1224: I discussed the patient's case with Jesusita Obrien PA-C. Dr. Garcia [facility] Hospitalist will evaluate the patient for further management Administered Medications Acetaminophen (Tylenol) 650 mg PO Q4H PRN PRN Reason: Pain or Fever Stop: 05/17/19 14:04 Last Admin: 04/17/19 15:43 Dose: 650 mg Documented by: [id number] Doxycycline Hyclate 100 mg/ (Dextrose) 110 mls @ 50 mls/hr IV Q12H ALLYSON Stop: 04/24/19 14:04 Last Admin: 04/17/19 15:44 Dose: 50 mls/hr Documented by: [id number] Sodium Chloride (Nss 1000ml) 1,000 mls @ 75 mls/hr IV .[id number] ALLYSON Stop: 05/17/19 14:04 Last Admin: 04/17/19 14:31 Dose: 75 mls/hr Documented by: [id number] Prednisone (Prednisone) 5 mg PO QA ALLYSON Stop: 05/17/19 14:59 Last Admin: 04/17/19 15:43 Dose: 5 mg Documented by: [id number] Sotalol HCl (Betapace) 40 mg PO QA ALLYSON Stop: 05/17/19 15:59 Last Admin: 04/17/19 15:42 Dose: 40 mg Documented by: [id number] Discontinued Medications Acetaminophen (Ofirmev) 1,000 mg in 100 mls @ 400 mls/hr IV NOW STA Stop: 04/17/19 10:27 Last Admin: 04/17/19 10:34 Dose: Not Given Documented by: [id number] Sodium Chloride (Nss 1000ml) 1,000 mls @ 125 mls/hr IV .Q8H ALLYSON Stop: 05/17/19 11:59 Last Infusion: 04/17/19 14:39 Dose: 0 mls/hr Documented by: [id number] Admin: 04/17/19 12:33 Dose: 125 mls/hr Documented by: [id number] Cefepime HCl (Maxipime) 2,000 mg in 20 mls @ 5 mls/min IV NOW STA Stop: 04/17/19 11:56 Last Admin: 04/17/19 12:33 Dose: 5 mls/min Documented by: [id number] Potassium Phosphate 15 mmol/ (Sodium Chloride) 255 mls @ 88 mls/hr IV ONE ONE Stop: 04/17/19 17:38 Last Admin: 04/17/19 15:03 Dose: 88 mls/hr Documented by: [id number] Potassium Chloride (Klor-Con M20) 40 meq PO NOW ONE Stop: 04/17/19 14:31 Last Admin: 04/17/19 15:42 Dose: 40 meq Documented by: [id number] Medical Decision Making Differential Diagnosis Differential diagnosis: Etiologies such as viral syndrome, otitis, pharyngitis, pneumonia, influenza, meningitis, urinary tract infection, sepsis, bacteremia, as well as others were entertained. Medical Records Attestation: I reviewed the patient's medical records. Home Medications Current Medication List: was personally reviewed by me Laboratory Data Attestation: I reviewed the patient's lab results. Result diagrams: 04/17/19 10:58 04/17/19 10:58 Lab Results 04/17/19 04/17/19 04/17/19 Range/Units 10:29 10:58 10:58 WBC 12.98 H (4.8-10.8) K/uL RBC 3.38 L (4.2-5.4) M/uL Hgb 10.1 L (12.0-16.0) g/dL Hct 31.9 L (37-47) % MCV 94.4 (80-100) fL MCH 29.9 (25-34) pg MCHC 31.7 L (32-36) g/dL RDW Std Deviation 55.0 H (36.4-46.3) fL RDW Coeff of Riley 15.9 H (11.5-14.5) % Plt Count 244 (130-400) K/uL MPV 9.9 (7.4-10.4) fL Immature Gran % (Auto) 0.2 % Neut % (Auto) 87.9 % Lymph % (Auto) 5.7 % [place] % (Auto) 4.7 % Eos % (Auto) 1.3 % Baso % (Auto) 0.2 % Immature Gran # (Auto) 0.02 (0.00-0.02) K/uL Neut # (Auto) 11.42 H (1.4-6.5) K/uL Lymph # (Auto) 0.74 L (1.2-3.4) K/uL [place] # (Auto) 0.61 H (0.11-0.59) K/uL Eos # (Auto) 0.17 (0-0.5) K/uL Baso # (Auto) 0.02 (0-0.2) K/uL PT (9.0-12.0) Seconds INR (0.9-1.1) Sodium (136-145) mmol/L Potassium (3.5-5.1) mmol/L Chloride (98-107) mmol/L Carbon Dioxide (21-32) mmol/L Anion Gap (3-11) BUN (7-18) mg/dl Creatinine (0.6-1.2) mg/dl Est Cr Clr Drug Dosing ml/min Est GFR ( Amer) Est GFR (Non-Af Amer) BUN/Creatinine Ratio (10-20) Glucose (70-99) mg/dl Lactate (0.4-2.0) mmol/L Calcium (8.5-10.1) mg/dl Phosphorus (2.5-4.9) mg/dl Magnesium (1.8-2.4) mg/dl Total Bilirubin (0.2-1) mg/dl AST (15-37) U/L ALT (12-78) U/L Alkaline Phosphatase (45-117) U/L Troponin I (0-0.045) ng/ml Total Protein (6.4-8.2) gm/dl Albumin (3.4-5.0) gm/dl Globulin (2.5-4.0) gm/dl Albumin/Globulin Ratio (0.9-2) Procalcitonin 2.72 H (0-0.5) ng/ml Influenza Type A (PCR) Neg for Influ A (Neg) Influenza Type B (PCR) Neg for Influ B (Neg) 04/17/19 04/17/19 04/17/19 Range/Units 10:58 10:58 10:58 WBC (4.8-10.8) K/uL RBC (4.2-5.4) M/uL Hgb (12.0-16.0) g/dL Hct (37-47) % MCV (80-100) fL MCH (25-34) pg MCHC (32-36) g/dL RDW Std Deviation (36.4-46.3) fL RDW Coeff of Riley (11.5-14.5) % Plt Count (130-400) K/uL MPV (7.4-10.4) fL Immature Gran % (Auto) % Neut % (Auto) % Lymph % (Auto) % [place] % (Auto) % Eos % (Auto) % Baso % (Auto) % Immature Gran # (Auto) (0.00-0.02) K/uL Neut # (Auto) (1.4-6.5) K/uL Lymph # (Auto) (1.2-3.4) K/uL [place] # (Auto) (0.11-0.59) K/uL Eos # (Auto) (0-0.5) K/uL Baso # (Auto) (0-0.2) K/uL PT 24.1 H (9.0-12.0) Seconds INR 2.5 H (0.9-1.1) Sodium 139 (136-145) mmol/L Potassium 3.1 L (3.5-5.1) mmol/L Chloride 104 (98-107) mmol/L Carbon Dioxide 29 (21-32) mmol/L Anion Gap 6.0 (3-11) BUN 31 H (7-18) mg/dl Creatinine 1.48 H (0.6-1.2) mg/dl Est Cr Clr Drug Dosing 19.1 ml/min Est GFR ( Amer) 36.3 Est GFR (Non-Af Amer) 31.3 BUN/Creatinine Ratio 20.7 H (10-20) Glucose 89 (70-99) mg/dl Lactate 0.8 (0.4-2.0) mmol/L Calcium 8.3 L (8.5-10.1) mg/dl Phosphorus 1.3 L* (2.5-4.9) mg/dl Magnesium 1.8 (1.8-2.4) mg/dl Total Bilirubin 0.6 (0.2-1) mg/dl AST 46 H (15-37) U/L ALT 49 (12-78) U/L Alkaline Phosphatase 85 (45-117) U/L Troponin I 0.063 H* (0-0.045) ng/ml Total Protein 5.9 L (6.4-8.2) gm/dl Albumin 2.6 L (3.4-5.0) gm/dl Globulin 3.3 (2.5-4.0) gm/dl Albumin/Globulin Ratio 0.8 L (0.9-2) Procalcitonin (0-0.5) ng/ml Influenza Type A (PCR) (Neg) Influenza Type B (PCR) (Neg) Imaging Data Radiologist's Impression: Radiology results as stated below per my review and the radiologist's interpretation: XR chest 2V PA/lateral HISTORY: fever, cough COMPARISON: Chest 10/31/2018. FINDINGS: The heart remains mildly enlarged. Trace bilateral pleural effusions. Diffuse interstitial vascular thickening which has progressed. This suggests mild congestive change. Patchy right perihilar and bibasilar airspace opacities or this is new from the prior study. IMPRESSION: 1. Patchy right perihilar and bibasilar airspace opacities which is new from the prior study. This favors a multifocal pneumonia. Follow-up chest x-ray recommended to ensure resolution. 2. Mild cardiomegaly, interstitial thickening, trace bilateral pleural effusions suggestive of mild congestive change. ACT 112: Negative or not required by law. Electronically signed by: Nick Brock M.D. 04/17/2019 11:44 AM ECG Data Attestation: I personally reviewed and interpreted this ECG as follows: Indication: + weakness Rate (beats per minute): 73 Rhythm: + sinus rhythm ECG Intervals/blocks: + Incomplete right bundle branch block ECG [place]: + Normal ECG ST segments: + ST depression (V3 to V6) and + T-wave inversions (V2 to V4) ECG Findings: + Other (Prolonged QT-c) Comparison ECG Date: from (10/31/18) Change: no significant change Blood Pressure Blood Pressure Findings: Elevated blood pressure Blood Pressure Disposition: further management by hospitalist VALERY Mckeon Continuous Cardiac Monitoring: An order was placed for continuous cardiac monitoring. The monitor shows a rate of 73 with a sinus rhythm This is an elderly female, ill-appearing, who presents with increased fevers and cough. Patient per her report as well as that of the family has been sick for almost a week now with increased fevers, worsening cough and sputum production, decreased oral intake, and increased weakness/fatigue. Patient had a recent outpatient chest x-ray which was reported to her as negative for pneumonia, chest x-ray here showed a multifocal pneumonia. Patient did have a leukocytosis, other electrolyte abnormalities were noted, as well as an elevated troponin. No EKG changes and patient denied any chest pain. I feel the elevated troponin more likely related to infection as well as the patient's chronic kidney disease. No evidence of sepsis at this time, although patient is at risk. After initial labs and chest x-ray, a lactic acid and procalcitonin were added. While lactic acid was reassuring, pro calcitonin was elevated. Patient has already been on 2 days of azithromycin, we will continue her on this and add cefepime. Will await MRSA swab of the nose before adding vancomycin. Patient slowly and carefully rehydrated due to concern for cardiac history and chronic kidney disease so as to not induce acute pulmonary edema. Patient rem ained hemodynamically stable in the emergency room. Patient and family at bedside made aware of all results and were in agreement with plan. Case discussed with hospitalist. Will defer additional electrolyte repletion to them. They will follow-up MRSA swab as well. Impression & Plan Fever, Hypoxia, Multifocal pneumonia, Chronic kidney disease, Hypokalemia, Hypophosphatemia, Elevated troponin Discharge Plan Visit Data *Final* Discharge Date/Time: 04/17/19 13:25 Chief Complaint: Illness ED Provider: Yesi Fleming Discharge Problem: Fever, Hypoxia, Multifocal pneumonia, Chronic kidney disease, Hypokalemia, Hypophosphatemia, Elevated troponin Patient Disposition: Admitted As Inpatient Discharge Instructions Interventions: ED Discharge Assessment Last Done: 04/17/19 13:25 Discharge Problem: Fever Qualifiers: Fever type: unspecified Qualified Code(s): R50.9 - Fever, unspecified Chronic kidney disease Qualifiers: Chronic kidney disease stage: unspecified stage Qualified Code(s): N18.9 - Chronic kidney disease, unspecified The scribe's documentation has been prepared under my direction and personally reviewed by me in its entirety. I confirm that the note above accurately reflects all work, treatment, procedures, and medical decision making performed by me.
--- NOTE | 2019-04-17 19:14 | Electrocardiogram Report ---
Test Reason : Blood Pressure : / mmHG Vent. Rate : 073 BPM Atrial Rate : 073 BPM P-R Int : 136 ms QRS Dur : 096 ms QT Int : 462 ms P-R-T Axes : 035 064 049 degrees QTc Int : 508 ms Normal sinus rhythm Possible Left atrial enlargement Incomplete right bundle branch block Prolonged QT Abnormal ECG When compared with ECG of 31-OCT-2018 10:27, Nonspecific T wave abnormality, improved in Inferior leads T wave inversion no longer evident in Lateral leads Confirmed by Owen Pinto ([id number]) on 04/17/2019 7:14:22 PM Referred By: Negra Weber Confirmed By:Uriah Pinto
--- NOTE | 2019-04-17 19:21 | Electrocardiogram Report ---
Test Reason : Blood Pressure : / mmHG Vent. Rate : 069 BPM Atrial Rate : 069 BPM P-R Int : 138 ms QRS Dur : 090 ms QT Int : 440 ms P-R-T Axes : 047 057 063 degrees QTc Int : 471 ms Normal sinus rhythm Possible Left atrial enlargement Incomplete right bundle branch block T wave abnormality, consider anterior ischemia Prolonged QT Abnormal ECG When compared with ECG of 17-APR-2019 10:25, (unconfirmed) No significant change was found Confirmed by Owen Pinto ([id number] on 04/17/2019 7:20:47 PM Referred By: Negra Weber Confirmed By:Uriah Pinto
[2019-04-17] MEDS: LEVALBUTEROL HCL 0.63 MG/3 ML NEB NEB SCH (19:53)
[2019-04-17] MEDS: WARFARIN SOD 5 MG TAB PO SCH (20:27)
[2019-04-17] MEDS: GABAPENTIN 100 MG CAP PO SCH (20:28)
[2019-04-17] MEDS: ATORVASTATIN 40 MG TAB PO SCH (20:29)
[2019-04-17] MEDS: FAMOTIDINE 20 MG TAB PO SCH (20:29)
[2019-04-17] MEDS: DONEPEZIL HCL 5 MG TAB PO SCH (20:30)
[2019-04-17] MEDS: FERROUS SULFATE 325 MG TAB PO SCH (20:30)
[2019-04-17] MEDS: SENNA 8.6 MG TAB PO SCH (20:31)
[2019-04-17] MEDS: MIRTAZAPINE TAB 15 MG TAB PO SCH (20:31)
[2019-04-17] MEDS: CEFEPIME 1,000 MG in SYRINGE 0 ML IV SCH (23:07)
[2019-04-18] MEDS: LEVALBUTEROL HCL 0.63 MG/3 ML NEB NEB SCH ×4 (01:02→21:06)
[2019-04-18 02:18] LABS: Appearance Urine Clear (Clear); Bacteria Urine Automated Negative (Negative); Bilirubin Urine Negative (Negative); Blood Urine Negative (Negative); Cast Urine Automated 0 /lpf (0-5); Color Urine Yellow; Epithelial Cell Urine Auto 0-5 /lpf (0-5); Glucose Urine UA Negative (Negative); Ketones Urine Negative (Negative); Leukocyte Esterase Urine 3+ (Negative); Nitrite Urine Negative (Negative); Protein Urine 1+ (Negative); RBC Urine Automated 0-4 /hpf (0-4); Specific Gravity Urine 1.009 (1.000-1.030); Urobilinogen Urine Negative (Negative); WBC Urine Automated >30 /hpf (0-5); pH Urine 6.5 (4.5-7.5)
[2019-04-18] MEDS: DOXYCYCLINE HYCLATE 100 MG in DEXTROSE 5% 100 ML IV SCH ×2 (03:24→14:47)
[2019-04-18] MEDS: SODIUM CHLORIDE 0.9% 1000ML 1,000 ML IV SCH ×2 (03:24→18:17)
[2019-04-18] MEDS: LEVOTHYROXINE SODIUM 50 MCG TABLET PO SCH (06:08)
[2019-04-18 06:38] LABS: Basophils # (auto) 0.02 K/uL (0-0.2); Basophils % (auto) 0.2 %; Eosinophils # (auto) 0.12 K/uL (0-0.5); Hematocrit (blood only) 31.8 % (37-47); Hemoglobin 9.9 g/dL (12.0-16.0); Immature Granulocytes # (auto) 0.04 K/uL (0.00-0.02); Immature Granulocytes % (auto) 0.3 %; Lymphocytes # (auto) 1.14 K/uL (1.2-3.4); Lymphocytes % (auto) 9.9 %; Mean Corpuscular Hemoglobin 29.9 pg (25-34); Mean Corpuscular Hgb Conc 31.1 g/dL (32-36); Mean Corpuscular Volume 96.1 fL (80-100); Mean Platelet Volume 9.9 fL (7.4-10.4); Monocytes # (auto) 0.56 K/uL (0.11-0.59); Monocytes % (auto) 4.8 %; Neutrophils # (auto) 9.68 K/uL (1.4-6.5); Neutrophils % (auto) 83.8 %; Platelet Count 261 K/uL (130-400); RDW Coefficient of Variation 16.1 % (11.5-14.5); RDW Standard Deviation 56.7 fL (36.4-46.3); Red Blood Count 3.31 M/uL (4.2-5.4); White Blood Count 11.56 K/uL (4.8-10.8)
[2019-04-18 06:49] LABS: Prothrombin Time 28.4 Seconds (9.0-12.0)
[2019-04-18 07:08] LABS: BUN Creatinine Ratio 18.7 (10-20); Calcium 8.6 mg/dl (8.5-10.1); Creatinine Clr Calc Pharmacy 20.3 ml/min; Est GFR (African American) 39.8; Est GFR (Non-African American) 34.4; Phosphorus 2.2 mg/dl (2.5-4.9); Potassium 4.4 mmol/L (3.5-5.1)
[2019-04-18] MEDS: SOTALOL HCL 80 MG TAB PO SCH (08:09)
[2019-04-18] MEDS: FERROUS SULFATE 325 MG TAB PO SCH ×2 (08:09→21:26)
[2019-04-18] MEDS: ISOSORBIDE MONO EXTENDED REL 30 MG TABCR PO SCH (08:09)
[2019-04-18] MEDS: predniSONE 5 MG TAB PO SCH (08:10)
[2019-04-18] MEDS: SENNA 8.6 MG TAB PO SCH ×2 (08:10→21:26)
[2019-04-18] MEDS: GABAPENTIN 100 MG CAP PO SCH ×2 (08:10→21:25)
[2019-04-18] MEDS: ASPIRIN 81 MG ECTAB PO SCH (08:10)
[2019-04-18] MEDS ORDERED: SODIUM PHOSPHATE 3 MMOL/1 ML INFUSION IV STA (08:36)
[2019-04-18] MEDS ORDERED: SODIUM PHOSPHATE 9 MMOL in SODIUM CHLORIDE 0.9% 250 ML IV STA (08:49)
--- NOTE | 2019-04-18 10:42 | Cardiology Consultation ---
Date of Consultation April 18, 2019 Assessment & Plan (1) Multifocal pneumonia: Patient presented with a significant fever, white cell count elevation, chest x-ray multilobar infiltrate currently improving on IV antibiotics. Patient met criteria for sepsis on initial presentation but hemodynamically stable. On chronic corticosteroid therapy for polymyalgia rheumatica (2) Elevated troponin I level: Patient with known single-vessel coronary disease with prior coronary intervention 2016. Troponins likely elevated the basis of demand based ischemia. Echocardiogram will be reviewed with recent study in January 2019 without wall motion or normality Would continue usual cardiac medications. Patient does carry history of paroxysmal atrial fibrillation and is on antiarrhythmic therapies with sotalol. Would recommend avoiding QT prolonging medications. I agree potassium supplement already provided Maintain We will follow patient hospital (3) Chronic kidney disease: (4) CAD (coronary artery disease): Stable and 17 (5) Paroxysmal atrial fibrillation: On chronic anticoagulation and antiarrhythmic therapy with sotalol History of Present Illness Attending Physician: Gavino Vaca MD History of Present Illness Patient is an 88-year-old female with underlying issues 1. Longstanding labile hypertension, hypertensive heart disease 2. Single vessel atherosclerotic coronary disease status post bare metal stent to the left anterior descending September 2016. 3. Paroxysmal atrial fibrillation history, on antiarrhythmic therapy with sotalol, low dose, and chronic anticoagulation with warfarin. 4. Dyslipidemia. 5. Polymyalgia rheumatica 6. Stage IV chronic kidney disease Patient presents this admission noting several day history of malaise and subsequent worsening fevers mild low-grade cough. Chest x-ray and clinical history consistent with multilobar community-acquired pneumonia. Patient treated with azithromycin prior to admission Patient referred for ongoing medical management with mild fluctuation and ST s egments noted on EKG since presentation, elevated troponin. Patient notes marked temperature elevation yesterday "104". Feels improved since initiation of antibiotic therapies. Continue with low-grade cough minimally productive. No recent history of aspiration. No melena medication dysuria hematuria. Notes no dizziness or lightness notes no chest pains notes no tachypalpitations orthopnea worsening peripheral edema. She remains relatively active about her home without specific limitations and is currently undergoing evaluation for possible hip replacement. No recent bleeding issues. No changes in medications. Takes medications faithfully. Blood pressures have been well controlled. Allergies Allergy/AdvReac Type Severity Reaction Status Date / Time amoxicillin Allergy Unknown NOT SURE Verified 04/17/19 10:36 lisinopril Allergy Unknown swelling Verified 04/17/19 10:36 face/lips/tongue sulfamethoxazole Allergy Unknown Unknown Verified 04/17/19 10:36 [From Bactrim] trimethoprim [From Bactrim] Allergy Unknown Unknown Verified 04/17/19 10:36 Home Medications Home Medications Medication Instructions Recorded Confirmed Type atorvastatin 40 mg PO HS 06/28/18 04/17/19 History furosemide 20 mg PO QAM PRN 06/28/18 04/17/19 History isosorbide mononitrate 30 mg PO QAM 06/28/18 04/17/19 History levothyroxine 50 mcg PO MOTUWETHFRSA 06/28/18 04/17/19 History levothyroxine 100 mcg PO SALCIDO 06/28/18 04/17/19 History nitroglycerin 0.4 mg SUBLINGUAL UD PRN MDD 06/28/18 04/17/19 History repeat once polyethylene glycol 3350 [Miralax] 17 g PO QAM PRN 06/28/18 04/17/19 History prednisone 5 mg PO QAM 06/28/18 04/17/19 History sotalol 40 mg PO QAM 06/28/18 04/17/19 History warfarin 5 mg PO SUTUTHSA@2100 06/28/18 04/17/19 History sennosides [senna] 8.6 mg PO DAILY PRN 09/14/18 04/17/19 History warfarin 2.5 mg PO MOWEFR 09/14/18 04/17/19 History pantoprazole 40 mg PO QDL PRN 10/08/18 04/17/19 History ferrous sulfate [iron] 325 mg PO BID #60 tab 11/02/18 04/17/19 Rx aspirin [Aspirin Low Dose] 81 mg PO QDB 03/18/19 04/17/19 History donepezil [Aricept] 5 mg PO HS 03/24/19 04/17/19 History acetaminophen [Tylenol Extra 500 mg PO Q6H PRN 04/17/19 04/17/19 History Strength] albuterol sulfate 2 puff INHALATION QID 04/17/19 04/17/19 History azithromycin 250 mg PO UD 04/17/19 04/17/19 History famotidine 20 mg PO HS 04/17/19 04/17/19 History gabapentin 100 mg PO BID 04/17/19 04/17/19 History mirtazapine 30 mg PO HS 04/17/19 04/17/19 History oseltamivir 30 mg PO DAILY 04/17/19 04/17/19 History oxycodone 5 mg PO TID PRN 04/17/19 04/17/19 History Patient History Medical History CAD (coronary artery disease) (Chronic) s/p BMS x1 to LAD (2016) CHF (congestive heart failure) Controlled and stable- no diuretic at this time- no recent LE edema Chronic anemia (Chronic) --Stable- Hgb ranges - 9-10- takes iron supplement BID Chronic constipation CKD (chronic kidney disease) stage III-IV- under surveillance- follows with [employer] attendant Degenerative joint disease of right hip Diastolic heart failure (Chronic) Dyslipidemia (Chronic) Esophageal dysmotility (Chronic) occasional, chronic dysphagia Gastroesophageal reflux (Chronic) controlled with with meds HTN (hypertension) Labile per cardiology Hx of myocardial infarction 2016 Hypertension Hypothyroidism (Chronic) Osteoarthritis Paroxysmal atrial fibrillation (Chronic) PMR (polymyalgia rheumatica) (Chronic) on chronic prednisone (current dose 5mg daily*) Raynauds disease (Chronic) Surgical History History of cardiac cath (Chronic) s/p BMS x1 to LAD (2016) History of cataract surgery bilateral History of D&C (Chronic) History of lumbar fusion Hx of colonoscopy Hx of tonsillectomy (Chronic) Family History Grandfather Family hx of colon cancer Father Prostate cancer Mother , 102 Old age Social History Preferred Language: Korean Communication Ability: Effective Office Assistant Required: No Beliefs That Will Affect Care: None Current Living Situation: Family Current Living Situation Comment: ALWAYS HAS SOMEONE WITH HER Other Information That Helps Us Care for You: No Feels Safe at Home: Yes Safety Concerns: Feels Safe At This Time Smoking Status: Never smoker Second Hand Exposure: No ; Hx Alcohol Use: Yes Alcohol type: wine Alcohol Intake Frequency: Rarely Hx Substance Use: No Review of Systems Review of Systems: All systems reviewed & are unremarkable except as noted in HPI & below Physical Exam Constitutional: WD/WN, vitals as above Eyes: PERRL, conjunctivae normal, anicteric sclerae ENMT: external ear and nose normal, oropharynx normal Neck: trachea midline, no thyromegaly Respiratory: normal respiratory effort, lungs clear to auscultation Cardiovascular: Rate/Rhythm: regular rate and regular rhythm Heart Sounds: normal S1 and normal S2; no gallop and no murmur Palpation: normal PMI Vessels: normal carotid upstroke and radial pulses present; no JVD and no carotid bruit Extremities: no edema Gastrointestinal (Abdomen): normal bowel sounds, soft, nontender, no hepatosplenomegaly Musculoskeletal: no cyanosis or clubbing, extremities motor strength 5/5 Skin: no rashes, warm and dry Neurologic: PERRL, EOMI, accommodation nl, no face palsy, no dysarthria Psychiatric: A+Ox3, euthymic affect Results & Data ([facility]) Vital Signs (Past 12 Hours) Vital Signs Temp Pulse Pulse Resp BP Pulse Ox 04/18/19 08:22 73 04/18/19 08:08 66 04/18/19 07:59 36.7 C 56 L 18 158/66 H 90 04/18/19 07:40 65 18 96 04/17/19 23:59 57 L 04/17/19 23:10 36.7 C 56 L 16 129/49 L 94 Laboratory Results Laboratory Results - last 24 hr 04/17/19 04/17/19 04/17/19 10:29 10:58 10:58 WBC 12.98 H RBC 3.38 L Hgb 10.1 L Hct 31.9 L MCV 94.4 MCH 29.9 MCHC 31.7 L RDW Std Deviation 55.0 H RDW Coeff of [place] 15.9 H Plt Count 244 MPV 9.9 Immature Gran % (Auto) 0.2 Neut % (Auto) 87.9 Lymph % (Auto) 5.7 [place] % (Auto) 4.7 Eos % (Auto) 1.3 Baso % (Auto) 0.2 Immature Gran # (Auto) 0.02 Neut # (Auto) 11.42 H Lymph # (Auto) 0.74 L [place] # (Auto) 0.61 H Eos # (Auto) 0.17 Baso # (Auto) 0.02 PT INR Sodium Potassium Chloride Carbon Dioxide Anion Gap BUN Creatinine Est Cr Clr Drug Dosing Est GFR ( Amer) Est GFR (Non-Af Amer) BUN/Creatinine Ratio Glucose Lactate Calcium Phosphorus Magnesium Total Bilirubin AST ALT Alkaline Phosphatase Troponin I Total Protein Albumin Globulin Albumin/Globulin Ratio Procalcitonin 2.72 H Urine Color Urine Appearance Urine pH Ur Specific [place] Urine Protein Urine Glucose (UA) Urine Ketones Urine Blood Urine Nitrite Urine Bilirubin Urine Urobilinogen Ur Leukocyte Esterase Urine WBC (Auto) Urine RBC (Auto) U Hyaline Cast (Auto) U Epithel Cells (Auto) Urine Bacteria (Auto) Nasal Screen MRSA (PCR) Influenza Type A (PCR) Neg for Influ A Influenza Type B (PCR) Neg for Influ B 04/17/19 04/17/19 04/17/19 10:58 10:58 10:58 WBC RBC Hgb Hct MCV MCH MCHC RDW Std Deviation RDW Coeff of [place] Plt Count MPV Immature Gran % (Auto) Neut % (Auto) Lymph % (Auto) [place] % (Auto) Eos % (Auto) Baso % (Auto) Immature Gran # (Auto) Neut # (Auto) Lymph # (Auto) [place] # (Auto) Eos # (Auto) Baso # (Auto) PT 24.1 H INR 2.5 H Sodium 139 Potassium 3.1 L Chloride 104 Carbon Dioxide 29 Anion Gap 6.0 BUN 31 H Creatinine 1.48 H Est Cr Clr Drug Dosing 19.1 Est GFR ( Amer) 36.3 Est GFR (Non-Af Amer) 31.3 BUN/Creatinine Ratio 20.7 H Glucose 89 Lactate 0.8 Calcium 8.3 L Phosphorus 1.3 L* Magnesium 1.8 Total Bilirubin 0.6 AST 46 H ALT 49 Alkaline Phosphatase 85 Troponin I 0.063 H* Total Protein 5.9 L Albumin 2.6 L Globulin 3.3 Albumin/Globulin Ratio 0.8 L Procalcitonin Urine Color Urine Appearance Urine pH Ur Specific [place] Urine Protein Urine Glucose (UA) Urine Ketones Urine Blood Urine Nitrite Urine Bilirubin Urine Urobilinogen Ur Leukocyte Esterase Urine WBC (Auto) Urine RBC (Auto) U Hyaline Cast (Auto) U Epithel Cells (Auto) Urine Bacteria (Auto) Nasal Screen MRSA (PCR) Influenza Type A (PCR) Influenza Type B (PCR) 04/17/19 04/17/19 04/17/19 12:45 16:08 22:15 WBC RBC Hgb Hct MCV MCH MCHC RDW Std Deviation RDW Coeff of [place] Plt Count MPV Immature Gran % (Auto) Neut % (Auto) Lymph % (Auto) [place] % (Auto) Eos % (Auto) Baso % (Auto) Immature Gran # (Auto) Neut # (Auto) Lymph # (Auto) [place] # (Auto) Eos # (Auto) Baso # (Auto) PT INR Sodium Potassium Chloride Carbon Dioxide Anion Gap BUN Creatinine Est Cr Clr Drug Dosing Est GFR ( Amer) Est GFR (Non-Af Amer) BUN/Creatinine Ratio Glucose Lactate Calcium Phosphorus Magnesium Total Bilirubin AST ALT Alkaline Phosphatase Troponin I 0.151 H* 0.081 H* Total Protein Albumin Globulin Albumin/Globulin Ratio Procalcitonin Urine Color Urine Appearance Urine pH Ur Specific [place] Urine Protein Urine Glucose (UA) Urine Ketones Urine Blood Urine Nitrite Urine Bilirubin Urine Urobilinogen Ur Leukocyte Esterase Urine WBC (Auto) Urine RBC (Auto) U Hyaline Cast (Auto) U Epithel Cells (Auto) Urine Bacteria (Auto) Nasal Screen MRSA (PCR) Negative Influenza Type A (PCR) Influenza Type B (PCR) 04/18/19 04/18/19 04/18/19 02:08 06:16 06:16 WBC 11.56 H RBC 3.31 L Hgb 9.9 L Hct 31.8 L MCV 96.1 MCH 29.9 MCHC 31.1 L RDW Std Deviation 56.7 H RDW Coeff of [place] 16.1 H Plt Count 261 MPV 9.9 Immature Gran % (Auto) 0.3 Neut % (Auto) 83.8 Lymph % (Auto) 9.9 [place] % (Auto) 4.8 Eos % (Auto) 1.0 Baso % (Auto) 0.2 Immature Gran # (Auto) 0.04 H Neut # (Auto) 9.68 H Lymph # (Auto) 1.14 L [place] # (Auto) 0.56 Eos # (Auto) 0.12 Baso # (Auto) 0.02 PT 28.4 H INR 3.0 H Sodium Potassium Chloride Carbon Dioxide Anion Gap BUN Creatinine Est Cr Clr Drug Dosing Est GFR ( Amer) Est GFR (Non-Af Amer) BUN/Creatinine Ratio Glucose Lactate Calcium Phosphorus Magnesium Total Bilirubin AST ALT Alkaline Phosphatase Troponin I Total Protein Albumin Globulin Albumin/Globulin Ratio Procalcitonin Urine Color Yellow Urine Appearance Clear Urine pH 6.5 Ur Specific [place] 1.009 Urine Protein 1+ H Urine Glucose (UA) Negative Urine Ketones Negative Urine Blood Negative Urine Nitrite Negative Urine Bilirubin Negative Urine Urobilinogen Negative Ur Leukocyte Esterase 3+ H Urine WBC (Auto) >30 H Urine RBC (Auto) 0-4 U Hyaline Cast (Auto) 0 U Epithel Cells (Auto) 0-5 Urine Bacteria (Auto) Negative Nasal Screen MRSA (PCR) Influenza Type A (PCR) Influenza Type B (PCR) 04/18/19 06:16 WBC RBC Hgb Hct MCV MCH MCHC RDW Std Deviation RDW Coeff of [place] Plt Count MPV Immature Gran % (Auto) Neut % (Auto) Lymph % (Auto) [place] % (Auto) Eos % (Auto) Baso % (Auto) Immature Gran # (Auto) Neut # (Auto) Lymph # (Auto) [place] # (Auto) Eos # (Auto) Baso # (Auto) PT INR Sodium 143 Potassium 4.4 D Chloride 112 H Carbon Dioxide 28 Anion Gap 3.0 BUN 26 H Creatinine 1.37 H Est Cr Clr Drug Dosing 20.3 Est GFR ( Amer) 39.8 Est GFR (Non-Af Amer) 34.4 BUN/Creatinine Ratio 18.7 Glucose 93 Lactate Calcium 8.6 Phosphorus 2.2 L Magnesium Total Bilirubin AST ALT Alkaline Phosphatase Troponin I Total Protein Albumin Globulin Albumin/Globulin Ratio Procalcitonin Urine Color Urine Appearance Urine pH Ur Specific [place] Urine Protein Urine Glucose (UA) Urine Ketones Urine Blood Urine Nitrite Urine Bilirubin Urine Urobilinogen Ur Leukocyte Esterase Urine WBC (Auto) Urine RBC (Auto) U Hyaline Cast (Auto) U Epithel Cells (Auto) Urine Bacteria (Auto) Nasal Screen MRSA (PCR) Influenza Type A (PCR) Influenza Type B (PCR) (1) Chronic kidney disease Chronic kidney disease stage: unspecified stage Qualified Code(s): N18.9 - Chronic kidney disease, unspecified
[2019-04-18] MEDS: CEFEPIME 1,000 MG in SYRINGE 0 ML IV SCH ×2 (12:01→21:45)
--- NOTE | 2019-04-18 18:30 | Electrocardiogram Report ---
Test Reason : Blood Pressure : / mmHG Vent. Rate : 053 BPM Atrial Rate : 053 BPM P-R Int : 136 ms QRS Dur : 090 ms QT Int : 520 ms P-R-T Axes : 043 065 067 degrees QTc Int : 487 ms Sinus bradycardia Incomplete right bundle branch block T wave abnormality, consider anterior ischemia Prolonged QT Abnormal ECG When compared with ECG of 17-APR-2019 16:07, Nonspecific T wave abnormality now evident in Lateral leads Confirmed by Owen Pinto ([id number] on 04/18/2019 6:30:03 PM Referred By: Negra Weber Confirmed By:Uriah Pinto
--- NOTE | 2019-04-18 18:43 | Hospitalist Progress Note ---
Date of Service April 18, 2019 Assessment & Plan (1) Sepsis: (2) Hypoxia: (3) Multifocal pneumonia: Present on admission with fever associated with cough and weakness Met sepsis criteria per current CMS guidelines on admission with Temp at 38.1, leukocytosis at 12 .9k, Elevated procalcitonin CXR showed patchy right perihilar and bibasilar airspace opacities which is new from the prior study. Multifocal pneumonia Received IV cefepime and IV fluid resuscitation in ED. Continue IV abx with cefepime and Doxy Blood cx no growth so far Influenza PCR negative Urine cx pending (4) Elevated troponin I level: Mostly due to demand ischemia troponin mild elevated 0.063 on admission, then peaked to 0.151, now trending down at 0.[address] changes on admission Cardiology on board ECHO showed Echo showed no segmental left ventricular wall motion abnormality. With ejection fraction 60 to 65%. Currently denies any chest pain Continue aspirin and statin anbnd coumadin Continue monitor (5) Electrolyte abnormality: K stable Phosphorus 2.2 today Phosphate replaced Continue monitor electrolytes (6) CAD (coronary artery disease): Continue ASA, statin, Imdur, sotalol as outpatient Currently denies chest pain Stable (7) Paroxysmal atrial fibrillation: Rate and rhythm controlled on sotalol Continue warfarin for anticoagulation INR 3 (8) Diastolic heart failure: Stable Monitor daily weights, low-sodium diet Strict I's and O's (9) PMR (polymyalgia rheumatica): On chronic prednisone therapy 5 mg daily (10) Hypothyroidism: Continue Synthroid (11) HTN (hypertension): BP stable Blood pressure 118/53 continue sotalol and imdur (12) CKD (chronic kidney disease) stage 4, GFR 15-29 ml/min: Baseline creatinine 1.6-1.7 Creatinine stable at 1.3 today Monitor BMP (13) Chronic anemia: Hgb 9.9 Stable (14) DVT prophylaxis: Continue warfarin, INR 3.0 Code Status Full Code Admission and Anticipated Discharge Date Admission Date: April 17, 2019 Subjective Pt was seen and examined Lying in bed with no distress Pt said that she continue to cough Breathing seems to improve a little Denies any chest pain, palpitation and SOB Physical Exam Physical Exam: General- No acute distress Head- atraumatic Eyes- PERRL, EOMI, ENT- oropharynx clear Neck- supple, no JVD Lungs- diminished BS Heart- regular rhythm Abdomen- normal bowel sounds, soft, nontender Extremities- no calf tenderness Neuro- alert, oriented x 3; PERRL, EOMI; no facial palsy; no dysarthria Skin- warm & dry Results & Data ([facility]) Vital Signs (Past 12 Hours) Vital Signs Temp Pulse Pulse Resp BP Pulse Ox 04/18/19 15:51 118/72 04/18/19 15:26 62 04/18/19 15:08 36.8 C 64 20 169/75 H 96 04/18/19 13:41 72 18 95 04/18/19 11:58 36.7 C 56 L 20 133/49 L 95 04/18/19 08:22 73 04/18/19 08:08 66 04/18/19 07:59 36.7 C 56 L 18 158/66 H 90 04/18/19 07:40 65 18 96
[2019-04-18] MEDS: HydrALAZINE HCL 20 MG/ML VIAL IV PRN (20:15)
[2019-04-18] MEDS ORDERED: WARFARIN SOD 2.5 MG TAB PO SCH (21:00)
[2019-04-18] MEDS: DONEPEZIL HCL 5 MG TAB PO SCH (21:25)
[2019-04-18] MEDS: FAMOTIDINE 20 MG TAB PO SCH (21:26)
[2019-04-18] MEDS: ATORVASTATIN 40 MG TAB PO SCH (21:27)
[2019-04-18] MEDS: MIRTAZAPINE TAB 15 MG TAB PO SCH (21:27)
[2019-04-18] MEDS ORDERED: LORazepam 0.5 MG TAB PO STA (21:34)
[2019-04-19] MEDS: LEVALBUTEROL HCL 0.63 MG/3 ML NEB NEB SCH ×4 (00:58→20:35)
[2019-04-19] MEDS: DOXYCYCLINE HYCLATE 100 MG in DEXTROSE 5% 100 ML IV SCH ×2 (03:07→15:09)
[2019-04-19] MEDS: LEVOTHYROXINE SODIUM 50 MCG TABLET PO SCH (06:16)
[2019-04-19 07:09] LABS: Hematocrit (blood only) 28.6 % (37-47); Hemoglobin 9.1 g/dL (12.0-16.0); Mean Corpuscular Hgb Conc 31.8 g/dL (32-36); Mean Corpuscular Volume 94.4 fL (80-100); Mean Platelet Volume 9.7 fL (7.4-10.4); Platelet Count 263 K/uL (130-400); RDW Coefficient of Variation 16.1 % (11.5-14.5); RDW Standard Deviation 55.6 fL (36.4-46.3); Red Blood Count 3.03 M/uL (4.2-5.4); White Blood Count 9.03 K/uL (4.8-10.8)
[2019-04-19 07:19] LABS: Prothrombin Time 28.8 Seconds (9.0-12.0)
[2019-04-19] MEDS: HydrALAZINE HCL 20 MG/ML VIAL IV PRN (07:20)
[2019-04-19] MEDS: SODIUM CHLORIDE 0.9% 1000ML 1,000 ML IV SCH (07:21)
[2019-04-19 08:02] LABS: Basophils # (auto) 0.03 K/uL (0-0.2); Basophils % (auto) 0.3 %; Eosinophils # (auto) 0.38 K/uL (0-0.5); Eosinophils % (auto) 4.2 %; Immature Granulocytes # (auto) 0.02 K/uL (0.00-0.02); Immature Granulocytes % (auto) 0.2 %; Lymphocytes # (auto) 1.29 K/uL (1.2-3.4); Lymphocytes % (auto) 14.3 %; Monocytes # (auto) 0.78 K/uL (0.11-0.59); Monocytes % (auto) 8.6 %; Neutrophils # (auto) 6.53 K/uL (1.4-6.5); Neutrophils % (auto) 72.4 %; Poikilocytosis Present
[2019-04-19 08:13] LABS: BUN Creatinine Ratio 18.2 (10-20); Calcium 8.4 mg/dl (8.5-10.1); Creatinine Clr Calc Pharmacy 23.9 ml/min; Est GFR (African American) 48.7; Potassium 3.4 mmol/L (3.5-5.1)
[2019-04-19] MEDS ORDERED: POTASSIUM CHLORIDE 20 MEQ TABCR PO STA (08:22)
[2019-04-19] MEDS: FERROUS SULFATE 325 MG TAB PO SCH ×2 (08:43→20:50)
[2019-04-19] MEDS: SENNA 8.6 MG TAB PO SCH ×2 (08:43→20:49)
[2019-04-19] MEDS: GABAPENTIN 100 MG CAP PO SCH ×2 (08:43→20:50)
[2019-04-19] MEDS: ISOSORBIDE MONO EXTENDED REL 30 MG TABCR PO SCH (08:43)
[2019-04-19] MEDS: predniSONE 5 MG TAB PO SCH (08:43)
[2019-04-19] MEDS: SOTALOL HCL 80 MG TAB PO SCH (08:43)
[2019-04-19] MEDS: ASPIRIN 81 MG ECTAB PO SCH (08:44)
[2019-04-19] MEDS: CEFEPIME 1,000 MG in SYRINGE 0 ML IV SCH (10:46)
[2019-04-19] MEDS: AMLODIPINE BESYLATE 5 MG TAB PO SCH (11:25)
[2019-04-19] MEDS ORDERED: AMLODIPINE BESYLATE 5 MG TAB PO ONE (11:41)
--- NOTE | 2019-04-19 12:06 | XRay Report ---
SINGLE VIEW CHEST CLINICAL HISTORY: Dyspnea. FINDINGS: An AP, portable, upright chest radiograph is compared to study dated 04/17/2019 and correlat ed with chest CT dated 11/22/2015. The examination is degraded by portable technique and patient rotat ion. The heart is mildly enlarged and there is atherosclerotic calcification of the thoracic aorta. The pulmonary vasculature is noncongested. Chronic interstitial thickening similar to previous. Depen dent airspace opacities likely represent atelectasis. No large pleural effusion or pneumothorax is se en. Apical scarring is observed. The skeletal structures are osteopenic. Degenerative change and scol iosis are noted in the thoracic spine. The bony thorax is grossly intact. Fusion hardware is partiall y visualized in the lumbar spine. IMPRESSION: 1. Mild cardiac enlargement without radiographic evidence of congestive failure. 2. Dependent airspace opacities likely represent atelectasis. Clinical correlation will be required. Electronically signed by: Harry George M.D. 04/19/2019 12:04 PM
--- NOTE | 2019-04-19 12:49 | Electrocardiogram Report ---
Test Reason : Blood Pressure : / mmHG Vent. Rate : 067 BPM Atrial Rate : 067 BPM P-R Int : 134 ms QRS Dur : 094 ms QT Int : 464 ms P-R-T Axes : 072 090 085 degrees QTc Int : 490 ms Normal sinus rhythm Rightward axis RSR' or QR pattern in V1 suggests right ventricular conduction delay Possible Septal infarct , age undetermined ST and T wave changes consider anterolateral ischemia Abnormal ECG When compared with ECG of 18-APR-2019 06:36, Possible Septal infarct is now Present the ST and T changes are worse Confirmed by Norbert Payton ([id number]) on 04/19/2019 12:49:16 PM Referred By: Negra Weber Confirmed By:Norbert Payton
--- NOTE | 2019-04-19 13:43 | Cardiology Progress Note ---
Date of Service April 19, 2019 Assessment & Plan (1) Multifocal pneumonia: Patient presented with a significant fever, white cell count elevation, chest x-ray multilobar infiltrate currently improving on IV antibiotics. Patient met criteria for sepsis on initial presentation but hemodynamically stable. On chronic corticosteroid therapy for polymyalgia rheumatica (2) Elevated troponin I level: Patient with known single-vessel coronary disease with prior coronary intervention 2016. Troponins likely elevated the basis of demand based ischemia. Echocardiogram showed no wall motion abnormalities. Would continue usual cardiac medications. Patient does carry history of paroxysmal atrial fibrillation and is on antiarrhythmic therapies with sotalol. Would recommend avoiding QT prolonging medications. I agree potassium supplement already provided Maintain We will follow patient hospital (3) Chronic kidney disease: (4) CAD (coronary artery disease): Stable (5) Paroxysmal atrial fibrillation: On chronic anticoagulation and antiarrhythmic therapy with sotalol Subjective Patient seen and examined with daughter and son-in-law at the bedside, patient states that she does not feel well today. States that she feels very weak and fatigued. States that shortness of breath is improved as has her nonproductive cough. She denies any chest pain, abdominal pain, palpitations, lightheadedness, dizziness or syncope. Telemetry reviewed: Normal sinus rhythm without arrhythmia or significant ectopy. Review of Systems Review of Systems: All systems reviewed & are unremarkable except as noted in HPI & below Physical Exam Physical Exam: General: Awake, alert and oriented x 3. No acute distress. HEENT: Normocephalic, atraumatic. Pupils equal, round and reactive to light and accommodation. Extraocular muscles are intact. Anicteric sclera. Moist mucous membranes. Neck: No JVD. No bruit. Cardiovascular: Regular. Positive S-4. Normal S-1 and S-2. No S-3. No murmurs or rubs. Pulmonary: Good air movement bilaterally with scattered rhonchi. No rales or wheezing Abdomen: Bowel sounds x 4, soft. No rebound, guarding or tenderness. No organomegaly. Extremities: No clubbing, cyanosis or edema. +2 pedal pulses bilaterally. Skin: Warm and dry. Results & Data Vital Signs (Past 12 Hours) Vital Signs Temp Pulse Pulse Resp BP BP Pulse Ox 04/19/19 13:30 71 16 98 04/19/19 13:24 76 133/65 04/19/19 10:38 62 177/81 H 04/19/19 08:42 78 193/73 H 96 04/19/19 08:00 36.8 C 70 20 194/80 H 94 04/19/19 07:28 79 04/19/19 04:00 37.2 C 108 H 18 156/72 H 95 04/19/19 02:30 65 18 96 (1) Chronic kidney disease Chronic kidney disease stage: unspecified stage Qualified Code(s): N18.9 - Chronic kidney disease, unspecified
--- NOTE | 2019-04-19 15:51 | Hospitalist Progress Note ---
Date of Service April 19, 2019 Assessment & Plan (1) Sepsis: (2) Hypoxia: (3) Multifocal pneumonia: Present on admission with fever associated with cough and weakness Met sepsis criteria per current CMS guidelines on admission with Temp at 38.1, leukocytosis at 12 .9k, Elevated procalcitonin CXR showed patchy right perihilar and bibasilar airspace opacities which is new from the prior study. Multifocal pneumonia Received IV cefepime and IV fluid resuscitation in ED. Continue IV abx with cefepime and Doxy Blood cx and urine cx no growth WBC trending down to normal Influenza PCR negative (4) Elevated troponin I level: Mostly due to demand ischemia troponin mild elevated 0.063 on admission, then peaked to 0.151, now trending down at 0.[address] changes on admission Cardiology on board ECHO showed Echo showed no segmental left ventricular wall motion abnormality. With ejection fraction 60 to 65%. Currently denies any chest pain Continue aspirin and statin anbnd coumadin Continue monitor (5) Electrolyte abnormality: K 3.4 today K replaced Continue monitor electrolytes (6) CAD (coronary artery disease): Continue ASA, statin, Imdur, sotalol as outpatient Currently denies chest pain Stable (7) Paroxysmal atrial fibrillation: Rate and rhythm controlled on sotalol Continue warfarin for anticoagulation INR 3 (8) Diastolic heart failure: Stable Monitor daily weights, low-sodium diet Strict I's and O's (9) PMR (polymyalgia rheumatica): On chronic prednisone therapy 5 mg daily (10) Hypothyroidism: Continue Synthroid (11) HTN (hypertension): BP has been fluctuated possible due to hospital setting continue sotalol and imdur Amlodipine 2.5 mg adding D/C IVF (12) CKD (chronic kidney disease) stage 4, GFR 15-29 ml/min: Baseline creatinine 1.6-1.7 Creatinine stable at 1.1 today Monitor BMP (13) Chronic anemia: Hgb 9.1 Monitor BMP Stable (14) DVT prophylaxis: Continue warfarin, INR 3.0 Code Status Full Code Admission and Anticipated Discharge Date Admission Date: April 17, 2019 Subjective Pt was seen and examined Lying in bed with no distress Pt said that she feels fine today She is very anxious because her BP has been running high Denies any chest pain, palpitation, dizziness and SOB Physical Exam Physical Exam: General- No acute distress Head- atraumatic Eyes- PERRL, EOMI, ENT- oropharynx clear Neck- supple, no JVD Lungs- diminished BS Heart- regular rhythm Abdomen- normal bowel sounds, soft, nontender Extremities- no calf tenderness Neuro- alert, oriented x 3; PERRL, EOMI; no facial palsy; no dysarthria Skin- warm & dry Results & Data ([facility]) Vital Signs (Past 12 Hours) Vital Signs Temp Pulse Pulse Resp BP BP Pulse Ox 04/19/19 14:57 36.8 C 63 19 132/61 96 04/19/19 13:30 71 16 98 04/19/19 13:24 76 133/65 04/19/19 10:38 62 177/81 H 04/19/19 08:42 78 193/73 H 96 04/19/19 08:00 36.8 C 70 20 194/80 H 94 04/19/19 07:28 79 04/19/19 04:00 37.2 C 108 H 18 156/72 H 95
[2019-04-19] MEDS: ATORVASTATIN 40 MG TAB PO SCH (20:49)
[2019-04-19] MEDS: DONEPEZIL HCL 5 MG TAB PO SCH (20:49)
[2019-04-19] MEDS: MIRTAZAPINE TAB 15 MG TAB PO SCH (20:49)
[2019-04-19] MEDS: FAMOTIDINE 20 MG TAB PO SCH (20:50)
[2019-04-19] MEDS: WARFARIN SOD 5 MG TAB PO SCH (20:50)
[2019-04-19] MEDS: CEFEPIME 2,000 MG in SYRINGE 7.5 ML IV SCH (23:04)
[2019-04-20] MEDS: LEVALBUTEROL HCL 0.63 MG/3 ML NEB NEB SCH ×3 (00:25→13:37)
[2019-04-20] MEDS: DOXYCYCLINE HYCLATE 100 MG in DEXTROSE 5% 100 ML IV SCH (04:12)
[2019-04-20] MEDS ORDERED: LEVOTHYROXINE SODIUM 100 MCG TABLET PO SCH (06:30)
[2019-04-20 06:58] LABS: INR 2.7 (0.9-1.1)
[2019-04-20 07:22] LABS: BUN Creatinine Ratio 12.2 (10-20); Calcium 8.8 mg/dl (8.5-10.1); Creatinine Clr Calc Pharmacy 23.5 ml/min; Est GFR (African American) 46.7; Est GFR (Non-African American) 40.3; Potassium 3.8 mmol/L (3.5-5.1)
[2019-04-20 08:00] LABS: Basophils # (auto) 0.05 K/uL (0-0.2); Basophils % (auto) 0.5 %; Eosinophils # (auto) 0.43 K/uL (0-0.5); Eosinophils % (auto) 4.5 %; Hematocrit (blood only) 34.4 % (37-47); Hemoglobin 10.6 g/dL (12.0-16.0); Immature Granulocytes # (auto) 0.05 K/uL (0.00-0.02); Immature Granulocytes % (auto) 0.5 %; Lymphocytes # (auto) 1.65 K/uL (1.2-3.4); Lymphocytes % (auto) 17.1 %; Mean Corpuscular Hemoglobin 29.2 pg (25-34); Mean Corpuscular Hgb Conc 30.8 g/dL (32-36); Mean Corpuscular Volume 94.8 fL (80-100); Mean Platelet Volume 10.2 fL (7.4-10.4); Monocytes # (auto) 0.83 K/uL (0.11-0.59); Monocytes % (auto) 8.6 %; Neutrophils # (auto) 6.63 K/uL (1.4-6.5); Neutrophils % (auto) 68.8 %; Platelet Count 377 K/uL (130-400); RDW Coefficient of Variation 16.1 % (11.5-14.5); RDW Standard Deviation 56.8 fL (36.4-46.3); Red Blood Count 3.63 M/uL (4.2-5.4); White Blood Count 9.64 K/uL (4.8-10.8)
[2019-04-20] MEDS: SENNA 8.6 MG TAB PO SCH (08:04)
[2019-04-20] MEDS: FERROUS SULFATE 325 MG TAB PO SCH (08:04)
[2019-04-20] MEDS: SOTALOL HCL 80 MG TAB PO SCH (08:04)
[2019-04-20] MEDS: ISOSORBIDE MONO EXTENDED REL 30 MG TABCR PO SCH (08:04)
[2019-04-20] MEDS: predniSONE 5 MG TAB PO SCH (08:04)
[2019-04-20] MEDS: ASPIRIN 81 MG ECTAB PO SCH (08:04)
[2019-04-20] MEDS: GABAPENTIN 100 MG CAP PO SCH (08:04)
[2019-04-20] MEDS: AMLODIPINE BESYLATE 5 MG TAB PO SCH (08:04)
[2019-04-20] MEDS ORDERED: FUROSEMIDE 20 MG TAB PO ONE (08:58)
[2019-04-20] MEDS: CEFEPIME 2,000 MG in SYRINGE 7.5 ML IV SCH (11:53)
--- NOTE | 2019-04-20 12:46 | Hospitalist Progress Note ---
Date of Service April 20, 2019 Assessment & Plan (1) Sepsis: (2) Hypoxia: (3) Multifocal pneumonia: Present on admission with fever associated with cough and weakness Met sepsis criteria per current CMS guidelines on admission with Temp at 38.1, leukocytosis at 12 .9k, Elevated procalcitonin CXR showed patchy right perihilar and bibasilar airspace opacities which is new from the prior study. Multifocal pneumonia Received IV cefepime and IV fluid resuscitation in ED. On IV abx with cefepime and Doxy Blood cx and urine cx no growth WBC trending down to normal Influenza PCR negative Will transition to oral doxycycline to complete the abx course Clinically stable (4) Elevated troponin I level: Mostly due to demand ischemia troponin mild elevated 0.063 on admission, then peaked to 0.151, now trending down at 0.[address] changes on admission Cardiology on board ECHO showed Echo showed no segmental left ventricular wall motion abnormality. With ejection fraction 60 to 65%. Currently denies any chest pain Continue aspirin and statin and coumadin Case discussed with cardiology, Stable from cardiology standpoint (5) Electrolyte abnormality: K 3.8 today stable Continue monitor electrolytes (6) CAD (coronary artery disease): Continue ASA, statin, Imdur, sotalol as outpatient Currently denies chest pain Stable (7) Paroxysmal atrial fibrillation: Rate and rhythm controlled on sotalol Continue warfarin for anticoagulation INR 2.7 today (8) Diastolic heart failure: Stable Lasix 20mg given today Monitor daily weights, low-sodium diet Strict I's and O's (9) PMR (polymyalgia rheumatica): On chronic prednisone therapy 5 mg daily (10) Hypothyroidism: Continue Synthroid (11) HTN (hypertension): BP has been fluctuated possible due to hospital setting continue sotalol and imdur Advised pt to monitor her BP and bring BP log at her next appointment with your PCP Consider to start on low dose amlodipine if BP elevates (12) CKD (chronic kidney disease) stage 4, GFR 15-29 ml/min: Baseline creatinine 1.6-1.7 Creatinine stable at 1.2 today Monitor BMP (13) Chronic anemia: Hgb 10.6 Stable (14) DVT prophylaxis: Continue warfarin, INR 2.7 Code Status Full Code Disposition discharge home today Admission and Anticipated Discharge Date Admission Date: April 17, 2019 Subjective Pt was seen and examined Sitting in chair already got dress and ready to go home Pt said that she feel fine She said that her breathing feels good She said that she is back to her baseline Denies any chest pain, palpitation, dizziness and SOB Physical Exam Physical Exam: General- No acute distress Head- atraumatic Eyes- PERRL, EOMI, ENT- oropharynx clear Neck- supple, no JVD Lungs- Clear BS Heart- regular rhythm Abdomen- normal bowel sounds, soft, nontender Extremities- no calf tenderness Neuro- alert, oriented x 3; PERRL, EOMI; no facial palsy; no dysarthria Skin- warm & dry Results & Data ([facility]) Vital Signs (Past 12 Hours) Vital Signs Temp Pulse Pulse Resp BP Pulse Ox 04/20/19 11:58 36.7 C 55 L 18 145/76 H 95 04/20/19 10:20 68 163/81 H 04/20/19 07:39 72 04/20/19 07:13 36.7 C 78 18 187/80 H 94 04/20/19 03:05 36.9 C 77 18 154/64 H 93
--- NOTE | 2019-04-24 00:21 | Discharge Summary ---
Date of Service April 20, 2019 Admission HPI Per Admitting Provider This is an 88 yr old F who has a significant PMH of CAD with hx of BMS to LAD 2017, PAF on long-term anticoagulation with warfarin, HTN, HLD, PMR on chronic prednisone therapy, CKD stage IV, anemia of chronic disease, dry eyes, hypothyroidism, hyperparathyroidism, GERD presents to ED secondary to fever, cough and increasing weakness x6 days. Daughter and stepdaughter are at bedside. Symptoms started approximately 6 days ago with dry cough. It then progressed to low-grade fevers that would develop worsening in the morning, a.m. chills and sweats and increasing weakness. She was seen by PCP on 04/15/2019 in which she was diagnosed with bronchitis and placed on azithromycin and as needed albuterol inhaler. She has taken 2 doses of azithromycin. This morning when she woke up she had elevated temperature 102 which crystal to 104. Increasingly weak and required 2 people assist to get to bedside commode. EMS was summoned. Per report upon initial evaluation she was saturating in the low 80s on room air. She required oxygen supplementation. Along with fever, cough and weakness she further complains of wheezing, chills, sweats, decreased appetite. Cough is mostly dry but occasionally productive of white sputum. She denies any lightheadedness, dizziness, syncope, chest pain, shortness breath, palpitations, nausea, vomiting, abdominal pain. Over the past several days she has been constipated secondary to iron but has been taking senna twice daily and had a large BM this morning. Denies any dysuria, increased urgency or frequency with urination. Per daughter patient is scheduled to have a total hip replacement on 04/[address] Marcos. She recently been seen by cardiology to undergo nuclear stress testing which was to be done this following Sunday. Currently she lives at home but does have somebody in her house with her 11/09, mostly family. In ED patient met sepsis criteria per current CMS guidelines. She was febrile at 38.1, leukocytosis at 12 .9k, but was otherwise hemodynamically stable. Chest x-ray revealed multifocal pneumonia with trace bilateral pleural effusions and mild congestive change. Number abnormalities notable for WBC 10 point 9K, H&H 10.1 and 31.9, K3.1, [place] 1.3, BUN 31, creatinine 1.48, troponin I 0.063, lactic acid 0.8, procalcitonin 2.72, influenza negative. EKG revealed normal sinus rhythm with T wave depressions in V4 to V5 with ST depression noted in leads I and II. Change from prior EKG his T wave inversions in V4 and V5 along with ST depressions. In ED she received IV cefepime along with IV fluid resuscitation. Admission Exam Per Admitting Provider Constitutional: Petite, elderly, F, vitals as above, NAD, sitting up in bed, pleasant, conversing easily Head: Normocephalic, Atraumatic Eyes: PERRL, conjunctivae normal, anicteric sclerae ENMT: external ear and nose normal, oropharynx normal dry mucous membranes Neck: trachea midline, no thyromegaly normal visual inspection Respiratory: On O2 via NC 4 L, normal respiratory effort, lungs clear to auscultation, no wheeze, rales, rhonchi. Normal insp/exp effort, no accessory muscle use Cardiovascular: RRR, no murmur, no edema Vessels: no JVD or carotid bruit Chest: normal inspection of chest Abdomen: normal bowel sounds, soft, nontender, no hepatosplenomegaly Musculoskeletal: no cyanosis or clubbing, extremities motor strength 5/5 Skin: no rashes, warm and dry normal turgor Neurologic: PERRL, EOMI, accommodation nl, no face palsy, no dysarthria CN's II-XI intact bilaterally and moves all extremities Psychiatric: A+Ox3, euthymic affect Lymphatic: no cervical or axillary lymphadenopathy : deferred Principal Diagnosis (1) Sepsis: (2) Hypoxia: (3) Multifocal pneumonia: (4) Elevated troponin I level: (5) Electrolyte abnormality: (6) CAD (coronary artery disease): (7) Paroxysmal atrial fibrillation: (8) Diastolic heart failure: (9) PMR (polymyalgia rheumatica): (10) Hypothyroidism: (11) HTN (hypertension): (12) CKD (chronic kidney disease) stage 4, GFR 15-29 ml/min: (13) Chronic anemia: Discharge Exam General- No acute distress Head- atraumatic Eyes- PERRL, EOMI, ENT- oropharynx clear Neck- supple, no JVD Lungs- Clear BS Heart- regular rhythm Abdomen- normal bowel sounds, soft, nontender Extremities- no calf tenderness Neuro- alert, oriented x 3; PERRL, EOMI; no facial palsy; no dysarthria Skin- warm & dry Discharge Data Allergies Allergy/AdvReac Type Severity Reaction Status Date / Time amoxicillin Allergy Unknown NOT SURE Verified 04/17/19 10:36 lisinopril Allergy Unknown swelling Verified 04/17/19 10:36 face/lips/tongue sulfamethoxazole Allergy Unknown Unknown Verified 04/17/19 10:36 [From Bactrim] trimethoprim [From Bactrim] Allergy Unknown Unknown Verified 04/17/19 10:36 Consultations 04/17/19 12:31 ED Decision to Admit Stat 04/17/19 14:05 Consult Case Management - Discharge Planning Routine 04/18/19 08:00 Consult Cardiology Routine Ordered Studies XR chest 2V PA/lateral HISTORY: fever, cough COMPARISON: Chest 10/31/2018. FINDINGS: The heart remains mildly enlarged. Trace bilateral pleural effusions. Diffuse interstitial vascular thickening which has progressed. This suggests mild congestive change. Patchy right perihilar and bibasilar airspace opacities or this is new from the prior study. IMPRESSION: 1. Patchy right perihilar and bibasilar airspace opacities which is new from the prior study. This favors a multifocal pneumonia. Follow-up chest x-ray recommended to ensure resolution. 2. Mild cardiomegaly, interstitial thickening, trace bilateral pleural effusions suggestive of mild congestive change. ACT 112: Negative or not required by law. Electronically signed by: Nick Brock M.D. 04/17/2019 11:44 AM Dictated: 04/17/19 1134 Transcribed: 04/17/19 1134 SINGLE VIEW CHEST CLINICAL HISTORY: Dyspnea. FINDINGS: An AP, portable, upright chest radiograph is compared to study dated 04/17/2019 and correlated with chest CT dated 11/22/2015. The examination is degraded by portable technique and patient rotation. The heart is mildly enlarged and there is atherosclerotic calcification of the thoracic aorta. The pulmonary vasculature is noncongested. Chronic interstitial thickening similar to previous. Dependent airspace opacities likely represent atelectasis. No large pleural effusion or pneumothorax is seen. Apical scarring is observed. The skeletal structures are osteopenic. Degenerative change and scoliosis are noted in the thoracic spine. The bony thorax is grossly intact. Fusion hardware is partially visualized in the lumbar spine. IMPRESSION: 1. Mild cardiac enlargement without radiographic evidence of congestive failure. 2. Dependent airspace opacities likely represent atelectasis. Clinical correlation will be required. Electronically signed by: Harry George M.D. 04/19/2019 12:04 PM Dictated: 04/19/191202 Transcribed: 04/19/19 120 Hospital Course (1) Sepsis: (2) Hypoxia: (3) Multifocal pneumonia: Present on admission with fever associated with cough and weakness Met sepsis criteria per current CMS guidelines on admission with Temp at 38.1, leukocytosis at 12 .9k, Elevated procalcitonin CXR showed patchy right perihilar and bibasilar airspace opacities which is new from the prior study. Multifocal pneumonia Received IV cefepime and IV fluid resuscitation in ED. On IV abx with cefepime and Doxy Blood cx and urine cx no growth WBC trending down to normal Influenza PCR negative Will transition to oral doxycycline to complete the abx course Clinically stable (4) Elevated troponin I level: Mostly due to demand ischemia troponin mild elevated 0.063 on admission, then peaked to 0.151, now trending down at 0.[address] changes on admission Cardiology on board ECHO showed Echo showed no segmental left ventricular wall motion abnormality. With ejection fraction 60 to 65%. Currently denies any chest pain Continue aspirin and statin and coumadin Case discussed with cardiology, Stable from cardiology standpoint (5) Electrolyte abnormality: K 3.8 today stable Continue monitor electrolytes (6) CAD (coronary artery disease): Continue ASA, statin, Imdur, sotalol as outpatient Currently denies chest pain Stable (7) Paroxysmal atrial fibrillation: Rate and rhythm controlled on sotalol Continue warfarin for anticoagulation INR 2.7 today (8) Diastolic heart failure: Stable Lasix 20mg given today Monitor daily weights, low-sodium diet Strict I's and O's (9) PMR (polymyalgia rheumatica): On chronic prednisone therapy 5 mg daily (10) Hypothyroidism: Continue Synthroid (11) HTN (hypertension): BP has been fluctuated possible due to hospital setting continue sotalol and imdur Advised pt to monitor her BP and bring BP log at her next appointment with your PCP Consider to start on low dose amlodipine if BP elevates (12) CKD (chronic kidney disease) stage 4, GFR 15-29 ml/min: Baseline creatinine 1.6-1.7 Creatinine stable at 1.2 today Monitor BMP (13) Chronic anemia: Hgb 10.6 Stable (14) DVT prophylaxis: Continue warfarin, INR 2.7 Code Status Full Code Disposition discharge home today Total Time Total Time Spent Total Time Spent (In Minutes): 35 minutes Total Time Includes: Examination of the Patient, Discharge Planning, Medication Reconciliation, Communication With Other Providers and Other Discharge Plan Discharge Items Patient Disposition: Home - Self-Care Reason For Visit: SEPSIS,MULTIFOCAL PNA Discharge Diagnosis: (1) Sepsis: (2) Hypoxia: (3) Multifocal pneumonia: (4) Elevated troponin I level: (5) Electrolyte abnormality: (6) CAD (coronary artery disease): (7) Paroxysmal atrial fibrillation: (8) Diastolic heart failure: (9) PMR (polymyalgia rheumatica): (10) Hypothyroidism: (11) HTN (hypertension): (12) CKD (chronic kidney disease) stage 4, GFR 15-29 ml/min: (13) Chronic anemia: Activity: Resume your previous activity Non-emergency contact: Primary Care Provider Call non-emergency contact if: you have any medication questions and your temperature is above 101 Follow-up/Referrals: Negra Weber MD [Primary Care Provider] - 04/24/19 1:00 pm Diet: Heart Healthy Addtl Attending Provider Instructions: Follow up with your primary care provider Dr. Weber within 1 week Follow up with the coumadin clinic to monitor your PT/INR ( Coumadin today 2.7) follow up with your cardiology Continue the antibiotic with doxycycline for the pneumonia Continue monitor your blood pressure and bring your blood pressure log at your next appointment with your physician Fall precaution Pending Studies at Discharge: No Stand-Alone Forms: My [employer], Smoking Cessation Medications and DC Order Prescriptions: Continued atorvastatin 40 mg tablet 40 mg PO HS RF: 0 sotalol 80 mg tablet 40 mg PO QAM RF: 0 isosorbide mononitrate 30 mg tablet extended release 24 hr 30 mg PO QAM RF: 0 prednisone 5 mg tablet 5 mg PO QAM RF: 0 levothyroxine 50 mcg tablet 50 mcg PO MOTUWETHFRSA RF: 0 levothyroxine 50 mcg tablet 100 mcg PO SALCIDO RF: 0 warfarin 5 mg tablet 5 mg PO SUTUTHSA@2100 RF: 0 nitroglycerin 0.4 mg tablet, sublingual 0.4 mg sublingual UD MDD may repeat once PRN (Reason: chest pain,esophageal spasm) RF: 0 furosemide 20 mg tablet 20 mg PO QAM PRN (Reason: SWELLING) RF: 0 polyethylene glycol 3350 [Miralax] 17 gram Powder In Packet 17 g PO QAM PRN (Reason: Constipation) RF: 0 pantoprazole 40 mg Tablet,Delayed Release (Dr/Ec) 40 mg PO QDL PRN (Reason: Heartburn) RF: 0 ferrous sulfate [iron] 325 mg (65 mg iron) tablet 325 mg PO BID Qty: 60 RF: 0 warfarin 5 mg tablet 2.5 mg PO MOWEFR RF: 0 sennosides [senna] 8.6 mg Tablet 8.6 mg PO DAILY PRN (Reason: Constipation) RF: 0 aspirin [Aspirin Low Dose] 81 mg Tablet,Delayed Release (Dr/Ec) 81 mg PO QDB RF: 0 donepezil [Aricept] 5 mg Tablet 5 mg PO HS RF: 0 azithromycin 250 mg tablet 250 mg PO UD RF: 0 famotidine 40 mg tablet 20 mg PO HS RF: 0 acetaminophen [Tylenol Extra Strength] 500 mg Tablet 500 mg PO Q6H PRN (Reason: Pain) RF: 0 albuterol sulfate 90 mcg/actuation HFA aerosol inhaler 2 puff INHALATION QID RF: 0 oxycodone 5 mg tablet 5 mg PO TID PRN (Reason: Pain) RF: 0 mirtazapine 30 mg tablet 30 mg PO HS RF: 0 gabapentin 100 mg capsule 100 mg PO BID RF: 0 Discontinued oseltamivir 30 mg capsule 30 mg PO DAILY RF: 0 Discharge Orders: Discharge Order (Routine); Ordered 04/20/19 Ordered By: Gavino Vaca Admission Data Admit Date/Time: 04/17/19 12:43 Attending Provider: Gavino Vaca Admit Provider: Joni Garcia Primary Care Provider: Negra Weber Other Providers: Joni Garcia ; Kvng Rocha ; Kenneth Miranda ; Rod Child ; Case Washington ; Caleb Youssef ; Ciro Gonzalez ; Barb Coleman ; Corie Abdalla ; Cameron Goddard Other Interventions: Discharge Summary Assessment (RN) Last Done: 04/20/19 14:05 DC Date/Time DO NOT enter until pt leaves facility: 04/20/19 14:48
== END 2019-04-20 14:48 | disposition home or self-care (01) | DRG 871 ==
LOC: ED 09:58 → SUATTDRO 12:43 → 2S 12:43 → 2N 04-18 04:54

== ENCOUNTER 2019-05-17 11:06 | Inpatient (IN) ==
[2019-05-17] MEDS ORDERED: SODIUM CHLORIDE 0.9% 1000ML 500 ML IV ONE ×2 (11:14→12:02)
[2019-05-17] MEDS ORDERED: ACETAMINOPHEN 500 MG TAB PO STA (11:14)
[2019-05-17] MEDS ORDERED: OXYCODONE HCL IR 5 MG TAB (IMMEDIATE RELEASE) PO STA (11:14)
[2019-05-17] MEDS ORDERED: ALBUTEROL HFA 8 GM INHALER INH ONE (11:15)
--- NOTE | 2019-05-17 11:25 | Emergency Department Note ---
History of Present Illness General Chief complaint: Illness Stated complaint: flu symptoms Source: patient, EMS, RN notes reviewed and old records reviewed Mode of arrival: EMS Limitations: no limitations History of Present Illness Provider complaint: fever Onset (ago): hour(s) 3 Treatments prior to arrival: other (oxygen) This is an 88-year-old female who was found to be 70% on room air. The patient has a history of pneumonia as well as sepsis. Her family called 911 this morning because the patient was running a fever and was more lethargic than usual. EMS brought the patient to the emergency department the patient currently has no complaints except that she is thirsty. She has not been given anything for the fever. The patient is on albuterol as well as Lasix however has not had her morning meds this morning. Home Medications Home Medications Medication Instructions Recorded Confirmed Type atorvastatin 40 mg PO HS 06/28/18 05/17/19 History isosorbide mononitrate 30 mg PO QAM 06/28/18 05/17/19 History nitroglycerin 0.4 mg SUBLINGUAL UD PRN MDD 06/28/18 05/17/19 History repeat once prednisone 5 mg PO QAM 06/28/18 05/17/19 History sotalol 40 mg PO QAM 06/28/18 05/17/19 History warfarin 5 mg PO DAILY@2100 06/28/18 05/17/19 History sennosides [senna] 8.6 mg PO DAILY PRN 09/14/18 05/17/19 History pantoprazole 40 mg PO QDL PRN 10/08/18 05/17/19 History ferrous sulfate [iron] 325 mg PO BID #60 tab 11/02/18 05/17/19 Rx aspirin [Aspirin Low Dose] 81 mg PO QDB 03/18/19 05/17/19 History donepezil [Aricept] 5 mg PO HS 03/24/19 05/17/19 History acetaminophen [Tylenol Extra 500 mg PO Q6H PRN 04/17/19 05/17/19 History Strength] albuterol sulfate 2 puff INHALATION QID 04/17/19 05/17/19 History famotidine 20 mg PO HS 04/17/19 05/17/19 History gabapentin 100 mg PO BID 04/17/19 05/17/19 History mirtazapine 30 mg PO HS 04/17/19 05/17/19 History oxycodone 5 mg PO TID PRN 04/17/19 05/17/19 History Allergies Allergy/AdvReac Type Severity Reaction Status Date / Time amoxicillin Allergy Unknown NOT SURE Verified 05/17/19 12:07 lisinopril Allergy Unknown swelling Verified 05/17/19 12:07 face/lips/tongue sulfamethoxazole Allergy Unknown Unknown Verified 05/17/19 12:07 [From Bactrim] trimethoprim [From Bactrim] Allergy Unknown Unknown Verified 05/17/19 12:07 Past Med/Surg History Social History Preferred Language: Nepali Communication Ability: Effective Relay Repairer Required: No Beliefs That Will Affect Care: None Current Living Situation: Family Current Living Situation Comment: ALWAYS HAS SOMEONE WITH HER Feels Safe at Home: Yes Smoking Status: Never smoker Second Hand Exposure: No ; Hx Alcohol Use: Yes Alcohol type: wine Alcohol Intake Frequency: Rarely Hx Substance Use: No Review of Systems A total of 10 systems reviewed and were otherwise negative Physical Exam Vital Signs Vital Signs - 24 hr 05/17/19 11:08 05/17/19 11:16 05/17/19 11:17 Temperature 39.6 C H Temperature Source Oral Pulse Rate 83 82 82 Pulse Rate from SpO2 Sensor Respiratory Rate 21 18 Respiratory Depth Normal Blood Pressure 143/71 H 143/71 H Blood Pressure Mean 85 95 Pulse Oximetry 89 L Oxygen Delivery Method Room Air Oxygen Flow Rate Sepsis Recent Fever Within 48 Hours Yes Sepsis New/Unexplained Change in Mental Status No Sepsis Action Taken by Nursing No Action Required 05/17/19 11:20 05/17/19 11:24 05/17/19 11:30 Temperature Temperature Source Pulse Rate 80 90 Pulse Rate from SpO2 Sensor Respiratory Rate 18 18 Respiratory Depth Blood Pressure Blood Pressure Mean Pulse Oximetry 94 Oxygen Delivery Method Nasal Cannula Oxygen Flow Rate 2 Sepsis Recent Fever Within 48 Hours Sepsis New/Unexplained Change in Mental Status Sepsis Action Taken by Nursing 05/17/19 11:40 05/17/19 11:50 05/17/19 12:00 Temperature Temperature Source Pulse Rate 85 83 84 Pulse Rate from SpO2 Sensor 80 74 81 Respiratory Rate 21 19 18 Respiratory Depth Blood Pressure Blood Pressure Mean Pulse Oximetry 99 99 Oxygen Delivery Method Nasal Cannula Oxygen Flow Rate 2 Sepsis Recent Fever Within 48 Hours Sepsis New/Unexplained Change in Mental Status Sepsis Action Taken by Nursing 05/17/19 12:01 05/17/19 12:10 05/17/19 12:20 Temperature Temperature Source Pulse Rate 86 87 84 Pulse Rate from SpO2 Sensor 85 86 83 Respiratory Rate 18 19 Respiratory Depth Blood Pressure 136/80 Blood Pressure Mean 93 Pulse Oximetry 99 98 96 Oxygen Delivery Method Nasal Cannula Nasal Cannula Nasal Cannula Oxygen Flow Rate 2 2 2 Sepsis Recent Fever Within 48 Hours Sepsis New/Unexplained Change in Mental Status Sepsis Action Taken by Nursing 05/17/19 12:30 05/17/19 12:31 05/17/19 12:40 Temperature Temperature Source Pulse Rate 88 85 88 Pulse Rate from SpO2 Sensor 89 85 86 Respiratory Rate 21 24 21 Respiratory Depth Blood Pressure 142/43 H Blood Pressure Mean 83 Pulse Oximetry 97 98 97 Oxygen Delivery Method Nasal Cannula Nasal Cannula Nasal Cannula Oxygen Flow Rate 2 2 2 Sepsis Recent Fever Within 48 Hours Sepsis New/Unexplained Change in Mental Status Sepsis Action Taken by Nursing 05/17/19 12:50 05/17/19 13:00 05/17/19 13:01 Temperature Temperature Source Pulse Rate 78 76 80 Pulse Rate from SpO2 Sensor 78 78 79 Respiratory Rate 12 8 L 13 Respiratory Depth Blood Pressure 105/32 L Blood Pressure Mean 54 Pulse Oximetry 100 99 99 Oxygen Delivery Method Nasal Cannula Nasal Cannula Nasal Cannula Oxygen Flow Rate 2 2 2 Sepsis Recent Fever Within 48 Hours Sepsis New/Unexplained Change in Mental Status Sepsis Action Taken by Nursing 05/17/19 13:10 05/17/19 13:20 05/17/19 13:30 Temperature Temperature Source Pulse Rate 77 75 73 Pulse Rate from SpO2 Sensor 74 73 72 Respiratory Rate 23 12 12 Respiratory Depth Blood Pressure 99/31 L Blood Pressure Mean 62 Pulse Oximetry 98 100 100 Oxygen Delivery Method Nasal Cannula Nasal Cannula Nasal Cannula Oxygen Flow Rate 2 2 2 Sepsis Recent Fever Within 48 Hours Sepsis New/Unexplained Change in Mental Status Sepsis Action Taken by Nursing 05/17/19 13:40 Temperature Temperature Source Pulse Rate 76 Pulse Rate from SpO2 Sensor 76 Respiratory Rate 15 Respiratory Depth Blood Pressure Blood Pressure Mean Pulse Oximetry 99 Oxygen Delivery Method Nasal Cannula Oxygen Flow Rate 2 Sepsis Recent Fever Within 48 Hours Sepsis New/Unexplained Change in Mental Status Sepsis Action Taken by Nursing GENERAL: Patient is a frail in appearance female HEAD: Normocephalic atraumatic EYES: Ocular movements intact pupils equal and react to light OROPHARYNX mucous membranes are moist no exudates present no erythema or edema present NECK: Supple no nuchal rigidity CHEST: Good equal expansion LUNGS: Clear and equal to auscultation CARDIAC: Normal S1 and S2 ABDOMEN: Soft nontender no guarding BACK: No CVA tenderness EXTREMITIES: No pain upon palpation normal muscle strength in all groups no clubbing cyanosis or edema NEURO: Patient is following commands is answering questions appropriately. Alert and oriented x3 Cranial Nerves 2-12 grossly intact Course Administered Medications Discontinued Medications Acetaminophen (Tylenol) 1,000 mg PO NOW STA Stop: 05/17/19 11:15 Last Admin: 05/17/19 11:33 Dose: 1,000 mg Documented by: [id number] Albuterol (Ventolin Hfa) 6 puffs INH NOW ONE Stop: 05/17/19 11:16 Last Admin: 05/17/19 11:33 Dose: 6 puffs Documented by: [id number] Sodium Chloride (Nss 1000ml) 500 mls @ 999 mls/hr IV .Q31M ONE Stop: 05/17/19 11:44 Last Infusion: 05/17/19 12:06 Dose: 0 mls/hr Documented by: [id number] Admin: 05/17/19 11:33 Dose: 999 mls/hr Documented by: [id number] Piperacillin Sod/Tazobactam Sod (Zosyn) 4.5 gm in 120 mls @ 240 mls/hr IV NOW ONE Stop: 05/17/19 12:15 Last Infusion: 05/17/19 13:11 Dose: 0 mls/hr Documented by: [id number] Admin: 05/17/19 12:33 Dose: 240 mls/hr Documented by: [id number] Levofloxacin/Dextrose (Levaquin/D5w) 750 mg in 150 mls @ 100 mls/hr IV NOW STA Stop: 05/17/19 13:15 Last Admin: 05/17/19 12:33 Dose: 100 mls/hr Documented by: [id number] Sodium Chloride (Nss 1000ml) 500 mls @ 999 mls/hr IV .Q31M ONE Stop: 05/17/19 12:32 Last Infusion: 05/17/19 13:10 Dose: 0 mls/hr Documented by: [id number] Admin: 05/17/19 12:33 Dose: 999 mls/hr Documented by: [id number] Oxycodone HCl (Roxicodone Immediate Rel) 5 mg PO NOW STA Stop: 05/17/19 11:15 Last Admin: 05/17/19 11:33 Dose: 5 mg Documented by: [id number] Medical Decision Making Differential Diagnosis Sepsis, UTI, pneumonia, metabolic, electrolyte abnormalities, cardiac sources, intracerebral event, toxicologic, neurologic, as well as other pathologies. Medical Records Attestation: I reviewed the patient's medical records. Home Medications Current Medication List: was personally reviewed by me Laboratory Data Attestation: I reviewed the patient's lab results. Result diagrams: 05/17/19 11:20 05/17/19 11:20 Lab Results 05/17/19 05/17/19 05/17/19 Range/Units 11:20 11:20 11:20 WBC 11.86 H (4.8-10.8) K/uL RBC 3.72 L (4.2-5.4) M/uL Hgb 11.2 L (12.0-16.0) g/dL Hct 35.9 L (37-47) % MCV 96.5 (80-100) fL MCH 30.1 (25-34) pg MCHC 31.2 L (32-36) g/dL RDW Std Deviation 57.1 H (36.4-46.3) fL RDW Coeff of Riley 16.1 H (11.5-14.5) % Plt Count 246 (130-400) K/uL MPV 10.6 H (7.4-10.4) fL Immature Gran % (Auto) 0.3 % Neut % (Auto) 86.7 % Lymph % (Auto) 8.2 % [place] % (Auto) 3.0 % Eos % (Auto) 1.6 % Baso % (Auto) 0.2 % Immature Gran # (Auto) 0.04 H (0.00-0.02) K/uL Neut # (Auto) 10.29 H (1.4-6.5) K/uL Lymph # (Auto) 0.97 L (1.2-3.4) K/uL [place] # (Auto) 0.35 (0.11-0.59) K/uL Eos # (Auto) 0.19 (0-0.5) K/uL Baso # (Auto) 0.02 (0-0.2) K/uL PT 17.2 H (9.0-12.0) Seconds INR 1.7 H (0.9-1.1) APTT 28.3 (21.0-31.0) Seconds PTT Ratio 1.0 Sodium 140 (136-145) mmol/L Potassium 3.6 (3.5-5.1) mmol/L Chloride 107 (98-107) mmol/L Carbon Dioxide 29 (21-32) mmol/L Anion Gap 4.0 (3-11) BUN 34 H (7-18) mg/dl Creatinine 1.60 H (0.6-1.2) mg/dl Est Cr Clr Drug Dosing 17.6 ml/min Est GFR ( Amer) 33.0 Est GFR (Non-Af Amer) 28.5 BUN/Creatinine Ratio 21.3 H (10-20) Glucose 95 (70-99) mg/dl Lactate (0.4-2.0) mmol/L Calcium 8.6 (8.5-10.1) mg/dl Magnesium 2.2 (1.8-2.4) mg/dl Total Bilirubin 0.5 (0.2-1) mg/dl AST 39 H (15-37) U/L ALT 53 (12-78) U/L Alkaline Phosphatase 88 (45-117) U/L Troponin I 0.022 (0-0.045) ng/ml Total Protein 6.2 L (6.4-8.2) gm/dl Albumin 2.9 L (3.4-5.0) gm/dl Globulin 3.3 (2.5-4.0) gm/dl Albumin/Globulin Ratio 0.9 (0.9-2) Procalcitonin (0-0.5) ng/ml Adenovirus (PCR) (NotDetected) B. pertussis DNA (PCR) (NotDetected) B.parapertussis DNA PCR (NotDetected) C. pneumoniae DNA (PCR) (NotDetected) Coronavirus OC43 (PCR) (NotDetected) Coronavirus HKU1 (PCR) (NotDetected) Coronavirus 229E (PCR) (NotDetected) Coronavirus NL63 (PCR) (NotDetected) Human Metapneumovir PCR (NotDetected) Influenza Type A (PCR) (Neg) Influenza Type B (PCR) (Neg) M. pneumoniae (PCR) (NotDetected) Parainfluenza 1 (PCR) (NotDetected) Parainfluenza 2 (PCR) (NotDetected) Parainfluenza 3 (PCR) (NotDetected) Parainfluenza 4 (PCR) (NotDetected) RSV (PCR) (NotDetected) Entero/Rhino (PCR) (NotDetected) 05/17/19 05/17/19 05/17/19 Range/Units 11:20 11:47 11:47 WBC (4.8-10.8) K/uL RBC (4.2-5.4) M/uL Hgb (12.0-16.0) g/dL Hct (37-47) % MCV (80-100) fL MCH (25-34) pg MCHC (32-36) g/dL RDW Std Deviation (36.4-46.3) fL RDW Coeff of Riley (11.5-14.5) % Plt Count (130-400) K/uL MPV (7.4-10.4) fL Immature Gran % (Auto) % Neut % (Auto) % Lymph % (Auto) % [place] % (Auto) % Eos % (Auto) % Baso % (Auto) % Immature Gran # (Auto) (0.00-0.02) K/uL Neut # (Auto) (1.4-6.5) K/uL Lymph # (Auto) (1.2-3.4) K/uL [place] # (Auto) (0.11-0.59) K/uL Eos # (Auto) (0-0.5) K/uL Baso # (Auto) (0-0.2) K/uL PT (9.0-12.0) Seconds INR (0.9-1.1) APTT (21.0-31.0) Seconds PTT Ratio Sodium (136-145) mmol/L Potassium (3.5-5.1) mmol/L Chloride (98-107) mmol/L Carbon Dioxide (21-32) mmol/L Anion Gap (3-11) BUN (7-18) mg/dl Creatinine (0.6-1.2) mg/dl Est Cr Clr Drug Dosing ml/min Est GFR ( Amer) Est GFR (Non-Af Amer) BUN/Creatinine Ratio (10-20) Glucose (70-99) mg/dl Lactate (0.4-2.0) mmol/L Calcium (8.5-10.1) mg/dl Magnesium (1.8-2.4) mg/dl Total Bilirubin (0.2-1) mg/dl AST (15-37) U/L ALT (12-78) U/L Alkaline Phosphatase (45-117) U/L Troponin I (0-0.045) ng/ml Total Protein (6.4-8.2) gm/dl Albumin (3.4-5.0) gm/dl Globulin (2.5-4.0) gm/dl Albumin/Globulin Ratio (0.9-2) Procalcitonin 1.05 H (0-0.5) ng/ml Adenovirus (PCR) Not Detected (NotDetected) B. pertussis DNA (PCR) Not Detected (NotDetected) B.parapertussis DNA PCR Not Detected (NotDetected) C. pneumoniae DNA (PCR) Not Detected (NotDetected) Coronavirus OC43 (PCR) Not Detected (NotDetected) Coronavirus HKU1 (PCR) Not Detected (NotDetected) Coronavirus 229E (PCR) Not Detected (NotDetected) Coronavirus NL63 (PCR) Not Detected (NotDetected) Human Metapneumovir PCR Not Detected (NotDetected) Influenza Type A (PCR) Neg for Influ A Not Detected (Neg) Influenza Type B (PCR) Neg for Influ B Not Detected (Neg) M. pneumoniae (PCR) Not Detected (NotDetected) Parainfluenza 1 (PCR) Not Detected (NotDetected) Parainfluenza 2 (PCR) Not Detected (NotDetected) Parainfluenza 3 (PCR) Not Detected (NotDetected) Parainfluenza 4 (PCR) Not Detected (NotDetected) RSV (PCR) Not Detected (NotDetected) Entero/Rhino (PCR) Not Detected (NotDetected) 05/17/19 Range/Units 12:03 WBC (4.8-10.8) K/uL RBC (4.2-5.4) M/uL Hgb (12.0-16.0) g/dL Hct (37-47) % MCV (80-100) fL MCH (25-34) pg MCHC (32-36) g/dL RDW Std Deviation (36.4-46.3) fL RDW Coeff of Riley (11.5-14.5) % Plt Count (130-400) K/uL MPV (7.4-10.4) fL Immature Gran % (Auto) % Neut % (Auto) % Lymph % (Auto) % [place] % (Auto) % Eos % (Auto) % Baso % (Auto) % Immature Gran # (Auto) (0.00-0.02) K/uL Neut # (Auto) (1.4-6.5) K/uL Lymph # (Auto) (1.2-3.4) K/uL [place] # (Auto) (0.11-0.59) K/uL Eos # (Auto) (0-0.5) K/uL Baso # (Auto) (0-0.2) K/uL PT (9.0-12.0) Seconds INR (0.9-1.1) APTT (21.0-31.0) Seconds PTT Ratio Sodium (136-145) mmol/L Potassium (3.5-5.1) mmol/L Chloride (98-107) mmol/L Carbon Dioxide (21-32) mmol/L Anion Gap (3-11) BUN (7-18) mg/dl Creatinine (0.6-1.2) mg/dl Est Cr Clr Drug Dosing ml/min Est GFR ( Amer) Est GFR (Non-Af Amer) BUN/Creatinine Ratio (10-20) Glucose (70-99) mg/dl Lactate 1.6 (0.4-2.0) mmol/L Calcium (8.5-10.1) mg/dl Magnesium (1.8-2.4) mg/dl Total Bilirubin (0.2-1) mg/dl AST (15-37) U/L ALT (12-78) U/L Alkaline Phosphatase (45-117) U/L Troponin I (0-0.045) ng/ml Total Protein (6.4-8.2) gm/dl Albumin (3.4-5.0) gm/dl Globulin (2.5-4.0) gm/dl Albumin/Globulin Ratio (0.9-2) Procalcitonin (0-0.5) ng/ml Adenovirus (PCR) (NotDetected) B. pertussis DNA (PCR) (NotDetected) B.parapertussis DNA PCR (NotDetected) C. pneumoniae DNA (PCR) (NotDetected) Coronavirus OC43 (PCR) (NotDetected) Coronavirus HKU1 (PCR) (NotDetected) Coronavirus 229E (PCR) (NotDetected) Coronavirus NL63 (PCR) (NotDetected) Human Metapneumovir PCR (NotDetected) Influenza Type A (PCR) (Neg) Influenza Type B (PCR) (Neg) M. pneumoniae (PCR) (NotDetected) Parainfluenza 1 (PCR) (NotDetected) Parainfluenza 2 (PCR) (NotDetected) Parainfluenza 3 (PCR) (NotDetected) Parainfluenza 4 (PCR) (NotDetected) RSV (PCR) (NotDetected) Entero/Rhino (PCR) (NotDetected) ECG Data Attestation: I personally reviewed and interpreted this ECG as follows: Indication: + other (fever) Rate (beats per minute): 82 Rhythm: + normal sinus ECG Intervals/blocks: + Prolonged QT ECG ST segments: + ST depression (lateral leads) and + ST elevation (AVR) Comparison ECG Date: from (04/19/2019) Change: no significant change MDM Narrative Cardiac monitoring: An order was placed for continuous cardiac monitoring. The monitor shows a rate of 79 with Normal Sinus rhythm. Curb score =3 (elevated BUN, confusion, age) This is an 88-year-old female who presents emergency department complaining of fever. The patient has had previous bouts of multifocal pneumonia previously. Her BUN and creatinine are also bumped. For this reason she was given a normal saline bolus x2. Patient is hypoxic and is not on oxygen at home. She was placed on then nasal cannula here. She was given an albuterol breathing treatments via inhalers x6. She was started on broad-spectrum antibiotics including Zosyn and Levaquin. Blood cultures were obtained. Impression & Plan Fever, Hypoxia, Pneumonia Discharge Plan Visit Data Chief Complaint: Illness Stated Complaint: flu symptoms ED Provider: Kamlesh Cifuentes Discharge Problem: Fever, Hypoxia, Pneumonia Forms Stand Alone Forms: My [facility] Prescriptions Prescriptions: No Action atorvastatin 40 mg tablet 40 mg PO HS RF: 0 sotalol 80 mg tablet 40 mg PO QAM RF: 0 isosorbide mononitrate 30 mg tablet extended release 24 hr 30 mg PO QAM RF: 0 prednisone 5 mg tablet 5 mg PO QAM RF: 0 warfarin 5 mg tablet 5 mg PO DAILY@2100 RF: 0 nitroglycerin 0.4 mg tablet, sublingual 0.4 mg sublingual UD MDD may repeat once PRN (Reason: chest pain,esophageal spasm) RF: 0 pantoprazole 40 mg Tablet,Delayed Release (Dr/Ec) 40 mg PO QDL PRN (Reason: Heartburn) RF: 0 ferrous sulfate [iron] 325 mg (65 mg iron) tablet 325 mg PO BID Qty: 60 RF: 0 sennosides [senna] 8.6 mg Tablet 8.6 mg PO DAILY PRN (Reason: Constipation) RF: 0 aspirin [Aspirin Low Dose] 81 mg Tablet,Delayed Release (Dr/Ec) 81 mg PO QDB RF: 0 donepezil [Aricept] 5 mg Tablet 5 mg PO HS RF: 0 famotidine 40 mg tablet 20 mg PO HS RF: 0 acetaminophen [Tylenol Extra Strength] 500 mg Tablet 500 mg PO Q6H PRN (Reason: Pain) RF: 0 albuterol sulfate 90 mcg/actuation HFA aerosol inhaler 2 puff INHALATION QID RF: 0 oxycodone 5 mg tablet 5 mg PO TID PRN (Reason: Pain) RF: 0 mirtazapine 30 mg tablet 30 mg PO HS RF: 0 gabapentin 100 mg capsule 100 mg PO BID RF: 0 Discharge Problem: Fever Qualifiers: Fever type: unspecified Qualified Code(s): R50.9 - Fever, unspecified Pneumonia Qualifiers: Pneumonia type: due to unspecified organism Laterality: right Lung location: lower lobe of lung Qualified Code(s): J18.9 - Pneumonia, unspecified organism
[2019-05-17 11:39] LABS: Hematocrit (blood only) 35.9 % (37-47); Hemoglobin 11.2 g/dL (12.0-16.0); Mean Corpuscular Hemoglobin 30.1 pg (25-34); Mean Corpuscular Hgb Conc 31.2 g/dL (32-36); Mean Corpuscular Volume 96.5 fL (80-100); Mean Platelet Volume 10.6 fL (7.4-10.4); Platelet Count 246 K/uL (130-400); RDW Coefficient of Variation 16.1 % (11.5-14.5); RDW Standard Deviation 57.1 fL (36.4-46.3); Red Blood Count 3.72 M/uL (4.2-5.4); White Blood Count 11.86 K/uL (4.8-10.8)
[2019-05-17] MEDS ORDERED: LEVOFLOXACIN/D5W 750 MG/150 ML BAG IV STA (11:46)
[2019-05-17] MEDS ORDERED: PIPERACILL/TAZOBAC CONSULT ACTIVE PRN (11:46)
[2019-05-17] MEDS ORDERED: PIPERACILLIN/TAZOBACTAM 4.5 GM/120 ML BAG IV ONE (11:46)
[2019-05-17 11:54] LABS: INR 1.7 (0.9-1.1); Partial Thromboplastin Time 28.3 Seconds (21.0-31.0); Prothrombin Time 17.2 Seconds (9.0-12.0)
[2019-05-17 11:56] LABS: Albumin Level 2.9 gm/dl (3.4-5.0); BUN Creatinine Ratio 21.3 (10-20); Calcium 8.6 mg/dl (8.5-10.1); Creatinine Clr Calc Pharmacy 17.6 ml/min; Est GFR (Non-African American) 28.5; Magnesium 2.2 mg/dl (1.8-2.4); Potassium 3.6 mmol/L (3.5-5.1)
[2019-05-17 12:01] LABS: Albumin Globulin Ratio 0.9 (0.9-2); Bilirubin,Total 0.5 mg/dl (0.2-1); Globulin 3.3 gm/dl (2.5-4.0); Total Protein 6.2 gm/dl (6.4-8.2); Troponin I 0.022 ng/ml (0-0.045)
--- NOTE | 2019-05-17 12:25 | XRay Report ---
XR chest 1V portable CLINICAL HISTORY: 88 years-old Female presenting with SEPSIS. TECHNIQUE: Portable upright AP view of the chest was obtained. COMPARISON: 04/19/2019. FINDINGS: Atherosclerosis of the aortic arch. Cardiac silhouette borderline enlarged. Hyperinflated lungs as on prior exam interval development of patchy opacity in the right mid to lower lung. No large effusion or pneumothorax. Osteopenia suspected. Upper abdomen normal. IMPRESSION: 1. Right mid to lower lung infiltrates concerning for pneumonia. 2. Hyperinflation may indicate exuberate inspiratory effort, underlying emphysema, or other obstruct claire lung disease. ACT 112: Negative or not required by law. Electronically signed by: Asher Ma M.D. 05/17/2019 12:23 PM
[2019-05-17 12:28] LABS: Influenza A virus by PCR Neg for Influ A (Neg); Influenza B virus by PCR Neg for Influ B (Neg)
[2019-05-17 12:44] LABS: Basophils # (auto) 0.02 K/uL (0-0.2); Basophils % (auto) 0.2 %; Eosinophils # (auto) 0.19 K/uL (0-0.5); Eosinophils % (auto) 1.6 %; Immature Granulocytes # (auto) 0.04 K/uL (0.00-0.02); Immature Granulocytes % (auto) 0.3 %; Lymphocytes # (auto) 0.97 K/uL (1.2-3.4); Lymphocytes % (auto) 8.2 %; Monocytes # (auto) 0.35 K/uL (0.11-0.59); Neutrophils # (auto) 10.29 K/uL (1.4-6.5); Neutrophils % (auto) 86.7 %
[2019-05-17 13:48] LABS: Adenovirus PCR Not Detected (NotDetected); Bordetella parapertussis PCR Not Detected (NotDetected); Bordetella pertussis PCR Not Detected (NotDetected); Chlamydia pneumoniae PCR Not Detected (NotDetected); Coronavirus 229E PCR Not Detected (NotDetected); Coronavirus HKU1 PCR Not Detected (NotDetected); Coronavirus NL63 PCR Not Detected (NotDetected); Coronavirus OC43PCR Not Detected (NotDetected); Human Metapneumovirus PCR Not Detected (NotDetected); Influenza A PCR Not Detected (NotDetected); Influenza B PCR Not Detected (NotDetected); Mycoplasma pneumoniae PCR Not Detected (NotDetected); Parainfluenza Virus 1 PCR Not Detected (NotDetected); Parainfluenza Virus 2 PCR Not Detected (NotDetected); Parainfluenza Virus 3 PCR Not Detected (NotDetected); Parainfluenza Virus 4 PCR Not Detected (NotDetected); Respiratory Syncytial VirusPCR Not Detected (NotDetected); Rhinovirus/Enterovirus PCR Not Detected (NotDetected)
[2019-05-17] MEDS ORDERED: NITROGLYCERIN SL 0.4 MG/TAB TAB SL PRN (15:07)
[2019-05-17] MEDS ORDERED: PANTOprazole 40 MG TAB PO PRN (15:07)
[2019-05-17] MEDS ORDERED: SENNA 8.6 MG TAB PO PRN (15:07)
[2019-05-17] MEDS ORDERED: ACETAMINOPHEN 500 MG TAB PO PRN (15:07)
[2019-05-17] MEDS ORDERED: OXYCODONE HCL IR 5 MG TAB (IMMEDIATE RELEASE) PO PRN (15:25)
[2019-05-17] MEDS: IPRATROPIUM BROMIDE NEB SOLN 0.02% 2.5 ML VIAL INH SCH ×2 (15:38→19:01)
[2019-05-17] MEDS: DOXYCYCLINE HYCLATE 100 MG in DEXTROSE 5% 100 ML IV SCH (16:00)
[2019-05-17] MEDS: SODIUM CHLORIDE 0.9% 1000ML 1,000 ML IV SCH (16:01)
[2019-05-17] MEDS: WARFARIN SOD 5 MG TAB PO SCH (16:02)
--- NOTE | 2019-05-17 16:02 | CT Scan Report ---
CT chest wo con CLINICAL HISTORY: 88 years-old Female presenting with right sided pneumonia, r/o effusion, empyema. TECHNIQUE: Multidetector CT imaging of the chest was performed without the use of intravenous contras t. IV contrast: None. One or more dose lowering techniques were used consistent with the principles o f ALARA (as low as reasonably achievable), including automatic exposure control, mA or kV adjustment to individual patient size, and/or use of iterative reconstruction. COMPARISON: 11/22/2015 and chest x-ray from earlier today. CT DOSE (mGy.cm): The estimated cumulative dose is 353.98 mGy.cm. FINDINGS: Assembler Ping Pong Table topogram: Unremarkable. Soft tissues: Thyroid not well visualized, possibly atrophic or absent. Multiple prominent mediastina l lymph nodes primarily in the right paratracheal, precarinal, subcarinal regions measuring up to 14 mm in short axis. Mild atherosclerosis of the aortic arch. Top normal heart size. Coronary artery trisha cification. Trace right pleural effusion may be present. Fluid-filled and distended esophagus as on p rior exam. Lungs and airways: No pneumothorax. Central airways patent. Pulmonary arteries are not significantly enlarged relative to adjacent bronchi. Interlobular septal thickening most prominently at the right l fox base and to a lesser extent at the apices. Peribronchial vascular predominant solid and groundgla ss infiltrates in the right middle and right lower lobes. There are also patchy groundglass periphera l and central opacities in the right upper lobe. Minimal patchy groundglass opacities scattered throu ghout the left upper and lower lobes. Musculoskeletal: Degenerative changes of the spine. Mildly exaggerated thoracic kyphosis without a fo trisha compression deformity. IMPRESSION: 1. Extensive peribronchovascular solid and groundglass infiltrates predominantly in the right middle lobe and right lower lobe though affecting all 5 lobes to varying degrees. This is most concerning f or multifocal pneumonia. Aspiration would not be expected to be as a symmetric. 2. Some degree of venolymphatic congestive change is noted in the right lung. Edema would be unexpec patrick with this pattern of infiltrates. 3. Trace right pleural effusion. No evidence for empyema. 4. Persistent fluid-filled and distended esophagus. 5. Mediastinal lymphadenopathy, most likely reactive. Attention on follow-up. ACT 112: Negative or not required by law. Electronically signed by: Asher Ma M.D. 05/17/2019 4:01 PM
--- NOTE | 2019-05-17 16:26 | History & Physical Report ---
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 POSSIBLE SEVERE SEPSIS SECONDARY TO MULTIFOCAL PNEUMONIA, POSSIBLE HEALTHCARE ASSOCIATED, ASPIRATION RELATED WITH ACUTE HYPOXIA --Patient presents with a fever of 39.6, heart rate of 90, respiratory rate of 21, saturation of 89% on room air, elevated creatinine --She was recently discharged from the hospital last April 20, 2019 for multifocal pneumonia -- CT chest: 1. Extensive peribronchovascular solid and groundglass infiltrates predominantly in the right middle lobe and right lower lobe though affecting all 5 lobes to varying degrees. This is most concerning for multifocal pneumonia. Aspiration would not be expected to be as a symmetric. 2. Some degree of venolymphatic congestive change is noted in the right lung. Edema would be unexpected with this pattern of infiltrates. 3. Trace right pleural effusion. No evidence for empyema. 4. Persistent fluid-filled and distended esophagus. 5. Mediastinal lymphadenopathy, most likely reactive. Attention on follow- up. --Influenza a and B: Negative Bio fire: Negative COVID testing not recommended by Dr. Rojo- Pulmonary service Patient's caregiver although coming from [place] arrived to [place] in mid January and has not traveled since Patient's clinical picture including elevated procalcitonin and chest x- ray is consistent with a bacterial pneumonia; Covid Unlikely --Nasal MRSA pending Blood cultures pending Urinalysis and urine cultures to rule out component of UTI: Pending Sputum cultures pending --Start Zosyn and doxycycline Follow-up nasal MRSA to check if patient needs MRSA coverage Nebs every 6 hours --Speech therapy evaluation ACUTE KIDNEY INJURY ON CKD STAGE IV --Baseline creatinine 1.2 now 1.6 --Possibly from sepsis, prerenal etiology Start IV NSS@75 cc/h, monitor volume status in light of history of CHF diastolic type HISTORY OF CORONARY DISEASE --Patient has nonspecific ST-T wave changes on EKG, denies having any chest pain any other cardiac symptoms --Monitor PAROXYSMAL ATRIAL FIBRILLATION ON COUMADIN --Continue sotalol -- INR 1.7, continue Coumadin, INR daily 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 daily History of hypothyroidism --Check TSH GERD --Speech therapy ordered Continue PPI DVT prophylaxis INR 1.7 on Coumadin CODE STATUS Patient is a full code as per patient Disposition Pending Lives in apartment with a 24-hour caregiver Admission and Anticipated Discharge Date Admission Date: May 17, 2019 History of Present Illness 88-year-old female with history of coronary disease, paroxysmal atrial fibrillation on Coumadin, CHF diastolic type, Hypertension, PMR on prednisone, CKD stage IV, other problems noted below presenting with chills and hypoxia which started this morning. Patient was recently admitted and discharged from [facility] last April 23, 2019 after being treated for sepsis secondary to multifocal pneumonia. Patient reports of she has felt improved since a discharge date. The patient was feeling fine until this morning when she started to have chills, and found to have a pulse oximetry reading of 70%. She was then brought to the ER for evaluation. Additional information was gathered from patient's daughter and son-in-law over the phone. They have not seen any overt aspiration symptoms but reports that patient has intermittent atypical chest pain after her meals which could represent esophageal spasm-lasting for several hours. She also has her stepdaughter as her 24-hour caregiver. She is from [facility] but arrived in [place] February 01 and has not been to [place] or traveled since that time. She has a daughter who works in the hospital also visits her occasionally. On exam, the patient was seen sitting up in her bed, awake, alert, comfortable, oriented x3, not in distress. She confirms that she had chills this morning but denies having any unusual cough different from her baseline, denies shortness of breath, headaches, nausea, abdominal pain, diarrhea, problems with urination. She denies having any other symptoms. Primary Care Provider: Negra Weber MD Allergies Allergy/AdvReac Type Severity Reaction Status Date / Time amoxicillin Allergy Unknown NOT SURE Verified 05/17/19 12:07 lisinopril Allergy Unknown swelling Verified 05/17/19 12:07 face/lips/tongue sulfamethoxazole Allergy Unknown Unknown Verified 05/17/19 12:07 [From Bactrim] trimethoprim [From Bactrim] Allergy Unknown Unknown Verified 05/17/19 12:07 Home Medications Home Medications Medication Instructions Recorded Confirmed Type atorvastatin 40 mg PO HS 06/28/18 05/17/19 History isosorbide mononitrate 30 mg PO QAM 06/28/18 05/17/19 History nitroglycerin 0.4 mg SUBLINGUAL UD PRN MDD 06/28/18 05/17/19 History repeat once prednisone 5 mg PO QAM 06/28/18 05/17/19 History sotalol 40 mg PO QAM 06/28/18 05/17/19 History warfarin 5 mg PO DAILY@2100 06/28/18 05/17/19 History sennosides [senna] 8.6 mg PO DAILY PRN 09/14/18 05/17/19 History pantoprazole 40 mg PO QDL PRN 10/08/18 05/17/19 History ferrous sulfate [iron] 325 mg PO BID #60 tab 11/02/18 05/17/19 Rx aspirin [Aspirin Low Dose] 81 mg PO QDB 03/18/19 05/17/19 History donepezil [Aricept] 5 mg PO HS 03/24/19 05/17/19 History acetaminophen [Tylenol Extra 500 mg PO Q6H PRN 04/17/19 05/17/19 History Strength] albuterol sulfate 2 puff INHALATION QID 04/17/19 05/17/19 History famotidine 20 mg PO HS 04/17/19 05/17/19 History gabapentin 100 mg PO BID 04/17/19 05/17/19 History mirtazapine 30 mg PO HS 04/17/19 05/17/19 History oxycodone 5 mg PO TID PRN 04/17/19 05/17/19 History levothyroxine 50 mcg PO DAILY 05/17/19 05/17/19 History Past Med/Surg History Social History Preferred Language: Central [place] Communication Ability: Effective Yoga Teacher Required: No Beliefs That Will Affect Care: None Current Living Situation: Family Current Living Situation Comment: ALWAYS HAS SOMEONE WITH HER Other Information That Helps Us Care for You: No Feels Safe at Home: Yes Smoking Status: Never smoker Second Hand Exposure: No ; Hx Alcohol Use: Yes Alcohol type: wine Alcohol Intake Frequency: Rarely Hx Substance Use: No Review of Systems Review of Systems: All systems reviewed & are unremarkable except as noted in HPI & below Physical Exam Physical Exam: General- oriented x 3, not in distress, speaks in sentences with no effort or accessory muscle use Head- atraumatic Eyes- PERRL, EOMI, anicteric ENT- oropharynx clear Neck- supple, no JVD, no adenopathy, no thyromegaly; carotids +2/2, no bruits appreciated Lungs-crackles and decreased breath sounds in the right mid to base, no wheezing, clear breath sounds on the left Heart- normal rate, regular rhythm; no murmur, no gallop, no rub appreciated Abdomen- normal bowel sounds, nondistended, soft, nontender, no masses or hepatosplenomegaly Extremities- no pretibial edema, no calf tenderness; peripheral pulses intact Neuro- alert, oriented x 3; CN 2-12 grossly intact; motor 5/5 bilaterally;sensation 100% on all extremities; no other gross focal neurologic deficits Skin- warm & dry Results & Data Results & Data ([facility]) Vital Signs (Past 12 Hours) Vital Signs Temp Pulse Resp BP Pulse Ox 05/17/19 14:30 74 17 97 05/17/19 14:20 79 20 98 05/17/19 14:10 77 16 98 05/17/19 14:00 76 17 90/33 L 98 05/17/19 13:50 74 14 99 05/17/19 13:40 76 15 99 05/17/19 13:30 73 12 99/31 L 100 05/17/19 13:20 75 12 100 05/17/19 13:10 77 23 98 05/17/19 13:01 80 13 105/32 L 99 05/17/19 13:00 76 8 L 99 05/17/19 12:50 78 12 100 05/17/19 12:40 88 21 97 05/17/19 12:31 85 24 142/43 H 98 05/17/19 12:30 88 21 97 05/17/19 12:20 84 19 96 05/17/19 12:10 87 18 98 05/17/19 12:01 86 136/80 99 05/17/19 12:00 84 18 99 05/17/19 11:50 83 19 99 05/17/19 11:40 85 21 05/17/19 11:30 90 18 05/17/19 11:24 94 05/17/19 11:20 80 18 05/17/19 11:17 82 05/17/19 11:16 39.6 C H 82 18 143/71 H 89 L 05/17/19 11:08 83 21 143/71 H Laboratory Results Laboratory Results - last 24 hr 05/17/19 05/17/19 05/17/19 11:20 11:20 11:20 WBC 11.86 H RBC 3.72 L Hgb 11.2 L Hct 35.9 L MCV 96.5 MCH 30.1 MCHC 31.2 L RDW Std Deviation 57.1 H RDW Coeff of Riley 16.1 H Plt Count 246 MPV 10.6 H Immature Gran % (Auto) 0.3 Neut % (Auto) 86.7 Lymph % (Auto) 8.2 Dorado % (Auto) 3.0 Eos % (Auto) 1.6 Baso % (Auto) 0.2 Immature Gran # (Auto) 0.04 H Neut # (Auto) 10.29 H Lymph # (Auto) 0.97 L Dorado # (Auto) 0.35 Eos # (Auto) 0.19 Baso # (Auto) 0.02 PT 17.2 H INR 1.7 H APTT 28.3 PTT Ratio 1.0 Sodium 140 Potassium 3.6 Chloride 107 Carbon Dioxide 29 Anion Gap 4.0 BUN 34 H Creatinine 1.60 H Est Cr Clr Drug Dosing 17.6 Est GFR ( Amer) 33.0 Est GFR (Non-Af Amer) 28.5 BUN/Creatinine Ratio 21.3 H Glucose 95 Lactate Calcium 8.6 Magnesium 2.2 Total Bilirubin 0.5 AST 39 H ALT 53 Alkaline Phosphatase 88 Troponin I 0.022 Total Protein 6.2 L Albumin 2.9 L Globulin 3.3 Albumin/Globulin Ratio 0.9 Procalcitonin Adenovirus (PCR) B. pertussis DNA (PCR) B.parapertussis DNA PCR C. pneumoniae DNA (PCR) Coronavirus OC43 (PCR) Coronavirus HKU1 (PCR) Coronavirus 229E (PCR) Coronavirus NL63 (PCR) Human Metapneumovir PCR Influenza Type A (PCR) Influenza Type B (PCR) M. pneumoniae (PCR) Parainfluenza 1 (PCR) Parainfluenza 2 (PCR) Parainfluenza 3 (PCR) Parainfluenza 4 (PCR) RSV (PCR) Entero/Rhino (PCR) 05/17/19 05/17/19 05/17/19 11:20 11:47 11:47 WBC RBC Hgb Hct MCV MCH MCHC RDW Std Deviation RDW Coeff of Riley Plt Count MPV Immature Gran % (Auto) Neut % (Auto) Lymph % (Auto) Dorado % (Auto) Eos % (Auto) Baso % (Auto) Immature Gran # (Auto) Neut # (Auto) Lymph # (Auto) Dorado # (Auto) Eos # (Auto) Baso # (Auto) PT INR APTT PTT Ratio Sodium Potassium Chloride Carbon Dioxide Anion Gap BUN Creatinine Est Cr Clr Drug Dosing Est GFR ( Amer) Est GFR (Non-Af Amer) BUN/Creatinine Ratio Glucose Lactate Calcium Magnesium Total Bilirubin AST ALT Alkaline Phosphatase Troponin I Total Protein Albumin Globulin Albumin/Globulin Ratio Procalcitonin 1.05 H Adenovirus (PCR) Not Detected B. pertussis DNA (PCR) Not Detected B.parapertussis DNA PCR Not Detected C. pneumoniae DNA (PCR) Not Detected Coronavirus OC43 (PCR) Not Detected Coronavirus HKU1 (PCR) Not Detected Coronavirus 229E (PCR) Not Detected Coronavirus NL63 (PCR) Not Detected Human Metapneumovir PCR Not Detected Influenza Type A (PCR) Neg for Influ A Not Detected Influenza Type B (PCR) Neg for Influ B Not Detected M. pneumoniae (PCR) Not Detected Parainfluenza 1 (PCR) Not Detected Parainfluenza 2 (PCR) Not Detected Parainfluenza 3 (PCR) Not Detected Parainfluenza 4 (PCR) Not Detected RSV (PCR) Not Detected Entero/Rhino (PCR) Not Detected 05/17/19 12:03 WBC RBC Hgb Hct MCV MCH MCHC RDW Std Deviation RDW Coeff of Riley Plt Count MPV Immature Gran % (Auto) Neut % (Auto) Lymph % (Auto) Dorado % (Auto) Eos % (Auto) Baso % (Auto) Immature Gran # (Auto) Neut # (Auto) Lymph # (Auto) Dorado # (Auto) Eos # (Auto) Baso # (Auto) PT INR APTT PTT Ratio Sodium Potassium Chloride Carbon Dioxide Anion Gap BUN Creatinine Est Cr Clr Drug Dosing Est GFR ( Amer) Est GFR (Non-Af Amer) BUN/Creatinine Ratio Glucose Lactate 1.6 Calcium Magnesium Total Bilirubin AST ALT Alkaline Phosphatase Troponin I Total Protein Albumin Globulin Albumin/Globulin Ratio Procalcitonin Adenovirus (PCR) B. pertussis DNA (PCR) B.parapertussis DNA PCR C. pneumoniae DNA (PCR) Coronavirus OC43 (PCR) Coronavirus HKU1 (PCR) Coronavirus 229E (PCR) Coronavirus NL63 (PCR) Human Metapneumovir PCR Influenza Type A (PCR) Influenza Type B (PCR) M. pneumoniae (PCR) Parainfluenza 1 (PCR) Parainfluenza 2 (PCR) Parainfluenza 3 (PCR) Parainfluenza 4 (PCR) RSV (PCR) Entero/Rhino (PCR) Code Status & VTE Plan Code Status Full code as per patient VTE Prophylaxis Plan VTE Prophylaxis will be ordered: Yes
[2019-05-17 16:35] LABS: Appearance Urine Clear (Clear); Bacteria Urine Automated 2+ (Negative); Bilirubin Urine Negative (Negative); Blood Urine Negative (Negative); Cast Urine Automated 0 /lpf (0-5); Color Urine Yellow; Glucose Urine UA Negative (Negative); Ketones Urine Negative (Negative); Leukocyte Esterase Urine 2+ (Negative); Nitrite Urine Negative (Negative); Protein Urine 1+ (Negative); Specific Gravity Urine 1.022 (1.000-1.030); Urobilinogen Urine Negative (Negative); WBC Urine Automated >30 /hpf (0-5); pH Urine 5.5 (4.5-7.5)
[2019-05-17] MEDS: LEVALBUTEROL 1.25MG/0.5ML NEB INH SCH ×2 (17:04→18:58)
[2019-05-17] MEDS ORDERED: XOPENEX/ATROVENT 1.25mg/0.5MG NEB COMBO NEB SCH (19:00)
[2019-05-17] MEDS: PIPERACILLIN/TAZOBACTAM 3.375 GM in DEXTROSE 5% 100 ML IV SCH (20:12)
[2019-05-17] MEDS: FAMOTIDINE 20 MG TAB PO SCH (20:20)
[2019-05-17] MEDS: MIRTAZAPINE TAB 15 MG TAB PO SCH (20:21)
[2019-05-17] MEDS: GABAPENTIN 100 MG CAP PO SCH (20:21)
[2019-05-17] MEDS: DONEPEZIL HCL 5 MG TAB PO SCH (20:21)
[2019-05-17] MEDS: ATORVASTATIN 40 MG TAB PO SCH (20:21)
[2019-05-17] MEDS: FERROUS SULFATE 325 MG TAB PO SCH (20:21)
[2019-05-18] MEDS: LEVALBUTEROL 1.25MG/0.5ML NEB INH SCH ×4 (00:49→18:51)
[2019-05-18] MEDS: IPRATROPIUM BROMIDE NEB SOLN 0.02% 2.5 ML VIAL INH SCH ×4 (00:49→18:51)
[2019-05-18] MEDS: DOXYCYCLINE HYCLATE 100 MG in DEXTROSE 5% 100 ML IV SCH ×2 (03:21→17:17)
[2019-05-18 06:19] LABS: Hematocrit (blood only) 31.8 % (37-47); Hemoglobin 9.7 g/dL (12.0-16.0); Mean Corpuscular Hgb Conc 30.5 g/dL (32-36); Mean Corpuscular Volume 98.5 fL (80-100); Mean Platelet Volume 10.7 fL (7.4-10.4); Platelet Count 210 K/uL (130-400); RDW Coefficient of Variation 16.3 % (11.5-14.5); RDW Standard Deviation 58.8 fL (36.4-46.3); Red Blood Count 3.23 M/uL (4.2-5.4); White Blood Count 14.59 K/uL (4.8-10.8)
[2019-05-18 06:28] LABS: INR 1.9 (0.9-1.1); Prothrombin Time 19.6 Seconds (9.0-12.0)
[2019-05-18 06:49] LABS: BUN Creatinine Ratio 17.9 (10-20); Basophils # (auto) 0.02 K/uL (0-0.2); Basophils % (auto) 0.1 %; Calcium 8.1 mg/dl (8.5-10.1); Creatinine Clr Calc Pharmacy 19.3 ml/min; Eosinophils # (auto) 0.32 K/uL (0-0.5); Eosinophils % (auto) 2.2 %; Est GFR (African American) 36.9; Est GFR (Non-African American) 31.8; Immature Granulocytes # (auto) 0.04 K/uL (0.00-0.02); Immature Granulocytes % (auto) 0.3 %; Lymphocytes # (auto) 0.98 K/uL (1.2-3.4); Lymphocytes % (auto) 6.7 %; Monocytes # (auto) 0.55 K/uL (0.11-0.59); Monocytes % (auto) 3.8 %; Neutrophils # (auto) 12.68 K/uL (1.4-6.5); Neutrophils % (auto) 86.9 %; Potassium 3.9 mmol/L (3.5-5.1)
[2019-05-18] MEDS: SODIUM CHLORIDE 0.9% 1000ML 1,000 ML IV SCH ×2 (08:52→08:53)
[2019-05-18] MEDS: ISOSORBIDE MONO EXTENDED REL 30 MG TABCR PO SCH (08:53)
[2019-05-18] MEDS: PIPERACILLIN/TAZOBACTAM 3.375 GM in DEXTROSE 5% 100 ML IV SCH ×2 (08:53→21:44)
[2019-05-18] MEDS: SOTALOL HCL 80 MG TAB PO SCH (08:54)
[2019-05-18] MEDS: FERROUS SULFATE 325 MG TAB PO SCH ×2 (08:54→21:45)
[2019-05-18] MEDS: ASPIRIN 81 MG ECTAB PO SCH (08:54)
[2019-05-18] MEDS: predniSONE 5 MG TAB PO SCH (08:54)
[2019-05-18] MEDS: GABAPENTIN 100 MG CAP PO SCH ×2 (08:54→21:45)
--- NOTE | 2019-05-18 12:00 | Electrocardiogram Report ---
Test Reason : Blood Pressure : / mmHG Vent. Rate : 082 BPM Atrial Rate : 082 BPM P-R Int : 134 ms QRS Dur : 090 ms QT Int : 414 ms P-R-T Axes : 058 065 -20 degrees QTc Int : 483 ms Sinus rhythm with Premature supraventricular complexes Possible Left atrial enlargement RSR' or QR pattern in V1 suggests right ventricular conduction delay Prolonged QT Abnormal ECG When compared with ECG of 19-APR-2019 06:40, Premature supraventricular complexes are now Present Criteria for Septal infarct are no longer Present T wave inversion now evident in Inferior leads Confirmed by Emile Ruelas ([id number]) on 05/18/2019 11:59:31 AM Referred By: REFERRED SELF Confirmed By:Emile Ruelas
--- NOTE | 2019-05-18 12:22 | Electrocardiogram Report ---
Test Reason : Blood Pressure : / mmHG Vent. Rate : 081 BPM Atrial Rate : 081 BPM P-R Int : 140 ms QRS Dur : 088 ms QT Int : 428 ms P-R-T Axes : 058 073 060 degrees QTc Int : 497 ms Normal sinus rhythm Possible Left atrial enlargement Prolonged QT Nonspecific ST abnormality Abnormal ECG When compared with ECG of 17-MAY-2019 11:28, (unconfirmed) Premature supraventricular complexes are no longer Present T wave inversion no longer evident in Inferior leads T wave inversion no longer evident in Lateral leads Confirmed by Emile Ruelas ([id number]) on 05/18/2019 12:21:49 PM Referred By: REFERRED SELF Confirmed By:Emile Ruelas
--- NOTE | 2019-05-18 13:20 | Hospitalist Progress Note ---
Date of Service May 18, 2019 Assessment & Plan (1) Pneumonia: Present on admission with chills and hypoxia Meet Sepsis criteria on admission with fever (Temp 39.6 ) Leukocytosis with WBC 11.8, elevated procalcitonin and lactate normal CT chest showed extensive peribronchovascular solid and groundglass infiltrates predominantly in the right middle lobe and right lower lobe though affecting all 5 lobes to varying degrees. CXR showed right mid to lower lung infiltrates concerning for pneumonia. Influenza PCR a and B: Negative Bio fire Negative COVID testing not recommended by Dr. Rojo- Pulmonary service Patient's caregiver although coming from [place] arrived to [place] in mid January and has not traveled since Patient's clinical picture including elevated procalcitonin and chest x-ray/ CT chest are consistent with a bacterial pneumonia; Covid Unlikely as per Dr. Rojo pulmonary service WBC increased to 14K today Blood cx no growth so far Continue oxygen supplement Continue IV Zosyn and doxycycline and Neb treatment Continue monitor closely Speech on board: Recommend to follow GERD precaution when eating or drinking. Speech advised to drink a warm beverage before or during meals, take sips of liquid for every 1 or 2 bites of food during meals, avoid food that are doughy, pasty or thick and add extra sauce/gravy/condiments to food to make them moist Continue Aspiration precaution ACUTE KIDNEY INJURY ON CKD STAGE IV Creatinine on admission 1.6 with Baseline creatinine 1.2 Possible related to dehydration Continue gentle IVF hydration monitor volume status in light of history of CHF diastolic type ABNORMAL URINALYSIS UA positive for Leukocytes and Bacteria Urine cx pending Continue IV zosyn for now HISTORY OF CORONARY DISEASE Denies any chest pain Troponin negative EKG showed nonspecific ST-T wave changes Continue asa and statin Stable PAROXYSMAL ATRIAL FIBRILLATION ON COUMADIN Rate control with sotalol and imdur Continue coumadin with INR 1.9 today HISTORY OF POLYMYALGIA RHEUMATICA Hemodynamically stable Continue prednisone 5 mg p.o. daily History of hypothyroidism Continue Levothyroxine GERD Follow up speech therapy recommendation Continue pantoprazole DVT prophylaxis On Coumadin with INR 1.9 today CODE STATUS Full code Disposition Will discharge home once medically stable Admission and Anticipated Discharge Date Admission Date: May 17, 2019 Subjective Pt was seen and examined Sitting in chair with no distress Pt said that she feels ok She said that she does not have any chills today She said that her breathing is fine and doesn't have any cough Denies any chest pain, palpitation, dizziness and SOB Physical Exam Physical Exam: General- No acute distress Head- atraumatic Eyes- PERRL, EOMI, ENT- oropharynx clear Neck- supple, no JVD Lungs- Diminished BS Heart- regular rhythm; no murmur Abdomen- normal bowel sounds, soft, nontender Extremities- no calf tenderness Neuro- alert, oriented x 3; PERRL, EOMI; no facial palsy; no dysarthria Skin- warm & dry Results & Data Results & Data ([facility]) Vital Signs (Past 12 Hours) Vital Signs Temp Pulse Pulse Resp BP Pulse Ox 05/18/19 12:00 37.1 C 64 17 108/68 97 05/18/19 08:28 36.8 C 73 162/72 H 95 05/18/19 08:00 36.8 C 61 73 20 162/72 H 95 05/18/19 03:40 36.8 C 65 20 122/74 95
[2019-05-18] MEDS: WARFARIN SOD 5 MG TAB PO SCH (17:21)
[2019-05-18] MEDS: ATORVASTATIN 40 MG TAB PO SCH (21:44)
[2019-05-18] MEDS: FAMOTIDINE 20 MG TAB PO SCH (21:45)
[2019-05-18] MEDS: MIRTAZAPINE TAB 15 MG TAB PO SCH (21:47)
[2019-05-18] MEDS: DONEPEZIL HCL 5 MG TAB PO SCH (21:47)
[2019-05-19] MEDS: LEVALBUTEROL 1.25MG/0.5ML NEB INH SCH ×3 (00:49→13:22)
[2019-05-19] MEDS: IPRATROPIUM BROMIDE NEB SOLN 0.02% 2.5 ML VIAL INH SCH ×3 (00:49→13:22)
[2019-05-19] MEDS: DOXYCYCLINE HYCLATE 100 MG in DEXTROSE 5% 100 ML IV SCH (05:06)
[2019-05-19 07:17] LABS: Basophils # (auto) 0.02 K/uL (0-0.2); Basophils % (auto) 0.2 %; Eosinophils # (auto) 0.32 K/uL (0-0.5); Eosinophils % (auto) 2.8 %; Hematocrit (blood only) 29.4 % (37-47); Hemoglobin 8.9 g/dL (12.0-16.0); Immature Granulocytes # (auto) 0.03 K/uL (0.00-0.02); Immature Granulocytes % (auto) 0.3 %; Lymphocytes # (auto) 1.06 K/uL (1.2-3.4); Lymphocytes % (auto) 9.3 %; Mean Corpuscular Hemoglobin 29.8 pg (25-34); Mean Corpuscular Hgb Conc 30.3 g/dL (32-36); Mean Corpuscular Volume 98.3 fL (80-100); Mean Platelet Volume 10.3 fL (7.4-10.4); Monocytes % (auto) 6.1 %; Neutrophils # (auto) 9.31 K/uL (1.4-6.5); Neutrophils % (auto) 81.3 %; Platelet Count 193 K/uL (130-400); RDW Coefficient of Variation 16.2 % (11.5-14.5); RDW Standard Deviation 58.3 fL (36.4-46.3); Red Blood Count 2.99 M/uL (4.2-5.4); White Blood Count 11.44 K/uL (4.8-10.8)
[2019-05-19 07:23] LABS: INR 1.9 (0.9-1.1); Prothrombin Time 19.1 Seconds (9.0-12.0)
[2019-05-19 07:41] LABS: BUN Creatinine Ratio 17.1 (10-20); Calcium 8.4 mg/dl (8.5-10.1); Creatinine Clr Calc Pharmacy 22.1 ml/min; Est GFR (African American) 41.3; Est GFR (Non-African American) 35.6; Potassium 3.6 mmol/L (3.5-5.1)
[2019-05-19] MEDS: SODIUM CHLORIDE 0.9% 1000ML 1,000 ML IV SCH ×2 (07:58→12:32)
[2019-05-19] MEDS: ISOSORBIDE MONO EXTENDED REL 30 MG TABCR PO SCH (07:59)
[2019-05-19] MEDS: GABAPENTIN 100 MG CAP PO SCH (07:59)
[2019-05-19] MEDS: predniSONE 5 MG TAB PO SCH (07:59)
[2019-05-19] MEDS: SOTALOL HCL 80 MG TAB PO SCH (07:59)
[2019-05-19] MEDS: PIPERACILLIN/TAZOBACTAM 3.375 GM in DEXTROSE 5% 100 ML IV SCH (07:59)
[2019-05-19] MEDS: FERROUS SULFATE 325 MG TAB PO SCH (07:59)
[2019-05-19] MEDS: ASPIRIN 81 MG ECTAB PO SCH (07:59)
[2019-05-19] MEDS ORDERED: CEFDINIR 300 MG CAP PO SCH (15:10)
--- NOTE | 2019-05-19 15:21 | Hospitalist Progress Note ---
Date of Service May 19, 2019 Assessment & Plan (1) Pneumonia: Present on admission with chills and hypoxia Meet Sepsis criteria on admission with fever (Temp 39.6 ) Leukocytosis with WBC 11.8, elevated procalcitonin and lactate normal CT chest showed extensive peribronchovascular solid and groundglass infiltrates predominantly in the right middle lobe and right lower lobe though affecting all 5 lobes to varying degrees. CXR showed right mid to lower lung infiltrates concerning for pneumonia. Influenza PCR a and B: Negative Bio fire Negative COVID testing not recommended by Dr. Rojo- Pulmonary service Patient's caregiver although coming from [place] arrived to [place] in mid January and has not traveled since Patient's clinical picture including elevated procalcitonin and chest x-ray/ CT chest are consistent with a bacterial pneumonia; Covid Unlikely as per Dr. Rojo pulmonary service WBC dropped to 11k today Blood cx no growth so far On IV Zosyn and doxycycline and Neb treatment Continue monitor closely Pt would like to go home today Saturated well on RA Will transition abx to PO cefdinir 300mg daily and Doxycycline 100mg BID Follow up with your primary care provider Speech on board: Recommend to follow GERD precaution when eating or drinking. Speech advised to drink a warm beverage before or during meals, take sips of liquid for every 1 or 2 bites of food during meals, avoid food that are doughy, pasty or thick and add extra sauce/gravy/condiments to food to make them moist Continue Aspiration precaution ACUTE KIDNEY INJURY ON CKD STAGE IV Creatinine on admission 1.6 with Baseline creatinine 1.2 Possible related to dehydration received gentle IV hydration Creatinine improved to 1.3 today monitor volume status in light of history of CHF diastolic type ABNORMAL URINALYSIS UA positive for Leukocytes and Bacteria Urine cx grew more than 3 organisms (contamination) Denies any urinary symptoms HISTORY OF CORONARY DISEASE Denies any chest pain Troponin negative EKG showed nonspecific ST-T wave changes Continue asa and statin Stable PAROXYSMAL ATRIAL FIBRILLATION ON COUMADIN Rate control with sotalol and imdur Continue coumadin with INR 1.9 today Follow up with the coag clinic HISTORY OF POLYMYALGIA RHEUMATICA Hemodynamically stable Continue prednisone 5 mg p.o. daily History of hypothyroidism Continue Levothyroxine GERD Follow up speech therapy recommendation Continue pantoprazole DVT prophylaxis On Coumadin with INR 1.9 today CODE STATUS Full code Disposition Discharge home today Follow up with the coumadin clinic Follow up with your primary care provider in 1 week Check BMP in 1 week to monitor renal function Admission and Anticipated Discharge Date Admission Date: May 17, 2019 Subjective Pt was seen and examined Lying in bed with no distress Pt said that she feels fine She does not want to stay in the hospital any longer She said that her breathing is fine She walked in the hallway with therapy Denies any chest pain, palpitation, dizziness and SOB Physical Exam Physical Exam: General- No acute distress Head- atraumatic Eyes- PERRL, EOMI, ENT- oropharynx clear Neck- supple, no JVD Lungs- No wheezing and crackles Heart- regular rhythm; no murmur Abdomen- normal bowel sounds, soft, nontender Extremities- no calf tenderness Neuro- alert, oriented x 3; PERRL, EOMI; no facial palsy; no dysarthria Skin- warm & dry Results & Data Results & Data ([facility]) Vital Signs (Past 12 Hours) Vital Signs Temp Pulse Resp BP Pulse Ox 05/19/19 11:30 37.1 C 77 17 123/58 L 93 05/19/19 07:04 37 C 80 16 163/71 H 92 05/19/19 04:56 37.3 C 64 16 151/63 H 98
[2019-05-19] MEDS ORDERED: WARFARIN SOD 2.5 MG TAB PO SCH (16:00)
[2019-05-19] MEDS ORDERED: DOXYCYCLINE HYCLATE 100 MG CAP PO SCH (21:00)
--- NOTE | 2019-05-21 16:16 | Discharge Summary ---
Date of Service May 19, 2019 Admission HPI Per Admitting Provider 88-year-old female with history of coronary disease, paroxysmal atrial fibrillation on Coumadin, CHF diastolic type, Hypertension, PMR on prednisone, CKD stage IV, other problems noted below presenting with chills and hypoxia which started this morning. Patient was recently admitted and discharged from [facility] last April 23, 2019 after being treated for sepsis secondary to multifocal pneumonia. Patient reports of she has felt improved since a discharge date. The patient was feeling fine until this morning when she started to have chills, and found to have a pulse oximetry reading of 70%. She was then brought to the ER for evaluation. Additional information was gathered from patient's daughter and son-in-law over the phone. They have not seen any overt aspiration symptoms but reports that patient has intermittent atypical chest pain after her meals which could represent esophageal spasm-lasting for several hours. She also has her stepdaughter as her 24-hour caregiver. She is from [facility] but arrived in [place] February 01 and has not been to [place] or traveled since that time. She has a daughter who works in the hospital also visits her occasionally. On exam, the patient was seen sitting up in her bed, awake, alert, comfortable, oriented x3, not in distress. She confirms that she had chills this morning but denies having any unusual cough different from her baseline, denies shortness of breath, headaches, nausea, abdominal pain, diarrhea, problems with urination. She denies having any other symptoms. Admission Exam Per Admitting Provider General- oriented x 3, not in distress, speaks in sentences with no effort or accessory muscle use Head- atraumatic Eyes- PERRL, EOMI, anicteric ENT- oropharynx clear Neck- supple, no JVD, no adenopathy, no thyromegaly; carotids +2/2, no bruits appreciated Lungs-crackles and decreased breath sounds in the right mid to base, no w heezing, clear breath sounds on the left Heart- normal rate, regular rhythm; no murmur, no gallop, no rub appreciated Abdomen- normal bowel sounds, nondistended, soft, nontender, no masses or hepato splenomegaly Extremities- no pretibial edema, no calf tenderness; peripheral pulses intact Neuro- alert, oriented x 3; CN 2-12 grossly intact; motor 5/5 bilaterally;sensation 100% on all extremities; no other gross focal neurologic deficits Skin- warm & dry Principal Diagnosis Pneumonia ACUTE KIDNEY INJURY ON CKD STAGE IV HISTORY OF CORONARY DISEASE PAROXYSMAL ATRIAL FIBRILLATION ON COUMADIN HISTORY OF POLYMYALGIA RHEUMATICA Hypothyroidism GERD Discharge Exam General- No acute distress Head- atraumatic Eyes- PERRL, EOMI, ENT- oropharynx clear Neck- supple, no JVD Lungs- No wheezing and crackles Heart- regular rhythm; no murmur Abdomen- normal bowel sounds, soft, nontender Extremities- no calf tenderness Neuro- alert, oriented x 3; PERRL, EOMI; no facial palsy; no dysarthria Skin- warm & dry Discharge Data Allergies Allergy/AdvReac Type Severity Reaction Status Date / Time amoxicillin Allergy Unknown NOT SURE Verified 05/17/19 12:07 lisinopril Allergy Unknown swelling Verified 05/17/19 12:07 face/lips/tongue sulfamethoxazole Allergy Unknown Unknown Verified 05/17/19 12:07 [From Bactrim] trimethoprim [From Bactrim] Allergy Unknown Unknown Verified 05/17/19 12:07 Consultations 05/17/19 13:22 ED Decision to Admit Stat Ordered Studies 05/17/19 15:07 CT chest wo con Urgent XR chest 1V portable CLINICAL HISTORY: 88 years-old Female presenting with SEPSIS. TECHNIQUE: Portable upright AP view of the chest was obtained. COMPARISON: 04/19/2019. FINDINGS: Atherosclerosis of the aortic arch. Cardiac silhouette borderline enlarged. Hyperinflated lungs as on prior exam interval development of patchy opacity in the right mid to lower lung. No large effusion or pneumothorax. Osteopenia suspected. Upper abdomen normal. IMPRESSION: 1. Right mid to lower lung infiltrates concerning for pneumonia. 2. Hyperinflation may indicate exuberate inspiratory effort, underlying emphysema, or other obstructive lung disease. ACT 112: Negative or not required by law. Electronically signed by: Asher Ma M.D. 05/17/2019 12:23 PM Dictated: 05/17/19 1221 Transcribed: 05/17/[address] chest wo con CLINICAL HISTORY: 88 years-old Female presenting with right sided pneumonia, r/o effusion, empyema. TECHNIQUE: Multidetector CT imaging of the chest was performed without the use of intravenous contrast. IV contrast: None. One or more dose lowering techniques were used consistent with the principles of ALARA (as low as reasonably achievable), including automatic exposure control, mA or kV adjustment to individual patient size, and/or use of iterative reconstruction. COMPARISON: 11/22/2015 and chest x-ray from earlier today. CT DOSE (mGy.cm): The estimated cumulative dose is 353.98 mGy.cm. FINDINGS: Unit Aide topogram: Unremarkable. Soft tissues: Thyroid not well visualized, possibly atrophic or absent. Multiple prominent mediastinal lymph nodes primarily in the right paratracheal, precarinal, subcarinal regions measuring up to 14 mm in short axis. Mild atherosclerosis of the aortic arch. Top normal heart size. Coronary artery calci fication. Trace right pleural effusion may be present. Fluid-filled and distended esophagus as on prior exam. Lungs and airways: No pneumothorax. Central airways patent. Pulmonary arteries are not significantly enlarged relative to adjacent bronchi. Interlobular septal thickening most prominently at the right lung base and to a lesser extent at the apices. Peribronchial vascular predominant solid and groundglass infiltrates in the right middle and right lower lobes. There are also patchy groundglass peripheral and central opacities in the right upper lobe. Minimal patchy groundglass opacities scattered throughout the left upper and lower lobes. Musculoskeletal: Degenerative changes of the spine. Mildly exaggerated thoracic kyphosis without a focal compression deformity. IMPRESSION: 1. Extensive peribronchovascular solid and groundglass infiltrates predominantly in the right middle lobe and right lower lobe though affecting all 5 lobes to varying degrees. This is most concerning for multifocal pneumonia. Aspiration would not be expected to be as a symmetric. 2. Some degree of venolymphatic congestive change is noted in the right lung. Edema would be unexpected with this pattern of infiltrates. 3. Trace right pleural effusion. No evidence for empyema. 4. Persistent fluid-filled and distended esophagus. 5. Mediastinal lymphadenopathy, most likely reactive. Attention on follow-up. ACT 112: Negative or not required by law. Electronically signed by: Asher aM M.D. 05/17/2019 4:01 PM Dictated: 05/17/19 1554 Transcribed: 05/17/19 155 Hospital Course (1) Pneumonia: Present on admission with chills and hypoxia Meet Sepsis criteria on admission with fever (Temp 39.6 ) Leukocytosis with WBC 11.8, elevated procalcitonin and lactate normal CT chest showed extensive peribronchovascular solid and groundglass infiltrates predominantly in the right middle lobe and right lower lobe though affecting all 5 lobes to varying degrees. CXR showed right mid to lower lung infiltrates concerning for pneumonia. Influenza PCR a and B: Negative Bio fire Negative COVID testing not recommended by Dr. Rojo- Pulmonary service Patient's caregiver although coming from [place] arrived to [place] in mid January and has not traveled since Patient's clinical picture including elevated procalcitonin and chest x-ray/ CT chest are consistent with a bacterial pneumonia; Covid Unlikely as per Dr. Rojo pulmonary service WBC dropped to 11k today Blood cx no growth so far On IV Zosyn and doxycycline and Neb treatment Continue monitor closely Pt would like to go home today Saturated well on RA Will transition abx to PO cefdinir 300mg daily and Doxycycline 100mg BID Follow up with your primary care provider Speech on board: Recommend to follow GERD precaution when eating or drinking. Speech advised to drink a warm beverage before or during meals, take sips of liquid for every 1 or 2 bites of food during meals, avoid food that are doughy, pasty or thick and add extra sauce/gravy/condiments to food to make them moist Continue Aspiration precaution ACUTE KIDNEY INJURY ON CKD STAGE IV Creatinine on admission 1.6 with Baseline creatinine 1.2 Possible related to dehydration received gentle IV hydration Creatinine improved to 1.3 today monitor volume status in light of history of CHF diastolic type ABNORMAL URINALYSIS UA positive for Leukocytes and Bacteria Urine cx grew more than 3 organisms (contamination) Denies any urinary symptoms HISTORY OF CORONARY DISEASE Denies any chest pain Troponin negative EKG showed nonspecific ST-T wave changes Continue asa and statin Stable PAROXYSMAL ATRIAL FIBRILLATION ON COUMADIN Rate control with sotalol and imdur Continue coumadin with INR 1.9 today Follow up with the coag clinic HISTORY OF POLYMYALGIA RHEUMATICA Hemodynamically stable Continue prednisone 5 mg p.o. daily History of hypothyroidism Continue Levothyroxine GERD Follow up speech therapy recommendation Continue pantoprazole DVT prophylaxis On Coumadin with INR 1.9 today CODE STATUS Full code Disposition Discharge home today Follow up with the coumadin clinic Follow up with your primary care provider in 1 week Check BMP in 1 week to monitor renal function Total Time Total Time Spent Total Time Spent (In Minutes): 35 minutes Total Time Includes: Examination of the Patient, Discharge Planning, Medication Reconciliation, Communication With Other Providers and Other Discharge Plan Discharge Items Patient Disposition: Home - Self-Care Reason For Visit: PNEUMONIA,HYPOXIA,SEPSIS Discharge Diagnosis: Pneumonia ACUTE KIDNEY INJURY ON CKD STAGE IV HISTORY OF CORONARY DISEASE PAROXYSMAL ATRIAL FIBRILLATION ON COUMADIN HISTORY OF POLYMYALGIA RHEUMATICA Hypothyroidism GERD Activity: Resume your previous activity Non-emergency contact: Primary Care Provider Call non-emergency contact if: you have any medication questions and your rectal temperature is above 100.4 Follow-up/Referrals: Negra Weber MD [Primary Care Provider] - Diet: Heart Healthy Addtl Attending Provider Instructions: Follow up with your primary care provider Dr. Weber (office will call you for the appointment) Follow up with the coumadin clinic to monitor your INR Check BMP in 1-2 weeks to monitor your kidney function Complete the course of the antibiotic with doxycycline and cefdinir Fall precaution Speech therapy recommended to follow GERD precaution when eating or drinking: By drinking a warm beverage before or during meals, taking sips of liquid for every 1 or 2 bites of food during meals By avoiding food that are doughy, pasty or thick and adding extra sauce/gravy/condiments to food to make them moist Aspiration precaution Pending Studies at Discharge: No Stand-Alone Forms: My [facility] light, Smoking Cessation Medications and DC Order Prescriptions: New doxycycline hyclate 100 mg Capsule 100 mg PO Q12 7 Days Qty: 14 RF: 0 cefdinir 300 mg Capsule 300 mg PO DAILY Qty: 7 RF: 0 Probiotic Acidophilus 1.5 mg (250 million cell) capsule 100 mmu cells PO BID 7 Days Qty: 14 RF: 0 Continued atorvastatin 40 mg tablet 40 mg PO HS RF: 0 sotalol 80 mg tablet 40 mg PO QAM RF: 0 isosorbide mononitrate 30 mg tablet extended release 24 hr 30 mg PO QAM RF: 0 prednisone 5 mg tablet 5 mg PO QAM RF: 0 warfarin 5 mg tablet 5 mg PO DAILY@2100 RF: 0 nitroglycerin 0.4 mg tablet, sublingual 0.4 mg sublingual UD MDD may repeat once PRN (Reason: chest pain,esophageal spasm) RF: 0 pantoprazole 40 mg Tablet,Delayed Release (Dr/Ec) 40 mg PO QDL PRN (Reason: Heartburn) RF: 0 ferrous sulfate [iron] 325 mg (65 mg iron) tablet 325 mg PO BID Qty: 60 RF: 0 levothyroxine 50 mcg tablet 50 mcg PO DAILY RF: 0 sennosides [senna] 8.6 mg Tablet 8.6 mg PO DAILY PRN (Reason: Constipation) RF: 0 aspirin [Aspirin Low Dose] 81 mg Tablet,Delayed Release (Dr/Ec) 81 mg PO QDB RF: 0 donepezil [Aricept] 5 mg Tablet 5 mg PO HS RF: 0 famotidine 40 mg tablet 20 mg PO HS RF: 0 acetaminophen [Tylenol Extra Strength] 500 mg Tablet 500 mg PO Q6H PRN (Reason: Pain) RF: 0 albuterol sulfate 90 mcg/actuation HFA aerosol inhaler 2 puff INHALATION QID RF: 0 oxycodone 5 mg tablet 5 mg PO TID PRN (Reason: Pain) RF: 0 mirtazapine 30 mg tablet 30 mg PO HS RF: 0 gabapentin 100 mg capsule 100 mg PO BID RF: 0 Discharge Orders: Discharge Order (Routine); Ordered 05/19/19 Ordered By: Gavino Vaca Admission Data Admit Date/Time: 05/17/19 14:52 Attending Provider: Gavino Vaca Admit Provider: Chico Wiggins Primary Care Provider: Negra Weber Other Interventions: Discharge Summary Assessment (RN) Last Done: 05/19/19 17:02 DC Date/Time DO NOT enter until pt leaves facility: 05/19/19 17:35
== END 2019-05-19 17:35 | disposition home or self-care (01) | DRG 871 ==
LOC: ED 11:06 → 2S 14:28 → SUATTDRO 14:52 → 2S 14:52

== ENCOUNTER 2019-09-06 19:44 | Inpatient (IN) ==
[2019-09-06] MEDS ORDERED: SODIUM CHLORIDE 0.9% 1000ML 500 ML IV ONE (20:02)
[2019-09-06] MEDS ORDERED: CEFEPIME 2,000 MG/20 ML VIAL IV STA (20:02)
--- NOTE | 2019-09-06 20:21 | Emergency Department Note ---
Impression & Plan Hypoxia, Fever, Acute confusion, LLL pneumonia ED Provider Note Provider: You Lindquist MD DATE OF SERVICE: 09/06/2019 CHIEF COMPLAINT: Altered mental status, fever HISTORY OF PRESENT ILLNESS: Patient is a 89-year-old female with a history of CAD, paroxysmal atrial use on Coumadin, CHF diastolic dysfunction, hypertension, PMR present, CKD, hypertension, hypothyroidism, GERD, and dementia presenting today via ambulance from home. MS reports that over the past day (initially reported 2-3 days) the patient has had decline and now more altered. High fever initailly responded tylenol but has had 3g tylenol today last at around 2:30pm this afternoon. Patient reportedly has a history of UTI but this was supposedly tested at home and unremarkable. Brought here for further evaluation. EMS states they gave 750 mL's of normal saline prior to arrival and place patient on oxygen she was hypoxic approximately 84% on room air. They state that with oxygen the patient's mental status has improved. Patient herself provides limited additional history. Patient states that she is feels tired. Denies any pain at this time. Patient unsure when she ate. She is unsure who the president is and states that it is July instead of August the correct month. EMS also reports that the patient has had several family members travel recently but they have been asymptomatic. No trauma history is reported. Patient states that she has taken some Tylenol but is unable to give clear timing on when this was. Patient does endorse some thirst. REVIEW OF SYSTEMS: A total of 10 review of systems was obtained and negative except as stated above in the HPI. PAST MEDICAL HISTORY: As noted above MEDICATIONS: Reviewed home medication list which significantly includes Coumadin SOCIAL HISTORY: Lives at home, non-smoker from the medical record PHYSICAL EXAM: GENERAL: alert laying in the stretcher with eyes closed easily arousable to voice. Patient calm. Head: normocephalic and atraumatic EYES: No injection, discharge or icterus. PERRL NECK: Trachea midline. Supple. No meningismus. ENT: Mucous membranes pink and fairly moist. LUNGS: Airway patent. No retractions. Breath sounds clear anteriorly just diminished bases. HEART: Regular rate and rhythm. No chest wall tenderness ABDOMEN: Soft and non-tender, without guarding or rebound. SKIN: Acyanotic, warm, dry, without rashes EXTREMITIES: Without significant swelling or deformity. NEUROLOGICAL: Moves all extremities. No aphasia. No great apparent facial droop. Patient states that it is July was actually August and does not know who the president is. Patient quickly states her birthday. Patient has some limited recollection of current events. EK bpm a sinus rhythm with PVC noted. Incomplete right bundle branch is no patrick with inferior and anterior lateral T wave inversions and anterior lateral ST depression. No acute ST segment elevation is noted. In comparison to May [address] depressions and T wave inversions are now present CONTINUOUS CARDIAC MONITORING: was ordered and showed a heart rate of 70 bpm in sinus rhythm with occasional pvc Patient's hypertension was referred to the [facility] COURSE: 1947 Patient was first seen and H&P performed. 2054 Discussed with the patient's daughter and son-in-law via phone recent history. 2144 [facility] contacted. 2151 Updated family via phone Patient's laboratory studies and imaging reviewed. Differential includes Infection, dehydration, metabolic abnormality, hypo/hyperglycemia, electrolyte disturbance, anemia, hypoxia, cardiac sources, intracerebral event, toxicologic, neurologic, as well as other pathologies. IMPRESSION/MEDICAL DECISION MAKING: Patient presents reportedly with altered mentation with elevated temperature and hypoxia. Concern for possible infection or sepsis. Cultures and lactate were obtained as well as given broad-spectrum cefepime for broad coverage. Patient is a history of pneumonia which is a concern given the hypoxia. Anticoagulated Coumadin lower suspicion for acute PE. EKG done some anterior lateral and inferior T wave inversions and scattered depressions appear new and/or more significant than prior EKG. Again patient not acutely complaining of chest discomfort. Concern for possible some demand ischemia. Received 750 mL's of normal saline for EMS and given another initial 500 mL's fluid bolus here. Patient does have history of diastolic dysfunction and want to be cautious with hydration. UA will be obtained from cath sample as well as a CT the head and the chest to look for any acute intra cranial process or any possible pneumonia. Benign abdomen otherwise. Neck without significant tenderness and I will lower suspicion this represents acute meningitis. COVID testing ordered, moderate suspicion initially. Family reports she had negative testing and April. After discussion with family seems were acutely sick over last day. CT head without acute findings. CT chest is concerning for possibly developing left lower lobe pneumonia. White count is elevated. Febrile. Hypoxic. Received 3 g of Tylenol already today and thus did give an additional 650 here and did receive cefepime already for broad antimicrobial coverage. Additional NS ordered . Troponin slightly detectable similar to previous without significant elevation. No evidence of lipase elevation and just slight AST elevation normal ALT. Bilirubin normal. Pro calcitonin of 22 is noted. Patient's blood pressure is a bit questionable and is chronically on prednisone, will give one dose of hydrocortisone. INR elevated at 3.7. No acidosis on vbg. Hypoxia improved with O2. Updated family this finding. Patient become to antibiotics. Give small dose of hydrocortisone and discussed with the hospitalist for further admission and care as an inpatient. DIAGNOSIS: confusion,fever, hypoxia, LLL pneumonia DISPOSITION: Hospitalist will evaluate for admission Preliminary Findings Only See Final Report For Complete Findings CT HEAD: Comparison: 09/14/2018 No acute intracranial finding. Mild ethmoid mucosal thickening Status post bilateral cataract surgery. Radiologist: Paris Wilcox MD Study ready at 21:05 and initial results transmitted at 21:27 Preliminary Findings Only See Final Report For Complete Findings CT CHEST Without Contrast: Scattered upper mediastinal perivascular, peritracheal lymph nodes. Left lower lung atelectasis. Early developing infiltrate not excluded. Mild nodularity in the periphery of the left lingula is seen. Radiologist: Paris Wilcox MD Study ready at 21:08 and initial results transmitted at 21:30 Critical Care I have personally spent 32 minutes of critical care time in the direct management of this patient. This includes bedside care, interpretation of diagnostic studies, and testing, discussion with consultants, patient, and family members, and other required patient management activities. These 32 minutes is in excess of all separately billable procedures. 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 Degenerative joint disease of right hip Diastolic heart failure Dyslipidemia Esophageal dysmotility occasional, chronic dysphagia Gastroesophageal reflux controlled with with meds HTN (hypertension) Labile per cardiology Hx of myocardial infarction 2017 Hypertension Hypothyroidism Osteoarthritis Paroxysmal atrial fibrillation PMR (polymyalgia rheumatica) on chronic prednisone (current dose 5mg daily*) Raynauds disease Surgical History (Updated 08/10/19 @ 15:50 by Mira Lopez) History of cardiac cath s/p BMS x1 to LAD (2016) History of cataract surgery bilateral History of D&C History of lumbar fusion L3-L5 decompression/fusion: 10/16/18: Grade view 1, MAC#3, ETT 7.0 at [facility] Hx of colonoscopy Hx of tonsillectomy Social History Preferred Language: Arabic Communication Ability: Effective Appeals Writer Required: No Beliefs That Will Affect Care: None Current Living Situation: Family Current Living Situation Comment: ALWAYS HAS SOMEONE WITH HER Feels Safe at Home: Yes Smoking Status: Never smoker Second Hand Exposure: No ; Hx Alcohol Use: Yes Alcohol type: wine Alcohol Intake Frequency: Rarely Hx Substance Use: No Allergies Allergies Allergy/AdvReac Type Severity Reaction Status Date / Time amoxicillin Allergy Unknown NOT SURE Verified 09/06/19 21:22 lisinopril Allergy Unknown swelling Verified 09/06/19 21:22 face/lips/tongue sulfamethoxazole Allergy Unknown Unknown Verified 09/06/19 21:22 [From Bactrim] trimethoprim [From Bactrim] Allergy Unknown Unknown Verified 09/06/19 21:22 Home Meds Home Medications Medication Instructions Recorded Confirmed atorvastatin 40 mg PO HS 06/28/18 09/06/19 isosorbide mononitrate 30 mg PO QAM 06/28/18 09/06/19 nitroglycerin 0.4 mg SUBLINGUAL UD PRN MDD 06/28/18 09/06/19 repeat once prednisone 5 mg PO QAM 06/28/18 09/06/19 sotalol 40 mg PO QAM 06/28/18 09/06/19 warfarin 5 mg PO SUTUWETHSA 06/28/18 09/06/19 sennosides [senna] 8.6 mg PO DAILY PRN 09/14/18 09/06/19 pantoprazole 40 mg PO QDL PRN 10/08/18 09/06/19 donepezil [Aricept] 5 mg PO HS 03/24/19 09/06/19 acetaminophen [Tylenol Extra 500 mg PO Q6H PRN 04/17/19 09/06/19 Strength] albuterol sulfate 2 puff INHALATION QID PRN 04/17/19 09/06/19 famotidine 20 mg PO HS 04/17/19 09/06/19 gabapentin 100 mg PO BID 04/17/19 09/06/19 mirtazapine 30 mg PO DAILY 04/17/19 09/06/19 oxycodone 5 mg PO BID 04/17/19 09/06/19 levothyroxine 50 mcg PO [id number] 05/17/19 09/06/19 conjugated estrogens [Premarin] 1 applic VAGINAL UD 09/06/19 09/06/19 furosemide [Lasix] 20 mg PO DAILY 09/06/19 09/06/19 levothyroxine 100 mcg PO .QSUN 09/06/19 09/06/19 nitrofurantoin monohyd/m-cryst 100 mg PO DAILY 09/06/19 09/06/19 [Macrobid] oxycodone [Roxicodone] 5 mg PO DAILY PRN 09/06/19 09/06/19 sennosides [senna] 8.6 mg PO BID 09/06/19 09/06/19 warfarin 2.5 mg PO MOFR 09/06/19 09/06/19 Previous Rx's Medication Instructions Recorded ferrous sulfate [iron] 325 mg PO BID #60 tab 11/02/18 Results & Data (ED) Vital Signs Vital Signs - 24 hr 09/06/19 19:39 09/06/19 19:58 09/06/19 20:00 Temperature 39.4 C H Temperature Source Oral Pulse Rate 80 Pulse Rate [Apical] 78 Pulse Rate from SpO2 Sensor 80 Pulse Rhythm [Apical] Regular Pulse Strength [Apical] Normal Respiratory Rate 20 Respiratory Effort / Characteristics Non-Labored Spontaneous Respiratory Depth Normal Blood Pressure 125/54 L Blood Pressure [Right Arm] 125/54 L Blood Pressure Mean 69 Blood Pressure Mean [Right Arm] 77 Blood Pressure Position [Right Arm] Lying Pulse Oximetry 97 96 95 Oxygen Delivery Method Nasal Cannula Nasal Cannula Nasal Cannula Oxygen Flow Rate 3 3 3 Sepsis Recent Fever Within 48 Hours Yes Sepsis New/Unexplained Change in Mental Status Yes Sepsis Action Taken by Nursing Physician Notified 09/06/19 20:38 09/06/19 21:22 09/06/19 21:39 Temperature Temperature Source Pulse Rate 74 71 67 Pulse Rate [Apical] Pulse Rate from SpO2 Sensor 73 Pulse Rhythm [Apical] Pulse Strength [Apical] Respiratory Rate 21 20 Respiratory Effort / Characteristics Respiratory Depth Blood Pressure 100/44 L 102/53 L 106/46 L Blood Pressure [Right Arm] Blood Pressure Mean 66 69 66 Blood Pressure Mean [Right Arm] Blood Pressure Position [Right Arm] Pulse Oximetry 96 94 95 Oxygen Delivery Method Nasal Cannula Nasal Cannula Nasal Cannula Oxygen Flow Rate 3 3 3 Sepsis Recent Fever Within 48 Hours Sepsis New/Unexplained Change in Mental Status Sepsis Action Taken by Nursing Laboratory Data Result diagrams: 09/06/19 20:35 09/06/19 20:35 Lab Results 09/06/19 09/06/19 09/06/19 Range/Units 20:08 20:25 20:25 WBC (4.8-10.8) K/uL RBC (4.2-5.4) M/uL Hgb (12.0-16.0) g/dL Hct (37-47) % MCV (80-100) fL MCH (25-34) pg MCHC (32-36) g/dL RDW Std Deviation (36.4-46.3) fL RDW Coeff of Riley (11.5-14.5) % Plt Count (130-400) K/uL MPV (7.4-10.4) fL Immature Gran % (Auto) % Neut % (Auto) % Lymph % (Auto) % Stafford % (Auto) % Eos % (Auto) % Baso % (Auto) % Neut # (Auto) (1.4-6.5) K/uL Lymph # (Auto) (1.2-3.4) K/uL Stafford # (Auto) (0.11-0.59) K/uL Eos # (Auto) (0-0.5) K/uL Baso # (Auto) (0-0.2) K/uL Immature Gran # (Auto) (0.00-0.02) K/uL PT (9.0-12.0) Seconds INR (0.9-1.1) APTT (21.0-31.0) Seconds PTT Ratio VBG pH 7.45 H (7.36-7.41) VBG pCO2 40 (38-50) mmHg VBG pO2 64 mmHg VBG HCO3 27 mmol/L VBG O2 Saturation 91.5 % VBG Base Excess 2.7 mEq/L Barometric Pressure 732.0 mm/Hg Sodium (136-145) mmol/L Potassium (3.5-5.1) mmol/L Chloride (98-107) mmol/L Carbon Dioxide (21-32) mmol/L Anion Gap (3-11) BUN (7-18) mg/dl Creatinine (0.6-1.2) mg/dl Est Cr Clr Drug Dosing ml/min Est GFR ( Amer) Est GFR (Non-Af Amer) BUN/Creatinine Ratio (10-20) Glucose (70-99) mg/dl POC Glucose 103 H (70-99) mg/dl Lactate (0.4-2.0) mmol/L Calcium (8.5-10.1) mg/dl Magnesium (1.8-2.4) mg/dl Total Bilirubin (0.2-1) mg/dl AST (15-37) U/L ALT (12-78) U/L Alkaline Phosphatase (45-117) U/L Troponin I (0-0.045) ng/ml Total Protein (6.4-8.2) gm/dl Albumin (3.4-5.0) gm/dl Globulin (2.5-4.0) gm/dl Albumin/Globulin Ratio (0.9-2) Lipase (73-393) U/L Procalcitonin (0-0.5) ng/ml TSH (0.300-4.500) uIu/ml Urine Color Dark Yellow Urine Appearance Cloudy A (Clear) Urine pH 5.0 (4.5-7.5) Ur Specific [place] 1.023 (1.000-1.030) Urine Protein 1+ H (Negative) Urine Glucose (UA) Negative (Negative) Urine Ketones Trace H (Negative) Urine Blood Negative (Negative) Urine Nitrite Negative (Negative) Urine Bilirubin Negative (Negative) Urine Urobilinogen Negative (Negative) Ur Leukocyte Esterase Trace H (Negative) Urine WBC (Auto) 1-5 (0-5) /hpf Urine RBC (Auto) 0-4 (0-4) /hpf U Hyaline Cast (Auto) 5-10 H (0-5) /lpf U Epithel Cells (Auto) >30 H (0-5) /lpf Urine Bacteria (Auto) Negative (Negative) Amorphous Sediment Present A (None Prsent) Urine Yeast Not Reportable 09/06/19 09/06/19 09/06/19 Range/Units 20:35 20:35 20:35 WBC 15.27 H (4.8-10.8) K/uL RBC 3.59 L (4.2-5.4) M/uL Hgb 11.0 L (12.0-16.0) g/dL Hct 34.5 L (37-47) % MCV 96.1 (80-100) fL MCH 30.6 (25-34) pg MCHC 31.9 L (32-36) g/dL RDW Std Deviation 55.2 H (36.4-46.3) fL RDW Coeff of Riley 15.5 H (11.5-14.5) % Plt Count 234 (130-400) K/uL MPV 9.9 (7.4-10.4) fL Immature Gran % (Auto) 0.1 % Neut % (Auto) 94.6 % Lymph % (Auto) 1.0 % Stafford % (Auto) 2.8 % Eos % (Auto) 1.4 % Baso % (Auto) 0.1 % Neut # (Auto) 14.43 H (1.4-6.5) K/uL Lymph # (Auto) 0.16 L (1.2-3.4) K/uL Stafford # (Auto) 0.43 (0.11-0.59) K/uL Eos # (Auto) 0.22 (0-0.5) K/uL Baso # (Auto) 0.01 (0-0.2) K/uL Immature Gran # (Auto) 0.02 (0.00-0.02) K/uL PT 36.1 H (9.0-12.0) Seconds INR 3.7 H (0.9-1.1) APTT 41.8 H (21.0-31.0) Seconds PTT Ratio 1.5 VBG pH (7.36-7.41) VBG pCO2 (38-50) mmHg VBG pO2 mmHg VBG HCO3 mmol/L VBG O2 Saturation % VBG Base Excess mEq/L Barometric Pressure mm/Hg Sodium 140 (136-145) mmol/L Potassium 3.5 (3.5-5.1) mmol/L Chloride 108 H (98-107) mmol/L Carbon Dioxide 27 (21-32) mmol/L Anion Gap 5.0 (3-11) BUN 29 H (7-18) mg/dl Creatinine 1.62 H (0.6-1.2) mg/dl Est Cr Clr Drug Dosing 19.5 ml/min Est GFR ( Amer) 32.3 Est GFR (Non-Af Amer) 27.9 BUN/Creatinine Ratio 17.8 (10-20) Glucose 98 (70-99) mg/dl POC Glucose (70-99) mg/dl Lactate (0.4-2.0) mmol/L Calcium 7.8 L (8.5-10.1) mg/dl Magnesium 1.9 (1.8-2.4) mg/dl Total Bilirubin 0.9 (0.2-1) mg/dl AST 66 H (15-37) U/L ALT 52 (12-78) U/L Alkaline Phosphatase 74 (45-117) U/L Troponin I 0.016 (0-0.045) ng/ml Total Protein 5.8 L (6.4-8.2) gm/dl Albumin 2.5 L (3.4-5.0) gm/dl Globulin 3.3 (2.5-4.0) gm/dl Albumin/Globulin Ratio 0.8 L (0.9-2) Lipase 40 L (73-393) U/L Procalcitonin (0-0.5) ng/ml TSH 1.130 (0.300-4.500) uIu/ml Urine Color Urine Appearance (Clear) Urine pH (4.5-7.5) Ur Specific [place] (1.000-1.030) Urine Protein (Negative) Urine Glucose (UA) (Negative) Urine Ketones (Negative) Urine Blood (Negative) Urine Nitrite (Negative) Urine Bilirubin (Negative) Urine Urobilinogen (Negative) Ur Leukocyte Esterase (Negative) Urine WBC (Auto) (0-5) /hpf Urine RBC (Auto) (0-4) /hpf U Hyaline Cast (Auto) (0-5) /lpf U Epithel Cells (Auto) (0-5) /lpf Urine Bacteria (Auto) (Negative) Amorphous Sediment (None Prsent) Urine Yeast 09/06/19 09/06/19 Range/Units 20:35 20:35 WBC (4.8-10.8) K/uL RBC (4.2-5.4) M/uL Hgb (12.0-16.0) g/dL Hct (37-47) % MCV (80-100) fL MCH (25-34) pg MCHC (32-36) g/dL RDW Std Deviation (36.4-46.3) fL RDW Coeff of Riley (11.5-14.5) % Plt Count (130-400) K/uL MPV (7.4-10.4) fL Immature Gran % (Auto) % Neut % (Auto) % Lymph % (Auto) % Stafford % (Auto) % Eos % (Auto) % Baso % (Auto) % Neut # (Auto) (1.4-6.5) K/uL Lymph # (Auto) (1.2-3.4) K/uL Stafford # (Auto) (0.11-0.59) K/uL Eos # (Auto) (0-0.5) K/uL Baso # (Auto) (0-0.2) K/uL Immature Gran # (Auto) (0.00-0.02) K/uL PT (9.0-12.0) Seconds INR (0.9-1.1) APTT (21.0-31.0) Seconds PTT Ratio VBG pH (7.36-7.41) VBG pCO2 (38-50) mmHg VBG pO2 mmHg VBG HCO3 mmol/L VBG O2 Saturation % VBG Base Excess mEq/L Barometric Pressure mm/Hg Sodium (136-145) mmol/L Potassium (3.5-5.1) mmol/L Chloride (98-107) mmol/L Carbon Dioxide (21-32) mmol/L Anion Gap (3-11) BUN (7-18) mg/dl Creatinine (0.6-1.2) mg/dl Est Cr Clr Drug Dosing ml/min Est GFR ( Amer) Est GFR (Non-Af Amer) BUN/Creatinine Ratio (10-20) Glucose (70-99) mg/dl POC Glucose (70-99) mg/dl Lactate 1.1 (0.4-2.0) mmol/L Calcium (8.5-10.1) mg/dl Magnesium (1.8-2.4) mg/dl Total Bilirubin (0.2-1) mg/dl AST (15-37) U/L ALT (12-78) U/L Alkaline Phosphatase (45-117) U/L Troponin I (0-0.045) ng/ml Total Protein (6.4-8.2) gm/dl Albumin (3.4-5.0) gm/dl Globulin (2.5-4.0) gm/dl Albumin/Globulin Ratio (0.9-2) Lipase (73-393) U/L Procalcitonin 22.76 H (0-0.5) ng/ml TSH (0.300-4.500) uIu/ml Urine Color Urine Appearance (Clear) Urine pH (4.5-7.5) Ur Specific [place] (1.000-1.030) Urine Protein (Negative) Urine Glucose (UA) (Negative) Urine Ketones (Negative) Urine Blood (Negative) Urine Nitrite (Negative) Urine Bilirubin (Negative) Urine Urobilinogen (Negative) Ur Leukocyte Esterase (Negative) Urine WBC (Auto) (0-5) /hpf Urine RBC (Auto) (0-4) /hpf U Hyaline Cast (Auto) (0-5) /lpf U Epithel Cells (Auto) (0-5) /lpf Urine Bacteria (Auto) (Negative) Amorphous Sediment (None Prsent) Urine Yeast Administered Medications Discontinued Medications Acetaminophen (Tylenol) 650 mg PO NOW STA Stop: 09/06/19 21:07 Last Admin: 09/06/19 21:25 Dose: 650 mg Documented by: [id number] Sodium Chloride (Nss 1000ml) 500 mls @ 999 mls/hr IV .Q31M ONE Stop: 09/06/19 20:32 Last Infusion: 09/06/19 21:37 Dose: 0 mls/hr Documented by: [id number] Admin: 09/06/19 20:37 Dose: 999 mls/hr Documented by: [id number] Cefepime HCl (Maxipime) 2,000 mg in 20 mls @ 5 mls/min IV NOW STA; Protocol Stop: 09/06/19 20:05 Last Admin: 09/06/19 20:37 Dose: 5 mls/min Documented by: [id number] Sodium Chloride (Nss) 500 mls @ 999 mls/hr IV .Q31M ONE Stop: 09/06/19 21:40 Last Admin: 09/06/19 21:24 Dose: 999 mls/hr Documented by: [id number] Discharge Plan Visit Data Chief Complaint: Altered Mental Status Stated Complaint: Altered Mental Status ED Provider: You Lindquist Discharge Problem: Hypoxia, Fever, Acute confusion, LLL pneumonia Patient Disposition: Being Evaluated by Hospitalist Forms Stand Alone Forms: [facility] Prescriptions Prescriptions: No Action atorvastatin 40 mg tablet 40 mg PO HS RF: 0 sotalol 80 mg tablet 40 mg PO QAM RF: 0 isosorbide mononitrate 30 mg tablet extended release 24 hr 30 mg PO QAM RF: 0 prednisone 5 mg tablet 5 mg PO QAM RF: 0 warfarin 5 mg tablet 5 mg PO SUTUWETHSA RF: 0 nitroglycerin 0.4 mg tablet, sublingual 0.4 mg sublingual UD MDD may repeat once PRN (Reason: chest pain,esophageal spasm) RF: 0 pantoprazole 40 mg Tablet,Delayed Release (Dr/Ec) 40 mg PO QDL PRN (Reason: Heartburn) RF: 0 ferrous sulfate [iron] 325 mg (65 mg iron) tablet 325 mg PO BID Qty: 60 RF: 0 levothyroxine 50 mcg tablet 50 mcg PO [id number] RF: 0 sennosides [senna] 8.6 mg Tablet 8.6 mg PO BID RF: 0 levothyroxine 50 mcg tablet 100 mcg PO .QSUN RF: 0 warfarin 5 mg tablet 2.5 mg PO MOFR RF: 0 oxycodone [Roxicodone] 5 mg tablet 5 mg PO DAILY PRN (Reason: Pain) RF: 0 nitrofurantoin monohyd/m-cryst [Macrobid] 100 mg capsule 100 mg PO DAILY RF: 0 Premarin 0.625 mg/gram cream 1 applic vaginal UD RF: 0 furosemide [Lasix] 20 mg tablet 20 mg PO DAILY RF: 0 sennosides [senna] 8.6 mg Tablet 8.6 mg PO DAILY PRN (Reason: Constipation) RF: 0 donepezil [Aricept] 5 mg Tablet 5 mg PO HS RF: 0 famotidine 40 mg tablet 20 mg PO HS RF: 0 acetaminophen [Tylenol Extra Strength] 500 mg Tablet 500 mg PO Q6H PRN (Reason: Pain) RF: 0 albuterol sulfate 90 mcg/actuation HFA aerosol inhaler 2 puff INHALATION QID PRN (Reason: Shortness Of Breath Or Wheezing) RF: 0 oxycodone 5 mg tablet 5 mg PO BID RF: 0 mirtazapine 30 mg tablet 30 mg PO DAILY RF: 0 gabapentin 100 mg capsule 100 mg PO BID RF: 0 Referrals Referrals: Negra Weber MD [Primary Care Provider] - Discharge Problem: Fever Qualifiers: Fever type: unspecified Qualified Code(s): R50.9 - Fever, unspecified LLL pneumonia Qualifiers: Pneumonia type: due to unspecified organism Qualified Code(s): J18.9 - Pneumonia, unspecified organism
[2019-09-06 20:27] LABS: Appearance Urine Cloudy (Clear); Bacteria Urine Automated Negative (Negative); Bilirubin Urine Negative (Negative); Blood Urine Negative (Negative); Color Urine Dark Yellow; Epithelial Cell Urine Auto >30 /lpf (0-5); Glucose Urine UA Negative (Negative); Ketones Urine Trace (Negative); Leukocyte Esterase Urine Trace (Negative); Nitrite Urine Negative (Negative); Protein Urine 1+ (Negative); RBC Urine Automated 0-4 /hpf (0-4); Specific Gravity Urine 1.023 (1.000-1.030); Urobilinogen Urine Negative (Negative)
[2019-09-06 20:36] LABS: Base Excess VBG 2.7 mEq/L; Oxygen Saturation VBG 91.5 %; pH VBG 7.45 (7.36-7.41)
[2019-09-06 20:45] LABS: Amorphous Sediment Urine Present (None Prsent)
[2019-09-06 20:48] LABS: Basophils # (auto) 0.01 K/uL (0-0.2); Basophils % (auto) 0.1 %; Eosinophils # (auto) 0.22 K/uL (0-0.5); Eosinophils % (auto) 1.4 %; Hematocrit (blood only) 34.5 % (37-47); Immature Granulocytes # (auto) 0.02 K/uL (0.00-0.02); Immature Granulocytes % (auto) 0.1 %; Lymphocytes # (auto) 0.16 K/uL (1.2-3.4); Mean Corpuscular Hemoglobin 30.6 pg (25-34); Mean Corpuscular Hgb Conc 31.9 g/dL (32-36); Mean Corpuscular Volume 96.1 fL (80-100); Mean Platelet Volume 9.9 fL (7.4-10.4); Monocytes # (auto) 0.43 K/uL (0.11-0.59); Monocytes % (auto) 2.8 %; Neutrophils # (auto) 14.43 K/uL (1.4-6.5); Neutrophils % (auto) 94.6 %; Platelet Count 234 K/uL (130-400); RDW Coefficient of Variation 15.5 % (11.5-14.5); RDW Standard Deviation 55.2 fL (36.4-46.3); Red Blood Count 3.59 M/uL (4.2-5.4); White Blood Count 15.27 K/uL (4.8-10.8)
[2019-09-06 21:01] LABS: Albumin Level 2.5 gm/dl (3.4-5.0); BUN Creatinine Ratio 17.8 (10-20); Calcium 7.8 mg/dl (8.5-10.1); Creatinine Clr Calc Pharmacy 19.5 ml/min; Est GFR (African American) 32.3; Est GFR (Non-African American) 27.9; Magnesium 1.9 mg/dl (1.8-2.4); Potassium 3.5 mmol/L (3.5-5.1)
[2019-09-06] MEDS ORDERED: ACETAMINOPHEN 325 MG TAB PO STA (21:06)
[2019-09-06] MEDS ORDERED: SODIUM CHLORIDE 0.9% 500 ML IV ONE (21:10)
[2019-09-06 21:11] LABS: Albumin Globulin Ratio 0.8 (0.9-2); Bilirubin,Total 0.9 mg/dl (0.2-1); Globulin 3.3 gm/dl (2.5-4.0); Thyroid Stimulating Hormone 1.13 uIu/ml (0.300-4.500); Total Protein 5.8 gm/dl (6.4-8.2); Troponin I 0.016 ng/ml (0-0.045)
[2019-09-06 21:12] LABS: INR 3.7 (0.9-1.1); Partial Thromboplastin Ratio 1.5; Partial Thromboplastin Time 41.8 Seconds (21.0-31.0); Prothrombin Time 36.1 Seconds (9.0-12.0)
[2019-09-06] MEDS ORDERED: HYDROCORTISONE SOD SUCCINATE 100 MG/2 ML VIAL IV STA (21:33)
--- NOTE | 2019-09-06 22:08 | History & Physical Report ---
Date of Service September 06, 2019 Assessment & Plan (1) Hypoxia: Community-acquired pneumonia Acute respiratory failure with Hypoxia Severe Sepsis Acute Metabolic Encephalopathy Clinically dehydrated Preliminary Head CT: No acute intracranial finding. Mild ethmoid mucosal thickening, status post bilateral cataract surgery. Preliminary CT chest: Scattered upper mediastinal perivascular, peritracheal lymph nodes. Left lower lobe atelectasis. Early developing infiltrate not excluded. Mild nodularity in the peripherally of the left lingula is seen. Normal lactate levels Procalcitonin: 22.76 Blood/Sputum Cultures Mental status seems to be back to baseline after supplemental oxygen is given Start broad spectrum IV Antibiotics (Doxy, Cefepime) IV fluids Neuro Checks Continue Oxygen support, Duonebs Aspiration precautions May need 2 step prior to DC Monitor volume status while on IV fluids, given history of chronic diastolic heart failure. Possible Adrenal Insufficiency On chronic prednisone for PMR Received hydrocortisone in ED Check cortisol levels in a.m. We will give IV hydrocortisone and adjust the dose as needed Hold furosemide Supratherapeutic INR No signs of acute bleeding INR 3.7 Hold Coumadin Monitor INR Right hip pain Seem to be chronic Denies any history of fall Check right hip x-ray PT OT Fall precaution Polymyalgia rheumatica Continue prednisone Paroxysmal atrial fibrillation Continue sotalol Hold Coumadin secondary to supratherapeutic INR Monitor INR Hyperparathyroidism CKD stage IV Renal function seems to be at baseline Monitor renal function Avoid nephrotoxic agents as able Corrected calcium levels within normal limits GERD Continue PPI Hypothyroidism Continue levothyroxine TSH within normal CAD S/P stent Denies any anginal symptoms Abnormal EKG We will repeat EKG in the morning Check resting echo and trend troponin Dyslipidemia Continue statin Chronic diastolic heart failure Clinically dehydrated We will hold Lasix for now Gentle IV fluids Monitor I's and O's, daily weight, volume status closely while on IV fluids Resume diuretics as able Dementia Continue Aricept DVT prophylaxis SCDs for now Hold Coumadin due to supratherapeutic INR Code Status Full code as per my discussion with the patient Disposition PT/OT prior to discharge History of Present Illness Chief Complaint: Hypoxia, Fever, Confusion Primary Care Provider: Negra Weber MD Patient is an 89-year-old female with history of polymyalgia rheumatica, paroxysmal atrial fibrillation, hyperparathyroidism, CKD stage IV, GERD, insomnia, hypothyroidism, hypertension, CAD S/P stent, dyslipidemia, chronic diastolic heart failure, dementia and other medical problems presents with history of altered mental status, fever, right hip pain. Patient had a generalized decline over the past 2 to 3 days. Patient use Tylenol for fever which only transiently helped. EMS noted patient to be hypoxic at 84% on room air. Patient's mental status improved after placing her on oxygen supplementation. Patient has generalized weakness, and has been complaining of right hip pain which is been ongoing. She denies any fall recently. She states that her mouth is dry and request for water. History is limited secondary to patient's dementia. History is also obtained from ER physician. Patient's family members traveled recently but no known history of illness among family members. Currently while in ED, patient is oriented x3. Preliminary reading of CT head is within normal limits. CT chest suggestive of developing pneumonia. Denies any history of chest pain, SOB, dizziness, pedal edema, cough, hemoptysis, fall, head trauma, headache, change in vision, nausea, vomiting, abdominal pain, blood in stools, diarrhea, recent travel, sick contact. Allergies Allergy/AdvReac Type Severity Reaction Status Date / Time amoxicillin Allergy Unknown NOT SURE Verified 09/06/19 21:22 lisinopril Allergy Unknown swelling Verified 09/06/19 21:22 face/lips/tongue sulfamethoxazole Allergy Unknown Unknown Verified 09/06/19 21:22 [From Bactrim] trimethoprim [From Bactrim] Allergy Unknown Unknown Verified 09/06/19 21:22 Home Medications Home Medications Medication Instructions Recorded Confirmed Type atorvastatin 40 mg PO HS 06/28/18 09/06/19 History isosorbide mononitrate 30 mg PO QAM 06/28/18 09/06/19 History nitroglycerin 0.4 mg SUBLINGUAL UD PRN MDD 06/28/18 09/06/19 History repeat once prednisone 10 mg PO QAM 06/28/18 09/06/19 History sotalol 40 mg PO QAM 06/28/18 09/06/19 History warfarin 5 mg PO SUTUWETHSA 06/28/18 09/06/19 History sennosides [senna] 8.6 mg PO DAILY PRN 09/14/18 09/06/19 History pantoprazole 40 mg PO QDL PRN 10/08/18 09/06/19 History ferrous sulfate [iron] 325 mg PO BID #60 tab 11/02/18 09/06/19 Rx donepezil [Aricept] 5 mg PO HS 03/24/19 09/06/19 History acetaminophen [Tylenol Extra 500 mg PO Q6H PRN 04/17/19 09/06/19 History Strength] albuterol sulfate 2 puff INHALATION QID PRN 04/17/19 09/06/19 History famotidine 20 mg PO HS 04/17/19 09/06/19 History gabapentin 100 mg PO BID 04/17/19 09/06/19 History mirtazapine 30 mg PO DAILY 04/17/19 09/06/19 History levothyroxine 50 mcg PO 6XWK 05/17/19 09/06/19 History aspirin 81 mg PO DAILY 09/06/19 09/06/19 History conjugated estrogens [Premarin] 1 applic VAGINAL UD 09/06/19 09/06/19 History furosemide [Lasix] 20 mg PO DAILY 09/06/19 09/06/19 History levothyroxine 100 mcg PO .QSUN 09/06/19 09/06/19 History nitrofurantoin monohyd/m-cryst 100 mg PO DAILY 09/06/19 09/06/19 History [Macrobid] oxycodone [Roxicodone] 5 mg PO TID PRN 09/06/19 09/06/19 History sennosides [senna] 8.6 mg PO BID 09/06/19 09/06/19 History warfarin 2.5 mg PO MOFR 09/06/19 09/06/19 History Past Med/Surg History Medical History CAD (coronary artery disease) s/p BMS x1 to LAD (2016) CHF (congestive heart failure) Controlled and stable- no diuretic at this time- no recent LE edema Chronic anemia --Stable- Hgb ranges - 9-10- takes iron supplement BID Chronic constipation CKD (chronic kidney disease) stage III-IV- under surveillance- follows with renewable energy consultant Degenerative joint disease of right hip Diastolic heart failure Dyslipidemia Esophageal dysmotility occasional, chronic dysphagia Gastroesophageal reflux controlled with with meds HTN (hypertension) Labile per cardiology Hx of myocardial infarction 2017 Hypertension Hypothyroidism Osteoarthritis Paroxysmal atrial fibrillation PMR (polymyalgia rheumatica) on chronic prednisone (current dose 5mg daily*) Raynauds disease Surgical History History of cardiac cath s/p BMS x1 to LAD (2017) History of cataract surgery bilateral History of D&C History of lumbar fusion L3-L5 decompression/fusion: 10/16/18: Grade view 1, MAC#3, ETT 7.0 at [facility] Hx of colonoscopy Hx of tonsillectomy Family History Grandfather Family hx of colon cancer Father Prostate cancer Mother , 102 Old age Social History Preferred Language: Hungarian Communication Ability: Effective Torch Burner Required: No Beliefs That Will Affect Care: None Current Living Situation: Family Current Living Situation Comment: ALWAYS HAS SOMEONE WITH HER Feels Safe at Home: Yes Smoking Status: Never smoker Second Hand Exposure: No ; Hx Alcohol Use: Yes Alcohol type: wine Alcohol Intake Frequency: Rarely Hx Substance Use: No Review of Systems Review of Systems: All systems reviewed & are unremarkable except as noted in HPI & below Physical Exam Physical Exam: Physical Exam: Vitals signs as noted above General Appearance:Thin, frail, elderly, no apparent distress Head: normocephalic, Atraumatic Eyes: normal inspection, EOMI Neck: supple, Trachea midline Respiratory/Chest: Decreased breath sounds, + Crackles at bases, No accessory muscle use Cardiovascular: S1, S2, + murmur Abdomen/GI:Soft, Non tender, Bowel sounds present Extremities/Musculoskelatal:normal inspection, no edema, No tenderness on right hip palpation Neurologic/Psych:AAOX3, grossly no focal neurological deficits Skin: normal color, warm Results & Data Results & Data ([facility]) Vital Signs (Past 12 Hours) Vital Signs Temp Pulse Pulse Resp BP BP Pulse Ox 09/06/19 22:03 68 16 114/53 L 96 09/06/19 21:39 67 106/46 L 95 09/06/19 21:22 71 20 102/53 L 94 09/06/19 20:38 74 21 100/44 L 96 09/06/19 20:00 39.4 C H 80 78 20 125/54 L 125/54 L 95 09/06/19 19:58 96 09/06/19 19:39 97 Laboratory Results Short CBC 09/06/19 Range/Units 20:35 WBC 15.27 H (4.8-10.8) K/uL Hgb 11.0 L (12.0-16.0) g/dL Hct 34.5 L (37-47) % Plt Count 234 (130-400) K/uL BMP 09/06/19 20:35 Sodium 140 Potassium 3.5 Chloride 108 H Carbon Dioxide 27 BUN 29 H Creatinine 1.62 H Glucose 98 Calcium 7.8 L Cardiac Enzymes 09/06/19 Range/Units 20:35 Troponin I 0.016 (0-0.045) ng/ml Liver Function 09/06/19 Range/Units 20:35 Total Bilirubin 0.9 (0.2-1) mg/dl AST 66 H (15-37) U/L ALT 52 (12-78) U/L Alkaline Phosphatase 74 (45-117) U/L Albumin 2.5 L (3.4-5.0) gm/dl Urine 09/06/19 Range/Units 20:08 Urine Color Dark Yellow Urine Appearance Cloudy A (Clear) Urine pH 5.0 (4.5-7.5) Ur Specific [place] 1.023 (1.000-1.030) Urine Protein 1+ H (Negative) Urine Glucose (UA) Negative (Negative) Diagnostic Findings Preliminary Head CT: No acute intracranial finding. Mild ethmoid mucosal thickening, status post bilateral cataract surgery. Preliminary CT chest: Scattered upper mediastinal perivascular, peritracheal lymph nodes. Left lower lobe atelectasis. Early developing infiltrate not excluded. Mild nodularity in the peripherally of the left lingula is seen. ECG Additional Comments: EKG: Sinus rhythm with occasional PVCs. Incomplete right bundle branch block. QTc 451. ST and T wave abnormality in anterior lateral leads. T wave changes in inferior leads.
[2019-09-07] MEDS ORDERED: ALBUT/IPRATROP 3MG/0.5MG NEB 3 ML VIAL NEB PRN (00:25)
[2019-09-07] MEDS ORDERED: ACETAMINOPHEN 325 MG TAB PO PRN (00:25)
[2019-09-07] MEDS ORDERED: PANTOprazole 40 MG TAB PO PRN (00:25)
[2019-09-07] MEDS ORDERED: POLYETHYLENE (MIRALAX) 17 GM PACK PO PRN (00:25)
[2019-09-07] MEDS ORDERED: OXYCODONE HCL IR 5 MG TAB (IMMEDIATE RELEASE) PO PRN (00:25)
[2019-09-07] MEDS ORDERED: NITROGLYCERIN SL 0.4 MG/TAB TAB SL PRN (00:25)
[2019-09-07] MEDS ORDERED: CEFEPIME CONSULT ACTIVE PRN (01:05)
[2019-09-07] MEDS: NSS + 20MEQ KCL 20 MEQ/1,000 ML BAG IV SCH ×2 (01:12→13:46)
[2019-09-07] MEDS: DOXYCYCLINE HYCLATE 100 MG in DEXTROSE 5% 100 ML IV SCH ×2 (01:18→13:46)
[2019-09-07] MEDS ORDERED: LEVOTHYROXINE SODIUM 100 MCG TABLET PO SCH (06:30)
[2019-09-07 06:57] LABS: Hematocrit (blood only) 32.6 % (37-47); Hemoglobin 10.3 g/dL (12.0-16.0); Mean Corpuscular Hemoglobin 30.6 pg (25-34); Mean Corpuscular Hgb Conc 31.6 g/dL (32-36); Mean Corpuscular Volume 96.7 fL (80-100); Mean Platelet Volume 10.1 fL (7.4-10.4); Platelet Count 209 K/uL (130-400); RDW Coefficient of Variation 15.9 % (11.5-14.5); RDW Standard Deviation 56.2 fL (36.4-46.3); Red Blood Count 3.37 M/uL (4.2-5.4); White Blood Count 13.24 K/uL (4.8-10.8)
[2019-09-07 07:15] LABS: INR 4.2 (0.9-1.1); Prothrombin Time 40.6 Seconds (9.0-12.0)
[2019-09-07 07:30] LABS: Alanine Aminotransferase 55 U/L (12-78); Albumin Globulin Ratio 0.7 (0.9-2); Albumin Level 2.2 gm/dl (3.4-5.0); Alkaline Phosphatase 68 U/L (45-117); Aspartate Aminotransferase 54 U/L (15-37); BUN Creatinine Ratio 17.5 (10-20); Bilirubin,Total 0.6 mg/dl (0.2-1); Blood Urea Nitrogen 27 mg/dl (7-18); Calcium 7.4 mg/dl (8.5-10.1); Carbon Dioxide 27 mmol/L (21-32); Chloride 111 mmol/L (98-107); Creatinine Clr Calc Pharmacy 18.1 ml/min; Est GFR (African American) 34.1; Est GFR (Non-African American) 29.4; Globulin 3.2 gm/dl (2.5-4.0); Glucose 117 mg/dl (70-99); Magnesium 2.1 mg/dl (1.8-2.4); Potassium 4.1 mmol/L (3.5-5.1); Sodium 143 mmol/L (136-145); Total Protein 5.4 gm/dl (6.4-8.2); Troponin I < 0.015 ng/ml (0-0.045)
[2019-09-07 07:58] LABS: Basophils # (auto) 0.01 K/uL (0-0.2); Basophils % (auto) 0.1 %; Eosinophils # (auto) 0.07 K/uL (0-0.5); Eosinophils % (auto) 0.5 %; Immature Granulocytes # (auto) 0.04 K/uL (0.00-0.02); Immature Granulocytes % (auto) 0.3 %; Lymphocytes # (auto) 0.52 K/uL (1.2-3.4); Lymphocytes % (auto) 3.9 %; Monocytes # (auto) 0.26 K/uL (0.11-0.59); Neutrophils # (auto) 12.34 K/uL (1.4-6.5); Neutrophils % (auto) 93.2 %
--- NOTE | 2019-09-07 08:12 | CT Scan Report ---
HEAD CT NONCONTRAST CT DOSE: HISTORY: Altered mental status. TECHNIQUE: Multiaxial CT images of the head were performed without the use of intravenous contrast. A utomated exposure control was utilized for this study. A dose lowering technique was utilized adheri ng to the principles of ALARA. Comparison: Head CT 09/14/2018. Findings: The paranasal sinuses and mastoid air cells are clear. The calvarium and skull base are int act. There is no mass, hematoma, midline shift, acute infarct. White matter hypodensity is nonspecifi c but suggestive of microvascular ischemic change. The ventricles and sulci demonstrate mild age-rela patrick involutional changes. Impression: No acute intracranial abnormality. Atrophy and microvascular ischemic changes. ACT 112: Negative or not required by law. Electronically signed by: Nick Brock M.D. 09/07/2019 8:11 AM
--- NOTE | 2019-09-07 08:16 | XRay Report ---
XR hip RT 2V w pelvis CLINICAL HISTORY: hip pain COMPARISON: CT of the abdomen and pelvis October 31, 2018. FINDINGS: Alignment of the right hip is anatomic. No acute fracture is noted. There is severe right hip osteoarthritis which has progressed since CT of October 31, 2018. There is complete loss of the hip joint space with associated subchondral sclerosis. There is mild flattening of the right femoral head. Lumbar spine fusion hardware is partially imaged. Sacroiliac joints and symphysis pubis are in tact. There is no suspicious osseous lesion. IMPRESSION: 1. No acute fracture within the pelvis or hips. 2. Progression of severe right hip osteoarthritis. ACT 112: Negative or not required by law. Electronically signed by: Jaden Schmidt M.D. 09/07/2019 8:14 AM
--- NOTE | 2019-09-07 08:19 | Electrocardiogram Report ---
Test Reason : Blood Pressure : / mmHG Vent. Rate : 078 BPM Atrial Rate : 078 BPM P-R Int : 132 ms QRS Dur : 094 ms QT Int : 396 ms P-R-T Axes : 060 084 063 degrees QTc Int : 451 ms Sinus rhythm with occasional Premature ventricular complexes Incomplete right bundle branch block Abnormal ECG When compared with ECG of 18-MAY-2019 07:05, Premature ventricular complexes are now Present T wave inversion now evident in Anterior leads Confirmed by Brayan Escobedo ([id number]) on 09/07/2019 8:19:32 AM Referred By: REFERRED SELF Confirmed By:Brayan Escobedo
--- NOTE | 2019-09-07 08:32 | Electrocardiogram Report ---
Test Reason : Blood Pressure : / mmHG Vent. Rate : 062 BPM Atrial Rate : 062 BPM P-R Int : 136 ms QRS Dur : 090 ms QT Int : 498 ms P-R-T Axes : 059 065 062 degrees QTc Int : 505 ms Sinus rhythm with Premature supraventricular complexes Incomplete right bundle branch block T wave abnormality, consider anterior ischemia Prolonged QT Abnormal ECG When compared with ECG of 06-SEP-2019 20:01, Premature ventricular complexes are no longer Present Premature supraventricular complexes are now Present T wave inversion no longer evident in Anterolateral leads QT has lengthened Confirmed by Brayan Escobedo ([id number]) on 09/07/2019 8:32:03 AM Referred By: REFERRED SELF Confirmed By:Brayan Escobedo
--- NOTE | 2019-09-07 08:57 | CT Scan Report ---
CT OF THE CHEST WITHOUT IV CONTRAST CLINICAL HISTORY: Shortness of breath. Fever. COMPARISON STUDY: Chest radiograph and chest CT May 17, 2019. CT DOSE: 717.63 mGy.cm TECHNIQUE: Axial images of the chest were obtained without IV contrast. Images were reviewed in the axial, sagittal, and coronal planes. IV contrast was not administered for this examination. Automat ed exposure control was utilized for the study. A dose lowering technique was utilized adhering to t he principles of ALARA. FINDINGS: Prominent mediastinal lymph nodes are unchanged and CT of May 17, 2019. Cardiomegaly is noted. There is no pericardial effusion. No pneumothorax is noted. There are trace bilateral pleural effusions. Mild interlobular septal thickening is present. Left lower lobe airspace opacity is noted. Additional subpleural opacities favor atelectasis. Central airways are patent. No suspicious osseous lesions are noted within the bony thorax. IMPRESSION: 1. Left lower lobe airspace opacity which may reflect an infectious process or atelectasis. Additiona l subpleural opacities favor atelectasis. 2. Interlobular septal thickening suggestive of mild pulmonary edema. 3. No change in prominent mediastinal lymph nodes since CT of May 17, 2019. These are probably reac tive. ACT 112: Negative or not required by law. Electronically signed by: Jaden Schmidt M.D. 09/07/2019 8:55 AM
[2019-09-07] MEDS ORDERED: HYDROCORTISONE SOD SUCCINATE 100 MG/2 ML VIAL IV SCH (09:00)
[2019-09-07] MEDS ORDERED: MIRTAZAPINE TAB 15 MG TAB PO SCH (09:00)
[2019-09-07] MEDS ORDERED: SOTALOL HCL 80 MG TAB PO SCH (09:00)
[2019-09-07] MEDS ORDERED: Nursing to Pharmacy Communication SCH (09:15)
[2019-09-07] MEDS: predniSONE 10 MG TABLET PO SCH (09:25)
[2019-09-07] MEDS: ASPIRIN 81 MG ECTAB PO SCH (09:25)
[2019-09-07] MEDS: GABAPENTIN 100 MG CAP PO SCH ×2 (09:26→20:08)
[2019-09-07] MEDS: SENNA 8.6 MG TAB PO SCH ×2 (09:26→20:08)
[2019-09-07] MEDS: ISOSORBIDE MONO EXTENDED REL 30 MG TABCR PO SCH (09:26)
[2019-09-07] MEDS: HYDROCORTISONE SOD 25 MG in SYRINGE 0 ML IV SCH ×2 (09:26→20:09)
--- NOTE | 2019-09-07 12:14 | XCELERA ---
[id number]
--- NOTE | 2019-09-07 14:09 | Hospitalist Progress Note ---
Date of Service September 07, 2019 Assessment & Plan (1) Hypoxia: 9-year-old female with history of coronary disease, proximal atrial fibrillation on Coumadin, CHF diastolic type, Hypertension, polymyalgia rheumatica on prednisone, CKD stage IV, presenting with hypoxia and shortness of breath. Acute hypoxic respiratory failure secondary to community-acquired pneumonia Severe Sepsis Acute Metabolic Encephalopathy CT chest: 1. Left lower lobe airspace opacity which may reflect an infectious process or atelectasis. Additional subpleural opacities favor atelectasis. 2. Interlobular septal thickening suggestive of mild pulmonary edema. 3. No change in prominent mediastinal lymph nodes since CT of May 17, 2019. These are probably reactive. Blood cultures: Pending Urine culture: Pending T-max 39.4, afebrile this morning Leukocytosis improving Procalcitonin 28 Clinically appears stable this morning Mental status seems to be back to baseline Per review of records, patient also had 2 episodes of pneumonia back in April Chronic prednisone use likely contributing to recurrent pneumonia Speech therapy evaluation last April also did not reveal signs of aspiration Continue cefepime plus doxycycline, follow-up cultures We will consult ID for recurrent pneumonia Acute metabolic encephalopathy likely secondary to severe sepsis with respiratory failure, pneumonia CT head: No acute process Mental status seems to back to baseline Continue to monitor closely Possible Adrenal Insufficiency On chronic prednisone 5 mg p.o. daily for PMR Received hydrocortisone in ED On hydrocortisone 25 mg every 12 hours Blood pressure on the low normal side, continue to monitor closely Supratherapeutic INR No signs of acute bleeding INR 4 Hold Coumadin Monitor INR Right hip pain secondary to severe right hip osteoarthritis Seem to be chronic Denies any history of fall X-ray: 1. No acute fracture within the pelvis or hips. 2. Progression of severe right hip osteoarthritis. PT OT Fall precaution CAD S/P stent Denies any anginal symptoms Abnormal EKG on admission Troponin negative x 3 repeat EKG: non specific T wave depression changes in the anterior leads Echo: EF 70%, no regional wall motion abnormalities Paroxysmal atrial fibrillation QT 505--> hold Sotalol repeat EKG in AM will discuss with Cardiology Hold Coumadin secondary to supratherapeutic INR Monitor INR Chronic diastolic heart failure patient dehydrated hold Lasix Gentle IV fluids CKD stage IV Hyperparathyroidism Renal function seems to be at baseline Monitor renal function Avoid nephrotoxic agents as able Corrected calcium levels within normal limits Polymyalgia rheumatica Continue prednisone GERD Continue PPI Hypothyroidism Continue levothyroxine TSH within normal Dyslipidemia Continue statin Dementia Continue Aricept DVT prophylaxis SCDs for now Hold Coumadin due to supratherapeutic INR Code Status Full code Disposition PT/OT prior to discharge Lives at home with her daughter Admission and Anticipated Discharge Date Admission Date: September 06, 2019 Subjective Follow-up for sepsis, pneumonia Seen sleeping but easily awakened, oriented x3, answers all questions appropriately On room air States she feels fine overall No shortness of breath, cough, sputum production, chills Denies headache, chest pain, palpitations, dizziness, abdominal pain, nausea vomiting, problems with urination or bowel movement Reports right hip pain which is chronic No other symptoms Review of Systems Review of Systems: All systems reviewed & are unremarkable except as noted in HPI & below Physical Exam Physical Exam: General- oriented x 3, not in distress, speaks in sentences with no effort or accessory muscle use Head- atraumatic Eyes- PERRL, EOMI, anicteric ENT- oropharynx clear Neck- supple, no JVD, no adenopathy, no thyromegaly; carotids +2/2, no bruits appreciated Lungs-positive crackles at the left base, no wheezing, clear breath sounds on the right Heart- normal rate, regular rhythm; no murmur, no gallop, no rub appreciated Abdomen- normal bowel sounds, nondistended, soft, nontender, no masses or hepatosplenomegaly Extremities- no pretibial edema, no calf tenderness; peripheral pulses intact Right hip: No signs of edema, hematoma, tenderness, warmth, erythema Neuro- alert, oriented x 3; CN 2-12 grossly intact; motor 5/5 bilaterally;sensation 100% on all extremities; no other gross focal neurologic deficits Skin- warm & dry Results & Data Results & Data ([facility]) Vital Signs (Past 12 Hours) Vital Signs Temp Pulse Pulse Resp BP BP Pulse Ox 09/07/19 12:02 36.5 C 86 18 96/53 L 98 09/07/19 11:49 36.6 C 67 18 121/58 L 94 09/07/19 09:32 60 09/07/19 08:08 37.0 C 73 16 102/60 96 09/07/19 04:20 36.6 C 56 L 16 91/47 L 98
[2019-09-07] MEDS: CEFEPIME 2,000 MG in SYRINGE 7.5 ML IV SCH (20:04)
[2019-09-07] MEDS: ATORVASTATIN 40 MG TAB PO SCH (20:08)
[2019-09-07] MEDS: FAMOTIDINE 20 MG TAB PO SCH (20:08)
[2019-09-07] MEDS: DONEPEZIL HCL 5 MG TAB PO SCH (20:08)
[2019-09-07] MEDS: MIRTAZAPINE TAB 15 MG TAB PO SCH (20:08)
[2019-09-08] MEDS: DOXYCYCLINE HYCLATE 100 MG in DEXTROSE 5% 100 ML IV SCH (02:04)
[2019-09-08] MEDS: LEVOTHYROXINE SODIUM 50 MCG TABLET PO SCH (05:19)
[2019-09-08 07:31] LABS: Prothrombin Time 38.7 Seconds (9.0-12.0)
[2019-09-08] MEDS: ASPIRIN 81 MG ECTAB PO SCH (07:54)
[2019-09-08] MEDS: SENNA 8.6 MG TAB PO SCH ×2 (07:54→20:24)
[2019-09-08] MEDS: predniSONE 10 MG TABLET PO SCH (07:54)
[2019-09-08] MEDS: GABAPENTIN 100 MG CAP PO SCH ×2 (07:54→20:23)
[2019-09-08 10:06] LABS: Basophils # (auto) 0.01 K/uL (0-0.2); Basophils % (auto) 0.1 %; Eosinophils # (auto) 0.56 K/uL (0-0.5); Hematocrit (blood only) 29.8 % (37-47); Hemoglobin 9.4 g/dL (12.0-16.0); Immature Granulocytes # (auto) 0.01 K/uL (0.00-0.02); Immature Granulocytes % (auto) 0.1 %; Lymphocytes # (auto) 1.09 K/uL (1.2-3.4); Lymphocytes % (auto) 11.7 %; Mean Corpuscular Hemoglobin 30.2 pg (25-34); Mean Corpuscular Hgb Conc 31.5 g/dL (32-36); Mean Corpuscular Volume 95.8 fL (80-100); Mean Platelet Volume 10.3 fL (7.4-10.4); Monocytes # (auto) 0.76 K/uL (0.11-0.59); Monocytes % (auto) 8.1 %; Neutrophils # (auto) 6.91 K/uL (1.4-6.5); Platelet Count 208 K/uL (130-400); RDW Coefficient of Variation 15.8 % (11.5-14.5); RDW Standard Deviation 55.8 fL (36.4-46.3); Red Blood Count 3.11 M/uL (4.2-5.4); White Blood Count 9.34 K/uL (4.8-10.8)
[2019-09-08 10:24] LABS: BUN Creatinine Ratio 19.9 (10-20); Calcium 7.7 mg/dl (8.5-10.1); Creatinine Clr Calc Pharmacy 26.6 ml/min; Est GFR (African American) 54.5; Potassium 3.7 mmol/L (3.5-5.1)
[2019-09-08] MEDS: HYDROCORTISONE SOD 25 MG in SYRINGE 0 ML IV SCH (11:51)
[2019-09-08] MEDS: DOXYCYCLINE HYCLATE 100 MG CAP PO SCH ×2 (14:47→23:01)
--- NOTE | 2019-09-08 15:08 | Electrocardiogram Report ---
Test Reason : Blood Pressure : / mmHG Vent. Rate : 079 BPM Atrial Rate : 079 BPM P-R Int : 138 ms QRS Dur : 088 ms QT Int : 414 ms P-R-T Axes : 060 073 036 degrees QTc Int : 474 ms Normal sinus rhythm Possible Left atrial enlargement Nonspecific ST and T wave abnormality Abnormal ECG When compared with ECG of 07-SEP-2019 06:42, Premature supraventricular complexes are no longer Present Nonspecific T wave abnormality, worse in Inferior leads Confirmed by Emile Ruelas ([id number]) on 09/08/2019 3:07:52 PM Referred By: REFERRED SELF Confirmed By:Emile Ruelas
[2019-09-08] MEDS: LACTOBACILLUS ACIDOPHILUS (FLORANEX) TAB PO SCH (16:45)
--- NOTE | 2019-09-08 18:53 | Hospitalist Progress Note ---
Date of Service September 08, 2019 Assessment & Plan (1) Hypoxia: 89-year-old female with history of coronary disease, proximal atrial fibrillation on Coumadin, CHF diastolic type, Hypertension, polymyalgia rheumatica on prednisone, CKD stage IV, presenting with hypoxia and shortness of breath. Acute hypoxic respiratory failure secondary to community-acquired pneumonia Severe Sepsis Acute Metabolic Encephalopathy CT chest: 1. Left lower lobe airspace opacity which may reflect an infectious process or atelectasis. Additional subpleural opacities favor atelectasis. 2. Interlobular septal thickening suggestive of mild pulmonary edema. 3. No change in prominent mediastinal lymph nodes since CT of May 17, 2019. These are probably reactive. Blood cultures: negative so far Urine culture: negative so far afebrile x 24 hours Leukocytosis resolved Procalcitonin 28 Per review of records, patient also had 2 episodes of pneumonia back in April Chronic prednisone use likely contributing to recurrent pneumonia Speech therapy evaluation last April also did not reveal signs of aspiration Continue cefepime plus doxycycline, follow-up cultures ID consulted, recommend Doxycycline PO on discharge Acute metabolic encephalopathy likely secondary to severe sepsis with respiratory failure, pneumonia CT head: No acute process Mental statusback to baseline Continue to monitor closely Possible Adrenal Insufficiency On chronic prednisone 10 mg p.o. daily for PMR Received hydrocortisone in ED BP stable d/c Hydrocortisone continue usual Prednisone 10mg po daily recommend to taper off Prednisone as outpatient to prevent recurrent pneumonia/infection Supratherapeutic INR No signs of acute bleeding INR 4 Hold Coumadin Monitor INR Right hip pain secondary to severe right hip osteoarthritis Seem to be chronic Denies any history of fall X-ray: 1. No acute fracture within the pelvis or hips. 2. Progression of severe right hip osteoarthritis. PT OT Fall precaution CAD S/P stent Denies any anginal symptoms Abnormal EKG on admission Troponin negative x 3 repeat EKG: non specific T wave depression changes in the anterior leads Echo: EF 70%, no regional wall motion abnormalities Paroxysmal atrial fibrillation QT 505--> hold Sotalol repeat EKG in AM--> QT 474 will discuss with Cardiology Hold Coumadin secondary to supratherapeutic INR Monitor INR Chronic diastolic heart failure patient dehydrated hold Lasix Gentle IV fluids was given CKD stage IV Hyperparathyroidism Renal function seems to be at baseline Monitor renal function Avoid nephrotoxic agents as able Corrected calcium levels within normal limits Polymyalgia rheumatica Continue prednisone GERD Continue PPI Hypothyroidism Continue levothyroxine TSH within normal Dyslipidemia Continue statin Dementia Continue Aricept DVT prophylaxis SCDs for now Hold Coumadin due to supratherapeutic INR Code Status Full code Disposition PT/OT prior to discharge Lives at home with her daughter Admission and Anticipated Discharge Date Admission Date: September 06, 2019 Subjective ff up for sepsis, pneumonia seen resting in bedside chair, on room air, alert, oriented x 3 states she feels much better overall, back to her baseline denies cough, sputum, fever/chills denies chest pain, palpitations, dizziness ambulating to the bathroom with no problems denies other symptoms Review of Systems Review of Systems: All systems reviewed & are unremarkable except as noted in HPI & below Physical Exam Physical Exam: General- oriented x 3, not in distress, speaks in sentences with no effort or accessory muscle use Eyes- anicteric Neck- no JVD Lungs- mild crackles on the left clear on the right no wheezing Heart- normal rate, regular rhythm; no murmurs Abdomen- normal bowel sounds, nondistended, soft, nontender Extremities- no pretibial edema, no calf tenderness Neuro- alert, oriented x 3; no gross focal neurologic deficits Skin- warm & dry Results & Data Results & Data ([facility]) Vital Signs (Past 12 Hours) Vital Signs Temp Pulse Pulse Resp BP BP Pulse Ox 09/08/19 16:00 67 09/08/19 15:36 36.6 C 65 17 149/78 H 97 09/08/19 11:30 36.9 C 64 16 132/74 98 09/08/19 08:29 36.5 C 60 18 128/69 96 09/08/19 08:00 70 Laboratory Results Laboratory Results - last 24 hr 09/08/19 09/08/19 09/08/19 06:30 06:31 06:31 WBC 9.34 RBC 3.11 L Hgb 9.4 L Hct 29.8 L MCV 95.8 MCH 30.2 MCHC 31.5 L RDW Std Deviation 55.8 H RDW Coeff of [place] 15.8 H Plt Count 208 MPV 10.3 Immature Gran % (Auto) 0.1 Neut % (Auto) 74.0 Lymph % (Auto) 11.7 [place] % (Auto) 8.1 Eos % (Auto) 6.0 Baso % (Auto) 0.1 Neut # (Auto) 6.91 H Lymph # (Auto) 1.09 L [place] # (Auto) 0.76 H Eos # (Auto) 0.56 H Baso # (Auto) 0.01 Immature Gran # (Auto) 0.01 PT 38.7 H INR 4.0 H Sodium 147 H Potassium 3.7 Chloride 116 H Carbon Dioxide 26 Anion Gap 5.0 BUN 21 H Creatinine 1.05 Est Cr Clr Drug Dosing 26.6 Est GFR ( Amer) 54.5 Est GFR (Non-Af Amer) 47.0 BUN/Creatinine Ratio 19.9 Glucose 86 Calcium 7.7 L
[2019-09-08] MEDS: CEFEPIME 2,000 MG in SYRINGE 7.5 ML IV SCH (20:21)
[2019-09-08] MEDS: FAMOTIDINE 20 MG TAB PO SCH (20:23)
[2019-09-08] MEDS: MIRTAZAPINE TAB 15 MG TAB PO SCH (20:24)
[2019-09-08] MEDS: ATORVASTATIN 40 MG TAB PO SCH (20:24)
[2019-09-08] MEDS: DONEPEZIL HCL 5 MG TAB PO SCH (20:24)
[2019-09-09] MEDS: LEVOTHYROXINE SODIUM 50 MCG TABLET PO SCH (05:08)
[2019-09-09] MEDS: ASPIRIN 81 MG ECTAB PO SCH (08:20)
[2019-09-09] MEDS: predniSONE 10 MG TABLET PO SCH (08:20)
[2019-09-09] MEDS: LACTOBACILLUS ACIDOPHILUS (FLORANEX) TAB PO SCH ×2 (08:20→11:40)
[2019-09-09] MEDS: SENNA 8.6 MG TAB PO SCH (08:20)
[2019-09-09] MEDS: GABAPENTIN 100 MG CAP PO SCH (08:20)
[2019-09-09] MEDS: DOXYCYCLINE HYCLATE 100 MG CAP PO SCH (10:33)
[2019-09-09] MEDS: ISOSORBIDE MONO EXTENDED REL 30 MG TABCR PO SCH (10:33)
[2019-09-09] MEDS ORDERED: SOTALOL HCL 80 MG TAB PO ONE (12:45)
[2019-09-09 13:09] LABS: INR 1.9 (0.9-1.1); Prothrombin Time 19.6 Seconds (9.0-12.0)
[2019-09-09 13:33] LABS: Creatinine Clr Calc Pharmacy 25.6 ml/min; Est GFR (African American) 52.1
--- NOTE | 2019-09-09 13:40 | Electrocardiogram Report ---
Test Reason : Blood Pressure : / mmHG Vent. Rate : 071 BPM Atrial Rate : 071 BPM P-R Int : 132 ms QRS Dur : 086 ms QT Int : 466 ms P-R-T Axes : 036 056 051 degrees QTc Int : 506 ms Sinus rhythm with frequent Premature ventricular complexes Prolonged QT Abnormal ECG When compared with ECG of 08-SEP-2019 06:34, Premature ventricular complexes are now Present Nonspecific T wave abnormality, improved in Inferior leads Nonspecific T wave abnormality no longer evident in Lateral leads Confirmed by Emile Ruelas ([id number]) on 09/09/2019 1:40:11 PM Referred By: REFERRED SELF Confirmed By:Emile Ruelas
--- NOTE | 2019-09-09 14:14 | Hospitalist Progress Note ---
Date of Service September 09, 2019 Assessment & Plan (1) Hypoxia: 89-year-old female with history of coronary disease, proximal atrial fibrillation on Coumadin, CHF diastolic type, Hypertension, polymyalgia rheumatica on prednisone, CKD stage IV, presenting with hypoxia and shortness of breath. Acute hypoxic respiratory failure secondary to community-acquired pneumonia Severe Sepsis Acute Metabolic Encephalopathy CT chest: 1. Left lower lobe airspace opacity which may reflect an infectious process or atelectasis. Additional subpleural opacities favor atelectasis. 2. Interlobular septal thickening suggestive of mild pulmonary edema. 3. No change in prominent mediastinal lymph nodes since CT of May 17, 2019. These are probably reactive. Procalcitonin 28 Blood cultures: negative so far Urine culture: negative so far Per review of records, patient also had 2 episodes of pneumonia back in April Chronic prednisone use likely contributing to recurrent pneumonia Speech therapy evaluation last April also did not reveal signs of aspiration afebrile since admission Leukocytosis resolved blood cultures: negative urine culture: negative given cefepime plus doxycycline ID consulted, recommend Doxycycline PO on discharge 100mg BID x 5 more days probiotics daily advised Acute metabolic encephalopathy likely secondary to severe sepsis with respiratory failure, pneumonia CT head: No acute process Mental status back to baseline Possible Adrenal Insufficiency On chronic prednisone 10 mg p.o. daily for PMR Received hydrocortisone in ED BP stable d/c Hydrocortisone continue usual Prednisone 10mg po daily recommend to taper off Prednisone as outpatient to prevent recurrent pneumonia/infection Supratherapeutic INR No signs of acute bleeding INR 1.9 change coumadin to 2.5mg po daily as patient will be on Doxycycline x 5 days messaged pharmacist [facility], patient will need ff up with them this week Right hip pain secondary to severe right hip osteoarthritis Seem to be chronic Denies any history of fall X-ray: 1. No acute fracture within the pelvis or hips. 2. Progression of severe right hip osteoarthritis. PT OT Fall precaution CAD S/P stent Denies any anginal symptoms Abnormal EKG on admission Troponin negative x 3 repeat EKG: non specific T wave depression changes in the anterior leads Echo: EF 70%, no regional wall motion abnormalities Paroxysmal atrial fibrillation QT 470- 505 per serial EKGs discussed with betty [place] to continue Sotalol management of coumadin as per above Chronic diastolic heart failure resume Lasix 20mg po daily CKD stage IV Hyperparathyroidism Renal function seems to be at baseline Monitor renal function Polymyalgia rheumatica Continue prednisone recommend to taper off prednisone in light of recurrent infections GERD Continue PPI Hypothyroidism Continue levothyroxine Dyslipidemia Continue statin Dementia Continue Aricept Disposition d/c home ff up with PCP Sunday09/12/2019 ff up with [facility] this week ff up with [facility] as scheduled Admission and Anticipated Discharge Date Admission Date: September 06, 2019 Subjective ff up for hypoxia, pneumonia seen resting in bedside chair, comfortable oriented x 3 in good spirits states she feels much better overall denies shortness of breath, cough, chills, chest pain, palpitations, dizziness ambulating with no problems no leg pain denies other symptoms Review of Systems Review of Systems: All systems reviewed & are unremarkable except as noted in HPI & below Physical Exam Physical Exam: General- oriented x 3, not in distress, speaks in sentences with no effort or accessory muscle use Eyes- anicteric Neck- no JVD Lungs- clear breath sounds bilaterally, no rales/wheezes Heart- normal rate, regular rhythm; no murmurs Abdomen- normal bowel sounds, nondistended, soft, nontender Extremities- mild bipedal edema, no calf tenderness Neuro- alert, oriented x 3; no gross focal neurologic deficits Skin- warm & dry Results & Data Results & Data ([facility]) Vital Signs (Past 12 Hours) Vital Signs Temp Pulse Resp BP BP Pulse Ox 09/09/19 14:08 36.8 C 68 17 175/81 H 173/79 H 97 09/09/19 11:08 36.8 C 68 17 175/81 H 173/79 H 97 09/09/19 07:20 36.7 C 79 17 201/91 H 94 09/09/19 02:36 36.6 C 47 L 17 146/66 H 97 Laboratory Results Laboratory Results - last 24 hr 09/09/19 09/09/19 12:36 12:36 PT 19.6 H INR 1.9 H Creatinine 1.09 Est Cr Clr Drug Dosing 25.6 Est GFR ( Amer) 52.1 Est GFR (Non-Af Amer) 45.0
[2019-09-09] MEDS ORDERED: AMLODIPINE BESYLATE 5 MG TAB PO ONE (14:22)
[2019-09-09] MEDS ORDERED: WARFARIN SOD 2.5 MG TAB PO ONE (14:30)
[2019-09-09] MEDS ORDERED: FUROSEMIDE 20 MG TAB PO SCH (14:30)
--- NOTE | 2019-09-10 13:05 | Discharge Summary ---
Date of Service September 10, 2019 Admission HPI Per Admitting Provider Patient is an 89-year-old female with history of polymyalgia rheumatica, paroxysmal atrial fibrillation, hyperparathyroidism, CKD stage IV, GERD, insomnia, hypothyroidism, hypertension, CAD S/P stent, dyslipidemia, chronic diastolic heart failure, dementia and other medical problems presents with history of altered mental status, fever, right hip pain. Patient had a generalized decline over the past 2 to 3 days. Patient use Tylenol for fever which only transiently helped. EMS noted patient to be hypoxic at 84% on room air. Patient's mental status improved after placing her on oxygen supplementation. Patient has generalized weakness, and has been complaining of right hip pain which is been ongoing. She denies any fall recently. She states that her mouth is dry and request for water. History is limited secondary to patient's dementia. History is also obtained from ER physician. Patient's family members traveled recently but no known history of illness among family members. Currently while in ED, patient is oriented x3. Preliminary reading of CT head is within normal limits. CT chest suggestive of developing pneumonia. Denies any history of chest pain, SOB, dizziness, pedal edema, cough, hem optysis, fall, head trauma, headache, change in vision, nausea, vomiting, abdominal pain, blood in stools, diarrhea, recent travel, sick contact. Admission Exam Per Admitting Provider Physical Exam: Vitals signs as noted above General Appearance:Thin, frail, elderly, no apparent distress Head: normocephalic, Atraumatic Eyes: normal inspection, EOMI Neck: supple, Trachea midline Respiratory/Chest: Decreased breath sounds, + Crackles at bases, No accessory muscle use Cardiovascular: S1, S2, + murmur Abdomen/GI:Soft, Non tender, Bowel sounds present Extremities/Musculoskelatal:normal inspection, no edema, No tenderness on right hip palpation Neurologic/Psych:AAOX3, grossly no focal neurological deficits Skin: normal color, warm Principal Diagnosis Pneumonia, Left Lower Lobe; Recurrent Pneumonia in the setting of Prednisone use Discharge Exam General- oriented x 3, not in distress, speaks in sentences with no effort or accessory muscle use Eyes- anicteric Neck- no JVD Lungs- clear breath sounds bilaterally, no rales/wheezes Heart- normal rate, regular rhythm; no murmurs Abdomen- normal bowel sounds, nondistended, soft, nontender Extremities- mild bipedal edema, no calf tenderness Neuro- alert, oriented x 3; no gross focal neurologic deficits Skin- warm & dry Discharge Data Allergies Allergy/AdvReac Type Severity Reaction Status Date / Time amoxicillin Allergy Unknown NOT SURE Verified 09/06/19 21:22 lisinopril Allergy Unknown swelling Verified 09/06/19 21:22 face/lips/tongue sulfamethoxazole Allergy Unknown Unknown Verified 09/06/19 21:22 [From Bactrim] trimethoprim [From Bactrim] Allergy Unknown Unknown Verified 09/06/19 21:22 Consultations 09/06/19 21:35 ED Decision to Admit Stat 09/07/19 00:25 Consult Case Management - Discharge Planning Routine 09/07/19 14:19 Consult Infectious Diseases Routine Ordered Studies 09/06/19 19:58 CT head/brain wo con Urgent Comparison: Head CT 09/14/2018. Findings: The paranasal sinuses and mastoid air cells are clear. The calvarium and skull base are intact. There is no mass, hematoma, midline shift, acute infarct. White matter hypodensity is nonspecific but suggestive of microvascular ischemic change. The ventricles and sulci demonstrate mild age-related involutional changes. Impression: No acute intracranial abnormality. Atrophy and microvascular ischemic changes. 09/06/19 20:02 CT chest wo con Urgent COMPARISON STUDY: Chest radiograph and chest CT May 17, 2019. CT DOSE: 717.63 mGy.cm TECHNIQUE: Axial images of the chest were obtained without IV contrast. Images were reviewed in the axial, sagittal, and coronal planes. IV contrast was not administered for this examination. Automated exposure control was utilized for the study. A dose lowering technique was utilized adhering to the principles of ALARA. FINDINGS: Prominent mediastinal lymph nodes are unchanged and CT of May 17, 2019. Cardiomegaly is noted. There is no pericardial effusion. No pneumothorax is noted. There are trace bilateral pleural effusions. Mild interlobular septal thickening is present. Left lower lobe airspace opacity is noted. Additional subpleural opacities favor atelectasis. Central airways are patent. No suspicious osseous lesions are noted within the bony thorax. IMPRESSION: 1. Left lower lobe airspace opacity which may reflect an infectious process or atelectasis. Additional subpleural opacities favor atelectasis. 2. Interlobular septal thickening suggestive of mild pulmonary edema. 3. No change in prominent mediastinal lymph nodes since CT of May 17, 2019. These are probably reactive. Hospital Course (1) Hypoxia: 89-year-old female with history of coronary disease, proximal atrial fibrillation on Coumadin, CHF diastolic type, Hypertension, polymyalgia rheumatica on prednisone, CKD stage IV, presenting with hypoxia and shortness of breath. Acute hypoxic respiratory failure secondary to community-acquired pneumonia Severe Sepsis Acute Metabolic Encephalopathy CT chest: 1. Left lower lobe airspace opacity which may reflect an infectious process or atelectasis. Additional subpleural opacities favor atelectasis. 2. Interlobular septal thickening suggestive of mild pulmonary edema. 3. No change in prominent mediastinal lymph nodes since CT of May 17, 2019. These are probably reactive. Procalcitonin 28 Blood cultures: negative so far Urine culture: negative so far Per review of records, patient also had 2 episodes of pneumonia back in April Chronic prednisone use likely contributing to recurrent pneumonia Speech therapy evaluation last April also did not reveal signs of aspiration afebrile since admission Leukocytosis resolved blood cultures: negative urine culture: negative given cefepime plus doxycycline patient significantly improved, fever resolved weaned off oxygen ambulating with no problemsn Joe WINN consulted, recommend Doxycycline PO on discharge 100mg BID x 5 more days probiotics daily advised Acute metabolic encephalopathy likely secondary to severe sepsis with respiratory failure, pneumonia CT head: No acute process Mental status back to baseline Possible Adrenal Insufficiency On chronic prednisone 10 mg p.o. daily for PMR Received hydrocortisone IV BP stable , d/c Hydrocortisone continue usual Prednisone 10mg po daily recommend to taper off Prednisone as outpatient to prevent recurrent pneumonia/infection Supratherapeutic INR No signs of acute bleeding INR 1.9 change coumadin to 2.5mg po daily as patient will be on Doxycycline x 5 days messaged pharmacist [facility], patient will need ff up with them this week Right hip pain secondary to severe right hip osteoarthritis Seem to be chronic Denies any history of fall X-ray: 1. No acute fracture within the pelvis or hips. 2. Progression of severe right hip osteoarthritis. PT OT recommend d/c home Fall precaution CAD S/P stent Denies any anginal symptoms Abnormal EKG on admission Troponin negative x 3 repeat EKG: non specific T wave depression changes in the anterior leads Echo: EF 70%, no regional wall motion abnormalities Paroxysmal atrial fibrillation QT 470-505 per serial EKGs discussed with betty [place] to continue Sotalol management of coumadin as per above Chronic diastolic heart failure resume Lasix 20mg po daily CKD stage IV Hyperparathyroidism Renal function seems to be at baseline Monitor renal function Polymyalgia rheumatica Continue prednisone recommend to taper off prednisone in light of recurrent infections GERD Continue PPI Hypothyroidism Continue levothyroxine Dyslipidemia Continue statin Dementia Continue Aricept Disposition d/c home ff up with PCP Sunday09/12/2019 ff up with [facility]in Clinic this week ff up with [employer] as scheduled Total Time Total Time Spent Total Time Spent (In Minutes): 55 minutes Discharge Plan Discharge Items Patient Disposition: Home - Self-Care Reason For Visit: SEPSIS Discharge Diagnosis: SEPSIS, SECONDARY LEFT LOWER LOBE PNEUMONIA Activity: Resume your previous activity Activity Comment: GRADUALLY TOLERATED Lifting: Wait until after follow-up appointment Exercise/Sports: Wait until after follow-up appointment Non-emergency contact: Primary Care Provider Call non-emergency contact if: you have any medication questions, your symptoms worsen and you have a fever Follow-up/Referrals: Negra Weber MD [Primary Care Provider] - 09/12/19 12:05 pm Diet: Heart Healthy Addtl Attending Provider Instructions: YOUR NEW MEDICATION IS DOXYCYCLINE - ANTIBIOTIC FOR PNEUMONIA. COUMADIN IS BEING CHANGED TO 2.5MG DAILY. THE COUMADIN CLINIC/PHARMACIST WILL CONTACT YOU SOON FOR REPEAT BLOODWORK AND ADVICE REGARDING YOUR COUMADIN DOSING. TAKE A PROBIOTIC DAILY FOR AT LEAST 2 WEEKS. CALL PRIMARY CARE PHYSICIAN OR RETURN TO THE ER IMMEDIATELY IF WITH WORSENING OR RECURRENCE OF SYMPTOMS, SHORTNESS OF BREATH, COUGH, SPUTUM PRODUCTION, FEVER/CHILLS, LEG SWELLING, HEADACHE, DIZZINESS, CHEST PAIN, PALPITATIONS. FOLLOW UP WITH PRIMARY CARE PHYSICIAN OUTLINED ABOVE. SPEECH THERAPY RECOMMENDATIONS: EASY TO CHEW, SLIPPER DIET. IT WAS MY PLEASURE TAKING CARE OF YOU. Pending Studies at Discharge: Yes Studies:: INR CHECK THIS WEEK C/O COUMADIN CLINIC Stand-Alone Forms: My [facility] WebMD, Smoking Cessation Medications and DC Order Prescriptions: New doxycycline hyclate 100 mg Capsule 100 mg PO BID Qty: 10 RF: 0 Continued atorvastatin 40 mg tablet 40 mg PO HS RF: 0 sotalol 80 mg tablet 40 mg PO QAM RF: 0 isosorbide mononitrate 30 mg tablet extended release 24 hr 30 mg PO QAM RF: 0 prednisone 5 mg tablet 10 mg PO QAM RF: 0 nitroglycerin 0.4 mg tablet, sublingual 0.4 mg sublingual UD MDD may repeat once PRN (Reason: chest pain,esophageal spasm) RF: 0 pantoprazole 40 mg Tablet,Delayed Release (Dr/Ec) 40 mg PO QDL PRN (Reason: Heartburn) RF: 0 ferrous sulfate [iron] 325 mg (65 mg iron) tablet 325 mg PO BID Qty: 60 RF: 0 levothyroxine 50 mcg tablet 50 mcg PO [id number] RF: 0 sennosides [senna] 8.6 mg Tablet 8.6 mg PO BID RF: 0 levothyroxine 50 mcg tablet 100 mcg PO .QSUN RF: 0 oxycodone [Roxicodone] 5 mg tablet 5 mg PO TID PRN (Reason: Pain) RF: 0 nitrofurantoin monohyd/m-cryst [Macrobid] 100 mg capsule 100 mg PO DAILY RF: 0 Premarin 0.625 mg/gram cream 1 applic vaginal UD RF: 0 furosemide [Lasix] 20 mg tablet 20 mg PO DAILY RF: 0 aspirin 81 mg Tablet,Chewable 81 mg PO DAILY RF: 0 sennosides [senna] 8.6 mg Tablet 8.6 mg PO DAILY PRN (Reason: Constipation) RF: 0 donepezil [Aricept] 5 mg Tablet 5 mg PO HS RF: 0 famotidine 40 mg tablet 20 mg PO HS RF: 0 acetaminophen [Tylenol Extra Strength] 500 mg Tablet 500 mg PO Q6H PRN (Reason: Pain) RF: 0 albuterol sulfate 90 mcg/actuation HFA aerosol inhaler 2 puff INHALATION QID PRN (Reason: Shortness Of Breath Or Wheezing) RF: 0 mirtazapine 30 mg tablet 30 mg PO DAILY RF: 0 gabapentin 100 mg capsule 100 mg PO BID RF: 0 Changed warfarin 5 mg tablet 2.5 mg PO DAILY Qty: 0 RF: 0 Discontinued warfarin 5 mg tablet 5 mg PO SUTUWETHSA RF: 0 Discharge Orders: Discharge Order (Routine); Ordered 09/09/19 Ordered By: Chico Wiggins Admission Data Admit Date/Time: 09/06/19 23:16 Attending Provider: Chico Wiggins Admit Provider: Ian Yousif Primary Care Provider: Mainali,Negra Other Providers: Shane López ; Isaiah Cabral ; Susi Castaneda ; Cy Marcos I. ; Tay Pérez II ; Shara Peralta ; Ciro Hodges Other Interventions: Discharge Summary Assessment (RN) Last Done: 09/09/19 14:08 DC Date/Time DO NOT enter until pt leaves facility: 09/09/19 15:35
== END 2019-09-09 15:35 | disposition home or self-care (01) | DRG 871 ==
LOC: ED 19:44 → 2S 23:16

== ENCOUNTER 2019-10-21 05:23 | Inpatient (IN) ==
--- NOTE | 2019-10-07 15:54 | PAT Medication Instructions ---
Medication Instructions Date of Service October 07, 2019 Home Medications Medication Instructions Recorded ferrous sulfate [iron] 325 mg PO BID #60 tab 11/02/18 atorvastatin 40 mg PO HS isosorbide mononitrate 30 mg PO QPM nitroglycerin 0.4 mg SUBLINGUAL UD PRN MDD may repeat once sotalol 40 mg PO QAM pantoprazole 40 mg PO PM ferrous sulfate [iron] 325 mg PO BID donepezil [Aricept] 5 mg PO HS acetaminophen [Tylenol Extra Strength] 500 mg PO Q6H PRN famotidine 20 mg PO QAM gabapentin 100 mg PO BID mirtazapine 30 mg PO QAM levothyroxine 50 mcg PO DAILY aspirin See Rx Instructions .ROUTE .COMPLEX furosemide [Lasix] 20 mg PO QAM oxycodone [Roxicodone] 5 mg PO TID PRN sennosides [senna] 8.6 mg PO BID levothyroxine 50 mcg tablet 100 mcg PO .BIDSUN prednisone 1 mg tablet 4 mg PO QAM Lactobacillus acidophilus [Acidophilus] 500 mg PO QAM warfarin 5 mg PO DAILY Continue as directed nitroglycerin 0.4 mg SUBLINGUAL UD PRN MDD may repeat once (if needed) levothyroxine 50 mcg tablet 100 mcg PO .BIDSUN aspirin See Rx Instructions .ROUTE .COMPLEX ASK your prescriber and surgeon warfarin 5 mg PO DAILY DO NOT take the morning of surgery ferrous sulfate [iron] 325 mg PO BID furosemide [Lasix] 20 mg PO QAM sennosides [senna] 8.6 mg PO BID Lactobacillus acidophilus [Acidophilus] 500 mg PO QAM Take morning of surgery With a small sip of water, OTHERWISE NOTHING TO EAT OR DRINK AFTER MIDNIGHT: sotalol 40 mg PO QAM acetaminophen [Tylenol Extra Strength] 500 mg PO Q6H PRN (okay to take up to 4 hours prior to surgery if needed) famotidine 20 mg PO QAM gabapentin 100 mg PO BID mirtazapine 30 mg PO QAM levothyroxine 50 mcg PO DAILY oxycodone [Roxicodone] 5 mg PO TID PRN (okay to take up to 4 hours prior to surgery if needed) prednisone 1 mg tablet 4 mg PO QAM Take evening before surgery atorvastatin 40 mg PO HS isosorbide mononitrate 30 mg PO QPM pantoprazole 40 mg PO PM ferrous sulfate [iron] 325 mg PO BID donepezil [Aricept] 5 mg PO HS acetaminophen [Tylenol Extra Strength] 500 mg PO Q6H PRN (if needed) gabapentin 100 mg PO BID oxycodone [Roxicodone] 5 mg PO TID PRN (if needed) sennosides [senna] 8.6 mg PO BID Other Notes If you have any questions please call us at [phone] or [phone] or [phone] or [phone]
--- NOTE | 2019-10-08 10:02 | Anesthesiology Consultation ---
Date of Service October 08, 2019 Assessment & Plan (1) Encounter for pre-operative examination: Chart Review Chart Review: Pending: Refer to Additional Notes / Consult section (pending cardio clearance 10/09/will send BMP to nephro per patient request/ preop Covid testing ) and Patient seen in Pre Admission Testing -Check PT/INR AM of surgery Awaiting cardio clearance scheduled 10/10/19. Will also send PRP to [facility] for review prior to surgery per patient request. Per PAT appt 10/08/19, patient denies any recent travel. Resides in [facility]- wears mask in public. Educated patient to follow up with surgeon's office regarding Covid testing. Educated on importance of self quarantining, social distancing and wearing mask in public both for the patient and household contacts. Pt admitted to hospital 09/06/19-09/10/19= pt admitted for pneumonia (recurrent pneumonia secondary to chronic prednisone), hypoxia. Severe sepsis. Acute metabolic encephalopathy. Pt significantly improved on discharge. Discharged on Doxy. Mental status back to baseline on discharge. Possible adrenal insu fficiency - recommend Prednisone taper as outpatient due to recurrent pneumonia and infection (pt working with PCP on tapering). [facility] with [facility] for [facility]. L3-L5 decompression and fusion 10/16/18= Done under [facility] with MAC #3 and ETT 7.0. Teaching & Discussion Pre-Anesthesia Teaching/Discussion Notes: Instructed NPO after midnight before surgery,except medications with 15 cc of water. Medication instructions provided according to the PAT guidelines. History Surgery Operation Date: 08/26/19 07:00 Proposed Procedures p Right Total Hip Arthroplasty - Kenneth Marcos MD Operation Date: 10/21/19 12:30 Proposed Procedures p Right Total Hip Arthroplasty - Kenneth Marcos MD Height/Weight Height: 5 ft 2 in Weight: 47.3 kg Allergies Allergy/AdvReac Type Severity Reaction Status Date / Time amoxicillin Allergy Unknown NOT SURE Verified 10/06/19 12:27 lisinopril Allergy Unknown swelling Verified 10/06/19 12:27 face/lips/tongue sulfamethoxazole Allergy Unknown Unknown Verified 10/06/19 12:27 [From Bactrim] trimethoprim [From Bactrim] Allergy Unknown Unknown Verified 10/06/19 12:27 Medications Home Medications Medication Instructions Recorded Confirmed Last Taken atorvastatin 40 mg PO HS 06/28/18 10/06/1920 isosorbide mononitrate 30 mg PO QPM 06/28/18 10/06/19 04/16/19 nitroglycerin 0.4 mg SUBLINGUAL UD PRN MDD 06/28/18 10/06/19 10/12/18 repeat once sotalol 40 mg PO QAM 06/28/18 10/06/19 04/16/19 pantoprazole 40 mg PO PM 10/08/18 10/06/19 04/14/19 ferrous sulfate [iron] 325 mg PO BID #60 tab 11/02/18 10/06/19 04/16/19 21:00 donepezil [Aricept] 5 mg PO HS 03/24/19 10/06/19 04/16/19 acetaminophen [Tylenol Extra 500 mg PO Q6H PRN 04/17/19 10/06/19 04/17/19 08:00 Strength] 1000 mg famotidine 20 mg PO QAM 04/17/19 10/06/19 04/16/19 gabapentin 100 mg PO BID 04/17/19 10/06/19 04/16/19 21:00 mirtazapine 30 mg PO QAM 04/17/19 10/06/19 04/16/19 levothyroxine 50 mcg PO DAILY 05/17/19 10/06/19 Unknown aspirin See Rx Instructions .ROUTE .COMPLEX 09/06/19 10/06/19 Unknown furosemide [Lasix] 20 mg PO QAM 09/06/19 10/06/19 Unknown oxycodone [Roxicodone] 5 mg PO TID PRN 09/06/19 10/06/19 Unknown sennosides [senna] 8.6 mg PO BID 09/06/19 10/06/19 Unknown levothyroxine 50 mcg tablet 100 mcg PO .BIDSUN tab 09/29/19 10/06/19 Unknown prednisone 1 mg tablet 4 mg PO QAM tab 09/29/19 10/06/19 Unknown Lactobacillus acidophilus 500 mg PO QAM 10/06/19 10/06/19 Unknown [Acidophilus] warfarin 5 mg PO DAILY 10/06/19 10/06/19 Unknown Past Medical History Medical History Anxiety CAD (coronary artery disease) s/p BMS x1 to LAD (2017) CHF (congestive heart failure) Controlled and stable Chronic anemia --Stable- Hgb ranges - 9-10- takes iron supplement BID Chronic constipation CKD (chronic kidney disease) stage III-IV- under surveillance- follows with [facility] Depression Dyslipidemia Esophageal dysmotility occasional, chronic dysphagia - tortuous esophagus - stable currently Gastroesophageal reflux controlled with with meds History of pneumonia Hospitalized 3 times - feels secondary to pneumonia- most recently admitted in August- felt secondary to aspiration vs chronic prednisone use- improved since head of bed elevated HTN (hypertension) Labile per cardiology Hx of myocardial infarction 2017 Hypothyroidism Paroxysmal atrial fibrillation On Warfarin PMR (polymyalgia rheumatica) On chronic prednisone (current dose 5mg daily*)- follows with rheum and PCP- PCP currently trying to wean off prednisone due to recurrent pneumonia and infections Raynauds disease Exercise / Class Metabolic Activity III < 4 Walking/Shop/Light housework (no chest pain or SOB with flat surface ambulation - uses wheeled walker ) Past Family History Family History Grandfather Family hx of colon cancer Father Prostate cancer Mother , 102 Old age Past Surgical History Surgical History History of cardiac cath s/p BMS x1 to LAD (2016) Done at [facility], one stent History of cataract surgery bilateral History of D&C History of lumbar fusion L3-L5 decompression/fusion: 10/16/18: Grade view 1, MAC#3, ETT 7.0 at [facility] Hx of colonoscopy Hx of tonsillectomy Past Anesthesia History No Hx of Anesthesia Complications and No Family Hx of Anesthesia Complications History of PONV No Hx of PONV and No Hx of Motion Sickness Social History Smoking Status: Never smoker Hx Alcohol Use: Yes Alcohol type: wine alcohol intake frequency: holidays/special occasions only Hx Substance Use: No substance use type: does not use Review of Systems Patient denies chest pain, shortness of breath, dyspnea on exertion, cough, wheezing, palpitations. No hx of seizures, stroke, apnea/snoring. No hx of blood clots or blood tra nsfusions Physical Exam Vital Signs VITALS BP 147/70 P 58 TEMP 98.2 SP02 96% RESP 16 Constitutional no acute distress ENMT Mouth: no TMJ clicking Thyromental Distance: > or= 3.5 Finger Breadths (3.5) Mallampati Class: I (smaller airway) Denies missing teeth Caps to molars Neck + limited neck extension (moderate ) Respiratory normal respiratory effort; no respiratory distress Auscultation: lungs clear to auscultation bilaterally; no wheezes Cardiovascular Rate/Rhythm: regular rate (occ skipped beat ) and regular rhythm Heart Sounds: no murmur Vessels: no carotid bruit Musculoskeletal Spine: + pain with cervical ROM (mild ) Neurologic moves all extremities Psychiatric Orientation: alert Testing Laboratory Results 10/08/19 10:28 10/08/19 10:28 PT 24.5 Seconds (9.0-12.0) H 10/08/19 10:28 INR 2.4 (0.9-1.1) H 10/08/19 10:28 APTT 39.0 Seconds (21.0-31.0) H 10/08/19 10:28 Blood Type A Positive 10/08/19 10:28 Antibody Screen NEGATIVE 10/08/19 10:28 Electrocardiogram Date: 09/09/19 SR with frequent PVCs at 71 bpm. Prolonged QT. Chest X-Ray Date: 10/08/19 Findings: + NAD There is been interval resolution of the previous identified right lung airspace opacities Echocardiogram Date: 09/07/19 EF: >70% RWMA: + none Other Findings: no LVH Valvular Disease: + MR (mild) LV function hyperdynamic. Type I diastolic dysfunction. Mild RVH. Borderline LAE. Similar findings compared to 04/18/19 ECHO. Stress Test Date: 02/05/14 Type: Exercise echo Resting EF: 55 to 59% Resting LV Function: normal Resting RWMA: + none Stress test was terminated due to abnormally high blood pressure. Stress EKG response shows no evidence of ischemia. Mild tricuspid regurgitation. Maximum predicted heart rate 105% Cardiac Catheterization Date: 10/09/16 70% stenosis to LAD- BMS deployed to LAD.
--- NOTE | 2019-10-08 11:11 | XRay Report ---
XR chest Pre-admission PA/Lat CLINICAL HISTORY: Preoperative chest COMPARISON STUDY: 05/09/2019 FINDINGS: The cardiac and mediastinal contours remain stable. There is no acute parenchymal consolida tion. There is no failure. There are no pleural effusions. There is been interval resolution of the p revious identified right lung airspace opacities.[ IMPRESSION: No active disease in the chest. ACT 112: Negative or not required by law. Electronically signed by: Jose Elias Tay M.D. 10/08/2019 11:10 AM
[2019-10-08 11:47] LABS: Basophils # (auto) 0.02 K/uL (0-0.2); Basophils % (auto) 0.2 %; Eosinophils # (auto) 0.67 K/uL (0-0.5); Eosinophils % (auto) 6.5 %; Hematocrit (blood only) 34.9 % (37-47); Immature Granulocytes # (auto) 0.03 K/uL (0.00-0.02); Immature Granulocytes % (auto) 0.3 %; Lymphocytes # (auto) 1.29 K/uL (1.2-3.4); Lymphocytes % (auto) 12.4 %; Mean Corpuscular Hemoglobin 30.9 pg (25-34); Mean Corpuscular Hgb Conc 31.5 g/dL (32-36); Mean Platelet Volume 10.2 fL (7.4-10.4); Monocytes # (auto) 0.69 K/uL (0.11-0.59); Monocytes % (auto) 6.7 %; Neutrophils # (auto) 7.67 K/uL (1.4-6.5); Neutrophils % (auto) 73.9 %; Platelet Count 299 K/uL (130-400); RDW Coefficient of Variation 16.1 % (11.5-14.5); RDW Standard Deviation 58.1 fL (36.4-46.3); Red Blood Count 3.56 M/uL (4.2-5.4); White Blood Count 10.37 K/uL (4.8-10.8)
[2019-10-08 11:59] LABS: INR 2.4 (0.9-1.1); Partial Thromboplastin Ratio 1.4; Prothrombin Time 24.5 Seconds (9.0-12.0)
[2019-10-08 13:23] LABS: BUN Creatinine Ratio 15.3 (10-20); C Reactive Protein 1.72 mg/dl (0-0.29); Calcium 8.4 mg/dl (8.5-10.1); Creatinine Clr Calc Pharmacy 23.9 ml/min; Est GFR (African American) 46.9; Est GFR (Non-African American) 40.4; Potassium 3.5 mmol/L (3.5-5.1)
[2019-10-21] MEDS ORDERED: GABAPENTIN 300 MG CAP PO SCH (06:00)
[2019-10-21] MEDS ORDERED: LR 60ML/HR IV SCH (06:00)
[2019-10-21] MEDS ORDERED: ACETAMINOPHEN 500 MG TAB PO SCH (06:00)
[2019-10-21] MEDS ORDERED: FAMOTIDINE 20 MG TAB PO SCH ×2 (06:00→10:34)
[2019-10-21] MEDS ORDERED: METOCLOPRAMIDE HCL 10 MG TABLET PO SCH (06:00)
[2019-10-21] MEDS ORDERED: CEFAZOLIN 2000MG 2,000 MG/15 ML SYR IV SCH (06:00)
[2019-10-21] MEDS ORDERED: TRANEXAMIC ACID 1,000 MG **IV Pre-op IV SCH (06:00)
[2019-10-21] MEDS ORDERED: BUPIVACAINE 0.5 % 5 MG/1 ML PF 10ML VIAL ONE (06:32)
[2019-10-21 06:33] LABS: INR 1.1 (0.9-1.1); Partial Thromboplastin Ratio 0.9; Partial Thromboplastin Time 26.5 Seconds (21.0-31.0); Prothrombin Time 11.3 Seconds (9.0-12.0)
[2019-10-21] MEDS ORDERED: BACITRACIN INJ 50,000 UNIT VIAL ONE (06:33)
[2019-10-21] MEDS ORDERED: EPINEPHrine INJ 1 MG/ML AMP ONE (06:34)
[2019-10-21] MEDS ORDERED: BUPIVACAINE 0.5 % 5 MG/1 ML MPF 30ML VIAL ONE (06:34)
[2019-10-21] MEDS ORDERED: MIDAZOLAM HCL 1 MG/ML 2ML VIAL ONE (06:40)
[2019-10-21] MEDS ORDERED: PROPOFOL IV EMULSION 10 MG/ML 20 ML VIAL IV ONE (06:40)
[2019-10-21] MEDS ORDERED: fentaNYL citrate 100 MCG/2 ML VIAL ONE ×2 (06:40→09:09)
[2019-10-21 06:45] LABS: BUN Creatinine Ratio 20.9 (10-20); Calcium 8.7 mg/dl (8.5-10.1); Creatinine Clr Calc Pharmacy 21.4 ml/min; Est GFR (African American) 41.4; Est GFR (Non-African American) 35.7; Potassium 3.9 mmol/L (3.5-5.1)
[2019-10-21] MEDS ORDERED: MoRPHine SULFATE PF 1 MG/ML 10 ML AMP/VIAL ONE (06:49)
--- NOTE | 2019-10-21 06:49 | History & Physical Bridge Note ---
Date of Service October 21, 2019 History & Physical Bridge Note I have examined the patient, reviewed the History & Physical and in the interval since the performance of the History & Physical I have noted the following changes of clinical significance: no changes noted
[2019-10-21] MEDS ORDERED: MEPERIDINE HCL 25 MG/ML CARP/VIAL IV PRN (08:14)
[2019-10-21] MEDS ORDERED: NALOXONE HCL 1 MG in SODIUM CHLORIDE 0.9% 1000ML 1,000 ML IV PRN (08:14)
[2019-10-21] MEDS ORDERED: DiphenhydrAMINE HCL 50 MG/ML VIAL IV PRN (08:14)
[2019-10-21] MEDS ORDERED: HYDROmorphone INJ 0.5 MG/0.5 ML SYR IV PRN (08:14)
[2019-10-21] MEDS ORDERED: PROMETHAZINE HCL IV PRN (08:14)
[2019-10-21] MEDS ORDERED: ONDANSETRON INJ 2 MG/ML 2 ML VIAL IV PRN (08:14)
[2019-10-21] MEDS ORDERED: MoRPHine SULFATE PF 1 MG/ML 10 ML AMP/VIAL INT SPINAL ONE (08:14)
[2019-10-21] MEDS ORDERED: METOCLOPRAMIDE HCL 10 MG in SODIUM CHLORIDE 0.9% 50 ML IV PRN (08:14)
[2019-10-21] MEDS ORDERED: NALOXONE HCL 0.08 MG in SYRINGE 1.8 ML IV PRN (08:14)
[2019-10-21] MEDS ORDERED: ePHEDrine sulfate 50 MG/ML AMP IV PRN (08:14)
[2019-10-21] MEDS ORDERED: LACTATED RINGER'S 500 ML IV PRN (08:14)
[2019-10-21] MEDS ORDERED: SODIUM CHLORIDE 0.9% IV PRN (08:14)
[2019-10-21] MEDS ORDERED: NALOXONE HCL 0.4 MG/1 ML VIAL/CARP IV PRN (08:14)
[2019-10-21] MEDS ORDERED: SODIUM CHLORIDE 0.9% 1000ML 1,000 ML IV SCH ×2 (08:15→10:34)
[2019-10-21] MEDS ORDERED: DC INTRASPINAL MORPHINE SCH (08:15)
[2019-10-21] MEDS ORDERED: NO NARCOTICS OR SEDATIVES SCH (08:15)
--- NOTE | 2019-10-21 08:50 | Post Operative Brief Note ---
PG Immediate Post Op with CF Date of Surgery October 21, 2019 Pre & Post Diagnosis Operation Date: 08/26/19 07:00 <No data on this case meets the specified criteria> Operation Date: 10/21/19 07:00 Pre-Op Diagnosis: RIGHT HIP DEGENERATIVE JOINT DISEASE Post-Op Diagnosis: RIGHT HIP DEGENERATIVE JOINT DISEASE I identified the patient and participated in the time-out.: Yes Procedure Operation Date: 08/26/19 07:00 <No data on this case meets the specified criteria> Operation Date: 10/21/19 07:00 Actual Procedures p Right Total Hip Arthroplasty, Cemented(Right) - Kenneth Marcos MD Surgeon Kenneth Marcos MD Webmethods Consultant Laith, PAC Estimated Blood Loss 200 Findings Consistent with Post-Op Diagnosis Fluids 1000 cc Specimens Specimen Description: A: Right femoral head Drains Alas Catheter Anesthesia Type Spinal MAC Complications none Disposition Accompanied Patient To Recovery: Yes Disposition: Recovery Room
[2019-10-21] MEDS ORDERED: fentaNYL citrate 100 MCG/2 ML VIAL IV PRN (09:10)
--- NOTE | 2019-10-21 09:31 | XRay Report ---
XR hip 1V RT w pelvis CLINICAL HISTORY: Degenerative arthritis. Postoperative study COMPARISON: 09/06/2019 DISCUSSION: There are postsurgical changes of a total right hip arthroplasty. The acetabular femoral components appear well seated. There is gas present within the soft tissues consistent with recent jain rgery. There are overlying skin polina. Postsurgical changes are present within the lumbar spine. IMPRESSION: Postsurgical changes of a total right hip arthroplasty. ACT 112: Negative or not required by law. Electronically signed by: Jose Elias Tay M.D. 10/21/2019 9:30 AM
[2019-10-21] MEDS ORDERED: MAGNESIUM HYDROXIDE SUSP 30 ML UDC PO PRN (10:34)
[2019-10-21] MEDS ORDERED: NO NSAIDS SCH (10:34)
[2019-10-21] MEDS ORDERED: METOCLOPRAMIDE HCL INJ 5 MG/ML 2 ML VIAL IV PRN (10:34)
[2019-10-21] MEDS ORDERED: NITROGLYCERIN SL 0.4 MG/TAB TAB SL PRN (10:34)
[2019-10-21] MEDS ORDERED: bisacodyL 10 MG SUPP PR PRN (10:34)
[2019-10-21] MEDS ORDERED: LEVOTHYROXINE SODIUM 100 MCG TABLET PO SCH (10:34)
[2019-10-21] MEDS ORDERED: ALUMINUM/MAGNESIUM SUSP 30 ML UDC PO PRN (10:34)
--- NOTE | 2019-10-21 10:35 | Anesthesiology Progress Note ---
Date of Service October 21, 2019 Anesthesia Post Procedure Vital Signs Vital Signs: Temp Pulse Pulse Resp BP BP Pulse Ox 10/21/19 09:40 36.3 C L 53 L 21 177/84 H 99 10/21/19 09:30 58 L 18 164/86 H 100 10/21/19 09:20 55 L 22 168/80 H 99 10/21/19 09:10 60 16 187/91 H 100 10/21/19 09:00 59 L 21 186/93 H 99 10/21/19 08:52 36.3 C L 63 18 171/80 H 90 10/21/19 06:43 60 16 198/100 H 96 10/21/19 06:13 36.7 C 64 16 150/81 H 95 Pain Intensity Right Hip: Pain Intensity: 3 Transfer of Care Handoff Completed per policy Notes Mental Status: alert / awake / arousable and participated in evaluation Patient Amnestic to Procedure: Yes Nausea / Vomiting: adequately controlled Pain: adequately controlled Airway Patency, RR, SpO2: stable & adequate BP & HR: stable & adequate Hydration State: stable & adequate Neuraxial Anesthesia: was administered and sensory block is resolving Anesthetic Complications: no major complications apparent
--- NOTE | 2019-10-21 11:21 | Consultation ---
Date of Consultation October 21, 2019 Assessment & Plan (1) Arthritis of right hip: S/P R ELIE by Dr. Marcos POD #0 EBL 200ml tolerated procedure well pain/wound management per ortho activity and therapy as directed by ortho encourage incentive spirometry, wean O2 as able monitor H/H - pre op .9 (2) HTN (hypertension): BP elevated post operatively pre op took sotalol, held lasix continue imdur monitor Tx if SBP > 180 (3) Afib: rhythm controlled with sotalol [id number] 5 - anticoagulated with warfarin Pt follows [facility] for warfarin management Lucina Johnson, JermaineD (recommends 10mg 10/20, 5mg 9/ and then follow home regimen 2.5mg MWF and 5mg all other days) warfarin dosing per ortho (4) CAD (coronary artery disease): History of BMS to LAD in 2017 Follows [facility] [address] cardiology On ASA, statin, Imdur, sotalol as outpatient Currently denies chest pain (5) Diastolic heart failure: euvolemic daily weights, strict I and O hold lasix today, reassess in a.m. to resume, monitor renal fxn echo 09/07/19 EF 70%, mild MR, grade 1 DD (6) CKD (chronic kidney disease) stage 3, GFR 30-59 ml/min: follows [facility] [address] nephrology, last seen telemed visit 10/19 Cr 1.2 at baseline today 18/03.32 monitor, avoid nephrotoxic agents (7) Chronic anemia: h/h stable at monitor continue iron supplementation (8) Gastroesophageal reflux: continue PPI (9) PMR (polymyalgia rheumatica): pt on chronic prednisone therapy 4mg daily, last taken this a.m. no stress dose steroids given (10) Hypothyroidism: continue levothyroxine (11) DVT prophylaxis: SCD/TEDS warfarin to resume this evening per ortho Follow up: PCP Dr. Weber upon discharge Pt was seen and examined in collaboration with Dr. Wiggins, please see addendum Supervising Physician Co-Signing Physician Notes Attending Addendum: care coordinated with ESTER Obrien please refer to her notes for full details, I agree with her notes patient seen and examined, records reviewed by myself as well on exam, patient seen sitting up, having lunch, in good spirits oriented x 3 states she feels fine overall denies pain in her hip, chest pain or any other pain no headache, dizziness, nausea, palpitations, abdominal pain no other symptoms VS noted and reviewed oriented x 3, not in distress, speaks in sentences with no effort nor accessory muscle use normal rate, regular rhythm, no murmurs clear breath sounds bilaterally non distended, soft, nontender no bipedal edema, erythema, warmth no neuro deficits Na 143 Crea 1.3 ASSESSMENT AND PLAN 89 year old very pleasant female with CAD, A fib on coumadin, HTN, PMR on Chronic prednisone CKD 3, other problems noted above, s/p right hip total arthroplasty. s/p RIGHT HIP TOTAL ARTHROPLASTY HYPERTENSION BP elevated but completely asymptomatic continue usual BP meds, give Imdur now instead of HS Hydralazine 5mg IV given x2 doses hold IV fluids until BP is improved will monitor BP closely, coordinated care with JOÃO Peña Blood pressure rechecked, improved to 130/60 around 6 PM Continue to monitor closely HISTORY OF CAD no cardiac symptoms continue ASA, Imdur PAROXYSMAL A FIB ON COUMADIN INR 1.1 Coumadin ordered, monitor INR PMR ON CHRONIC PREDNISONE BP elevated, will not start stress dose hydrocortisone continue usual Prednisone 4mg daily other diagnoses and plan of care as per ESTER Enamorado's notes Thank you for this consultation. We will follow the patient with you during their hospital stay. You can reach a member of the [facility] [address] Hospitalist Team 11/09 via pager @ [phone]. Chico Wiggins MD History of Present Illness Requesting Physician: Dr. Marcos Reason for Consultation: Post op medical management Attending Physician: Kenneth Marcos MD History of Present Illness This is an 89 yr old F who has a significant PMH of CAD with hx of BMS to LAD 2017, PAF on long-term anticoagulation with warfarin, HTN, HLD, PMR on chronic prednisone therapy, CKD stage 3 baseline Cr 1.2, anemia of chronic disease, dry eyes, hypothyroidism, hyperparathyroidism, GERD who presents to [facility] for elective right total hip arthroplasty. She tolerated procedure well and daughter is at bedside. "Currently I feel no pain so I am doing good." She denies any fever, chills, sweats, lightheadedness, dizziness, chest pain, shortness of breath, nausea, vomiting, abdominal pain. She does have a chronic cough, but is dry. Of significance she has had 3 hospitalizations in 2019 secondary to multifocal pneumonia, in March, April and most recently in August. She was seen and evaluated by speech therapy and felt aspiration not likely. She is on chronic prednisone therapy secondary to PMR, and per daughter is currently trying to wean off. Has been taking 4 mg daily, last taken this morning. She does have history of PAF, which is anticoagulation. She is on sotalol for rhythm control. She currently lives by herself, but daughter lives next door and somebody stays with her all night. No recent falls. Allergies Allergy/AdvReac Type Severity Reaction Status Date / Time amoxicillin Allergy Unknown NOT SURE Verified 10/06/19 12:27 lisinopril Allergy Unknown swelling Verified 10/06/19 12:27 face/lips/tongue sulfamethoxazole Allergy Unknown Unknown Verified 10/06/19 12:27 [From Bactrim] trimethoprim [From Bactrim] Allergy Unknown Unknown Verified 10/06/19 12:27 Home Medications Home Medications Medication Instructions Recorded Confirmed Type atorvastatin 40 mg PO HS 06/28/18 10/21/19 History isosorbide mononitrate 30 mg PO QPM 06/28/18 10/21/19 History nitroglycerin 0.4 mg SUBLINGUAL UD PRN MDD 06/28/18 10/06/19 History repeat once sotalol 40 mg PO QAM 06/28/18 10/21/19 History pantoprazole 40 mg PO PM 10/08/18 10/21/19 History ferrous sulfate [iron] 325 mg PO BID #60 tab 11/02/18 10/21/19 Rx donepezil [Aricept] 5 mg PO HS 03/24/19 10/21/19 History acetaminophen [Tylenol Extra 500 mg PO Q6H PRN 04/17/19 10/21/19 History Strength] famotidine 20 mg PO QAM 04/17/19 10/21/19 History gabapentin 100 mg PO BID 04/17/19 10/21/19 History mirtazapine 30 mg PO QAM 04/17/19 10/21/19 History levothyroxine 50 mcg PO DAILY 05/17/19 10/21/19 History aspirin See Rx Instructions .ROUTE .COMPLEX 09/06/19 10/21/19 History furosemide [Lasix] 20 mg PO QAM 09/06/19 10/21/19 History oxycodone [Roxicodone] 5 mg PO TID PRN 09/06/19 10/21/19 History sennosides [senna] 8.6 mg PO BID 09/06/19 10/21/19 History levothyroxine 50 mcg tablet 100 mcg PO SALCIDO tab 09/29/19 10/21/19 History prednisone 1 mg tablet 4 mg PO QAM tab 09/29/19 10/21/19 History Lactobacillus acidophilus 500 mg PO QAM 10/06/19 10/21/19 History [Acidophilus] warfarin 5 mg PO DAILY 10/06/19 10/21/19 History Patient History Medical History Anxiety CAD (coronary artery disease) s/p BMS x1 to LAD (2016) CHF (congestive heart failure) Controlled and stable Chronic anemia --Stable- Hgb ranges - 9-10- takes iron supplement BID Chronic constipation CKD (chronic kidney disease) stage III-IV- under surveillance- follows with thermostat mechanic Depression Dyslipidemia Esophageal dysmotility occasional, chronic dysphagia - tortuous esophagus - stable currently Gastroesophageal reflux controlled with with meds History of pneumonia Hospitalized 3 times - feels secondary to pneumonia- most recently admitted in August- felt secondary to aspiration vs chronic prednisone use- improved since head of bed elevated HTN (hypertension) Labile per cardiology Hx of myocardial infarction 2016 Hypothyroidism Paroxysmal atrial fibrillation On Warfarin PMR (polymyalgia rheumatica) On chronic prednisone (current dose 5mg daily*)- follows with rheum and PCP- PCP currently trying to wean off prednisone due to recurrent pneumonia and infections Raynauds disease Surgical History History of cardiac cath s/p BMS x1 to LAD (2016) Done at [facility], one stent History of cataract surgery bilateral History of D&C History of lumbar fusion L3-L5 decompression/fusion: 10/16/18: Grade view 1, MAC#3, ETT 7.0 at [facility] Hx of colonoscopy Hx of tonsillectomy Family History Grandfather Family hx of colon cancer Father Prostate cancer Mother , 102 Old age Social History Smoking Status: Never smoker Second Hand Exposure: No; Hx Alcohol Use: Yes Alcohol type: wine Hx Substance Use: No Preferred Language: Bahamian Communication Ability: Effective Train System Operator Required: No Beliefs That Will Affect Care: None marital status: / Current Living Situation: Family Current Living Situation Comment: daughter stays with patient Feels Safe at Home: Yes Safety Concerns: Feels Safe At This Time Review of Systems Review of Systems: All systems reviewed & are unremarkable except as noted in HPI & below Physical Exam Physical Exam: Constitutional: Petite, elderly female, WD/WN, vitals as above, NAD, sitting up in bed, pleasant, conversing easily Head: Normocephalic, Atraumatic Eyes: PERRL, conjunctivae normal, anicteric sclerae ENMT: external ear and nose normal, oropharynx normal Neck: trachea midline, no thyromegaly normal visual inspection Respiratory: normal respiratory effort, lungs clear to auscultation, no wheeze, rales, rhonchi. On O2 via NC, O2 saturation 90%, normal insp/exp effort, no accessory muscle use Cardiovascular: Bradycardic rate, regular rhythm, no murmur, no edema, teds in place, Vessels: no JVD or carotid bruit Chest: normal inspection of chest Abdomen: normal bowel sounds, soft, nontender, no hepatosplenomegaly Musculoskeletal: no cyanosis or clubbing, upper extremities motor strength 5/5, b/l lower ext NVI distally Skin: no rashes, warm and dry normal turgor Neurologic: PERRL, EOMI, accommodation nl, no face palsy, no dysarthria CN's II-XI intact bilaterally and moves all extremities Psychiatric: A+Ox3, euthymic affect Lymphatic: no cervical or axillary lymphadenopathy : +beckett cath in place draining clear urine Results & Data ([facility]) Vital Signs (Past 12 Hours) Vital Signs Temp Pulse Pulse Pulse Resp BP BP 10/21/19 11:09 36.3 C L 60 14 164/83 H 10/21/19 11:00 14 10/21/19 10:00 36.4 C L 58 L 16 157/78 H 10/21/19 09:40 36.3 C L 53 L 21 177/84 H 10/21/19 09:30 58 L 18 164/86 H 10/21/19 09:20 55 L 22 168/80 H 10/21/19 09:10 60 16 187/91 H 10/21/19 09:00 59 L 21 186/93 H 10/21/19 08:52 36.3 C L 63 18 171/80 H 10/21/19 06:43 60 16 198/100 H 10/21/19 06:13 36.7 C 64 16 150/81 H Pulse Ox Pulse Ox 10/21/19 11:09 99 10/21/19 11:00 99 10/21/19 10:00 94 100 10/21/19 09:40 99 10/21/19 09:30 100 10/21/19 09:20 99 10/21/19 09:10 100 10/21/19 09:00 99 10/21/19 08:52 90 10/21/19 06:43 96 10/21/19 06:13 95 Laboratory Results [facility] 10/21/19 06:00 Sodium 143 Potassium 3.9 Chloride 108 H Carbon Dioxide 29 BUN 28 H Creatinine 1.32 H Glucose 84 Calcium 8.7 Diagnostic Findings Hip/Pelvis Xray: IMPRESSION: Postsurgical changes of a total right hip arthroplasty. CXR: IMPRESSION: No active disease in the chest. Medications Administered Acetaminophen (Acetaminophen 500 Mg Tab) 1,000 mg PO PREOP ALLYSON Stop: 10/21/19 18:00 Last Admin: 10/21/19 06:05 Dose: 1,000 mg Documented by: [id number] Famotidine (Famotidine 20 Mg Tab) 20 mg PO PREOP ALLYSON Stop: 10/21/19 18:00 Last Admin: 10/21/19 06:05 Dose: Not Given Documented by: [id number] Gabapentin (Gabapentin 300 Mg Cap) 300 mg PO PREOP ALLYSON Stop: 10/21/19 18:00 Last Admin: 10/21/19 06:05 Dose: Not Given Documented by: [id number] Lactated Ringer's (Lr) 1,000 mls @ 60 mls/hr IV .[id number] ALLYSON Stop: 10/21/19 22:39 Last Infusion: 10/21/19 07:08 Dose: 0 mls/hr Documented by: [id number] Admin: 10/21/19 05:59 Dose: 60 mls/hr Documented by: [id number] Cefazolin Sodium (Ancef 2000mg) 2,000 mg in 15 mls @ 3.75 mls/min IV PREOP ALLYSON; Protocol Stop: 10/21/19 18:00 Last Admin: 10/21/19 07:12 Dose: 3.75 mls/min Documented by: [id number] Tranexamic Acid (Tranexamic Acid / 0.7% Nacl) 1,000 mg in 100 mls @ 600 mls/hr IV TODAY@0600 ALLYSON Stop: 10/21/19 18:00 Last Infusion: 10/21/19 07:08 Dose: 0 mls/hr Documented by: [id number] Admin: 10/21/19 06:57 Dose: 600 mls/hr Documented by: [id number] Sodium Chloride (Nss 1000ml) 1,000 mls @ 15 mls/hr IV .Q24H [facility] Stop: 10/22/19 02:14 Last Admin: 10/21/19 11:05 Dose: Not Given Documented by: [id number] Metoclopramide HCl (Metoclopramide Hcl 10 Mg Tablet) 10 mg PO PREOP ALLYSON Stop: 10/21/19 18:00 Last Admin: 10/21/19 06:05 Dose: 10 mg Documented by: [id number] Discontinued Medications Bacitracin (Bacitracin Inj 50,000 Unit Vial) Confirm Administered Dose 50,000 units .ROUTE .STK-MED ONE Stop: 10/21/19 06:34 Last Admin: 10/21/19 08:01 Dose: 50,000 units Documented by: [id number] Bupivacaine HCl (Bupivacaine 0.5 % 5 Mg/1 Ml Mpf 30ml Vial) Confirm Administered Dose 60 ml .ROUTE .STK-MED ONE Stop: 10/21/19 06:35 Last Admin: 10/21/19 08:20 Dose: 45 ml Documented by: [id number] Epinephrine HCl (Epinephrine Inj 1 Mg/Ml Amp) Confirm Administered Dose 1 mg .ROUTE .STK-MED ONE Stop: 10/21/19 06:35 Last Admin: 10/21/19 08:19 Dose: 0.3 mg Documented by: [id number] Fentanyl Citrate (Fentanyl Citrate 100 Mcg/2 Ml Vial) Confirm Administered Dose 100 mcg .ROUTE .STK-MED ONE Stop: 10/21/19 09:10 Last Admin: 10/21/19 11:05 Dose: Not Given Documented by: [id number] Fentanyl Citrate (Fentanyl Citrate 100 Mcg/2 Ml Vial) 25 mcg IV Q5M PRN PRN Reason: Pain Stop: 11/04/19 09:14 Last Admin: 10/21/19 09:11 Dose: 25 mcg Documented by: [id number] Morphine Sulfate (Morphine Sulfate Pf 1 Mg/Ml 10 Ml Amp/Vial) 0.15 mg INT SPINAL ONCE ONE Stop: 10/21/19 08:15 Last Admin: 10/21/19 11:04 Dose: Not Given Documented by: [id number] ECG Rhythm: sinus bradycardia Findings: + PVC and + RBBB
[2019-10-21] MEDS ORDERED: GABAPENTIN 100 MG CAP PO SCH (11:30)
[2019-10-21] MEDS ORDERED: SOTALOL HCL 80 MG TAB PO SCH (11:30)
[2019-10-21] MEDS ORDERED: MIRTAZAPINE TAB 15 MG TAB PO SCH (11:30)
[2019-10-21] MEDS ORDERED: predniSONE 1 MG TAB PO SCH (11:30)
--- NOTE | 2019-10-21 11:33 | Operative Report ---
Post Operative Report Pre & Post Diagnosis Operation Date: 08/26/19 07:00 <No data on this case meets the specified criteria> Operation Date: 10/21/19 07:00 Pre-Op Diagnosis: RIGHT HIP DEGENERATIVE JOINT DISEASE Post-Op Diagnosis: RIGHT HIP DEGENERATIVE JOINT DISEASE I identified the patient and participated in the time-out.: Yes Procedure Operation Date: 08/26/19 07:00 <No data on this case meets the specified criteria> Operation Date: 10/21/19 07:00 Actual Procedures p Right Total Hip Arthroplasty, Cemented(Right) - Kenneth Marcos MD Surgeon Kenneth Marcos MD Duck Bill Operator Laith, PAC Estimated Blood Loss 200 Findings Consistent with Post-Op Diagnosis Operative findings revealed advanced right hip DJD. She had a moderate-sized joint effusion. She had grade 4 [id number] disease of the femoral head and acetabulum. Moderate synovitis. Fluids 1000 cc. Specimens Right femoral head sent for pathology. Drains None. Anesthesia Type Spinal MAC Complications none Disposition Accompanied Patient To Recovery: Yes Disposition: Recovery Room Indications Patient is an 89-year-old fairly frail left female who lives by herself who is had a several year history of increasing right hip pain discomfort to the point where she is become debilitated and having difficulty with living alone. 7 difficulty walking with a walker. She did undergo spine surgery a year ago which really did not help her too much. X-ray showed progressive right hip arthritis but she failed all conservative measures. She is been scheduled for surgery several times and had to be canceled for both medical and social reasons. She is now optimized and elected proceed with total hip arthroplasty. Description of Procedure Operative implants consist of: 1. Biomet G7 size 52 mm acetabular shell. 2. Biomet size 6.5 mm cancellus acetabular screws 1 of 35 mm in length and 1 of 30 mm length. 3. An apex hole eliminator #4 highly cross-linked polyethylene liner with a 52 mm outer diameter and a 36 mm inner diameter with a rainey placed inferior and posterior. 5. [place] cemented femoral stem size 3 standard. 6. +1.5/36 mm metal articular ball. The patient was taken to the operating identified and placed on the operating table supine position protectors were properly padded. IV antibiotics arrived by anesthesia team. A spinal anesthetic and been implemented holding area. Alas catheter was placed in sterile fashion. The patient then placed in the left lateral decubitus position. An axillary roll was placed. A Stulberg hip positioner was used for positioning. The right hip and leg were then prepped and draped in usual sterile fashion. A posterior lateral approach of the right hip was then performed through a curvilinear incision. Sharp dissection was carried through subcutaneous tissue down below the IT band gluteal fascia the IT band gluteal fascia was incised longitudinally in line with skin incision. The underlying greater truck bursa was excised. Piriformis and external rotators were tagged and taken off the posterior aspect hip joint capsule. A posterior capsulotomy was then performed leaving a large flap for later repair. Hip was internally rotated and dislocated. Femoral neck osteotomy cut was made with Final Cut 10 mm above the lesser trochanter. Femoral head was removed and sent for pathology. The femur was retracted anteriorly. Attention drawn the acetabulum. The acetabular labrum was excised. The pulmonary fat was excised. Sequential reaming the acetabular was then performed again with size 43 and progressing up to 51. We did reamed just gently with a 52 reamer. A 52 mm Biomet G7 acetabular shell was then placed in about 40 degrees lateral opening and 15 to 20 degrees of anteversion. It was fixed with two 6.5 cancellus acetabular screws. Some small anterior osteophytes were removed and a trial liner was placed. Attention drawn the femur. The proximal femur was entered with a cookie-cutter followed by canal finder and lateralizing reamer. I then broached begin the size of 1 and progressing up to 3. We got excellent fit of 3. I then trialed the hip. The +5 articular ball was stable but soft tissue tension was too tight particular in extension. Therefore we elected to place a 1.5 head. The soft tissue tension seemed appropriate. Leg lengths seemed appropriate. Hip was fully stable in full extension and external rotation and flexion to 90 degrees into rotation over 50 degrees. I did elect to place a rainey inferior and posterior to maximize her stability. We also used a 36 head to maximize her stability. We elect to place these implants. All trial implants were removed. An apex eliminator was placed. Highly cross- linked polyethylene liner was placed with a rainey placed inferior and posterior. A double patch Pal[place] G cement was mixed and then injected into the canal. A [place] cemented size 3 standard stem was then placed. We held this until the cement hardened. I then placed a +1.5/36 mm metal articular ball. Hip was located once again found to be stable. Attention drawn toward closing. The wound was irrigated with copious amounts of pulsatile lavage solution. I did inject locally with about 40 cc of half percent Marcaine with epinephrine. The posterior capsule and external rotators were then repaired through drill holes in the posterior trochanter with #2 Tycron suture. The IT band gluteal fascia then closed in 1 PDS suture running fashion the subcutaneous tissue then closed 2 layers with a deep layer #1 Vicryl suture and the subcutaneous tissues with 2-0 Dexon suture in a buried interrupted fashion the skin was closed skin polina. Leg was then cleaned dried a sterile dressing composed Xeroform, 4 x 4's, ABD pad and Medipore tape was applied. The patient then transferred to the recovery room in stable condition. Patient tolerated the procedure well and there were no complications. Mark Ozuna, my physician psychiatric technician assistant, was present for the entire procedure. His assistance was essential and required for appropriate patient positioning, prepping and draping, surgical exposure, performing the technical details of the operation, placing the implants, closure of the wound, and placement of the sterile bandage. I attest to the content of the Intraoperative Record and any orders documented therein. Any exceptions are noted below.
[2019-10-21] MEDS ORDERED: HydrALAZINE HCL 20 MG/ML VIAL IV STA (12:18)
[2019-10-21] MEDS: LACTOBACILLUS ACIDOPHILUS (FLORANEX) TAB PO SCH (12:20)
[2019-10-21] MEDS: MULTIVITAMIN TAB PO SCH (12:20)
[2019-10-21] MEDS: DOCUSATE SODIUM 100 MG CAP PO SCH ×2 (12:20→20:07)
[2019-10-21] MEDS: FUROSEMIDE 20 MG TAB PO SCH (12:21)
[2019-10-21] MEDS: SENNA 8.6 MG TAB PO SCH ×2 (12:22→20:08)
[2019-10-21] MEDS ORDERED: ISOSORBIDE MONO EXTENDED REL 30 MG TABCR PO ONE (12:30)
[2019-10-21] MEDS: ACETAMINOPHEN 500 MG TAB PO SCH ×2 (15:00→21:50)
[2019-10-21] MEDS ORDERED: HydrALAZINE HCL 20 MG/ML VIAL IV ONE (15:22)
[2019-10-21] MEDS: CEFAZOLIN 1000MG 1,000 MG/7.5 ML SYR IV SCH ×2 (15:34→22:54)
[2019-10-21] MEDS ORDERED: WARFARIN SOD 5 MG TAB PO ONE (16:00)
[2019-10-21] MEDS ORDERED: WARFARIN SOD 2 MG TAB PO SCH (16:00)
[2019-10-21] MEDS: ASCORBIC ACID 500 MG TAB PO SCH (17:59)
[2019-10-21] MEDS: DONEPEZIL HCL 5 MG TAB PO SCH (20:07)
[2019-10-21] MEDS: FERROUS SULFATE 325 MG TAB PO SCH (20:07)
[2019-10-21] MEDS: ATORVASTATIN 40 MG TAB PO SCH (20:07)
[2019-10-21] MEDS: GABAPENTIN 100 MG CAP PO SCH (20:08)
[2019-10-21] MEDS: PANTOprazole 40 MG TAB PO SCH (20:08)
[2019-10-21] MEDS ORDERED: ISOSORBIDE MONO EXTENDED REL 30 MG TABCR PO SCH (21:00)
[2019-10-21] MEDS ORDERED: SENNA 8.6 MG TAB PO SCH (21:00)
[2019-10-22] MEDS ORDERED: NALOXONE HCL 0.4 MG/1 ML VIAL/CARP IV PRN (02:15)
[2019-10-22] MEDS ORDERED: ONDANSETRON INJ 2 MG/ML 2 ML VIAL IV PRN (02:15)
[2019-10-22] MEDS: OXYCODONE HCL IR 5 MG TAB (IMMEDIATE RELEASE) PO PRN ×4 (02:50→20:23)
[2019-10-22] MEDS: HYDROmorphone INJ 0.5 MG/0.5 ML SYR IV PRN ×2 (02:51→06:33)
[2019-10-22] MEDS: LEVOTHYROXINE SODIUM 50 MCG TABLET PO SCH (05:47)
[2019-10-22] MEDS: ACETAMINOPHEN 500 MG TAB PO SCH ×3 (05:47→20:19)
[2019-10-22 06:11] LABS: Basophils # (auto) 0.01 K/uL (0-0.2); Basophils % (auto) 0.1 %; Eosinophils # (auto) 0.28 K/uL (0-0.5); Eosinophils % (auto) 2.4 %; Hematocrit (blood only) 34.3 % (37-47); Hemoglobin 10.6 g/dL (12.0-16.0); Immature Granulocytes # (auto) 0.02 K/uL (0.00-0.02); Immature Granulocytes % (auto) 0.2 %; Lymphocytes # (auto) 1.27 K/uL (1.2-3.4); Mean Corpuscular Hemoglobin 30.5 pg (25-34); Mean Corpuscular Hgb Conc 30.9 g/dL (32-36); Mean Corpuscular Volume 98.8 fL (80-100); Mean Platelet Volume 10.4 fL (7.4-10.4); Monocytes % (auto) 7.8 %; Neutrophils # (auto) 9.09 K/uL (1.4-6.5); Neutrophils % (auto) 78.5 %; Platelet Count 276 K/uL (130-400); RDW Standard Deviation 57.6 fL (36.4-46.3); Red Blood Count 3.47 M/uL (4.2-5.4); White Blood Count 11.57 K/uL (4.8-10.8)
[2019-10-22 06:15] LABS: INR 1.2 (0.9-1.1); Prothrombin Time 12.4 Seconds (9.0-12.0)
[2019-10-22 06:43] LABS: BUN Creatinine Ratio 18.9 (10-20); Calcium 8.2 mg/dl (8.5-10.1); Creatinine Clr Calc Pharmacy 24.3 ml/min; Est GFR (African American) 48.3; Est GFR (Non-African American) 41.7; Potassium 3.8 mmol/L (3.5-5.1)
--- NOTE | 2019-10-22 08:53 | Hospitalist Progress Note ---
Date of Service October 22, 2019 Assessment & Plan (1) Arthritis of right hip: S/P R ELIE by Dr. Marcos POD #1 EBL 200ml pain/wound management per ortho activity and therapy as directed by ortho encourage incentive spirometry Hgb: 10.6. Preop Hgb: 11; monitor H&H (2) HTN (hypertension): BP elevated post operatively, required 2 doses hydralazine IV Overnight and this morning BP stable Continue sotalol, Imdur Will resume Lasix (3) Afib: rhythm controlled with sotalol [id number] - anticoagulated with warfarin Pt follows [facility] for warfarin management Jermaine BrunerD (recommends 10mg 10/20, 5mg 9/ and then follow home regimen 2.5mg MWF and 5mg all other days) warfarin restarted per ortho on 10/21/2019 Today INR: 1.2 (4) CAD (coronary artery disease): History of BMS to LAD in 2017. Follows [facility] cardiology Denies any chest pain Continue ASA, statin, Imdur, sotalol (5) Diastolic heart failure: echo 09/07/19 EF 70%, mild MR, grade 1 DD Patient appears euvolemic daily weights, I and O Will resume Lasix (6) CKD (chronic kidney disease) stage 3, GFR 30-59 ml/min: follows [facility] nephrology, last seen telemed visit 10/19 Cr 1.2 at baseline Cr: 1.16 today monitor renal functions, avoid nephrotoxic agents when able (7) Chronic anemia: h/h stable continue iron supplementation (8) Gastroesophageal reflux: continue PPI (9) PMR (polymyalgia rheumatica): pt on chronic prednisone therapy Continue 4 mg prednisone daily (10) Hypothyroidism: continue levothyroxine (11) DVT prophylaxis: SCD/TEDS Warfarin restarted yesterday Disposition per primary service Follow up: PCP Dr. Weber upon discharge; follow-up [facility] clinic for INR monitoring Pt was seen and examined in collaboration with Dr. Gutierrez, please see addendum Thank you for this consultation. We will follow the patient with you during their hospital stay. You can reach a member of the [facility] Hospitalist Team 11/09 via pager @ [phone]. Admission and Anticipated Discharge Date Admission Date: October 21, 2019 Supervising Physician Co-Signing Physician Notes Attending addendum: The patient was seen and examined in medical floor She has been doing well follow-up following right total hip arthroplasty He denies any symptoms except some right hip pain On examination Sitting on a chair without any distress Hemodynamically stable Chest-clear Heart-S1-S2, irregularly irregular Abdomen-benign Extremities-no edema Labs and imaging studies reviewed Agree with assessment and plan as outlined above by Jenna Maguire PA-C Medically stable Dr Rachel Gutierrez Subjective Patient seen and examined, sitting up in bed eating breakfast. POD #1 s/p right total hip arthroplasty. Patient reports had pain during the night, this morning feels pain is better controlled. Denies nausea, vomiting, chest pain, shortness of breath. Eating without difficulty. Still has Alas catheter in place. Patient reports last BM was yesterday. Denies fever/chills, diaphoresis, GROVE, dizziness, syncope, vision changes, neck pain, orthopnea, palpitations, cough, sore throat, choking, abdominal pain, paresthesias, weakness, extremity edema, rashes. Review of Systems Review of Systems: All systems reviewed & are unremarkable except as noted in HPI & below Physical Exam Physical Exam: General: no distress, thin elderly female Head: normocephalic, atraumatic Eyes: conjunctiva non-injected, anicteric ENT: normal inspection external ears, nose, mucous membranes moist Neck: supple, trachea midline Lungs: clear, no respiratory distress, no wheezing/rhonchi/rales CV: RRR, no murmur, no pretibial edema Abd: normal BS, soft, non-tender Ext: no cyanosis, no calf tenderness Neuro: A&O x 3, no focal deficits noted, normal affect Skin: warm, dry Results & Data Results & Data ([facility]) Vital Signs (Past 12 Hours) Vital Signs Temp Pulse Resp BP Pulse Ox Pulse Ox 10/22/19 07:55 37.1 C 71 16 148/70 H 98 10/22/19 02:44 37.4 C 78 16 130/65 92 10/22/19 01:05 92 10/22/19 00:58 14 91 10/22/19 00:00 92 10/21/19 23:06 14 91 10/21/19 23:05 37.6 C H 78 14 117/54 L 91 10/21/19 21:00 16 90 Laboratory Results Short CBC 10/22/19 Range/Units 05:16 WBC 11.57 H (4.8-10.8) K/uL Hgb 10.6 L (12.0-16.0) g/dL Hct 34.3 L (37-47) % Plt Count 276 (130-400) K/uL BMP 10/22/19 05:16 Sodium 141 Potassium 3.8 Chloride 107 Carbon Dioxide 27 BUN 22 H Creatinine 1.16 Glucose 92 Calcium 8.2 L
[2019-10-22] MEDS ORDERED: ASPIRIN 81 MG CHEW PO SCH (09:00)
[2019-10-22] MEDS: MULTIVITAMIN TAB PO SCH (09:12)
[2019-10-22] MEDS: LACTOBACILLUS ACIDOPHILUS (FLORANEX) TAB PO SCH (09:12)
[2019-10-22] MEDS: MIRTAZAPINE TAB 15 MG TAB PO SCH (09:13)
[2019-10-22] MEDS: SOTALOL HCL 80 MG TAB PO SCH (09:13)
[2019-10-22] MEDS: predniSONE 1 MG TAB PO SCH (09:13)
[2019-10-22] MEDS: GABAPENTIN 100 MG CAP PO SCH ×2 (09:14→20:18)
[2019-10-22] MEDS: FERROUS SULFATE 325 MG TAB PO SCH ×2 (09:14→20:17)
[2019-10-22] MEDS: ASCORBIC ACID 500 MG TAB PO SCH ×2 (09:14→17:16)
[2019-10-22] MEDS: DOCUSATE SODIUM 100 MG CAP PO SCH ×2 (09:14→20:17)
[2019-10-22] MEDS: FAMOTIDINE 20 MG TAB PO SCH (11:14)
[2019-10-22] MEDS: SENNA 8.6 MG TAB PO SCH ×2 (11:14→20:18)
--- NOTE | 2019-10-22 14:37 | Progress Notes ---
DATE: 10/22/2019 SUBJECTIVE: An 89-year-old white female postop day 1 from a right hybrid total hip arthroplasty. She is doing pretty well. Had quite a bit of pain last night and required some medication, but doing better today. She has been up and walking some with assistance. Denies any chest pain or shortness of breath. OBJECTIVE: VITAL SIGNS: Temperature 36.6. Vital signs stable. GENERAL: Shows a pleasant elderly female. I had to wake her this afternoon when I visited her. She is lying in bed and looks pretty comfortable. LUNGS: Clear to auscultation. HEART: Regular rate and rhythm. ABDOMEN: Soft, nontender, nondistended. EXTREMITIES: Grossly neurovascularly intact except as follows: Examination of the right leg reveals the leg to be well aligned. Dressing is clean, dry and intact. She can dorsiflex and plantarflex her foot appropriately. She is neurologically intact. LABORATORY DATA: Hemoglobin 10.6. Hematocrit 34.3. White cell count 11.57. Electrolytes are stable. Creatinine is actually improved. Her INR is 1.2. ASSESSMENT: An 89-year-old white female postoperative day 1 from right hip replacement, doing pretty well. Pain is better today. Therapy has gone reasonably well. She appears medically stable. PLAN: 1. DVT prophylaxis including thigh-high TEDs, SCDs, and back on Coumadin. We will give her 5 mg tonight. 2. PT/OT. Weight bear as tolerated. Right total hip protocol. 3. Pain control, doing okay with current pain regimen. We will need to be careful to avoid too much meds to avoid confusion. 4. Medical management as per the medicine service. 5. Disposition: She is hoping to be discharged to home with some home health once medically stable.
[2019-10-22] MEDS ORDERED: WARFARIN SOD 5 MG TAB PO ONE (16:00)
[2019-10-22] MEDS: DONEPEZIL HCL 5 MG TAB PO SCH (20:17)
[2019-10-22] MEDS: PANTOprazole 40 MG TAB PO SCH (20:18)
[2019-10-22] MEDS: ATORVASTATIN 40 MG TAB PO SCH (20:18)
[2019-10-22] MEDS ORDERED: ISOSORBIDE MONO EXTENDED REL 30 MG TABCR PO SCH (21:00)
[2019-10-23] MEDS: OXYCODONE HCL IR 5 MG TAB (IMMEDIATE RELEASE) PO PRN ×3 (04:41→13:09)
[2019-10-23] MEDS: LEVOTHYROXINE SODIUM 50 MCG TABLET PO SCH (05:59)
[2019-10-23] MEDS: ACETAMINOPHEN 500 MG TAB PO SCH ×2 (05:59→13:07)
[2019-10-23] MEDS: SOTALOL HCL 80 MG TAB PO SCH (06:27)
[2019-10-23 07:15] LABS: Hematocrit (blood only) 30.3 % (37-47); Hemoglobin 9.5 g/dL (12.0-16.0); Mean Corpuscular Hemoglobin 30.4 pg (25-34); Mean Corpuscular Hgb Conc 31.4 g/dL (32-36); Mean Corpuscular Volume 97.1 fL (80-100); Mean Platelet Volume 9.9 fL (7.4-10.4); Platelet Count 235 K/uL (130-400); RDW Coefficient of Variation 16.2 % (11.5-14.5); RDW Standard Deviation 57.7 fL (36.4-46.3); Red Blood Count 3.12 M/uL (4.2-5.4); White Blood Count 9.71 K/uL (4.8-10.8)
[2019-10-23 07:37] LABS: INR 1.7 (0.9-1.1)
[2019-10-23 07:39] LABS: BUN Creatinine Ratio 17.2 (10-20); Calcium 8.1 mg/dl (8.5-10.1); Creatinine Clr Calc Pharmacy 25.2 ml/min; Est GFR (African American) 49.4; Est GFR (Non-African American) 42.6
[2019-10-23] MEDS: SENNA 8.6 MG TAB PO SCH (07:44)
[2019-10-23] MEDS: FERROUS SULFATE 325 MG TAB PO SCH (07:45)
[2019-10-23] MEDS: ASCORBIC ACID 500 MG TAB PO SCH (07:45)
[2019-10-23] MEDS: DOCUSATE SODIUM 100 MG CAP PO SCH (07:45)
[2019-10-23] MEDS ORDERED: WARFARIN SOD 3 MG TAB PO ONE (07:45)
[2019-10-23] MEDS: FUROSEMIDE 20 MG TAB PO SCH (07:45)
[2019-10-23] MEDS: predniSONE 1 MG TAB PO SCH (07:45)
[2019-10-23] MEDS: GABAPENTIN 100 MG CAP PO SCH (07:45)
[2019-10-23] MEDS: LACTOBACILLUS ACIDOPHILUS (FLORANEX) TAB PO SCH (07:46)
[2019-10-23] MEDS: MIRTAZAPINE TAB 15 MG TAB PO SCH (07:46)
[2019-10-23] MEDS: MULTIVITAMIN TAB PO SCH (07:47)
--- NOTE | 2019-10-23 07:47 | Progress Notes ---
DATE: 10/22/2019 SUBJECTIVE: An 89-year-old white female postop day 2 from right hybrid total hip replacement. She is doing pretty well. Really anxious to get home. She says she is getting poked all over the place in the hospital. She wants to go home. No chest pain or shortness of breath. Not feeling dizzy or lightheaded. Hip pain is controlled. OBJECTIVE: VITAL SIGNS: Temperature 37.3. Vital signs stable. GENERAL: Shows a pleasant elderly female. She is lying in bed, looks pretty comfortable this morning. EXTREMITIES: Examination of the right hip reveals the incision to be clean, dry and intact. Thigh is soft and supple. Leg lengths are equal. Hip is located. LABORATORY DATA: Hemoglobin 9.5. Hematocrit 30.3. Electrolytes are pending. INR is pending. ASSESSMENT: An 89-year-old white female postop day 2 from right hip replacement, doing pretty well. Her pain is controlled. Hip is located. She is neurologically intact. Hemoglobin is stable. PLAN: 1. DVT prophylaxis including thigh-high TEDs, SCDs, and she is back on her Coumadin. 2. PT/OT. Weightbear as tolerated. Right total hip protocol. 3. Pain control, doing okay with current pain regimen. 4. Anemia. Currently, asymptomatic. Continue iron supplementation. 5. Disposition: Plan to discharge to home with some home health later today.
[2019-10-23] MEDS: FAMOTIDINE 20 MG TAB PO SCH (07:49)
--- NOTE | 2019-10-23 12:35 | Hospitalist Progress Note ---
Date of Service October 23, 2019 Assessment & Plan (1) Arthritis of right hip: S/P R ELIE by Dr. Marcos POD #2 EBL 200ml pain/wound management per ortho activity and therapy as directed by ortho encourage incentive spirometry Hgb: 10.6. Preop Hgb: 11; monitor H&H Hemoglobin stable at 9.5 as of 10/23/2019 (2) HTN (hypertension): BP elevated post operatively, required 2 doses hydralazine IV Overnight and this morning BP stable Continue sotalol, Imdur Will resume Lasix Blood pressure is upper side (3) Afib: rhythm controlled with sotalol [id number] - anticoagulated with warfarin Pt follows [facility] for warfarin management Jermaine BrunerD (recommends 10mg 10/20, 5mg 10/21 and then follow home regimen 2.5mg MWF and 5mg all other days) warfarin restarted per ortho on 10/21/2019 INR is 1.7 as of 10/23/2019 (4) CAD (coronary artery disease): History of BMS to LAD in 2017. Follows [facility] cardiology Denies any chest pain Continue ASA, statin, Imdur, sotalol No acute symptoms (5) Diastolic heart failure: echo 09/07/19 EF 70%, mild MR, grade 1 DD Patient appears euvolemic daily weights, I and O Lasix has been restarted (6) CKD (chronic kidney disease) stage 3, GFR 30-59 ml/min: follows [facility] nephrology, last seen telemed visit 10/19 Cr 1.2 at baseline Cr: 1.16 today monitor renal functions, avoid nephrotoxic agents when able (7) Chronic anemia: h/h stable continue iron supplementation (8) Gastroesophageal reflux: continue PPI (9) PMR (polymyalgia rheumatica): pt on chronic prednisone therapy Continue 4 mg prednisone daily (10) Hypothyroidism: continue levothyroxine (11) DVT prophylaxis: SCD/TEDS Warfarin restarted yesterday Disposition per primary service Follow up: PCP Dr. Weber upon discharge; follow-up [facility] clinic for INR monitoring Pt was seen and examined in collaboration with Dr. Gutierrez, please see addendum Thank you for this consultation. We will follow the patient with you during their hospital stay. You can reach a member of the [facility] Hospitalist Team 11/09 via pager @ [phone]. Medically stable Admission and Anticipated Discharge Date Admission Date: October 21, 2019 Subjective 10/23/2019 The patient was seen and examined in medical floor She has been feeling a lot better and ready to be discharged Denies any significant symptoms Review of Systems Review of Systems: All systems reviewed and are unremarkable except as noted below Physical Exam Physical Exam: Sitting on a chair without any acute symptoms Constitutional: + thin; no acute distress and not ill appearing Eyes: PERRL, conjunctivae normal, anicteric sclerae ENMT: external ear and nose normal, oropharynx normal Neck: trachea midline, no thyromegaly Respiratory: normal respiratory effort; no respiratory distress Auscultation: lungs clear to auscultation bilaterally Cardiovascular: Rate/Rhythm: regular rate and regular rhythm Heart Sounds: no murmur Gastrointestinal (Abdomen): Inspection/Auscultation: abdomen normal to inspection; abdomen not distended Percussion/Palpation: abdomen soft Neurologic: moves all extremities; no focal motor deficits Results & Data Results & Data ([facility]) Vital Signs (Past 12 Hours) Vital Signs Temp Pulse Resp BP Pulse Ox 10/23/19 06:20 37.3 C 80 16 182/70 H 95 Laboratory Results Short CBC 10/23/19 Range/Units 06:53 WBC 9.71 (4.8-10.8) K/uL Hgb 9.5 L (12.0-16.0) g/dL Hct 30.3 L (37-47) % Plt Count 235 (130-400) K/uL BMP 10/23/19 06:53 Sodium 141 Potassium 4.0 Chloride 109 H Carbon Dioxide 26 BUN 20 H Creatinine 1.14 Glucose 82 Calcium 8.1 L Medications Administered Current Inpatient Medications Acetaminophen (Acetaminophen 500 Mg Tab) 1,000 mg PO Q8 [place] Stop: 11/20/19 13:59 Last Admin: 10/23/19 05:59 Dose: 1,000 mg Documented by: Al Hydrox/Mg Hydrox/Simethicone (Aluminum/Magnesium Susp 30 Ml Udc) 15 ml PO Q4H PRN PRN Reason: Heartburn Stop: 11/20/19 10:33 Ascorbic Acid (Ascorbic Acid 500 Mg Tab) 500 mg PO BIDM [place] Stop: 11/20/19 16:59 Last Admin: 10/23/19 07:45 Dose: 500 mg Documented by: Aspirin (Aspirin 81 Mg Chew) 81 mg PO MoWeFr@0900 [facility] Stop: 11/21/19 08:59 Last Admin: 10/22/19 09:13 Dose: 81 mg Documented by: Atorvastatin Calcium (Atorvastatin 40 Mg Tab) 40 mg PO HS [facility] Stop: 11/20/19 20:59 Last Admin: 10/22/19 20:18 Dose: 40 mg Documented by: Bisacodyl (Bisacodyl 10 Mg Supp) 10 mg FL DAILY PRN PRN Reason: Constipation Stop: 11/20/19 10:33 Docusate Sodium (Docusate Sodium 100 Mg Cap) 100 mg PO BID [facility] Stop: 11/20/19 11:29 Last Admin: 10/23/19 07:45 Dose: 100 mg Documented by: Donepezil HCl (Donepezil Hcl 5 Mg Tab) [address] [facility] Stop: 11/20/19 20:59 Last Admin: 10/22/19 20:17 Dose: 5 mg Documented by: Famotidine (F[facility]otidine 20 Mg Tab) [facility] Stop: 11/21/19 08:59 Last Admin: 10/23/19 07:49 Dose: 20 mg Documented by: Ferrous Sulfate (Ferrous Sulfate 325 Mg Tab) 325 mg PO BID [facility] Stop: 11/20/19 20:59 Last Admin: 10/23/19 07:45 Dose: 325 mg Documented by: Furosemide (Furosemide 20 Mg Tab) 20 mg PO QAM [facility] Stop: 11/20/19 11:29 Last Admin: 10/23/19 07:45 Dose: 20 mg Documented by: Gabapentin (Gabapentin 100 Mg Cap) 100 mg PO BID [facility] Stop: 11/20/19 20:59 Last Admin: 10/23/19 07:45 Dose: 100 mg Documented by: Hydromorphone HCl (Hydromorphone Inj 0.5 Mg/0.5 Ml Syr) 0.5 mg IV Q4H PRN PRN Reason: Pain or Pre PT Stop: 11/05/19 02:14 Last Admin: 10/22/19 06:33 Dose: 0.5 mg Documented by: Isosorbide Mononitrate (Isosorbide Crenshaw Extended Rel 30 Mg Tabcr) 30 mg PO QPM [facility] Stop: 11/21/19 20:59 Last Admin: 10/22/19 20:17 Dose: 30 mg Documented by: Lactobacillus Acidophilus (Lactobacillus Acidophilus (Floranex) Tab) 4 [facility] [place] Stop: 11/20/19 11:29 Last Admin: 10/23/19 07:46 Dose: 4 tab Documented by: Levothyroxine Sodium (Levothyroxine Sodium 50 Mcg Tablet) [facility] Stop: 11/21/19 06:29 Last Admin: 10/23/19 05:59 Dose: 50 mcg Documented by: Levothyroxine Sodium (Levothyroxine Sodium 100 Mcg Tablet) 100 mcg PO Carrera@0630 [facility] Stop: 11/25/19 06:29 Magnesium Hydroxide (Magnesium Hydroxide Susp 30 Ml Udc) 30 ml PO Q6H PRN PRN Reason: Constipation Stop: 11/20/19 10:33 Metoclopramide HCl (Metoclopramide Hcl Inj 5 Mg/Ml 2 Ml Vial) 10 mg IV Q6H PRN PRN Reason: Nausea And Vomiting Stop: 11/20/19 10:33 Mirtazapine (Mirtazapine Tab 15 Mg Tab) 30 mg PO [facility] Stop: 11/21/19 08:59 Last Admin: 10/23/19 07:46 Dose: 30 mg Documented by: Miscellaneous Medication (No Nsaids) 1 ea N/A UD [facility] Stop: 11/20/19 10:33 Multivitamins (Multivitamin Tab) 1 tab PO [facility] Stop: 11/20/19 10:33 Last Admin: 10/23/19 07:47 Dose: 1 tab Documented by: Naloxone HCl (Naloxone Hcl 0.4 Mg/1 Ml Vial/Carp) 0.1 mg IV Q5M PRN PRN Reason: Oversedation/Resp Depression Stop: 11/21/19 02:14 Nitroglycerin (Nitroglycerin Sl 0.4 Mg/Tab Tab) 0.4 mg SL UD PRN PRN Reason: chest pain,esophageal spasm Stop: 11/20/19 10:33 Ondansetron HCl (Ondansetron Inj 2 Mg/Ml 2 Ml Vial) 4 mg IV Q6H PRN PRN Reason: Nausea And Vomiting Stop: 11/21/19 02:14 Oxycodone HCl (Oxycodone Hcl Ir 5 Mg Tab (Immediate Release)) 5 mg PO Q4H PRN PRN Reason: Pain or Pre PT Stop: 11/05/19 02:14 Last Admin: 10/23/19 08:45 Dose: 5 mg Documented by: Pantoprazole Sodium (Pantoprazole 40 Mg Tab) 40 mg PO PM [facility] Stop: 11/20/19 20:59 Last Admin: 10/22/19 20:18 Dose: 40 mg Documented by: Prednisone (Prednisone 1 Mg Tab) 4 mg PO QAM [facility] Stop: 11/21/19 08:59 Last Admin: 10/23/19 07:45 Dose: 4 mg Documented by: Sennosides (Senna 8.6 Mg Tab) 8.6 mg PO BID [facility] Stop: 11/20/19 11:29 Last Admin: 10/23/19 07:44 Dose: 8.6 mg Documented by: Sotalol HCl (Sotalol Hcl 80 Mg Tab) 40 mg PO QAM [facility] Stop: 11/21/19 08:59 Last Admin: 10/23/19 06:27 Dose: 40 mg Documented by:
[2019-10-26] MEDS ORDERED: LEVOTHYROXINE SODIUM 100 MCG TABLET PO SCH (06:30)
--- NOTE | 2019-10-26 07:17 | Discharge Summary ---
Date of Service October 26, 2019 Admission HPI Per Admitting Provider Documented in the H & P Admission Exam (Per Admitting) Constitutional Documented in the H & P Discharge Data Consultations 10/21/19 10:34 Consult Internal Medicine Routine 10/22/19 08:00 Consult Case Management - Discharge Planning Routine Procedures Performed Operation Date: 08/26/19 07:00 <No data on this case meets the specified criteria> Operation Date: 10/21/19 07:00 Actual Procedures p Right Total Hip Arthroplasty, Cemented(Right) - Kenneth Marcos MD Hospital Course (1) Status post total hip replacement, right: This patient is a 89 year old female admitted on 10/21/19 and underwent total hip replacement. She tolerated the procedure well and there were no complications. Transferred to the PACU post op and later to the telemetry floor for further care. She was given ancef for antibiotic prophylaxis. She was also given SIENNA stockings, SCDs, and coumadin for DVT prophylaxis. Hemoglobin, hematocrit, and vital signs were monitored during her hospital stay and remained stable. Did not require any blood transfusions. She did receive an iron supplement. There were no complications during their hospital stay. She was followed by the hospitalist service throughout her hospital stay. By post op day #2 the patient was tolerating a heart healthy diet, pain was reasonably controlled with oral pain medicine, and she was participating in physical therapy. On post op day #2 the patient was discharged home and set up with home health care. She was given printed discharge instructions including prescriptions for extra strength tylenol and oxycodone. Continue coumadin. Continue physical therapy, weight bearing as tolerated. Total hip precautions. Continue SIENNA stockings. Follow up approximately 2 weeks post op or sooner if there are problems or concerns. Coding Level of Care Code None Diagnoses Status post total hip replacement, right Z96.641
== END 2019-10-23 13:58 | disposition home health service (06) | DRG 470 ==
LOC: ASU 05:23 → 3E 08:55